=== PATIENT | male | born 1950 | race Caucasian/White ===

== ENCOUNTER 2017-02-28 15:57 | Inpatient (IN) ==
[2017-02-28 17:04] LABS: Hemoglobin 18.2 g/dL (12.9-16.9)
[2017-02-28 17:06] LABS: Basophils # 0.1 K/mcL (0.0-0.2); Basophils % 0.3 %; Hematocrit 50.5 % (37.5-50.1); Immature Granulocytes % 0.7 % (0-4); Lymphocytes # 1.3 K/mcL (0.6-4.6); Lymphocytes % 4.3 %; Mean Corpuscular Hemoglobin 30.5 pg (28.0-33.3); Mean Corpuscular Volume 84.7 fL (83.0-100.0); Mean Platelet Volume 10.7 fL (9.4-12.4); Neutrophils # 28.1 K/mcL (1.6-8.9); Platelet Count 271 K/mcL (140-400); Red Blood Count 5.96 M/mcL (4.19-5.50); Red Cell Distribution Width 13.1 % (11.5-14.5); Segmented Neutrophils % 90.7 %
[2017-02-28] MEDS ORDERED: 0.9 % Sodium Chloride 2,000 ML ONE (17:08)
[2017-02-28 17:17] LABS: BUN/Creatinine Ratio 20 (6-26); Blood Urea Nitrogen 20 mg/dL (8-26); Calcium 9.8 mg/dL (8.6-10.8); Carbon Dioxide 25 mEq/L (19-29); Chloride 103 mEq/L (98-109); Glucose 128 mg/dL (70-99); Osmolality,Calculated 286 (280-300); Potassium 3.6 mEq/L (3.5-4.5); Sodium 136 mEq/L (136-145); eGFR For African Americans > 60 (> 60); eGFR For Non-African Americans > 60 (> 60)
[2017-02-28] MEDS ORDERED: Aspirin 81 MG TAB.CHEW PO STA (17:17)
[2017-02-28 17:27] LABS: Monocytes # 1.2 K/mcL (0.0-1.3)
[2017-02-28 17:35] LABS: INR 1.2; Prothrombin Time 12.9 Seconds (9.4-12.1)
--- NOTE | 2017-02-28 17:36 | Emergency Department Note ---
Disposition Clinical Impression: Community acquired pneumonia STEMI (ST elevation myocardial infarction) Qualifiers: Involved coronary artery: LAD coronary artery Qualified Code(s): I21.02 - ST elevation (STEMI) myocardial infarction involving left anterior descending coronary artery Respiratory failure Qualifiers: Chronicity: acute Respiratory failure complication: hypoxia Qualified Code(s): J96.01 - Acute respiratory failure with hypoxia Disposition: Admitted As Inpatient Condition: Good Time of Disposition: 18:34 Chest Pain HPI - General Chief Complaint: ED Shortness of Breath/Dyspnea Stated Complaint: RED Time Seen by Provider: 02/28/17 16:48 Source: patient, family Limitations: no limitations Vital Signs Reviewed: Yes Nursing Notes Reviewed: Yes - History of Present Illness HPI Narrative: 66-year-old male pack per day smoker, hypertension presents with difficulty breathing. He has been having a cough for past 4 days and believed those his pneumonia. Feels like he has fluid on his lungs. He had pneumonia in the past and this is what felt like. EKG was performed in showed ST elevations in the septal leads greater than 2 mm. Patient denied any chest pain and a STEMI alert was not called. On my initial evaluation patient denies any chest pain. EKG was texted to the emergency nurse and agrees to not call. Recommends to call any new changes or positive troponin. After further interviewing he states some chest discomfort he noticed a day ago. While at rest when he got up to go watch TV he felt short of breath and described a sharp, shooting, aching chest pain in the left chest wall. He got diaphoretic denies any nausea or vomiting. Pain lasted for roughly 2 to 3 hours. He does not take any aspirin. Currently not having any pain right now. Family history of cardiac ischemic disease, brother age 47, father 54. Severity scale (1-10): 2 - Related Data Allergies Allergy/AdvReac Type Severity Reaction Status Date / Time No Known Allergies Allergy Verified 02/28/17 16:24 All systems ED: reviewed and negative except as stated. Constitutional: Denies: fever, chills Cardiovascular: Reports: chest pain Respiratory: Reports: cough, dyspnea Gastrointestinal: Denies: abdominal pain, nausea, vomiting Genitourinary: Denies: urgency, dysuria Musculoskeletal: Denies: back pain, neck pain Integumentary: Denies: rash, abrasion Neurological: Denies: headache Endocrine: Denies: fatigue Chest Pain PMH - Past Medical History Medical history: Reports: hypertension, seizures - Social History Smoking Status: Former smoker Alcohol use: Reports: none Drug use: Reports: none Physical Exam - General Limitations: no limitations General appearance: alert, in no apparent distress - Head Head exam: atraumatic, normocephalic, normal inspection - Eye Eye exam: Present: normal appearance, PERRL, EOMI - ENT ENT exam: normal exam, normal oropharynx, mucous membranes moist - Neck Neck exam: Present: normal inspection, full ROM, trachea midline - Chest Chest inspection: Present: normal inspection, symmetric chest wall rise - Respiratory Respiratory exam: Absent: respiratory distress, wheezes - Expanded Respiratory Exam Location: rhonchi: Left, Right - Cardiovascular Cardiovascular exam: Present: regular rate, normal rhythm, other (Distant heart sounds obscured by coarse rhonchi in bilateral lung knox) - Expanded Cardiovascular Exam Peripheral pulses: 2+: radial (R), radial (L) - Abdominal Exam Abdominal exam: Present: soft, Non-Tender, normal bowel sounds. Absent: tenderness, distention, guarding, rebound, rigidity - Extremities Exam Extremities exam: Present: normal inspection, full ROM, normal capillary refill. Absent: tenderness, pedal edema, calf tenderness - Neurological Exam Neurological exam: Present: alert, oriented X3, normal gait - Psychiatric Psychiatric exam: Present: normal affect, normal mood - Skin Skin exam: Present: warm, dry, intact, normal color Course - Reevaluation(s) Reevaluation #1: Unable to contact abstract maker. STEMI alert was initiated. Critical lab troponin greater than 50. Aspirin has been given here. ED STEMI order set initiated, placed on 180 mg Brillinta and Heparin. Patient denies any active bleeding, bloody stool, black tarry stool. He is in agreement with going to liaison inspection laboratory assistant. Concerned that he may be having some heart strain from his bilateral pneumonia. He has been started. Legs for community acquired pneumonia, azithromycin and ceftriaxone. Spoke to family including brother. They are glad that they were able to bring him in today as he has been feeling weak and complaining of difficulty breathing. They were unaware that he was complaining of any chest pain. Reevaluation #2: Patient became hypoxic 85%. He was placed on the non-rebreather 15 L. Team is at the bedside for evaluation and transfer. He became more hypoxic tachycardic 144. Elected to intubate. Patient was incubated under rapid sequence intubation 20 mg etomidate and 120 mg succinylcholine. He had vomitus in the airway but was successfully intubated under directly endoscopy 7.5 endotracheal tube. There is good color and good visualization of vocal cords. Time: 18:33 - Consultations Consultation #1: Unable to contact abstract maker Dr. Smith. Dr. Dejesus was able to contact Dr. Herrera, concerned for STEMI but due to no active chest pain, no STEMI alert initiated. Time: 17:45 Vital Signs Temperature 98.2 F 02/28/17 16:20 Pulse Rate 107 02/28/17 16:20 Respiratory Rate 18 02/28/17 16:20 Blood Pressure 190/131 02/28/17 16:20 O2 Sat by Pulse Oximetry 93 02/28/17 16:20 Temperature 98.2 F 02/28/17 18:09 Pulse Rate 132 02/28/17 18:09 Respiratory Rate 26 02/28/17 18:35 Blood Pressure 185/161 02/28/17 18:35 O2 Sat by Pulse Oximetry 92 02/28/17 18:10 Oxygen Delivery Oxygen Delivery Ambu Bag Procedures - Intubation Time out performed: No sedative: Etomidate Mg Given: 20 paralytic: Succinylcholine Mg Given: 120 Laryngoscope: Alberto ET Tube Size: 7.5 ET Tube Uncuffed: No Tube Secured Depth (cm): 23 Tube Secured Location: lips Tube Placement Confirmation: visualized tube passing through cords, equal breath sounds bilaterally, no breath sounds over epigastrium, confirmation by capnometry Patient Tolerated Procedure: well Intubation Complications: none Chest Pain - Medical Records Medical records reviewed: Yes I reviewed the patient's medical records. - Lab Data Lab results reviewed: Yes I reviewed the patient's lab results. Result diagrams: 02/28/17 16:55 02/28/17 16:55 Lab Results 02/28/17 02/28/17 02/28/17 Range/Units 16:55 16:55 16:55 WBC 31.0 H* (4.3-11.1) K/mcL RBC 5.96 H (4.19-5.50) M/mcL Hgb 18.2 H (12.9-16.9) g/dL Hct 50.5 H (37.5-50.1) % MCV 84.7 (83.0-100.0) fL MCH 30.5 (28.0-33.3) pg MCHC 36.0 H (31.6-35.5) g/dL RDW 13.1 (11.5-14.5) % Plt Count 271 (140-400) K/mcL MPV 10.7 (9.4-12.4) fL Immature Gran % 0.7 (0-4) % Seg Neutrophils % 90.7 % Lymphocytes % 4.3 % Monocytes % 4.0 % Eosinophils % 0.0 % Basophils % 0.3 % Neutrophils # 28.1 H (1.6-8.9) K/mcL Lymphocytes # 1.3 (0.6-4.6) K/mcL Monocytes # 1.2 (0.0-1.3) K/mcL Eosinophils # 0.0 (0.0-0.6) K/mcL Basophils # 0.1 (0.0-0.2) K/mcL PT (9.4-12.1) Seconds INR APTT (26.0-36.0) Seconds Sodium 136 (136-145) mEq/L Potassium 3.6 (3.5-4.5) mEq/L Chloride 103 (98-109) mEq/L Carbon Dioxide 25 (19-29) mEq/L BUN 20 (8-26) mg/dL Creatinine 1.02 (0.72-1.25) mg/dL Est GFR ( Amer) > 60 (> 60) Est GFR (Non-Af Amer) > 60 (> 60) BUN/Creatinine Ratio 20 (6-26) Glucose 128 H (70-99) mg/dL Calculated Osmolality 286 (280-300) Calcium 9.8 (8.6-10.8) mg/dL Troponin I > 50.00 H* (0-0.03) ng/mL B-Natriuretic Peptide (0-100) pg/mL 02/28/17 02/28/17 Range/Units 16:55 16:58 WBC (4.3-11.1) K/mcL RBC (4.19-5.50) M/mcL Hgb (12.9-16.9) g/dL Hct (37.5-50.1) % MCV (83.0-100.0) fL MCH (28.0-33.3) pg MCHC (31.6-35.5) g/dL RDW (11.5-14.5) % Plt Count (140-400) K/mcL MPV (9.4-12.4) fL Immature Gran % (0-4) % Seg Neutrophils % % Lymphocytes % % Monocytes % % Eosinophils % % Basophils % % Neutrophils # (1.6-8.9) K/mcL Lymphocytes # (0.6-4.6) K/mcL Monocytes # (0.0-1.3) K/mcL Eosinophils # (0.0-0.6) K/mcL Basophils # (0.0-0.2) K/mcL PT 12.9 H (9.4-12.1) Seconds INR 1.2 APTT 27.7 (26.0-36.0) Seconds Sodium (136-145) mEq/L Potassium (3.5-4.5) mEq/L Chloride (98-109) mEq/L Carbon Dioxide (19-29) mEq/L BUN (8-26) mg/dL Creatinine (0.72-1.25) mg/dL Est GFR ( Amer) (> 60) Est GFR (Non-Af Amer) (> 60) BUN/Creatinine Ratio (6-26) Glucose (70-99) mg/dL Calculated Osmolality (280-300) Calcium (8.6-10.8) mg/dL Troponin I (0-0.03) ng/mL B-Natriuretic Peptide 857 H (0-100) pg/mL - Radiology Data Radiology results reviewed: Yes I reviewed the patient's radiology results. Chest X-Ray 02/28/17 17:16 IMPRESSION: Bilateral airspace opacities are not significantly changed, concerning for multifocal pneumonia. D/ / Yazan Vaca MD / Yazan Vaca MD Interpreting Provider: Yazan Vaca MD - EKG Data EKG attestation: Yes I reviewed and interpreted this EKG. EKG results narrative: EKG performed 1629 sinus tachycardia 109 beats per minute, there is ST elevation greater than 2 mm. Patient is denying any active chest pain at this time. Initially concerned but without active symptoms STEMI alert not called. STEMI alert called at 1740 Heart Score - Score History: Moderately Suspicious EKG: Significant ST-Depression Age: Greater than 65 Risk Factors: Equal/Greater than 3 risk factor or history of atherosclerotic disease Troponin: Greater than 3x normal limit HEART Score Total: 9 Critical Care Time Critical Care Time: Yes Total Critical Care Time: 30 Attestation: Critical care time spent included medical management as well as consultation with cardiology and management of his [place].
[2017-02-28 17:38] LABS: Activated Partial Thrombo Time 27.7 Seconds (26.0-36.0)
[2017-02-28] MEDS ORDERED: *HR* Heparin 5,000 UNIT/ML VIAL ONE (17:41)
--- NOTE | 2017-02-28 17:43 | Emergency Department Note ---
START Narrative - START START: I examined this patient and my medical decision-making was reviewed with the CENSUS TAKER/PA/Advanced Practice Nurse/Resident Physician. I agree with the documented findings, disposition and treatment plan as described except to the extent set forth below. Patient had presented with strictly shortness of breath and just not feeling well. His initial EKG was worrisome for me however we were unable to get the patient back into a room as the ER was full. He had stated that he was not having any active chest pain but his EKG was concerning for possible septal GA. We attempted to reach Dr. Smith with cardiology but he never returned our pages. We then were able to get a hold of Dr. Herrera who I was able to send the EKG over to him. He Odyssey was concerned as well but thought this could be related to some ventricular hypertrophy. Patient was not having any chest pain at this time. His troponin came back elevated greater than 50 which obviously is concerning for an GA. We attempted to re-page Dr. Smith but he did not call us back. We then spoke with again who said that we should activate the STEMI team at this time. Patient has bilateral significant infiltrates consistent with likely pneumonia as he does have an elevated white count however one could not completely rule out acute CHF. At this point, the patient will be sent to the Geophysical [facility]. We will start him on IV antibiotics with Zithromax and Rocephin. He is currently chest pain-free but approximately 10 minutes ago told the nurse that he was having chest pressure. We will make sure the patient gets his aspirin and Plavix, heparin. his VSS at this time.
[2017-02-28] MEDS ORDERED: *HR* Heparin 5,000 UNIT/ML VIAL IVP ONE ×2 (17:44→21:12)
[2017-02-28] MEDS ORDERED: *HR* Heparin 5,000 UNIT/ML VIAL IVP PRN ×4 (17:44→21:12)
[2017-02-28] MEDS ORDERED: *HR* Ticagrelor 90 MG TABLET PO ONE (17:44)
[2017-02-28] MEDS ORDERED: Heparin 25,000 UNIT/500 ML D5W 25,000 UNIT/500 ML MLS IVC SCH ×2 (17:45→21:15)
[2017-02-28] MEDS: *HR* Ticagrelor 90 MG TABLET ONE (17:46)
[2017-02-28] MEDS: Azithromycin 500 MG in D5% in Water 250 ML IVPB ONE ×2 (17:47→20:16)
[2017-02-28] MEDS ORDERED: 0.9 % Sodium Chloride 1,000 ML ONE (17:55)
[2017-02-28] MEDS ORDERED: Verapamil 5 MG/2 ML VIAL ONE (17:55)
[2017-02-28] MEDS ORDERED: *HR* Heparin 10,000 UNIT/10 ML VIAL ONE (17:56)
[2017-02-28] MEDS ORDERED: Heparin 1,000 UNITS/500 mL NS 500 ML ONE ×2 (17:56→20:18)
[2017-02-28] MEDS ORDERED: Nitroglycerin 1,000 MCG/10 ML VIAL IV ONE (17:56)
[2017-02-28] MEDS ORDERED: *HR* Midazolam HCl 5 MG/5 ML VIAL IVP ONE (18:11)
[2017-02-28] MEDS ORDERED: *HR* FentaNYL (PF) 250 MCG/5 ML VIAL ONE (18:12)
[2017-02-28] MEDS ORDERED: Furosemide 40 MG/4 ML VIAL ONE ×2 (18:28→20:24)
[2017-02-28] MEDS ORDERED: Ondansetron 4 MG/2 ML VIAL IVP PRN (18:30)
[2017-02-28] MEDS ORDERED: Nitroglycerin 0.4 MG TAB.SUBL SL PRN (18:30)
[2017-02-28] MEDS ORDERED: *HR* Morphine 2 MG/ML SYRINGE IVP PRN (18:30)
--- NOTE | 2017-02-28 18:30 | Pre-Sedation Evaluation ---
Pre-sedation evaluation - Pre-sedation checklist Date of procedure: 02/28/17 Procedure: [facility] Recent Vitals: Last Vital Signs Temp 98.2 F 02/28/17 18:09 Pulse 132 02/28/17 18:09 Resp 32 02/28/17 18:09 BP 201/157 02/28/17 18:09 Pulse Ox 92 02/28/17 18:10 H&P (including ROS) documented in medical record: Yes Previous reaction to sedatives/anesthetics: No Dietary Status: unknown Airway Assessment: Patient can open mouth completely, TMJ function normal ASA Classification *see protocol: CLASS II-Mild systemic disease, E-EMERGENCY- Add to any of the above to indicate emergent Plan of Care: Pt appropriate candidate for procedure/moderate/conscious sedation , Risks/benefits of procedure/sedation discussed w/ patient/family, If not NPO; Risk of intake outweiged by necessity to perform procedure
[2017-02-28] MEDS ORDERED: *HR* Rocuronium Bromide 50 MG/5 ML VIAL IVP ONE (18:33)
[2017-02-28] MEDS ORDERED: 0.9 % Sodium Chloride 500 ML IV.SOLN IVC ONE (18:33)
[2017-02-28] MEDS ORDERED: *HR* Vecuronium 10 MG VIAL IVP ONE (18:33)
[2017-02-28] MEDS ORDERED: *HR* Propofol 200 MG/20 ML VIAL IVP ONE (18:33)
[2017-02-28] MEDS ORDERED: *HR* HYDROcodone/Acet 5/325 mg TABLET PO PRN (18:36)
[2017-02-28] MEDS ORDERED: *HR* OxyCODONE/APAP 5/325 TABLET PO PRN (18:36)
--- NOTE | 2017-02-28 18:40 | Cardiology History & Physical ---
Date of Encounter: 02/28/17 Time of Encounter: 18:30 Assessment and Plan (1) STEMI (ST elevation myocardial infarction) Current Visit: Yes Status: Acute Grim prognosis. Patient in cardiogenic shock with marked leukocytosis and troponin >50. Attempt to salvage myocardium and his life will be made. Emergent IABP and LHC to delineate any coronary disease amenable to revascularization. Aspirin, brilinta and heparin given in ED. Patient intubated. Acute kidney injury is to be expected with his clinical status. The assessment and plan as outlined above was discussed with the patient and/or family members who expressed understanding and agreement. All questions were answered. Qualifiers: Involved coronary artery: LAD coronary artery Qualified Code(s): I21.02 - ST elevation (STEMI) myocardial infarction involving left anterior descending coronary artery (2) Cardiogenic shock Current Visit: Yes Status: Acute Grim prognosis. Attempt will be made to salvage myocardium and his life. IABP prior to revascularization. Acute kidney injury is to be expected with this presentation. The assessment and plan as outlined above was discussed with the patient and/or family members who expressed understanding and agreement. All questions were answered. (3) Multifocal pneumonia Current Visit: No Status: Acute ? versus cardiogenic shock. continue abx coverage. The assessment and plan as outlined above was discussed with the patient and/or family members who expressed understanding and agreement. All questions were answered. (4) Respiratory failure Current Visit: Yes Status: Acute poor prognosis. continue supportive care. The assessment and plan as outlined above was discussed with the patient and/or family members who expressed understanding and agreement. All questions were answered. Qualifiers: Chronicity: acute Respiratory failure complication: hypoxia Qualified Code(s): J96.01 - Acute respiratory failure with hypoxia History of Present Illness Chief complaint: dyspnea HPI: Mr. Patel is a 66 year old male with no previous cardiac history presenting with dyspnea. Patient noted chest discomfort occurred last night, was severe and eventually self subsided. Patient arrived to ED, EKG concerning for acute PR anteroseptal and STEMI page activated. Patient was in respiratory distress and hypoxic when cath team arrived, patient was intubated and brought to [facility] for attempt to revascularlize and resuscitate him. Past Med Surg Social Fam HX - Past Medical History Medical history: hypertension, seizures - Social History Smoking Status: Former smoker Smokeless Tobacco Status: No Alcohol use: none Drug use: none Medications and Allergies Allergies No Known Allergies Allergy (Verified 02/28/17 16:24) ROS unobtainable: due to endotracheal tube, due to mental status All Systems Review: A 10-system review of systems was performed and is negative for pertinent findings except as documented above in the HPI. Physical Examination Vital Signs, Last 4 Hours Resp BP 02/28/17 18:35 26 185/161 General: Other (distressed then intubated) HEENT: Atraumatic, Normocephaly Neck: Normal carotid pulses Cardiac: Reg Rate and Rhythm Lungs: Other (bl crackles) Neuro: No focal deficits noted Abdomen: Soft Skin: No rashes noted on visualized skin Musculoskeletal: No Chest Wall Tenderness Extremities: No Cyanosis Results 02/28/17 16:55 02/28/17 16:55 - EKG Interpretation EKG results cardiology: personally reviewed, sinus rhythm (pvc and anteroseptal current of injury)
[2017-02-28] MEDS ORDERED: Tirofiban 12.5 MG/250ML 12.5 MG/250 ML BAG ONE (18:57)
[2017-02-28] MEDS ORDERED: *HR* Propofol 500 MG/50 ML BOTTLE IVP ONE (19:00)
[2017-02-28] MEDS: FentaNYL (PF) 1,000 MCG in 0.9 % Sodium Chloride 80 ML IVC SCH ×2 (19:00→20:19)
[2017-02-28] MEDS ORDERED: Nitroglycerin 25 MG/250 ML INFUS..BTL IVC ONE (19:05)
[2017-02-28 19:12] LABS: ABG Base Excess -13.2 mEq/L (-2.0 to 3.0); ABG HCO3 19.9 mEQ/L (21-27); ABG Oxygen Saturation 82 % (95-98); ABG PO2 69 mmHg (85-104); ABG TCO2 22.3 mEq/L (20-26)
[2017-02-28 19:15] LABS: ABG PH 7.01 pH Units (7.32-7.45)
[2017-02-28 19:16] LABS: ABG PCO2 79 mmHg (35-45); Blood Gas Modality ASSIST CONTROL
[2017-02-28 19:17] LABS: Blood Gas FiO2 100 %
[2017-02-28] MEDS ORDERED: Tirofiban 12.5 MG/250ML 12.5 MG/250 ML BAG IVC SCH (19:30)
[2017-02-28] MEDS ORDERED: Furosemide 80 MG in 0.9 % Sodium Chloride 50 ML IVPB ONE (20:04)
--- NOTE | 2017-02-28 20:11 | Invasive Diagnostic Lab Proc ---
Name: Kobe Patel Date of Study: 02/28/2017 Date: 1950 Ht: 70.1in Medical Record#: [id number] Age: 66 Wt: 220.46lb Gender: Male BSA: 2.18 Order #: [id number] BMI: 31.56 Physicians Procedure Physician: Sherman Smith MD, [facility] Referring MD: Referring MD: Staff Name Position Time In Sites, Meeta RT (R) Monitor 06:52 PM Sue Burr RT Scrub 06:52 PM Chris Dejesus RN Counter Former 06:52 PM Indications Indication STEMI Procedures Performed Procedure L HRT ARTERY/VENTRICLE ANGIO PRQ CARD REVASC NE 1 VSL Pre-Procedure Checklist Informed consent is complete signed and on chart. H&P is on chart. ID band is on and ID verified with patient. Patient NPO for procedure The procedure was described for the patient and questions were answered. Blood Pressure: 231/150 ECG is on chart. Rhythm: Sinus Tachycardia Plan of Care Patient will tolerate the procedure without complications. Adequate level of comfort will be maintained. Hemodynamics will remain stable Patient will recover from procedure without complications. Respiratory function will be maintained. Cardiac rhythm will remain stable. Patient temperature will be maintained. Patient and/or family have verbalized understanding of the procedure. Patient Education Chief Complaint/Reason for Test: Cardiac Cath Developmental Category: Geriatric (65+ years) Developmentally Appropriate for Age: Yes Learning Barriers: None Education Needs: Procedure Education Method: Verbal Information Taught: Cardiac Cath Educational Evaluation: Able to repeat information Intravenous Access Time IV Size Location DC'd Fluid/Drip Rate Units RN 20g 1 1/4" Patent On Arrival Rt Arm 18g 1 1/4" Patent On Arrival Lt Arm 25 ml/hr Chris Dejesus RN Allergies No Known Allergies Vital Signs Time BP (mmHg) HR (bpm) O2 Sat. RR (bpm) LOC 06:40 PM 231 / 150 % 06:42 PM 231 / 138 137 84 % 06:46 PM 199 / 127 131 82 % 16 06:48 PM 196 / 127 134 96 % 7 06:51 PM 182 / 118 129 92 % 22 06:54 PM 179 / 113 128 87 % 20 06:57 PM 179 / 106 125 86 % 21 07:00 PM 178 / 108 126 86 % 18 07:03 PM 187 / 111 123 86 % 25 07:06 PM 178 / 109 120 83 % 12 07:09 PM 192 / 114 116 84 % 12 07:12 PM 191 / 115 115 85 % 26 07:15 PM 180 / 105 114 87 % 12 07:18 PM 171 / 105 116 87 % 29 07:21 PM 177 / 103 114 87 % 17 07:24 PM 175 / 104 115 85 % 19 07:27 PM 162 / 92 111 86 % 26 07:30 PM 166 / 98 109 86 % 26 07:33 PM 150 / 88 108 85 % 21 07:36 PM 141 / 87 107 84 % 26 07:39 PM 132 / 80 106 84 % 19 Procedural Medications Time Medication Dose Units Method Given By 06:44 PM Oxygen L/min mechanical ventilator Chris Dejesus RN 06:44 PM Versed 2 mg Intravenous Chris Dejesus RN 06:44 PM Fentanyl 50 mcg Intravenous Chris Dejesus RN 06:50 PM Versed 2 mg Intravenous Chris Dejesus RN 06:50 PM Fentanyl 50 mcg Intravenous Chris Dejesus RN 06:53 PM Lidocaine 2% 15 ml Subcutaneous Sherman Smith MD, [facility] 07:01 PM Aggrastat Bolus: 50 ml Intravenous Chris Dejesus RN 07:01 PM Aggrastat 12.5mg/250ml 18 ml Intravenous Chris Dejesus RN 07:03 PM Nitroglycerin 200 mcg Intracoronary Sherman Smith MD 07:07 PM Versed 4 mg/hr Intravenous Chris Dejesus RN 07:07 PM Versed 2 mg Intravenous Chris Dejesus RN 07:09 PM Nitroglycerin 15 mcg/hr Intracoronary Chris Dejesus RN 07:16 PM Nitroglycerin 30 mcg/hr Intraccyndyary Chris Dejesus RN 07:16 PM Fentanyl 100 mcg/hr Intravenous Chris Dejesus RN 07:21 PM Nitroglycerin 200 mcg Intracoronary Sherman Smith MD 07:24 PM Nitroglycerin 45 mcg/hr Intracoronary Chris Dejesus RN 07:27 PM Sodium Bicarbonate 1 amp Intravenous Chris Dejesus RN ASA Classification: Emergent Procedure: ASA score is assumed Manolo Score Preprocedure Postprocedure Activity 0- Unable to move extremities or lift head Activity 0- Unable to move extremities or lift head Circulation 2- SBP +/= 20 points of pre-anesthetic level Circulation 2- SBP +/= 20 points of pre-anesthetic level Consciousness 0- Non-responsive Consciousness 0- Non-responsive O2 Saturation 0- O2 saturation 90% even with O2 supplement O2 Saturation 0- O2 saturation 90% even with O2 supplement Respiratory 0- Apneic requires ventilator or assisted respiration Respiratory 0- Apneic requires ventilator or assisted respiration Total Score 2 Total Score 2 Contrast Agent: Isovue Diagnostic Contrast: 162 ml Total Contrast: 162 ml Fluoro Dose: 803 mGy Activated Clotting Time Time Seconds to Clot 07:09 PM 324 Procedure Log Time Note Enter By 06:06 PM CathStat 06:38 PM Vitals capture started with the following parameters, Patient=Adult, Interval=3 min, Initial Ejketquf=350 mmHg, Deflation Rate=5 mmHg, Cuff placed on Right Arm 06:38 PM Patient charges- Angio tray pack, Navilyst 3mm J, Pulse Oximetry and ACIST tubing and transducer tsites 06:38 PM Pt arrived to [facility] 2 at 18:38 [email or web address] 06:38 PM Meeta Marie (R) Position: Monitor Time in: 18:38 [email or web address] 06:38 PM Sue Burr Position: Scrub Time in: 18:38 csmith 06:38 PM Chris Dejesus RN Position: Counter Former Time in: 18:38 csmith 06:39 PM Clinical Presentation: STEMI or equivalent tsites 06:39 PM Case Delayed No tsites 06:40 PM Physician arrived 18:40 tsites 06:40 PM DGCS=243/150 mmhg 06:42 PM IV=479 bpm, BNDE=295/138 mmhg, SpO2=84 % 06:44 PM Hair removed from procedure site in emergency department using clippers. Bilateral groin prepped with Chloraprep by Meeta Marie (R), safety strap applied then patient was draped. Skin intact. tsites 06:44 PM Time: 18:44 Oxygen on at L/min per mechanical ventilator by Chris Dejesus RN tsites 06:44 PM Time: 18:44 Versed 2 mg Intravenous Given by Chris Dejesus RN tsites 06:44 PM Time: 18:55 Fentanyl 50 mcg Intravenous Given by Chris Dejesus RN tsites 06:46 PM IE=508 bpm, RJMS=750/127 mmhg, SpO2=82 %, Resp=16 B/min 06:48 PM Recorded ECG: VY=347 Condition=Condition 1 06:48 PM VC=387 bpm, QCAR=264/127 mmhg, SpO2=96.0 %, Resp=7 B/min 06:50 PM Time: 18:50 Versed 2 mg Intravenous Given by Chris Dejesus RN tsites 06:50 PM Time: 18:50 Fentanyl 50 mcg Intravenous Given by Chris Dejesus RN tsites 06:51 PM WY=041 bpm, JVYR=838/118 mmhg, SpO2=92 %, Resp=22 B/min 06:52 PM Time out performed according to hospital policy tsites 06:52 PM Procedure start 18:52 tsites 06:52 PM Pressure channel 1 zeroed. 06:53 PM Time: 18:53 15 ml Lidocaine 2% to right groin Subcutaneous Given by Sherman Smith MD, [facility] tsites 06:54 PM RG=549 bpm, HZXR=887/113 mmhg, SpO2=87.0 %, Resp=20 B/min 06:54 PM Access obtained by percutaneous puncture. 4Fr 10cm Terumo [place] sheath placed in right Femoral vein. [id number] tsites 06:55 PM Access obtained by percutaneous puncture. 6Fr 10cm Terumo [place] sheath placed in right Femoral artery. [id number] tsites 06:56 PM 0.035 145cm Navilyst 3mmJ wire [id number] tsites 06:56 PM 5Fr FR 4 catheter inserted over the wire [facility] tsites 06:56 PM RCA angiography performed in multiple views. tsites 06:56 PM Recorded Pressure: Ao, JH=089, Condition=Condition 1 (Aorta) Ao 106/4/63 06:57 PM OO=447 bpm, YJRR=767/106 mmhg, SpO2=86 %, Resp=21 B/min 06:57 PM Catheter removed tsites 06:57 PM PCI Status Emergency tsites 06:57 PM PCI Indication: Immediate PCI for STEMI tsites 06:57 PM 6Fr EBU 3.5 Medtronic guide catheter was used to cannulate the PCI vessel successfully. reused? No tsites 06:58 PM LCA angiography performed in multiple views. tsites 06:58 PM Recorded Pressure: Ao, DA=525, Condition=Condition 1 (Aorta) Ao 21/-35/-18 07:00 PM JP=157 bpm, YMIO=597/108 mmhg, SpO2=86.0 %, Resp=18 B/min 07:01 PM Time: 19:01 Aggrastat Bolus: 50 ml Intravenous Given by Chris Dejesus RN Newman pump tsites 07:01 PM Time: 19:01 Aggrastat 12.5mg/250ml 18 ml Intravenous Given by Chris Dejesus RN Newman pump tsites 07:02 PM Inflation device was opened. tsites 07:02 PM .014 [place] 182cm guide wire across target lesion- successful. reused? No tsites 07:03 PM LO=826 bpm, NOBG=714/111 mmhg, SpO2=86 %, Resp=25 B/min 07:03 PM Time: 19:03 Nitroglycerin 200 mcg Intracoronary Given by Sherman Smith MD tsites 07:04 PM 2.25 mm x 12 mm Emerge Monorail balloon across target lesion- successful. reused? No tsites 07:05 PM Balloon inflated @ 10 favian for 10 seconds tsites 07:06 PM YC=401 bpm, WTOS=823/109 mmhg, SpO2=83 %, Resp=12 B/min 07:06 PM Balloon inflated @ 12 favian for 15 seconds tsites 07:07 PM Time: 19:07 Versed 4 mg/hr Intravenous Given by Chris Dejesus RN tsites 07:07 PM Time: 19:07 Versed 2 mg Intravenous Given by Chris Dejesus RN tsites 07:08 PM Balloon catheter removed intact. tsites 07:09 PM 2.5mm x 20mm Synergy drug-eluting stent across target lesion- successful Lot #[id number] tsites 07:09 PM SS=789 bpm, TIGR=600/114 mmhg, SpO2=84 %, Resp=12 B/min 07:09 PM Stent deployed @ 18 favian for 18 seconds tsites 07:09 PM Time: 19:09 Nitroglycerin 15 mcg/hr Intracoronary Given by Chris Dejesus RN tsites 07:09 PM At 19:09 the ACT was 324 seconds. tsites 07:12 PM EV=590 bpm, RQPL=557/115 mmhg, SpO2=85 %, Resp=26 B/min 07:12 PM Stent delivery system removed intact. tsites 07:12 PM 3.0mm x 16mm Synergy drug-eluting stent across target lesion- successful Lot #[id number] tsites 07:14 PM Stent deployed @ 16 favian for 14 seconds tsites 07:15 PM QD=731 bpm, CJRO=974/105 mmhg, SpO2=87 %, Resp=12 B/min 07:16 PM Stent delivery system removed intact. tsites 07:16 PM 4.0 mm x 8mm NC Trek Rx balloon across target lesion- successful. reused? No tsites 07:16 PM Time: 19:16 Nitroglycerin 30 mcg/hr Intracoronary Given by Chris Dejesus RN tsites 07:16 PM Time: 19:16 Fentanyl 100 mcg/hr Intravenous Given by Chris Dejesus RN tsites 07:18 PM Balloon inflated @ 12 favian for 6 seconds tsites 07:18 PM UI=794 bpm, HPEC=558/105 mmhg, SpO2=87.0 %, Resp=29 B/min 07:19 PM Guide wire removed intact. tsites 07:19 PM Balloon catheter removed intact. tsites 07:19 PM Guide catheter removed intact. tsites 07:20 PM 5Fr Pigtail catheter inserted over the wire [facility] tsites 07:21 PM ZS=892 bpm, BFBS=281/103 mmhg, SpO2=87.0 %, Resp=17 B/min 07:21 PM Recorded Pressure: LV, BQ=847, Condition=Condition 1 (Left Ventricle) LV 177/3/29 07:21 PM Catheter selectively placed in left ventricle tsites 07:21 PM Bolus angiogram of left Ventricle complete: 12 ml/sec for a total of 30 mls tsites 07:22 PM Time: 19:21 Nitroglycerin 200 mcg Intracoronary Given by Sherman Smith MD tsites 07:23 PM Recorded Pressure: LV, Ao, NH=246, Condition=Condition 1 (Left Ventricle) LV 160/17/20, (Aorta) Ao 159/99/122 07:23 PM Catheter removed tsites 07:23 PM Coronary Dominance: right tsites 07:24 PM Lesion found in Proximal LAD. Pre Stenosis: 99 Pre ELISE Flow: 2: Partial Flow/Perfusion (> 1 but < 3) tsites 07:24 PM RU=114 bpm, ZIXN=465/104 mmhg, SpO2=85.0 %, Resp=19 B/min 07:24 PM Lesion found in Mid LAD. Pre Stenosis: 95 Pre ELISE Flow: 2: Partial Flow/Perfusion (> 1 but < 3) tsites 07:24 PM Time: 19:24 Nitroglycerin 45 mcg/hr Intracoronary Given by Chris Dejesus RN tsites 07:25 PM Bolus angiogram of right Femoral complete: 2 ml/sec for a total of 4 mls tsites 07:25 PM Lesion found in Mid Circumflex. Pre Stenosis: 20 Pre ELISE Flow: tsites 07:26 PM Lesion found in Mid RCA. Pre Stenosis: 20 Pre ELISE Flow: tsites 07:26 PM Proximal Left Anterior Descending Coronary Artery with 99% stenosis. If graft is supplying this territory, 0 % stenosis. tsites 07:26 PM Mid/Distal Left Anterior Descending Coronary Artery and diagonal branches with 95% stenosis. If graft is supplying this area, 0 % stenosis tsites 07:26 PM Circumflex, Obtuse Marginal, Left Posterior Descending, and Left Posterolateral Coronary Arteries with 20 % stenosis. If graft is supplying this area, 0 % stenosis tsites 07:26 PM Right Coronary, Right Posterior Descending Arteries with Right Posterolateral and Acute Marginal branches with 20 % stenosis. If graft is supplying this area, 0 % stenosis tsites 07:26 PM Procedure completed at 19:26 tsites 07:27 PM RH=447 bpm, NJNP=002/92 mmhg, SpO2=86.0 %, Resp=26 B/min 07:27 PM Sign out completed: Radiation Dose 803 mGy Fluoro Time: 6.8 Isovue 370 - 500ml contrast 162 ml given by Sherman Smith MD, [facility]. Complications: NoneCardiac Rehab Consult needed: YesConfirmed administered medications: Yes tsites 07:27 PM Isovue 370 - 500ml,1 Bottle(s) used. tsites 07:27 PM Sheath left in place to be pulled on floor/holding areaV+Pad tsites 07:27 PM Time: 19:27 Sodium Bicarbonate 1 amp Intravenous Given by Chris Dejesus RN tsites 07:29 PM Time: 19:29 Brilinta 180 mg OG Given by Chris Dejesus RN tsites 07:30 PM CR=614 bpm, PFFW=904/98 mmhg, SpO2=86.0 %, Resp=26 B/min 07:32 PM Post ECG Sinus Tachycardia tsites 07:32 PM Post Blood Pressure 166/98 tsites 07:33 PM 19:32 Post Pulses Bilateral DP & PT 1+ tsites 07:33 PM HT=516 bpm, IECN=839/88 mmhg, SpO2=85.0 %, Resp=21 B/min 07:34 PM Information taught Cardiac Cath and PCI tsites 07:34 PM Education needs Procedure, Plan of Care, and Responsibilities of Patient in Care tsites 07:34 PM Learning barriers :None tsites 07:34 PM Education Methods Verbal tsites 07:34 PM Education evaluation Able to repeat information tsites 07:34 PM Site status No bleeding/hematoma - Rt Groin as reported by Sue Burr RT at 19:34 tsites 07:34 PM Opsite applied tsites 07:34 PM Plavix, Effient or Brilinta given Yes tsites 07:34 PM Delay to floor No tsites 07:34 PM Patient out of room: 19:34 tsites 07:34 PM Family placed in consult room. tsites 07:36 PM GI=170 bpm, YZGP=414/87 mmhg, SpO2=84 %, Resp=26 B/min 07:39 PM GS=980 bpm, SGJT=423/80 mmhg, SpO2=84 %, Resp=19 B/min 07:42 PM Vitals capture stopped. 07:59 PM Report given to veronica WILKINSON Pt taken to ICU Room #7. 19:59 tsites Complications Complication None Hemodynamics Pressures Site Systolic/A Wave Diastolic/V Wave Mean AO 106 4 63 AO 21 -35 -18 LV 177 3 29 LV 160 17 20 AO 159 99 122 Post Procedure Information Blood Pressure: 166/98 mmHg Rhythm: Sinus Tachycardia Post procedural instructions were given Closure Device Time Device Success/Fail 02/28/2017 7:59:00 PM Manual Compression Site Checks Time Location Status Staff Sheath In? Note 07:34 PM Rt Groin No bleeding/hematoma Sue Burr RT Yes Pulses Time Site Pre-Procedure Post-Procedure Note Bilateral DP & PT 1+ 7:32:00 PM Bilateral DP & PT 1+ Updated by Meeta Marie RT (R) on 02/28/2017 8:04:57 PM Meeta Marie RT electronically signed on 02/28/2017 8:05:34 PM with status of Final
[2017-02-28 20:14] LABS: ABG Base Excess -7.6 mEq/L (-2.0 to 3.0); ABG HCO3 21.1 mEQ/L (21-27); ABG Oxygen Saturation 85 % (95-98); ABG PCO2 54 mmHg (35-45); ABG PO2 62 mmHg (85-104); ABG TCO2 22.8 mEq/L (20-26)
[2017-02-28 20:17] LABS: Blood Gas FiO2 100 %; Blood Gas Modality BAGGING
[2017-02-28] MEDS: Nitroglycerin 25 MG/250 ML INFUS..BTL IVC SCH ×2 (20:21→23:12)
[2017-02-28] MEDS ORDERED: Furosemide 240 MG in D5% in Water 96 ML IVC SCH (20:30)
--- NOTE | 2017-02-28 20:37 | Event Note ---
Date of Encounter: 02/28/17 Time of Encounter: 20:30 - Cardiology Event Note Late presenting anteroseptal AK with Q waves complicated by pneumonia and pulmonary edema. Patient received 2 EVER to the LAD to restore ELISE 3 flow with good results. EF 35%. LVEDP moderately elevated at 22-24. 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 Ceftriaxone/azithromycin given in ED. WBC>30 seems to be in excess of stress reaction to AK. ABG shows acidosis, mixed respiratory/metabolic with acidosis. Aspirin, brilinta, heparin given in ED. IV aggrastat (G2b3a antiplatelet) given during intervention and to run for several hours after, brilinta reloaded as patient had gastric contents removed. Poor prognosis, continue supportive management overnight.
[2017-02-28] MEDS ORDERED: Vancomycin 1,500 MG in D5% in Water 250 ML IVPB SCH (21:00)
[2017-02-28] MEDS: *HR* Ticagrelor 90 MG TABLET PO SCH (21:01)
[2017-02-28] MEDS ORDERED: Ipratropium/Albuterol Neb 3 ML IH PRN (21:13)
[2017-02-28] MEDS: Vancomycin 1,500 MG in D5% in Water 250 ML IVPB SCH (21:16)
[2017-02-28 21:18] LABS: Basophils % 0.1 %; Hematocrit 48.1 % (37.5-50.1); Hemoglobin 16.7 g/dL (12.9-16.9); Immature Granulocytes % 1.7 % (0-4); Lymphocytes # 0.8 K/mcL (0.6-4.6); Lymphocytes % 2.6 %; Mean Corpuscular HGB Conc 34.7 g/dL (31.6-35.5); Mean Corpuscular Hemoglobin 30.3 pg (28.0-33.3); Mean Corpuscular Volume 87.3 fL (83.0-100.0); Mean Platelet Volume 10.8 fL (9.4-12.4); Monocytes % 2.8 %; Neutrophils # 28.3 K/mcL (1.6-8.9); Platelet Count 309 K/mcL (140-400); Red Blood Count 5.51 M/mcL (4.19-5.50); Red Cell Distribution Width 13.2 % (11.5-14.5); Segmented Neutrophils % 92.8 %
[2017-02-28 21:20] LABS: Monocytes # 0.9 K/mcL (0.0-1.3)
[2017-02-28 21:23] LABS: INR 1.2; Ionized Calcium 1.02 mmol/L (1.15-1.35); Prothrombin Time 13.2 Seconds (9.4-12.1)
[2017-02-28 21:25] LABS: Activated Partial Thrombo Time 33.6 Seconds (26.0-36.0)
[2017-02-28 21:33] LABS: Alanine Aminotransferase 63 Units/L (0-55); Albumin 2.8 g/dL (3.5-5.0); Albumin/Globulin Ratio 0.8 (1.1-2.2); Alkaline Phosphatase 89 Units/L (38-126); Aspartate Amino Transferase 335 Units/L (5-34); BUN/Creatinine Ratio 16 (6-26); Bilirubin,Direct 0.2 mg/dL (0.0-0.5); Bilirubin,Indirect 0.6 mg/dL (0.0-1.2); Bilirubin,Total 0.8 mg/dL (0.2-1.2); Blood Urea Nitrogen 20 mg/dL (8-26); Carbon Dioxide 26 mEq/L (19-29); Chloride 102 mEq/L (98-109); Globulin 3.3 g/dL (2.4-3.5); Glucose 182 mg/dL (70-99); Magnesium 1.7 mg/dL (1.6-2.6); Osmolality,Calculated 287 (280-300); Phosphorous 6.1 mg/dL (2.3-4.7); Sodium 135 mEq/L (136-145); Total Protein 6.1 g/dL (6.0-8.3); eGFR For African Americans > 60 (> 60); eGFR For Non-African Americans 57 (> 60)
[2017-02-28 21:34] LABS: ABG Base Excess -7.3 mEq/L (-2.0 to 3.0); ABG HCO3 20.9 mEQ/L (21-27); ABG Oxygen Saturation 98 % (95-98); ABG PCO2 51 mmHg (35-45); ABG PH 7.22 pH Units (7.32-7.45); ABG PO2 127 mmHg (85-104); ABG TCO2 22.5 mEq/L (20-26)
[2017-02-28 21:35] LABS: Calcium 8.1 mg/dL (8.6-10.8)
[2017-02-28 21:36] LABS: Potassium 5.4 mEq/L (3.5-4.5)
[2017-02-28 21:36] LABS: Blood Gas FiO2 100 %; Blood Gas Modality ASSIST CONTROL
--- NOTE | 2017-02-28 22:19 | Internal Medicine Consult Note ---
Date of Encounter: 02/28/17 Time of Encounter: 22:12 - Assessment and Plan (1) Acute respiratory failure Current Visit: Yes Status: Acute Assessment and plan: Likely multifactorial with pneumonia and pulmonary edema in the setting of ST elevation myocardial infarction. Patient is intubated on mechanical ventilation. Upon arrival to the intensive care unit from patient was hypoxic despite our percent FiO2 and PEEP of 15. Concern was for pulmonary edema so the patient was placed on a Lasix drip and oxygenation has improved. ABG shows mixed metabolic and respiratory acidosis which has been improving. We will wean FiO2 and PEEP as tolerated and continue to monitor ABGs. Qualifiers: Respiratory failure complication: hypoxia and hypercapnia Qualified Code(s) : J96.01 - Acute respiratory failure with hypoxia; J96.02 - Acute respiratory failure with hypercapnia (2) STEMI (ST elevation myocardial infarction) Current Visit: Yes Status: Acute Assessment and plan: Status post PCI with 2 drug-eluting stents to the LAD. Continue to rule antiplatelet therapy and heparin per cardiology recommendations. Further management per primary cardiology service. Qualifiers: Involved coronary artery: LAD coronary artery Qualified Code(s): I21.02 - ST elevation (STEMI) myocardial infarction involving left anterior descending coronary artery (3) Severe sepsis Current Visit: Yes Status: Acute Assessment and plan: Patient has leukocytosis, presented with tachycardia with presumed source to be pneumonia. Initial lactate was elevated at 2.8. Initial fluid resuscitation was not undertaken given the concern for pulmonary edema in the setting of myocardial infarction as discussed above. Antibiotics have been initiated, blood, urine, and sputum cultures have been sent. Repeat lactate remains elevated but this is likely related to underlying myocardial infarction. (4) Community acquired pneumonia Current Visit: Yes Status: Acute Assessment and plan: Chest x-ray is concerning for multifocal pneumonia. Given the patient's critical illness on the ventilator and in the intensive care unit we will broaden antibiotic coverage with vancomycin, Zosyn, Levaquin. Internal Medicine - CN: HPI - Data of Consult Patient: new to practice Consult date: 02/28/17 Requesting Physician: Sherman Smith MD - Consult Narrative Reason for consult: Resp Failure/PNA History of present illness: Mr. Patel is a 66 year old male with unknown medical history who presented with shortness of breath and chest pain. Patient is intubated and sedated so history is extremely limited as obtained from the medical record. Patient apparently presented with difficulty breathing and a cough for 4 days. Initial EKG showed ST elevation however the patient was not having any chest pain. Further questioning by the emergency department physician revealed that the patient had chest discomfort yesterday that resolved on its own. STEMI alert was called and the patient was taken to the [facility]. The patient received intervention on the LAD. Past Med Surg Social Fam HX - Past Medical History Medical history: hypertension, seizures - Social History Smoking Status: Former smoker Smokeless Tobacco Status: No Alcohol use: none Drug use: none ROS unobtainable: due to endotracheal tube Internal Medicine - CN: Meds Allergies No Known Allergies Allergy (Verified 02/28/17 16:24) Internal Medicine - CN: Exam - Constitutional Vitals: Temp Pulse Resp BP Pulse Ox 97.5 F L 96 24 118/74 99 02/28/17 20:00 02/28/17 21:59 02/28/17 21:59 02/28/17 21:59 02/28/17 21:59 Exam: Intubated and sedated. - Head Head exam: Present: atraumatic, normal inspection, normocephalic - Eye Eye exam: Present: PERRL - ENT ENT exam: Present: mucous membranes moist - Respiratory Respiratory exam: Present: rales (Bibasilar). Absent: rhonchi, wheezes - Cardiovascular Cardiovascular exam IM: Present: RRR. Absent: gallop, rubs, systolic murmur - GI/Abdominal GI/Abdominal exam IM: Present: normal bowel sounds, soft. Absent: distended, tenderness - Extremities Exam Extremities exam IM: Present: pedal edema (trace), warm. Absent: tenderness - Neurological Exam Additional comments: Patient is intubated and sedated. Internal Medicine - CN: Reslt - Labs CBC & Chem 7: 02/28/17 20:45 02/28/17 22:40 Labs: Short CBC 02/28/17 Range/Units 20:45 WBC 30.5 H* (4.3-11.1) K/mcL Hgb 16.7 D (12.9-16.9) g/dL Hct 48.1 (37.5-50.1) % Plt Count 309 (140-400) K/mcL Neutrophils # 28.3 H (1.6-8.9) K/mcL BMP 02/28/17 20:45 Sodium 135 L Potassium 5.4 H D Chloride 102 Carbon Dioxide 26 BUN 20 Creatinine 1.27 H Glucose 182 H Calcium 8.1 L D Liver Function 02/28/17 Range/Units 20:45 Total Bilirubin 0.8 (0.2-1.2) mg/dL Direct Bilirubin 0.2 (0.0-0.5) mg/dL AST 335 H (5-34) Units/L ALT 63 H (0-55) Units/L Alkaline Phosphatase 89 (38-126) Units/L Albumin 2.8 L (3.5-5.0) g/dL - ABG Interpretation ABG results: ABG ABG pH 7.22 pH Units (7.32-7.45) L 02/28/17 21:30 ABG pCO2 51 mmHg (35-45) H 02/28/17 21:30 ABG pO2 127 mmHg (85-104) H 02/28/17 21:30 ABG O2 Saturation 98 % (95-98) 02/28/17 21:30 PT/INR, D-dimer PT 13.2 Seconds (9.4-12.1) H 02/28/17 20:45 - Impressions Impressions Chest X-Ray 02/28/17 20:04 IMPRESSION: 1. Interval placement endotracheal tube with tip projecting 5 cm from the shani. 2. Enteric tube also identified which extends beyond the [id number] into the upper abdomen. 3. Multifocal airspace disease which is slightly progressed compared with prior exam. D/ / Himanshu Evans MD / Himanshu Evans MD Interpreting Provider: Himanshu Evans MD X-Ray 02/28/17 20:04 IMPRESSION: Enteric tube in the stomach as above. Diffuse bilateral airspace disease in the lung bases suggesting multifocal pneumonia or pulmonary edema. D/ / Valdemar Stanford MD / Valdemar Stanford MD Interpreting Provider: Valdemar Stanford MD Consult Discharge Plan - Plan Referrals: NO,PCP [Primary Care Provider] -
[2017-02-28] MEDS: Piperacillin/Tazobactam 3.375 GM in D5% in Water (Mini-Bag+) 100 ML IVPB SCH (23:02)
[2017-02-28 23:04] LABS: BUN/Creatinine Ratio 18 (6-26); Blood Urea Nitrogen 22 mg/dL (8-26); Carbon Dioxide 22 mEq/L (19-29); Chloride 105 mEq/L (98-109); Glucose 176 mg/dL (70-99); Osmolality,Calculated 288 (280-300); Potassium 4.5 mEq/L (3.5-4.5); Sodium 135 mEq/L (136-145); eGFR For African Americans > 60 (> 60); eGFR For Non-African Americans 60 (> 60)
[2017-02-28] MEDS: Furosemide 240 MG in D5% in Water 96 ML IVC SCH ×2 (23:53→23:55)
[2017-03-01] MEDS: FentaNYL (PF) 1,000 MCG in 0.9 % Sodium Chloride 80 ML IVC SCH ×4 (01:54→21:12)
[2017-03-01 04:03] LABS: ABG Base Excess -0.6 mEq/L (-2.0 to 3.0); ABG HCO3 24.9 mEQ/L (21-27); ABG Oxygen Saturation 91 % (95-98); ABG PCO2 43 mmHg (35-45); ABG PH 7.37 pH Units (7.32-7.45); ABG PO2 63 mmHg (85-104); ABG TCO2 26.2 mEq/L (20-26)
[2017-03-01 04:04] LABS: Blood Gas FiO2 60 %; Blood Gas Modality ASSIST CONTROL
[2017-03-01 04:07] LABS: Basophils % 0.2 %; Immature Granulocytes % 0.5 % (0-4); Lymphocytes % 4.7 %; Mean Corpuscular HGB Conc 35.1 g/dL (31.6-35.5); Mean Corpuscular Hemoglobin 30.1 pg (28.0-33.3); Mean Corpuscular Volume 85.8 fL (83.0-100.0); Mean Platelet Volume 10.6 fL (9.4-12.4); Monocytes # 0.9 K/mcL (0.0-1.3); Monocytes % 4.3 %; Neutrophils # 19.1 K/mcL (1.6-8.9); Platelet Count 247 K/mcL (140-400); Red Blood Count 5.01 M/mcL (4.19-5.50); Red Cell Distribution Width 13.2 % (11.5-14.5); Segmented Neutrophils % 90.3 %
[2017-03-01 04:08] LABS: Hemoglobin 15.1 g/dL (12.9-16.9)
[2017-03-01 04:18] LABS: Hemoglobin A1C 4.9 %
[2017-03-01 04:20] LABS: Alanine Aminotransferase 63 Units/L (0-55); Albumin 2.7 g/dL (3.5-5.0); Albumin/Globulin Ratio 0.9 (1.1-2.2); Alkaline Phosphatase 68 Units/L (38-126); Aspartate Amino Transferase 286 Units/L (5-34); BUN/Creatinine Ratio 18 (6-26); Bilirubin,Direct 0.3 mg/dL (0.0-0.5); Bilirubin,Indirect 0.3 mg/dL (0.0-1.2); Bilirubin,Total 0.6 mg/dL (0.2-1.2); Blood Urea Nitrogen 25 mg/dL (8-26); Calcium 8.3 mg/dL (8.6-10.8); Carbon Dioxide 22 mEq/L (19-29); Chloride 107 mEq/L (98-109); Globulin 2.9 g/dL (2.4-3.5); Glucose 141 mg/dL (70-99); Magnesium 1.8 mg/dL (1.6-2.6); Osmolality,Calculated 293 (280-300); Sodium 138 mEq/L (136-145); Total Protein 5.6 g/dL (6.0-8.3); eGFR For African Americans > 60 (> 60); eGFR For Non-African Americans 52 (> 60)
[2017-03-01] MEDS ORDERED: *HR* Etomidate 20 MG/10 ML AMPUL IVP ONE (07:32)
[2017-03-01] MEDS ORDERED: *HR* Succinylcholine 200 MG/10 ML VIAL IVP ONE (07:32)
[2017-03-01] MEDS: Piperacillin/Tazobactam 3.375 GM in D5% in Water (Mini-Bag+) 100 ML IVPB SCH (08:25)
[2017-03-01] MEDS: Levofloxacin 750 MG/150 ML 750 MG/150 ML BAG IVPB SCH (08:25)
[2017-03-01] MEDS: *HR* Ticagrelor 90 MG TABLET PO SCH ×2 (08:26→20:43)
[2017-03-01] MEDS: Aspirin 81 MG TAB.CHEW PO SCH (08:26)
[2017-03-01] MEDS: Nitroglycerin 25 MG/250 ML INFUS..BTL IVC SCH ×3 (08:27→23:41)
[2017-03-01] MEDS: Vancomycin 1,500 MG in D5% in Water 250 ML IVPB SCH (08:28)
--- NOTE | 2017-03-01 09:05 | Invasive Diagnostic Lab ---
Name: Kobe Patel Date of Study: 02/28/2017 Date: 1950 Ht: 178.0 cm /70.1 in Medical Record#: [id number] Age: 66 Wt: 100. kg / 220.46 lb Account/Order#: [id number] Gender: Male BSA: 2.18 Order #: [id number] Fluoro Dose: 803 mGy BMI: 31.56 Procedure Physician: Sherman Smith MD, [facility] Referring MD: Referring MD: Procedures Performed: LEFT HEART CATH PCI of Acute UT Central Line placement Indications: STEMI Impressions: There is severe one vessel coronary artery disease. LVEF moderately abnormal EF 35% with moderately elevated LVEDP 20-24 Patient had successful PTCA/Drug-Eluting Stent placement in the proximal and mid LAD. Recommendations: Optimal medical therapy of patient's disease. Aggressive risk factor modification. Patient being referred for cardiac rehab. History/Risk Factors: seizures Hypertension Current/Recent Smoker Procedure Access obtained in the right Femoral artery by percutaneous puncture Patient had successful PTCA/Drug-Eluting Stent placement in the proximal and mid LAD. Central line placed in the right femoral vein via seldinger technique. Complications: None Contrast: Isovue 162ml Closure Device: Manual Compression Hemodynamics: Pressures Site Systolic/ A Wave Diastolic/ V Wave End Diastolic/ Mean HR AO 106 4 63 124 AO 21 -35 -18 127 LV 160 17 20 129 AO 159 99 122 117 LV Ventriculography Ejection Method: LV Gram Ejection Fraction: 35% - tachycardic Wall Motion: VEGA Anterobasal Severe Hypokinesis Anterolateral Severe Hypokinesis Apical: Severe Hypokinesis Inferoapical Normal Inferobasal Normal Coronary Dominance: right Lesion Findings/Interventions * Left Main Coronary Artery The LMCA is angiographically free of disease. * Left Anterior Descending There is a 16 mm long, 99% stenosis in the Proximal LAD. The lesion has a ELISE flow of 2 and has thrombus present. An intervention was performed on the Proximal LAD with a final stenosis of 0%. There were no lesion complications. The final ELISE flow was 3. Proximal portion of stent PD with 4.0 NC. There is a 20 mm long, 95% stenosis in the Mid LAD. The lesion has a ELISE flow of 2 and has thrombus present. An intervention was performed on the Mid LAD with a final stenosis of 0%. There were no lesion complications. The final ELISE flow was 3. Diagonal 1 has proximal 70% stenosis. * Circumflex There is a 20% stenosis in the Mid Circumflex. * Right Coronary Artery There is a 15% stenosis in the Proximal RCA. Iliofemoral angiography shows no significant disease in the distal external iliac/BOTTLE PACKER/proximal profunda and SFA. Appropriate sheath placement in the BOTTLE PACKER. Interventional Device(s) Vessel Segment Type Name Diameter (mm) Length (mm) Proximal LAD Balloon NC Trek Rx 4 8 Proximal LAD Drug Eluting Stent Synergy 3 16 Mid LAD Drug Eluting Stent Synergy 2.5 20 Mid LAD Balloon Emerge Monorail 2.25 12 Updated by Meeta Marie, RT (R) on 02/28/2017 8:05:39 PM Sherman Smith MD, FACC electronically signed on 03/01/2017 8:59:02 AM with status of Final
[2017-03-01] MEDS ORDERED: Furosemide 80 MG in 0.9 % Sodium Chloride 50 ML IVPB ONE (09:10)
--- NOTE | 2017-03-01 09:44 | Cardiology Progress Note ---
Date of Encounter: 03/01/17 Time of Encounter: 08:00 Assessment and Plan (1) STEMI (ST elevation myocardial infarction) Current Visit: Yes Status: Acute Late presentation anteroseptal DE complicated by pnuemonia and pulmonary edema. S/p PCI to the proximal and mid LAD. EF 35%, LVEDP 22-24. Initially on NTG gtt and IV lasix for pulmonary edema and hypertension/ reduce pre-load. Wean off NTG and lasix discontinued this morning. B/p improved. Will restart lasix as needed. Monitor BMP. Mild elevation in SCr noted. TTE pending. Serial EKG. Continue DAPT uninterrupted for minimum of one year with asa and brilinta. Statin and bb. On heparin gtt until this afternoon. Aggrastat completed. Cardiac rehab consult placed. Qualifiers: Involved coronary artery: LAD coronary artery Qualified Code(s): I21.02 - ST elevation (STEMI) myocardial infarction involving left anterior descending coronary artery (2) Acute systolic CHF (congestive heart failure) Current Visit: Yes Status: Acute Acute systolic CHF. EF 35%. TTE pending. On lasix gtt overnight. Good urine output per nursing staff although not documented. Mild JVD noted. No peripheral edema. Mild increase in SCr likely secondary to DE. Will add back lasix as needed. Currently on ventilator support. Strict I&O and daily weights. (3) Community acquired pneumonia Current Visit: Yes Status: Acute Community acquired pneumonia suspected. CXR showed diffuse bilateral airspace disease in the lung bases suggesting multifocal pneumonia or pulmonary edema. On IV vancomycin and zosyn. Appreciate IM recommendations. (4) Respiratory failure Current Visit: Yes Status: Acute Remains on ventilator support. Likely secondary to PNA and pulmonary edema/ CHF. Qualifiers: Chronicity: acute Respiratory failure complication: hypoxia Qualified Code(s): J96.01 - Acute respiratory failure with hypoxia (5) Acute kidney injury Current Visit: Yes Status: Acute Mild ROYER noted, likely secondary to DE. Timing early for RAFAEL from LHC which usually occurs 3-4 days post LHC. Continue to monitor. Avoid nephrotoxins. Lasix gtt stopped. Discussion w patient/family: The assessment and plan as outlined above was discussed with the patient and/or family members who expressed understanding and agreement. All questions were answered. Thank you for involving us in the care of your patient. Please call with any questions. Subjective Principal diagnosis: STEMI, PNA Interval history: Pt remains intubated and sedated on ventilator. Objective Vital Signs, Last 4 Hours Temp Pulse Resp BP Pulse Ox 03/01/17 09:00 84 18 114/61 92 03/01/17 08:44 18 96/55 90 03/01/17 07:58 99.0 F 03/01/17 06:00 85 18 96/55 90 General: Other (sedated and intubated) HEENT: Atraumatic, Normocephaly, Mucus Membranes Moist Neck: Other (Mild JVD noted) Cardiac: Reg Rate and Rhythm, Normal S1 and S2, No Murmur Lungs: Normal Breath Sounds, No Wheeze, Rales, Rhonchi, Other (AC on ventilator) Neuro: Other (Sedated, does not wake with stimuli) Abdomen: Soft, Other (BS x4 +) Skin: No rashes noted on visualized skin Musculoskeletal: No Chest Wall Tenderness Extremities: No Clubbing, No Cyanosis, No Edema, Normal Pulses Results 03/01/17 04:00 03/01/17 04:00 Lab Results 02/28/17 02/28/17 02/28/17 20:45 20:45 20:45 WBC 30.5 H* Hgb 16.7 D Hct 48.1 Plt Count 309 INR 1.2 APTT 33.6 Sodium 135 L Potassium 5.4 H D Chloride 102 Carbon Dioxide 26 BUN 20 Creatinine 1.27 H Glucose 182 H Calcium 8.1 L D Magnesium 1.7 Total Bilirubin 0.8 AST 335 H ALT 63 H Alkaline Phosphatase 89 02/28/17 03/01/17 03/01/17 22:40 04:00 04:00 WBC 21.1 H Hgb 15.1 D Hct 43.0 Plt Count 247 INR APTT Sodium 135 L 138 Potassium 4.5 4.0 Chloride 105 107 Carbon Dioxide 22 22 BUN 22 25 Creatinine 1.21 1.37 H Glucose 176 H 141 H Calcium 8.0 L 8.3 L Magnesium 1.8 Total Bilirubin 0.6 AST 286 H ALT 63 H Alkaline Phosphatase 68 03/01/17 04:00 WBC Hgb Hct Plt Count INR APTT 88.9 H D Sodium Potassium Chloride Carbon Dioxide BUN Creatinine Glucose Calcium Magnesium Total Bilirubin AST ALT Alkaline Phosphatase KUB X-Ray 02/28/17 20:04 IMPRESSION: Enteric tube in the stomach as above. Diffuse bilateral airspace disease in the lung bases suggesting multifocal pneumonia or pulmonary edema. D/ / Valdemar Stanford MD / Valdemar Stanford MD Interpreting Provider: Valdemar Stanford MD Chest X-Ray 03/01/17 06:00 IMPRESSION: Stable chest. Diffuse bilateral pulmonary infiltrates with small left effusion. D/ / 03/01/2017 08:24:28 Mary Perez MD / joel Interpreting Provider: Mary Perez MD - Imaging and Cardiology Echo: pending Cardiac cath: report reviewed - EKG Interpretation EKG results cardiology: personally reviewed (Anteroseptal DE, ST elevation, ST depression in the inferior/ lateral lead) Consult Discharge Plan - Plan Referrals: NO,PCP [Primary Care Provider] -
[2017-03-01] MEDS ORDERED: Lacri-Lube 3.5 GM TUBE BOTH EYES PRN (11:45)
[2017-03-01] MEDS: Pantoprazole 40 MG VIAL IVP SCH (12:32)
[2017-03-01] MEDS: Lacri-Lube 3.5 GM TUBE BOTH EYES SCH ×4 (12:32→23:49)
--- NOTE | 2017-03-01 13:39 | Pulmonology Consult Note ---
Date of Encounter: 03/01/17 Time of Encounter: 13:39 Assessment and Plan (1) Acute respiratory failure with hypoxia and hypercarbia Current Visit: Yes Status: Acute Patient was short of breath in the emergency department and intubated due to hypoxic hypercarbic respiratory failure. He remains intubated at this time. There have been several ventilator changes which have helped to resolve his hypercarbia. Patient is day 1 status post 2 stents to his LAD. We will continue to keep the patient on the ventilator today. He does appear to have some significant pulmonary edema secondary to cardiogenic shock on his chest x- ray. We will continue to diurese the patient. His creatinine has increased however feel the benefits of diuresis will help the patient's respiratory status. This does not appear to be a infectious process we will de-escalate the antibiotics to Levaquin only pending cultures. We will continue to monitor for a leukocytosis. Patient has been off vasopressors overnight. Patient's BMP is elevated. There does appear to be significant pulmonary edema on his chest x-ray. LVEF: 25% Plan: Patient intubated and sedated. Beta david PPI for GI prophylaxis Heparin for DVT prophylaxis Continue diuresis Levaquin, cultures pending. Cardiology on board Aspirin, Brilinta, statin per cardiology. (2) Cardiogenic shock Current Visit: Yes Status: Acute (3) Pulmonary edema Current Visit: Yes Status: Acute Plan as above (4) STEMI (ST elevation myocardial infarction) Current Visit: Yes Status: Acute Cardiology on board. Patient status post 2 stents to LAD. Plan as above (5) Community acquired pneumonia Current Visit: Yes Status: Acute Patient in the setting of cardiogenic shock. Most likely the infiltrates are noted to be pulmonary edema. However we are covering the patient with Levaquin at this time with cultures pending. 8 leukocytosis that is resolving quickly. This could possibly be from his recent CO. History of Present Illness Consult date: 03/01/17 Requesting physician: Sherman Smith Chief complaint: STEMI History of present illness: Patient was admitted to the hospital for a STEMI. He was intubated in the emergency department secondary to shortness of breath. He had 2 stents placed in his LAD. His ejection fraction was found to be 35%. He did appear to be fluid overloaded. IV Lasix was began last night. He had some urine output however we will continue to diurese him today. Patient does not appear stable enough to wean from the ventilator at this time. Past Med Surg Social Fam HX - Past Medical History Medical history: hypertension, seizures - Social History Smoking Status: Former smoker Smokeless Tobacco Status: No Alcohol use: none Drug use: none Medications and Allergies Allergies No Known Allergies Allergy (Verified 02/28/17 16:24) ROS unobtainable: due to endotracheal tube, other (Patient intubated and sedated ) All Systems: A 10-system review of systems was performed and is negative for pertinent findings except as documented above in the HPI. Physical Examination Vital Signs: Vital Signs, Last 4 Hours Temp Pulse Resp BP Pulse Ox 03/01/17 13:15 74 18 90/53 94 03/01/17 12:28 98.9 F 03/01/17 12:23 73 18 87/51 92 03/01/17 11:54 18 89/52 91 03/01/17 11:15 78 18 93/53 92 03/01/17 10:34 83 22 96/53 93 General appearance: other (Patient intubated and sedated) Eyes: nonicteric ENT: oropharynx moist Neck: supple Effort: other (Anesthetic Assistant on the ventilator) Auscultation: bilateral: rales Cardiovascular: regular rate and rhythm Gastrointestinal: normoactive bowel sounds, soft, non-tender, non-distended Integumentary: normal Extremities: no cyanosis, no edema, no clubbing, pink and warm, pulses normal Musculoskeletal: no deformities other (Patient intubated and sedated) Ventilator Settings Ventilator Settings: Ventilator Settings, Last 8 Hours Ventilator Mode VC+ Ventilator Mode VC+ Ventilator Mode VC+ Ventilator Mode VC+ Ventilator Mode VC+ Ventilator Mode A/C Ventilator Mode A/C Ventilator Mode A/C Ventilator Tidal Volume 550 Setting Ventilator Tidal Volume 550 Setting Ventilator Tidal Volume 550 Setting Ventilator Tidal Volume 550 Setting Ventilator Tidal Volume 550 Setting Ventilator Tidal Volume 550 Setting Ventilator Tidal Volume 550 Setting Ventilator Tidal Volume 550 Setting Ventilator Respiratory Rate 18 Setting Ventilator Respiratory Rate 18 Setting Ventilator Respiratory Rate 18 Setting Ventilator Respiratory Rate 18 Setting Ventilator Respiratory Rate 18 Setting Ventilator Respiratory Rate 18 Setting Ventilator Respiratory Rate 18 Setting Ventilator Respiratory Rate 18 Setting Actual Respiratory Rate 18 Actual Respiratory Rate 18 Actual Respiratory Rate 23 Actual Respiratory Rate 23 Actual Respiratory Rate 18 Actual Respiratory Rate 18 Actual Respiratory Rate 19 Actual Respiratory Rate 19 Positive End Expiratory 5 Pressure Positive End Expiratory 5 Pressure Positive End Expiratory 5 Pressure Positive End Expiratory 5 Pressure Positive End Expiratory 5 Pressure Positive End Expiratory 5 Pressure Positive End Expiratory 5 Pressure Positive End Expiratory 5 Pressure Peak Inspiratory Airway 25 Pressure Peak Inspiratory Airway 26 Pressure Peak Inspiratory Airway 26 Pressure Peak Inspiratory Airway 18 Pressure Peak Inspiratory Airway 23 Pressure Peak Inspiratory Airway 26 Pressure Peak Inspiratory Airway 28 Pressure Peak Inspiratory Airway 24 Pressure Results - Laboratory Findings CBC and BMP: 03/01/17 04:00 03/01/17 04:00 ABG ABG pH 7.37 pH Units (7.32-7.45) 03/01/17 03:55 ABG pCO2 43 mmHg (35-45) 03/01/17 03:55 ABG pO2 63 mmHg (85-104) L 03/01/17 03:55 ABG O2 Saturation 91 % (95-98) L 03/01/17 03:55 PT/INR, D-dimer PT 13.2 Seconds (9.4-12.1) H 02/28/17 20:45 Abnormal lab findings: Abnormal lab results WBC 21.1 K/mcL (4.3-11.1) H 03/01/17 04:00 Neutrophils # 19.1 K/mcL (1.6-8.9) H 03/01/17 04:00 PT 13.2 Seconds (9.4-12.1) H 02/28/17 20:45 APTT 82.8 Seconds (26.0-36.0) H 03/01/17 11:05 ABG pO2 63 mmHg (85-104) L 03/01/17 03:55 ABG Total CO2 26.2 mEq/L (20-26) H 03/01/17 03:55 ABG O2 Saturation 91 % (95-98) L 03/01/17 03:55 Creatinine 1.37 mg/dL (0.72-1.25) H 03/01/17 04:00 Est GFR (Non-Af Amer) 52 (> 60) L 03/01/17 04:00 Glucose 141 mg/dL (70-99) H 03/01/17 04:00 POC Glucose 169 (58-89) H 02/28/17 19:58 Calcium 8.3 mg/dL (8.6-10.8) L 03/01/17 04:00 Ionized Calcium 1.02 mmol/L (1.15-1.35) L 02/28/17 20:45 Phosphorus 6.1 mg/dL (2.3-4.7) H 02/28/17 20:45 AST 286 Units/L (5-34) H 03/01/17 04:00 ALT 63 Units/L (0-55) H 03/01/17 04:00 Troponin I > 50.00 ng/mL (0-0.03) H* 02/28/17 16:55 B-Natriuretic Peptide 857 pg/mL (0-100) H 02/28/17 16:55 Serum Total Protein 5.6 g/dL (6.0-8.3) L 03/01/17 04:00 Albumin 2.7 g/dL (3.5-5.0) L 03/01/17 04:00 Albumin/Globulin Ratio 0.9 (1.1-2.2) L 03/01/17 04:00 - Microbiology Findings Microbiology Findings: Microbiology, Last 48 Hours 02/28/17 22:30 Sputum Culture - Preliminary Sputum 02/28/17 22:30 Legionella Antigen - Final Urine,[place] Streptococcus pneumoniae Antigen (M - Final - Diagnostic Findings Additional studies: KUB X-Ray 02/28/17 20:04 IMPRESSION: Enteric tube in the stomach as above. Diffuse bilateral airspace disease in the lung bases suggesting multifocal pneumonia or pulmonary edema. D/ / Valdemar Stanford MD / Valdemar Stanford MD Interpreting Provider: Valdemar Stanford MD Chest X-Ray 03/01/17 06:00 IMPRESSION: Stable chest. Diffuse bilateral pulmonary infiltrates with small left effusion. D/ / 03/01/2017 08:24:28 Mary Perez MD / joel Interpreting Provider: Mary Perez MD - Clinical Findings Intake & Output: Intake & Output 02/28/17 03/01/17 03/01/17 23:59 07:59 15:59 Intake Total 300 / 400 180 / 180 635 / 635 Output Total 1200 / 1200 600 / 600 250 / 250 Balance -900 / -800 -420 / -420 385 / 385 Consult Discharge Plan - Plan Referrals: NO,PCP [Primary Care Provider] -
--- NOTE | 2017-03-01 17:13 | Event Note ---
Date of Encounter: 03/01/17 Time of Encounter: 07:15 Please refer to pulmonary consult which was done by resident Dr. Hong. I examined this patient and my medical decision-making was reviewed with the FEATURES EDITOR/PA/Advanced Practice Nurse/Resident Physician. I agree with the documented findings, disposition and treatment plan as described except to the extent set forth below. Patient seen and examined. Labs, radiology, chart personally reviewed. 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 Continue aggressive diuresis and also increased PEEP on the ventilator hoping it will help pulmonary edema as well as lowering FiO2. Cardiovascular: Patient had intervention and he is on anticoagulant swell as beta david and antiplatelets. LAURA inhibitor when cardiology feel it appropriate. Continue diuresis. GI: Nutrition per dietary and GI prophylaxis per routine Heme: DVT prophylaxis per routine ID: Continue antibiotics and plan to de-escalation. I suspect this is not infectious etiology, will follow-up on cultures and if it is negative then can stop all the antibiotics. Renal; urine out put and renal funtion reviewed Endorcine: blood glucose is monitored Lines: all lines checked and no evidence of infections Skin: skin care to prevent pressure ulcers per nursing routine care I spent 35 min of Critical Care time with this patient. It involved decision making of high complexity to assess, manipulate, and support vital organ system failure and/or to prevent further life threatening deterioration of the patient' s condition. The time involved in the performance of separately reportable procedures was not counted toward critical care time.
[2017-03-01] MEDS ORDERED: Furosemide 40 MG/4 ML VIAL IVP ONE (17:16)
--- NOTE | 2017-03-01 17:19 | Electrocardiograph Report ---
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
--- NOTE | 2017-03-01 17:22 | Electrocardiograph Report ---
[address] [place] [address] Test Date: 2017-02-28 Pat Name: Kobe Patel Department: 102 Room: 07 Gender: M Nursing Coordinator: Act : 1950 Requested By: Sherman Smith Order Number: [id number] Reading MD: Howard Hinson DO Measurements Intervals [place] Rate: 117 P: 43 MS: 162 QRS: -11 QRSD: 87 T: 118 QT: 289 QTc: 359 Interpretive Statements SINUS TACHYCARDIA WITH OCCASIONAL SUPRAVENTRICULAR PREMATURE COMPLEXES ANTEROSEPTAL INFARCTION, POSSIBLE ACUTE ACUTE [place] Electronically Signed On 03-01-2017 17:20:51 EDT by Howard Hinson DO
--- NOTE | 2017-03-01 17:25 | Electrocardiograph Report ---
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
[2017-03-01] MEDS ORDERED: Magnesium Sulfate 2 GM in D5% in Water 100 ML IVPB PRN (17:28)
[2017-03-01] MEDS ORDERED: Calcium Gluconate 1,000 MG in D5% in Water 100 ML IVPB PRN (17:28)
[2017-03-01] MEDS ORDERED: Sodium Phosphate 30 MMOL in D5% in Water 100 ML IVPB PRN (17:28)
--- NOTE | 2017-03-01 17:33 | Electrocardiograph Report ---
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
--- NOTE | 2017-03-01 18:41 | Event Note ---
<HayStephanie Madison - Last Filed: 03/01/17 18:34> Date of Encounter: 03/01/17 Time of Encounter: 17:50 Notified by the patient's nurse that the patient is not moving his left lower extremity. She states that earlier today she could get him to move his left upper extremity and right lower extremity. She may Dr. Smith aware of this. She states she could not get up and out of his right upper or left lower. She states however she has decrease his sedation and now he is moving both upper extremities and only right lower extremity. When I pinch his left lower leg he does grimace. So I do believe that he has sensation in this. Head CT was performed. No signs of acute bleeding. We are unaware of the timeframe that this symptom is started or if this is possibly due to sedation. She will continue to monitor the patient. May need further imaging after the patient does fully wake up. Patient is signed out to Dr. Montoya. He is aware of the CT and the patient's physical findings. <Kate Kothari - Last Filed: 03/02/17 09:14> Date of Encounter: 03/02/17 This was discussed with the resident and agree with the note.
[2017-03-01] MEDS: Chlorhexidine Rinse 15 ML MOUTHWASH MM SCH (20:43)
[2017-03-01] MEDS: *HR* Heparin 5,000 UNIT/ML VIAL SQ SCH (21:02)
[2017-03-02 04:22] LABS: ABG Base Excess 2.5 mEq/L (-2.0 to 3.0); ABG HCO3 26.3 mEQ/L (21-27); ABG Oxygen Saturation 96 % (95-98); ABG PCO2 37 mmHg (35-45); ABG PH 7.46 pH Units (7.32-7.45); ABG PO2 78 mmHg (85-104); ABG TCO2 27.4 mEq/L (20-26)
[2017-03-02 04:23] LABS: Blood Gas FiO2 60 %; Blood Gas Modality VENT
[2017-03-02 04:23] LABS: Basophils % 0.3 %; Eosinophils % 0.3 %; Hematocrit 41.1 % (37.5-50.1); Hemoglobin 13.9 g/dL (12.9-16.9); Immature Granulocytes % 0.4 % (0-4); Lymphocytes # 1.3 K/mcL (0.6-4.6); Lymphocytes % 11.3 %; Mean Corpuscular HGB Conc 33.8 g/dL (31.6-35.5); Mean Corpuscular Hemoglobin 29.8 pg (28.0-33.3); Mean Platelet Volume 10.7 fL (9.4-12.4); Monocytes # 0.7 K/mcL (0.0-1.3); Monocytes % 5.6 %; Neutrophils # 9.7 K/mcL (1.6-8.9); Platelet Count 180 K/mcL (140-400); Red Blood Count 4.67 M/mcL (4.19-5.50); Red Cell Distribution Width 13.6 % (11.5-14.5); Segmented Neutrophils % 82.1 %
[2017-03-02 04:30] LABS: Ionized Calcium 1.05 mmol/L (1.15-1.35)
[2017-03-02 04:37] LABS: Calcium 8.8 mg/dL (8.6-10.8); Magnesium 1.7 mg/dL (1.6-2.6); Phosphorous 3.7 mg/dL (2.3-4.7); Potassium 3.5 mEq/L (3.5-4.5)
[2017-03-02] MEDS: Lacri-Lube 3.5 GM TUBE BOTH EYES SCH ×5 (04:45→20:12)
[2017-03-02] MEDS: *HR* Heparin 5,000 UNIT/ML VIAL SQ SCH ×3 (05:36→21:06)
[2017-03-02] MEDS: Nitroglycerin 25 MG/250 ML INFUS..BTL IVC SCH (05:55)
[2017-03-02] MEDS: FentaNYL (PF) 1,000 MCG in 0.9 % Sodium Chloride 80 ML IVC SCH ×3 (07:59→21:07)
[2017-03-02] MEDS: Pantoprazole 40 MG VIAL IVP SCH (08:29)
[2017-03-02] MEDS: Aspirin 81 MG TAB.CHEW PO SCH (08:29)
[2017-03-02] MEDS: *HR* Ticagrelor 90 MG TABLET PO SCH ×2 (08:29→20:11)
[2017-03-02] MEDS: Chlorhexidine Rinse 15 ML MOUTHWASH MM SCH ×2 (08:29→20:11)
[2017-03-02] MEDS: Levofloxacin 750 MG/150 ML 750 MG/150 ML BAG IVPB SCH (08:57)
--- NOTE | 2017-03-02 10:22 | Pulmonology Progress Note ---
Date of Encounter: 03/02/17 Time of Encounter: 10:20 Assessment and Plan (1) Acute respiratory failure Current Visit: Yes Status: Acute Acute respiratory failure with hypoxia in this individual is secondary to acute pulmonary edema from STEMI. Currently, all microbiological specimens reveal absence of organisms. With medical therapy including intervention for STEMI, the patient's FiO2 requirements have improved as has his follow-up chest radiographs (bilateral air space of the edema with bilateral effusions) hence antibiotics will be discontinued. Patient to continue to receive management for STEMI. Based upon the evaluation to date as well as finding of left lower extremity paresis, I suspect the patient may have had a stroke. He will eventually undergo additional imaging to include MR and perhaps vascular studies of the carotid distribution. Patient is to continue full ventilatory support and all other medical measures directed towards treatment of heart failure following STEMI. The patient is critically ill, requires ventilatory support for treatment of acute respiratory failure recently suffered from a STEMI. In total, 33 minutes of critical care time was provided for this patient's management in light of his life threatening medical problems. [facility] [phone] Qualifiers: Respiratory failure complication: hypoxia Qualified Code(s): J96.01 - Acute respiratory failure with hypoxia Code(s): J96.00 - Acute respiratory failure, unspecified whether with hypoxia or hypercapnia SNOMED Code(s): 55564084 Subjective Principal diagnosis: Acute respiratory failure with hypoxia, STEMI Interval history: The patient remains on full ventilatory support. A breathing trial was attempted however, the patient was poorly tolerant of the same due to high work of breathing. Patient remains on an FiO2 of approximately 60% and 8 of PEEP however saturations are 98% and hence FiO2 will be titrated downward. No acute overnight events were reported. The patient's hemodynamics blood pressure and the urine output are all acceptable. Of note, the patient continues to have absence of spontaneous movement of the left lower extremity which was noted yesterday as well. I am unable to obtain a review of systems from the patient in light of his clinical status. Objective PUL Vital signs: Last Vital Signs Temp 98.2 F 03/02/17 07:35 Pulse 85 03/02/17 06:00 Resp 18 03/02/17 09:07 BP 164/88 03/02/17 06:00 Pulse Ox 99 03/02/17 09:07 General appearance: no acute distress Eyes: nonicteric ENT: other (Orally intubated) Neck: supple Auscultation: bilateral: diminished breath sounds, rales Cardiovascular: regular rate and rhythm, other Gastrointestinal: normoactive bowel sounds, non-distended Extremities: no cyanosis, other (Minimal lower extremity edema (pulses intact.) Musculoskeletal: no deformities other (Patient does open eyes to name follows and tracks, only deficit seemingly is that of left lower extremity paresis) Ventilator Settings Ventilator Settings: Ventilator Settings, Last 8 Hours Ventilator Mode VC+ Ventilator Mode VC+ Ventilator Mode VC+ Ventilator Mode VC+ Ventilator Mode VC+ Ventilator Mode VC+ Ventilator Mode VC+ Ventilator Mode VC+ Ventilator Mode VC+ Ventilator Tidal Volume 550 Setting Ventilator Tidal Volume 550 Setting Ventilator Tidal Volume 550 Setting Ventilator Tidal Volume 550 Setting Ventilator Tidal Volume 550 Setting Ventilator Tidal Volume 550 Setting Ventilator Tidal Volume 550 Setting Ventilator Tidal Volume 550 Setting Ventilator Tidal Volume 550 Setting Ventilator Respiratory Rate 18 Setting Ventilator Respiratory Rate 18 Setting Ventilator Respiratory Rate 18 Setting Ventilator Respiratory Rate 18 Setting Ventilator Respiratory Rate 18 Setting Ventilator Respiratory Rate 18 Setting Ventilator Respiratory Rate 18 Setting Ventilator Respiratory Rate 18 Setting Ventilator Respiratory Rate 18 Setting Actual Respiratory Rate 18 Actual Respiratory Rate 18 Actual Respiratory Rate 18 Actual Respiratory Rate 18 Actual Respiratory Rate 18 Actual Respiratory Rate 18 Actual Respiratory Rate 18 Actual Respiratory Rate 18 Positive End Expiratory 8 Pressure Positive End Expiratory 8 Pressure Positive End Expiratory 8 Pressure Positive End Expiratory 8 Pressure Positive End Expiratory 8 Pressure Positive End Expiratory 8 Pressure Positive End Expiratory 8 Pressure Positive End Expiratory 8 Pressure Peak Inspiratory Airway 32 Pressure Peak Inspiratory Airway 34 Pressure Peak Inspiratory Airway 34 Pressure Peak Inspiratory Airway 33 Pressure Peak Inspiratory Airway 34 Pressure Peak Inspiratory Airway 34 Pressure Peak Inspiratory Airway 35 Pressure Peak Inspiratory Airway 35 Pressure Results - Laboratory Findings CBC and BMP: 03/02/17 04:00 03/02/17 04:00 ABG ABG pH 7.46 pH Units (7.32-7.45) H 03/02/17 04:15 ABG pCO2 37 mmHg (35-45) 03/02/17 04:15 ABG pO2 78 mmHg (85-104) L 03/02/17 04:15 ABG O2 Saturation 96 % (95-98) 03/02/17 04:15 PT/INR, D-dimer PT 13.2 Seconds (9.4-12.1) H 02/28/17 20:45 Abnormal lab findings: Abnormal lab results WBC 11.8 K/mcL (4.3-11.1) H 03/02/17 04:00 Neutrophils # 9.7 K/mcL (1.6-8.9) H 03/02/17 04:00 PT 13.2 Seconds (9.4-12.1) H 02/28/17 20:45 APTT 21.4 Seconds (26.0-36.0) L D 03/02/17 04:35 ABG pH 7.46 pH Units (7.32-7.45) H 03/02/17 04:15 ABG pO2 78 mmHg (85-104) L 03/02/17 04:15 ABG Total CO2 27.4 mEq/L (20-26) H 03/02/17 04:15 BUN 36 mg/dL (8-26) H D 03/02/17 04:00 Creatinine 1.88 mg/dL (0.72-1.25) H 03/02/17 04:00 Est GFR ( Amer) 44 (> 60) L 03/02/17 04:00 Est GFR (Non-Af Amer) 36 (> 60) L 03/02/17 04:00 Glucose 111 mg/dL (70-99) H 03/02/17 04:00 POC Glucose 114 (58-89) H 03/02/17 00:05 Ionized Calcium 1.05 mmol/L (1.15-1.35) L 03/02/17 04:00 AST 286 Units/L (5-34) H 03/01/17 04:00 ALT 63 Units/L (0-55) H 03/01/17 04:00 Troponin I > 50.00 ng/mL (0-0.03) H* 02/28/17 16:55 B-Natriuretic Peptide 857 pg/mL (0-100) H 02/28/17 16:55 Serum Total Protein 5.6 g/dL (6.0-8.3) L 03/01/17 04:00 Albumin 2.7 g/dL (3.5-5.0) L 03/01/17 04:00 Albumin/Globulin Ratio 0.9 (1.1-2.2) L 03/01/17 04:00 - Microbiology Findings Microbiology Findings: Microbiology, Last 48 Hours 02/28/17 18:27 Blood Culture - Preliminary Peripheral Venipuncture No growth. 02/28/17 22:30 Sputum Culture - Preliminary Sputum 02/28/17 22:30 Legionella Antigen - Final Urine,[place] Streptococcus pneumoniae Antigen (M - Final - Clinical Findings Intake & Output: Intake & Output 03/01/17 03/02/17 03/02/17 23:59 07:59 15:59 Intake Total 127 / 127 374 / 374 100 / 100 Output Total 400 / 400 525 / 525 Balance -273 / -273 -151 / -151 100 / 100 Weight 102.6 kg Consult Discharge Plan - Plan Referrals: NO,PCP [Primary Care Provider] -
--- NOTE | 2017-03-02 12:01 | Cardiology Progress Note ---
Date of Encounter: 03/02/17 Time of Encounter: 10:00 Assessment and Plan (1) STEMI (ST elevation myocardial infarction) Current Visit: Yes Status: Acute Late presentation anteroseptal PR complicated by pulmonary edema. S/p PCI to the proximal and mid LAD. EF 35%, LVEDP 22-24. TTE EF 25% with wall motion abnormalities in LAD distribution. Continues to require ventilator support. Appreciate pulmonlogy recommendations. Less likely PNA. IV lasix repeated yesterday. Unfortunately SCr continues to increase. Will consider nephrology consult if no improvement. Likely secondary to PR. Will avoid nephrotoxins. CXR showed improved pulmonary edema. BNP elevated at 856 on admission. Will continue to monitor. CVA suspected. Pt unable to move left leg. Noted to have fluctuation in b/p with PR. B/p up to 250/[address] head negative for acute events. SHows old infarcts. Further imaging once able. Continue DAPT uninterrupted for minimum of one year with asa and brilinta. Statin and bb. Cardiac rehab consult placed. Qualifiers: Involved coronary artery: LAD coronary artery Qualified Code(s): I21.02 - ST elevation (STEMI) myocardial infarction involving left anterior descending coronary artery (2) Acute systolic CHF (congestive heart failure) Current Visit: Yes Status: Acute Acute systolic CHF. EF 35%. TTE- EF 25%. Recieved repeat lasix yesterday evening. Mild JVD noted. No peripheral edema. Mild increase in SCr likely secondary to PR. Will add back lasix as needed. Continue to monitor. Currently on ventilator support. Strict I&O and daily weights. Cumulative I&O shows negative 936 ml. Continue carvedilol (3) Community acquired pneumonia Current Visit: Yes Status: Acute Possible pneumonia on CXR with WBC up to 30. On antibiotics. Preliminary sputum culture negative. Pulmonology following. (4) Respiratory failure Current Visit: Yes Status: Ruled-out Remains on ventilator support. Qualifiers: Chronicity: acute Respiratory failure complication: hypoxia Qualified Code(s): J96.01 - Acute respiratory failure with hypoxia (5) Acute kidney injury Current Visit: Yes Status: Acute Mild ROYER noted, likely secondary to PR. Timing early for RAFAEL from LHC which usually occurs 3-4 days post LHC. Continue to monitor. Avoid nephrotoxins. Discussion w patient/family: The assessment and plan as outlined above was discussed with the patient and/or family members who expressed understanding and agreement. All questions were answered. Thank you for involving us in the care of your patient. Please call with any questions. Subjective Principal diagnosis: Acute respiratory failure with hypoxia, STEMI Interval history: Pt remains intubated and sedated on ventilator. Arousable and following commands. No family at bedside. Objective Vital Signs, Last 4 Hours Pulse Resp BP Pulse Ox 03/02/17 11:10 18 97 03/02/17 11:00 76 18 116/77 99 03/02/17 10:00 86 18 146/92 97 03/02/17 09:07 18 99 03/02/17 09:00 75 18 121/75 97 03/02/17 08:00 75 18 139/82 95 General: No Apparent Distress, Other (Follows commands, remains intubated.) HEENT: Atraumatic Neck: Other (Mild JVD seen) Cardiac: Reg Rate and Rhythm, Normal S1 and S2, No Murmur Lungs: Other (Rhonci scattered through out) Neuro: Alert and responsive, Other (Left hand grasp less than right. Unable to move left leg.) Skin: No rashes noted on visualized skin Musculoskeletal: No Chest Wall Tenderness Extremities: No Clubbing, No Cyanosis, No Edema, Normal Pulses Results 03/02/17 04:00 03/02/17 04:00 Lab Results 03/02/17 03/02/17 03/02/17 04:00 04:00 04:35 WBC 11.8 H Hgb 13.9 Hct 41.1 Plt Count 180 APTT 21.4 L D Sodium 138 Potassium 3.5 Chloride 105 Carbon Dioxide 27 BUN 36 H D Creatinine 1.88 H Glucose 111 H Calcium 8.8 Magnesium 1.7 - Imaging and Cardiology Echo: report reviewed Consult Discharge Plan - Plan Referrals: NO,PCP [Primary Care Provider] -
[2017-03-02 14:15] LABS: Ionized Calcium 1.14 mmol/L (1.15-1.35)
[2017-03-02 14:16] LABS: Calcium 8.8 mg/dL (8.6-10.8); Magnesium 2.4 mg/dL (1.6-2.6); Potassium 3.9 mEq/L (3.5-4.5)
[2017-03-03] MEDS: Lacri-Lube 3.5 GM TUBE BOTH EYES SCH ×6 (00:04→20:43)
[2017-03-03 04:23] LABS: Ionized Calcium 1.16 mmol/L (1.15-1.35)
[2017-03-03 04:24] LABS: Basophils % 0.3 %; Eosinophils # 0.1 K/mcL (0.0-0.6); Eosinophils % 0.8 %; Hematocrit 37.3 % (37.5-50.1); Hemoglobin 12.4 g/dL (12.9-16.9); Immature Granulocytes % 0.5 % (0-4); Lymphocytes # 1.3 K/mcL (0.6-4.6); Lymphocytes % 12.6 %; Mean Corpuscular HGB Conc 33.2 g/dL (31.6-35.5); Mean Corpuscular Volume 90.1 fL (83.0-100.0); Mean Platelet Volume 10.7 fL (9.4-12.4); Monocytes # 0.6 K/mcL (0.0-1.3); Monocytes % 6.4 %; Neutrophils # 7.9 K/mcL (1.6-8.9); Platelet Count 164 K/mcL (140-400); Red Blood Count 4.14 M/mcL (4.19-5.50); Red Cell Distribution Width 13.6 % (11.5-14.5); Segmented Neutrophils % 79.4 %
[2017-03-03 04:30] LABS: BUN/Creatinine Ratio 28 (6-26); Blood Urea Nitrogen 37 mg/dL (8-26); Calcium 8.8 mg/dL (8.6-10.8); Carbon Dioxide 28 mEq/L (19-29); Chloride 107 mEq/L (98-109); Glucose 108 mg/dL (70-99); Magnesium 2.3 mg/dL (1.6-2.6); Osmolality,Calculated 299 (280-300); Phosphorous 2.8 mg/dL (2.3-4.7); Potassium 3.3 mEq/L (3.5-4.5); Sodium 140 mEq/L (136-145); eGFR For African Americans > 60 (> 60); eGFR For Non-African Americans 54 (> 60)
[2017-03-03 05:01] LABS: ABG Base Excess 2.8 mEq/L (-2.0 to 3.0); ABG HCO3 27.2 mEQ/L (21-27); ABG Oxygen Saturation 98 % (95-98); ABG PCO2 40 mmHg (35-45); ABG PH 7.44 pH Units (7.32-7.45); ABG PO2 100 mmHg (85-104); ABG TCO2 28.4 mEq/L (20-26)
[2017-03-03] MEDS: *HR* Heparin 5,000 UNIT/ML VIAL SQ SCH ×3 (05:17→20:43)
[2017-03-03] MEDS: FentaNYL (PF) 1,000 MCG in 0.9 % Sodium Chloride 80 ML IVC SCH ×2 (09:05→17:59)
[2017-03-03] MEDS: Chlorhexidine Rinse 15 ML MOUTHWASH MM SCH ×2 (09:10→20:42)
[2017-03-03] MEDS: Pantoprazole 40 MG VIAL IVP SCH (09:11)
[2017-03-03] MEDS: Furosemide 40 MG/4 ML VIAL IVP SCH (09:11)
[2017-03-03] MEDS: *HR* Ticagrelor 90 MG TABLET PO SCH ×2 (09:11→20:43)
[2017-03-03] MEDS: Aspirin 81 MG TAB.CHEW PO SCH (09:11)
--- NOTE | 2017-03-03 09:52 | Pulmonology Progress Note ---
Date of Encounter: 03/03/17 Time of Encounter: 09:50 Assessment and Plan (1) Acute respiratory failure Current Visit: Yes Status: Acute Acute respiratory failure with hypoxia in this individual is secondary to acute pulmonary edema from STEMI. Currently, all microbiological specimens reveal absence of organisms. With medical therapy including intervention for STEMI, the patient's FiO2 requirements have improved as has his follow-up chest radiographs (bilateral air space of the edema with bilateral effusions) hence antibiotics were discontinued. Patient to continue to receive management for STEMI. Lasix has been added in order to assist with resolution of pulmonary edema. Based upon the evaluation to date as well as finding of left lower extremity paresis, I suspect the patient may have had a stroke. He will eventually undergo additional imaging to include MR and perhaps vascular studies of the carotid distribution. Patient is to continue full ventilatory support and all other medical measures directed towards treatment of heart failure following STEMI. The patient is critically ill, requires ventilatory support for treatment of acute respiratory failure recently suffered from a STEMI. In total, 32 minutes of critical care time was provided for this patient's management in light of his life threatening medical problems. [facility] [phone] Qualifiers: Respiratory failure complication: hypoxia Qualified Code(s): J96.01 - Acute respiratory failure with hypoxia Code(s): J96.00 - Acute respiratory failure, unspecified whether with hypoxia or hypercapnia SNOMED Code(s): 28789607 Subjective Principal diagnosis: Acute respiratory failure with hypoxia, STEMI Interval history: The patient remains on full ventilatory support. A breathing trial was attempted however, the patient was poorly tolerant of the same due to high work of breathing. Patient remains on an FiO2 of approximately 60% and 8 of PEEP with acceptable saturation values via pulse oximetry. No acute overnight events were reported. The patient's hemodynamics blood pressure and the urine output are all acceptable. Of note, the patient continues to have absence of spontaneous movement of the left lower extremity which has been noted since the end of last week. I am unable to obtain a review of systems from the patient in light of his clinical status. Objective PUL Vital signs: Last Vital Signs Temp 99.6 F 03/03/17 07:28 Pulse 84 03/03/17 08:00 Resp 18 03/03/17 09:10 BP 137/80 03/03/17 08:00 Pulse Ox 98 03/03/17 09:10 General appearance: no acute distress, other (Orally intubated) Eyes: nonicteric Neck: supple, JVD Auscultation: bilateral: diminished breath sounds, rales Cardiovascular: regular rate and rhythm, other (Gallop) Gastrointestinal: normoactive bowel sounds, non-distended Extremities: no cyanosis, pink and warm unable to assess due to mental status (The patient is interactive and follows commands moves eyes moves all extremities except left lower.) Ventilator Settings Ventilator Settings: Ventilator Settings, Last 8 Hours Ventilator Mode VC+ Ventilator Mode VC+ Ventilator Mode VC+ Ventilator Mode VC+ Ventilator Mode VC+ Ventilator Mode VC+ Ventilator Mode VC+ Ventilator Mode VC+ Ventilator Mode VC+ Ventilator Mode VC+ Ventilator Mode VC+ Ventilator Tidal Volume 550 Setting Ventilator Tidal Volume 550 Setting Ventilator Tidal Volume 550 Setting Ventilator Tidal Volume 550 Setting Ventilator Tidal Volume 550 Setting Ventilator Tidal Volume 550 Setting Ventilator Tidal Volume 550 Setting Ventilator Tidal Volume 550 Setting Ventilator Tidal Volume 550 Setting Ventilator Tidal Volume 550 Setting Ventilator Tidal Volume 550 Setting Ventilator Respiratory Rate 18 Setting Ventilator Respiratory Rate 18 Setting Ventilator Respiratory Rate 18 Setting Ventilator Respiratory Rate 18 Setting Ventilator Respiratory Rate 18 Setting Ventilator Respiratory Rate 18 Setting Ventilator Respiratory Rate 18 Setting Ventilator Respiratory Rate 18 Setting Ventilator Respiratory Rate 18 Setting Ventilator Respiratory Rate 18 Setting Ventilator Respiratory Rate 18 Setting Actual Respiratory Rate 18 Actual Respiratory Rate 18 Actual Respiratory Rate 18 Actual Respiratory Rate 18 Actual Respiratory Rate 18 Actual Respiratory Rate 18 Actual Respiratory Rate 18 Actual Respiratory Rate 18 Actual Respiratory Rate 18 Actual Respiratory Rate 18 Positive End Expiratory 8 Pressure Positive End Expiratory 8 Pressure Positive End Expiratory 8 Pressure Positive End Expiratory 8 Pressure Positive End Expiratory 8 Pressure Positive End Expiratory 8 Pressure Positive End Expiratory 8 Pressure Positive End Expiratory 8 Pressure Positive End Expiratory 8 Pressure Positive End Expiratory 8 Pressure Positive End Expiratory 8 Pressure Peak Inspiratory Airway 32 Pressure Peak Inspiratory Airway 30 Pressure Peak Inspiratory Airway 30 Pressure Peak Inspiratory Airway 27 Pressure Peak Inspiratory Airway 27 Pressure Peak Inspiratory Airway 26 Pressure Peak Inspiratory Airway 27 Pressure Peak Inspiratory Airway 27 Pressure Peak Inspiratory Airway 29 Pressure Peak Inspiratory Airway 29 Pressure Results - Laboratory Findings CBC and BMP: 03/03/17 04:00 03/03/17 04:00 ABG ABG pH 7.44 pH Units (7.32-7.45) 03/03/17 04:53 ABG pCO2 40 mmHg (35-45) 03/03/17 04:53 ABG pO2 100 mmHg (85-104) 03/03/17 04:53 ABG O2 Saturation 98 % (95-98) 03/03/17 04:53 PT/INR, D-dimer PT 13.2 Seconds (9.4-12.1) H 02/28/17 20:45 Abnormal lab findings: Abnormal lab results RBC 4.14 M/mcL (4.19-5.50) L 03/03/17 04:00 Hgb 12.4 g/dL (12.9-16.9) L D 03/03/17 04:00 Hct 37.3 % (37.5-50.1) L 03/03/17 04:00 PT 13.2 Seconds (9.4-12.1) H 02/28/17 20:45 APTT 21.4 Seconds (26.0-36.0) L D 03/02/17 04:35 ABG HCO3 27.2 mEQ/L (21-27) H 03/03/17 04:53 ABG Total CO2 28.4 mEq/L (20-26) H 03/03/17 04:53 Potassium 3.3 mEq/L (3.5-4.5) L 03/03/17 04:00 BUN 37 mg/dL (8-26) H 03/03/17 04:00 Creatinine 1.33 mg/dL (0.72-1.25) H 03/03/17 04:00 Est GFR (Non-Af Amer) 54 (> 60) L 03/03/17 04:00 BUN/Creatinine Ratio 28 (6-26) H 03/03/17 04:00 Glucose 108 mg/dL (70-99) H 03/03/17 04:00 POC Glucose 114 (58-89) H 03/02/17 00:05 AST 286 Units/L (5-34) H 03/01/17 04:00 ALT 63 Units/L (0-55) H 03/01/17 04:00 Troponin I > 50.00 ng/mL (0-0.03) H* 02/28/17 16:55 B-Natriuretic Peptide 857 pg/mL (0-100) H 02/28/17 16:55 Serum Total Protein 5.6 g/dL (6.0-8.3) L 03/01/17 04:00 Albumin 2.7 g/dL (3.5-5.0) L 03/01/17 04:00 Albumin/Globulin Ratio 0.9 (1.1-2.2) L 03/01/17 04:00 - Microbiology Findings Microbiology Findings: Microbiology, Last 48 Hours 02/28/17 22:30 Sputum Culture - Final Sputum 02/28/17 18:27 Blood Culture - Preliminary Peripheral Venipuncture No growth. - Clinical Findings Intake & Output: Intake & Output 03/02/17 03/03/17 03/03/17 23:59 07:59 15:59 Intake Total 370 / 370 595 / 595 114 / 114 Output Total 475 / 475 325 / 325 Balance -105 / -105 270 / 270 114 / 114 Weight 102 kg Consult Discharge Plan - Plan Referrals: NO,PCP [Primary Care Provider] -
--- NOTE | 2017-03-03 10:23 | Cardiology Progress Note ---
Date of Encounter: 03/03/17 Time of Encounter: 10:20 Assessment and Plan (1) STEMI (ST elevation myocardial infarction) Current Visit: Yes Status: Acute Late presentation anteroseptal HI with troponin >50 on presentation complicated by pulmonary edema resulting in respiratory failure requiring intubation. S/p PCI to the proximal and mid LAD. EF 35%, LVEDP 22-24 during C. TTE EF 25% with wall motion abnormalities in LAD distribution. Continues to require ventilator support. Appreciate pulmonlogy recommendations. Less likely PNA, finishing course of antibiotics. IV lasix repeated yesterday. Unfortunately SCr continues to increase in setting of HI / CHF requiring diuresis. Likely secondary to HI. Will avoid nephrotoxins. CVA suspected. Noted to have fluctuation in b/p with HI. B/p up to 250/[address] head negative for acute events. Shows old infarcts. Further neuroimaging once able. Carotid duplex ordered. Continue DAPT uninterrupted for minimum of one year with asa and brilinta. Statin and bb. Cardiac rehab consult placed. Qualifiers: Involved coronary artery: LAD coronary artery Qualified Code(s): I21.02 - ST elevation (STEMI) myocardial infarction involving left anterior descending coronary artery (2) Multifocal pneumonia Current Visit: No Status: Acute ? versus cardiogenic shock. continue abx coverage. Cultures negative. The assessment and plan as outlined above was discussed with the patient and/or family members who expressed understanding and agreement. All questions were answered. (3) Respiratory failure Current Visit: Yes Status: Ruled-out Remains on ventilator support. IV lasix started today. Continue to monitor urine output. Qualifiers: Chronicity: acute Respiratory failure complication: hypoxia Qualified Code(s): J96.01 - Acute respiratory failure with hypoxia Discussion w patient/family: The assessment and plan as outlined above was discussed with the patient and/or family members who expressed understanding and agreement. All questions were answered. Thank you for involving us in the care of your patient. Please call with any questions. Subjective Principal diagnosis: Acute respiratory failure with hypoxia, STEMI Interval history: Intubated/sedated. No acute issues overnight Objective Vital Signs, Last 4 Hours Temp Pulse Resp BP Pulse Ox 03/03/17 09:10 18 98 03/03/17 09:00 76 18 122/71 03/03/17 08:06 18 97 03/03/17 08:00 84 18 137/80 03/03/17 07:28 99.6 F General: Other (intubated/sedated) HEENT: Atraumatic Neck: No JVD Cardiac: Reg Rate and Rhythm Lungs: Other (bl rales) Neuro: Other (sedated/intubated. lle weakness) Abdomen: Soft Skin: No rashes noted on visualized skin Musculoskeletal: No Chest Wall Tenderness Extremities: No Edema Results 03/03/17 04:00 03/03/17 04:00 Lab Results 03/02/17 03/03/17 03/03/17 13:54 04:00 04:00 WBC 9.9 Hgb 12.4 L D Hct 37.3 L Plt Count 164 Sodium 138 140 Potassium 3.9 3.3 L Chloride 106 107 Carbon Dioxide 25 28 BUN 36 H 37 H Creatinine 1.60 H 1.33 H Glucose 117 H 108 H Calcium 8.8 8.8 Magnesium 2.4 2.3 - EKG Interpretation EKG results cardiology: personally reviewed Consult Discharge Plan - Plan Referrals: NO,PCP [Primary Care Provider] -
[2017-03-03 14:09] LABS: BUN/Creatinine Ratio 26 (6-26); Blood Urea Nitrogen 33 mg/dL (8-26); Calcium 8.5 mg/dL (8.6-10.8); Carbon Dioxide 27 mEq/L (19-29); Chloride 109 mEq/L (98-109); Glucose 119 mg/dL (70-99); Osmolality,Calculated 302 (280-300); Potassium 3.6 mEq/L (3.5-4.5); Sodium 142 mEq/L (136-145); eGFR For African Americans > 60 (> 60); eGFR For Non-African Americans 56 (> 60)
[2017-03-04] MEDS: FentaNYL (PF) 1,000 MCG in 0.9 % Sodium Chloride 80 ML IVC SCH ×2 (03:26→15:31)
[2017-03-04 04:05] LABS: Basophils % 0.3 %; Eosinophils # 0.1 K/mcL (0.0-0.6); Eosinophils % 1.1 %; Hematocrit 34.7 % (37.5-50.1); Hemoglobin 11.6 g/dL (12.9-16.9); Immature Granulocytes % 0.7 % (0-4); Lymphocytes # 1.8 K/mcL (0.6-4.6); Lymphocytes % 17.8 %; Mean Corpuscular HGB Conc 33.4 g/dL (31.6-35.5); Mean Corpuscular Hemoglobin 30.7 pg (28.0-33.3); Mean Corpuscular Volume 91.8 fL (83.0-100.0); Mean Platelet Volume 10.9 fL (9.4-12.4); Monocytes # 0.9 K/mcL (0.0-1.3); Monocytes % 9.2 %; Platelet Count 162 K/mcL (140-400); Red Blood Count 3.78 M/mcL (4.19-5.50); Red Cell Distribution Width 13.3 % (11.5-14.5); Segmented Neutrophils % 70.9 %
[2017-03-04 04:10] LABS: Ionized Calcium 1.14 mmol/L (1.15-1.35)
[2017-03-04 04:18] LABS: BUN/Creatinine Ratio 30 (6-26); Blood Urea Nitrogen 34 mg/dL (8-26); Calcium 8.8 mg/dL (8.6-10.8); Carbon Dioxide 27 mEq/L (19-29); Chloride 111 mEq/L (98-109); Glucose 107 mg/dL (70-99); Magnesium 2.3 mg/dL (1.6-2.6); Osmolality,Calculated 304 (280-300); Phosphorous 4.1 mg/dL (2.3-4.7); Potassium 3.9 mEq/L (3.5-4.5); Sodium 143 mEq/L (136-145); eGFR For African Americans > 60 (> 60); eGFR For Non-African Americans > 60 (> 60)
[2017-03-04 04:37] LABS: ABG Base Excess 1.6 mEq/L (-2.0 to 3.0); ABG HCO3 25.8 mEQ/L (21-27); ABG Oxygen Saturation 94 % (95-98); ABG PCO2 38 mmHg (35-45); ABG PH 7.44 pH Units (7.32-7.45); ABG PO2 68 mmHg (85-104); Blood Gas FiO2 50 %; Blood Gas Modality ASSIST CONTROL
[2017-03-04] MEDS: Lacri-Lube 3.5 GM TUBE BOTH EYES SCH ×6 (05:33→20:10)
[2017-03-04] MEDS: *HR* Heparin 5,000 UNIT/ML VIAL SQ SCH ×2 (05:36→15:29)
--- NOTE | 2017-03-04 06:21 | Carotid Imaging Report ---
Carotid Duplex Patient Name:oKbe Patel Order Number:[id number] Procedure Date:03/03/2017 Date:1950Age:66 yrs Gender:Male Location:[facility] Room #: IC07 Well Blower:Zenon Ruiz, [facility] Referring MD:Sherman Smith MD, [facility] fiscal services director:None Reading MD:Haile Ha MD Study Quality:Technically Difficult Primary Indications:History of CVA Risk Factors Yes/No Hypertension Yes Hx of CVA Yes Impressions: The bilateral carotid arteries have minimal plaque throughout. Recommendations: After imaging the patient returned to their room. Findings Carotid Duplex: Right: The right proximal common carotid artery has a PSV of 94 cm/s and a EDV of 14 cm/s. There is nonstenotic plaque in the right mid common carotid artery with a PSV of 79 cm/s and a EDV of 17 cm/s. There is smooth heterogeneous plaque. There is nonstenotic plaque in the right distal common carotid artery with a PSV of 76 cm/s and a EDV of 19 cm/s. There is smooth heterogeneous plaque. There is nonstenotic plaque in the right bifurcation with a PSV of 70 cm/s and a EDV of 15 cm/s. There is calcified plaque. The right proximal internal carotid artery has a PSV of 60 cm/s and a EDV of 19 cm/s. The right mid internal carotid artery has a PSV of 60 cm/s and a EDV of 19 cm/s. The right distal internal carotid artery has a PSV of 106 cm/s and a EDV of 34 cm/s. The right eca has a PSV of 85 cm/s and a EDV of 14 cm/s. The right vertebral artery has a PSV of 57 cm/s and a EDV of 17 cm/s. Left: The left proximal common carotid artery has a PSV of 96 cm/s and a EDV of 17 cm/s. The left mid common carotid artery has a PSV of 86 cm/s and a EDV of 19 cm/s. The left distal common carotid artery has a PSV of 76 cm/s and a EDV of 16 cm/s. There is nonstenotic plaque in the left bifurcation with a PSV of 42 cm/s and a EDV of 11 cm/s. There is smooth calcified plaque. There is nonstenotic plaque in the left proximal internal carotid artery with a PSV of 62 cm/s and a EDV of 16 cm/s. There is smooth calcified plaque. The left mid internal carotid artery has a PSV of 52 cm/s and a EDV of 17 cm/s. The left distal internal carotid artery has a PSV of 58 cm/s and a EDV of 22 cm/s. The left eca has a PSV of 92 cm/s and a EDV of 12 cm/s. The left vertebral artery has a PSV of 39 cm/s and a EDV of 11 cm/s. Prior Study: No prior study available for comparison. Carotid Results Right PSV EDV Assessment Proximal CCA 94 14 Normal Mid CCA 79 17 Non Stenotic Plaque Distal CCA 76 19 Non Stenotic Plaque Bifurcation 70 15 Non Stenotic Plaque Proximal ICA 60 19 Normal Mid ICA 60 19 Normal Distal ICA 106 34 Normal ECA 85 14 Normal Vertebral Artery 57 17 Normal Left PSV EDV Assessment Proximal CCA 96 17 Normal Mid CCA 86 19 Normal Distal CCA 76 16 Normal Bifurcation 42 11 Non Stenotic Plaque Proximal ICA 62 16 Non Stenotic Plaque Mid ICA 52 17 Normal Distal ICA 58 22 Normal ECA 92 12 Normal Vertebral Artery 39 11 Normal Ratio's Right ICA/CCA Ratio: 1.34 ICA/CCA Values: 106/79 Left ICA/CCA Ratio: 0.72 ICA/CCA Values: 62/86 Updated by Haile Ha MD on 03/04/2017 6:13:20 AM electronically signed on 03/04/2017 6:13:43 AM with status of Final
--- NOTE | 2017-03-04 07:54 | Pulmonology Progress Note ---
<RajeevOskar neff Luis - Last Filed: 03/04/17 09:18> Date of Encounter: 03/04/17 Time of Encounter: 08:55 Assessment and Plan (1) Acute respiratory failure Current Visit: Yes Status: Acute Likely related to acute pulmonary edema in the setting of ST elevation NH. At this point infection appears much less likely so antibiotics and been discontinued. Continue diuresis to improve respiratory status. Patient continues to have paralysis of the left lower extremity. He moves other extremities spontaneously. Concern for CVA giving culturing blood pressures and critical illness. Will obtain MRI of the the brain and MR angiogram of the head. Qualifiers: Respiratory failure complication: hypoxia Qualified Code(s): J96.01 - Acute respiratory failure with hypoxia (2) STEMI (ST elevation myocardial infarction) Current Visit: Yes Status: Acute Qualifiers: Involved coronary artery: LAD coronary artery Qualified Code(s): I21.02 - ST elevation (STEMI) myocardial infarction involving left anterior descending coronary artery (3) Paralysis of left lower extremity Current Visit: Yes Status: Acute Subjective Principal diagnosis: Acute respiratory failure with hypoxia, STEMI Interval history: Patient seen and examined at bedside. Patient remains intubated and sedated. No acute events overnight. Objective PUL Vital signs: Last Vital Signs Temp 98.8 F 03/04/17 07:15 Pulse 68 03/04/17 06:00 Resp 18 03/04/17 06:00 BP 159/93 03/04/17 06:00 Pulse Ox 98 03/04/17 06:00 General appearance: comatose ENT: oropharynx moist Effort: normal Auscultation: bilateral: rales (Faint in the bases bilaterally) Cardiovascular: regular rate and rhythm Gastrointestinal: hypoactive bowel sounds, soft, non-tender Extremities: edema (Trace bilaterally), other (There is no spontaneous movement of the left lower extremity.) unable to assess due to mental status Ventilator Settings Ventilator Settings: Ventilator Settings, Last 8 Hours Ventilator Mode VC+ Ventilator Mode VC+ Ventilator Mode A/C Ventilator Mode VC+ Ventilator Mode VC+ Ventilator Mode VC+ Ventilator Mode VC+ Ventilator Mode VC+ Ventilator Mode VC+ Ventilator Tidal Volume 550 Setting Ventilator Tidal Volume 550 Setting Ventilator Tidal Volume 550 Setting Ventilator Tidal Volume 550 Setting Ventilator Tidal Volume 550 Setting Ventilator Tidal Volume 550 Setting Ventilator Tidal Volume 550 Setting Ventilator Tidal Volume 550 Setting Ventilator Tidal Volume 550 Setting Ventilator Respiratory Rate 18 Setting Ventilator Respiratory Rate 18 Setting Ventilator Respiratory Rate 18 Setting Ventilator Respiratory Rate 18 Setting Ventilator Respiratory Rate 18 Setting Ventilator Respiratory Rate 18 Setting Ventilator Respiratory Rate 18 Setting Ventilator Respiratory Rate 18 Setting Ventilator Respiratory Rate 18 Setting Actual Respiratory Rate 18 Actual Respiratory Rate 18 Actual Respiratory Rate 18 Actual Respiratory Rate 18 Actual Respiratory Rate 18 Actual Respiratory Rate 18 Actual Respiratory Rate 18 Actual Respiratory Rate 18 Positive End Expiratory 8 Pressure Positive End Expiratory 8 Pressure Positive End Expiratory 8 Pressure Positive End Expiratory 8 Pressure Positive End Expiratory 8 Pressure Positive End Expiratory 8 Pressure Positive End Expiratory 8 Pressure Positive End Expiratory 8 Pressure Positive End Expiratory 8 Pressure Peak Inspiratory Airway 35 Pressure Peak Inspiratory Airway 35 Pressure Peak Inspiratory Airway 35 Pressure Peak Inspiratory Airway 40 Pressure Peak Inspiratory Airway 40 Pressure Peak Inspiratory Airway 38 Pressure Peak Inspiratory Airway 38 Pressure Peak Inspiratory Airway 35 Pressure Results - Laboratory Findings CBC and BMP: 03/04/17 03:40 03/04/17 03:40 ABG ABG pH 7.44 pH Units (7.32-7.45) 03/04/17 04:25 ABG pCO2 38 mmHg (35-45) 03/04/17 04:25 ABG pO2 68 mmHg (85-104) L 03/04/17 04:25 ABG O2 Saturation 94 % (95-98) L 03/04/17 04:25 PT/INR, D-dimer PT 13.2 Seconds (9.4-12.1) H 02/28/17 20:45 Abnormal lab findings: Abnormal lab results RBC 3.78 M/mcL (4.19-5.50) L 03/04/17 03:40 Hgb 11.6 g/dL (12.9-16.9) L 03/04/17 03:40 Hct 34.7 % (37.5-50.1) L 03/04/17 03:40 PT 13.2 Seconds (9.4-12.1) H 02/28/17 20:45 APTT 21.4 Seconds (26.0-36.0) L D 03/02/17 04:35 ABG pO2 68 mmHg (85-104) L 03/04/17 04:25 ABG Total CO2 27.0 mEq/L (20-26) H 03/04/17 04:25 ABG O2 Saturation 94 % (95-98) L 03/04/17 04:25 Chloride 111 mEq/L (98-109) H 03/04/17 03:40 BUN 34 mg/dL (8-26) H 03/04/17 03:40 BUN/Creatinine Ratio 30 (6-26) H 03/04/17 03:40 Glucose 107 mg/dL (70-99) H 03/04/17 03:40 POC Glucose 165 (58-89) H 03/04/17 05:20 Calculated Osmolality 304 (280-300) H 03/04/17 03:40 Ionized Calcium 1.14 mmol/L (1.15-1.35) L 03/04/17 03:40 AST 286 Units/L (5-34) H 03/01/17 04:00 ALT 63 Units/L (0-55) H 03/01/17 04:00 Troponin I > 50.00 ng/mL (0-0.03) H* 02/28/17 16:55 B-Natriuretic Peptide 857 pg/mL (0-100) H 02/28/17 16:55 Serum Total Protein 5.6 g/dL (6.0-8.3) L 03/01/17 04:00 Albumin 2.7 g/dL (3.5-5.0) L 03/01/17 04:00 Albumin/Globulin Ratio 0.9 (1.1-2.2) L 03/01/17 04:00 - Microbiology Findings Microbiology Findings: Microbiology, Last 48 Hours 02/28/17 22:30 Sputum Culture - Final Sputum 02/28/17 18:27 Blood Culture - Preliminary Peripheral Venipuncture No growth. - Clinical Findings Intake & Output: Intake & Output 03/03/17 03/03/17 03/04/17 15:59 23:59 07:59 Intake Total 1022 / 1022 604 / 604 883 / 883 Output Total 1000 / 1000 200 / 200 500 / 500 Balance 404 / 404 383 / 383 Weight 84.912 kg Consult Discharge Plan - Plan Referrals: NO,PCP [Primary Care Provider] - <Ramos Muhammad - Last Filed: 03/04/17 11:51> Date of Encounter: 03/04/17 Assessment and Plan (1) Acute respiratory failure Current Visit: Yes Status: Acute Qualifiers: Respiratory failure complication: hypoxia Qualified Code(s): J96.01 - Acute respiratory failure with hypoxia Code(s): J96.00 - Acute respiratory failure, unspecified whether with hypoxia or hypercapnia SNOMED Code(s): 31195547 Objective PUL Vital signs: Last Vital Signs Temp 98.7 F 03/04/17 11:12 Pulse 61 03/04/17 10:00 Resp 18 03/04/17 11:18 BP 113/69 03/04/17 10:00 Pulse Ox 97 03/04/17 11:18 ENT: other (Orally intubated) Auscultation: bilateral: rales Cardiovascular: other (Gallop) other (Focal LLE weakness, paresis) Ventilator Settings Ventilator Settings: Ventilator Settings, Last 8 Hours Ventilator Mode VC+ Ventilator Mode VC+ Ventilator Mode VC+ Ventilator Mode VC+ Ventilator Mode VC+ Ventilator Mode VC+ Ventilator Mode VC+ Ventilator Mode A/C Ventilator Mode VC+ Ventilator Tidal Volume 550 Setting Ventilator Tidal Volume 550 Setting Ventilator Tidal Volume 550 Setting Ventilator Tidal Volume 550 Setting Ventilator Tidal Volume 550 Setting Ventilator Tidal Volume 550 Setting Ventilator Tidal Volume 550 Setting Ventilator Tidal Volume 550 Setting Ventilator Tidal Volume 550 Setting Ventilator Respiratory Rate 18 Setting Ventilator Respiratory Rate 18 Setting Ventilator Respiratory Rate 18 Setting Ventilator Respiratory Rate 18 Setting Ventilator Respiratory Rate 18 Setting Ventilator Respiratory Rate 18 Setting Ventilator Respiratory Rate 18 Setting Ventilator Respiratory Rate 18 Setting Ventilator Respiratory Rate 18 Setting Actual Respiratory Rate 18 Actual Respiratory Rate 18 Actual Respiratory Rate 18 Actual Respiratory Rate 18 Actual Respiratory Rate 18 Actual Respiratory Rate 18 Actual Respiratory Rate 18 Actual Respiratory Rate 18 Positive End Expiratory 8 Pressure Positive End Expiratory 8 Pressure Positive End Expiratory 8 Pressure Positive End Expiratory 8 Pressure Positive End Expiratory 8 Pressure Positive End Expiratory 8 Pressure Positive End Expiratory 8 Pressure Positive End Expiratory 8 Pressure Positive End Expiratory 8 Pressure Peak Inspiratory Airway 31 Pressure Peak Inspiratory Airway 30 Pressure Peak Inspiratory Airway 29 Pressure Peak Inspiratory Airway 29 Pressure Peak Inspiratory Airway 30 Pressure Peak Inspiratory Airway 35 Pressure Peak Inspiratory Airway 35 Pressure Peak Inspiratory Airway 35 Pressure Results - Laboratory Findings CBC and BMP: 03/04/17 03:40 03/04/17 03:40 ABG ABG pH 7.44 pH Units (7.32-7.45) 03/04/17 04:25 ABG pCO2 38 mmHg (35-45) 03/04/17 04:25 ABG pO2 68 mmHg (85-104) L 03/04/17 04:25 ABG O2 Saturation 94 % (95-98) L 03/04/17 04:25 PT/INR, D-dimer PT 13.2 Seconds (9.4-12.1) H 02/28/17 20:45 Abnormal lab findings: Abnormal lab results RBC 3.78 M/mcL (4.19-5.50) L 03/04/17 03:40 Hgb 11.6 g/dL (12.9-16.9) L 03/04/17 03:40 Hct 34.7 % (37.5-50.1) L 03/04/17 03:40 PT 13.2 Seconds (9.4-12.1) H 02/28/17 20:45 APTT 21.4 Seconds (26.0-36.0) L D 03/02/17 04:35 ABG pO2 68 mmHg (85-104) L 03/04/17 04:25 ABG Total CO2 27.0 mEq/L (20-26) H 03/04/17 04:25 ABG O2 Saturation 94 % (95-98) L 03/04/17 04:25 Chloride 111 mEq/L (98-109) H 03/04/17 03:40 BUN 34 mg/dL (8-26) H 03/04/17 03:40 BUN/Creatinine Ratio 30 (6-26) H 03/04/17 03:40 Glucose 107 mg/dL (70-99) H 03/04/17 03:40 POC Glucose 95 (58-89) H 03/04/17 11:01 Calculated Osmolality 304 (280-300) H 03/04/17 03:40 Ionized Calcium 1.14 mmol/L (1.15-1.35) L 03/04/17 03:40 AST 286 Units/L (5-34) H 03/01/17 04:00 ALT 63 Units/L (0-55) H 03/01/17 04:00 Troponin I > 50.00 ng/mL (0-0.03) H* 02/28/17 16:55 B-Natriuretic Peptide 857 pg/mL (0-100) H 02/28/17 16:55 Serum Total Protein 5.6 g/dL (6.0-8.3) L 03/01/17 04:00 Albumin 2.7 g/dL (3.5-5.0) L 03/01/17 04:00 Albumin/Globulin Ratio 0.9 (1.1-2.2) L 03/01/17 04:00 - Microbiology Findings Microbiology Findings: Microbiology, Last 48 Hours 02/28/17 22:30 Sputum Culture - Final Sputum 02/28/17 18:27 Blood Culture - Preliminary Peripheral Venipuncture No growth. - Clinical Findings Intake & Output: Intake & Output 03/03/17 03/04/17 03/04/17 23:59 07:59 15:59 Intake Total 604 / 604 983 / 983 200 / 200 Output Total 200 / 200 500 / 500 1000 / 1000 Balance 404 / 404 483 / 483 -800 / -800 Weight 84.912 kg
[2017-03-04] MEDS ORDERED: Aminoglycoside Consult 1 EACH MC ONE (08:17)
[2017-03-04] MEDS: Chlorhexidine Rinse 15 ML MOUTHWASH MM SCH ×2 (08:33→20:11)
[2017-03-04] MEDS: Aspirin 81 MG TAB.CHEW PO SCH (08:33)
[2017-03-04] MEDS: Furosemide 40 MG/4 ML VIAL IVP SCH (08:33)
[2017-03-04] MEDS: *HR* Ticagrelor 90 MG TABLET PO SCH ×2 (08:33→20:11)
[2017-03-04] MEDS: Pantoprazole 40 MG VIAL IVP SCH (08:33)
[2017-03-04] MEDS ORDERED: Levofloxacin 750 MG/150 ML 750 MG/150 ML BAG IVPB SCH (09:00)
--- NOTE | 2017-03-04 09:47 | Cardiology Progress Note ---
Date of Encounter: 03/05/17 Time of Encounter: 09:45 Assessment and Plan (1) STEMI (ST elevation myocardial infarction) Current Visit: Yes Status: Acute Late presentation anteroseptal MN with troponin >50 on presentation complicated by pulmonary edema resulting in respiratory failure requiring intubation. S/p PCI to the proximal and mid LAD. EF 35%, LVEDP 22-24 during C. TTE EF 25% with wall motion abnormalities in LAD distribution. Continues to require ventilator support. Appreciate pulmonlogy recommendations. Less likely PNA, finishing course of antibiotics. IV lasix repeated yesterday. Unfortunately SCr continues to increase in setting of MN / CHF requiring diuresis. Likely secondary to MN. Will avoid nephrotoxins. CVA suspected. Noted to have fluctuation in b/p with MN. B/p up to 250/[address] head negative for acute events. Shows old infarcts. MRI today. Carotid duplex ordered. Continue DAPT uninterrupted for minimum of one year with asa and brilinta. Statin and bb. Cardiac rehab consult placed. Qualifiers: Involved coronary artery: LAD coronary artery Qualified Code(s): I21.02 - ST elevation (STEMI) myocardial infarction involving left anterior descending coronary artery (2) Multifocal pneumonia Current Visit: No Status: Acute ? versus cardiogenic shock. continue abx coverage. Cultures negative. The assessment and plan as outlined above was discussed with the patient and/or family members who expressed understanding and agreement. All questions were answered. (3) Respiratory failure Current Visit: Yes Status: Ruled-out Remains on ventilator support. IV lasix. Continue to monitor urine output. Qualifiers: Chronicity: acute Respiratory failure complication: hypoxia Qualified Code(s): J96.01 - Acute respiratory failure with hypoxia Discussion w patient/family: The assessment and plan as outlined above was discussed with the patient and/or family members who expressed understanding and agreement. All questions were answered. Thank you for involving us in the care of your patient. Please call with any questions. Subjective Principal diagnosis: Acute respiratory failure with hypoxia, STEMI Interval history: Intubated/sedated. No acute issues overnight Objective Vital Signs, Last 4 Hours Temp Pulse Resp BP Pulse Ox 03/04/17 09:15 18 131/80 97 03/04/17 09:00 64 18 124/76 97 03/04/17 08:15 67 18 145/83 98 03/04/17 07:54 18 145/83 98 03/04/17 07:15 98.8 F 03/04/17 06:00 68 18 159/93 98 General: Other (intubated/sedated) HEENT: Atraumatic Neck: No JVD Cardiac: Reg Rate and Rhythm Lungs: Other (bl rhonchi, improved from yesterday) Neuro: Other (intubated/sedated) Abdomen: Soft Skin: No rashes noted on visualized skin Musculoskeletal: No Chest Wall Tenderness Extremities: No Edema Results 03/05/17 04:54 03/05/17 04:54 Lab Results 03/03/17 03/04/17 03/04/17 13:51 03:40 03:40 WBC 9.8 Hgb 11.6 L Hct 34.7 L Plt Count 162 Sodium 142 143 Potassium 3.6 3.9 Chloride 109 111 H Carbon Dioxide 27 27 BUN 33 H 34 H Creatinine 1.28 H 1.14 Glucose 119 H 107 H Calcium 8.5 L 8.8 Magnesium 2.3 Consult Discharge Plan - Plan Referrals: NO,PCP [Primary Care Provider] -
[2017-03-04] MEDS ORDERED: Furosemide 40 MG/4 ML VIAL IVP ONE (17:31)
[2017-03-05] MEDS: Lacri-Lube 3.5 GM TUBE BOTH EYES SCH ×6 (01:17→20:47)
[2017-03-05] MEDS: FentaNYL (PF) 1,000 MCG in 0.9 % Sodium Chloride 80 ML IVC SCH ×2 (04:18→19:55)
[2017-03-05 05:05] LABS: ABG Base Excess 4.6 mEq/L (-2.0 to 3.0); ABG HCO3 28.3 mEQ/L (21-27); ABG Oxygen Saturation 97 % (95-98); ABG PCO2 38 mmHg (35-45); ABG PH 7.48 pH Units (7.32-7.45); ABG PO2 89 mmHg (85-104); ABG TCO2 29.5 mEq/L (20-26)
[2017-03-05 06:14] LABS: Basophils % 0.4 %; Eosinophils # 0.2 K/mcL (0.0-0.6); Eosinophils % 1.6 %; Hematocrit 36.8 % (37.5-50.1); Hemoglobin 11.7 g/dL (12.9-16.9); Immature Granulocytes % 0.7 % (0-4); Lymphocytes # 1.1 K/mcL (0.6-4.6); Lymphocytes % 11.7 %; Mean Corpuscular HGB Conc 31.8 g/dL (31.6-35.5); Mean Corpuscular Hemoglobin 29.3 pg (28.0-33.3); Mean Corpuscular Volume 92.2 fL (83.0-100.0); Mean Platelet Volume 11.1 fL (9.4-12.4); Neutrophils # 7.2 K/mcL (1.6-8.9); Platelet Count 189 K/mcL (140-400); Red Blood Count 3.99 M/mcL (4.19-5.50); Red Cell Distribution Width 13.4 % (11.5-14.5); Segmented Neutrophils % 75.6 %
[2017-03-05 06:20] LABS: Ionized Calcium 1.16 mmol/L (1.15-1.35)
[2017-03-05] MEDS: *HR* Heparin 5,000 UNIT/ML VIAL SQ SCH ×2 (06:32)
[2017-03-05 06:34] LABS: BUN/Creatinine Ratio 32 (6-26); Blood Urea Nitrogen 37 mg/dL (8-26); Calcium 9.4 mg/dL (8.6-10.8); Carbon Dioxide 29 mEq/L (19-29); Chloride 110 mEq/L (98-109); Glucose 108 mg/dL (70-99); Magnesium 2.2 mg/dL (1.6-2.6); Osmolality,Calculated 307 (280-300); Phosphorous 4.6 mg/dL (2.3-4.7); Sodium 144 mEq/L (136-145); eGFR For African Americans > 60 (> 60); eGFR For Non-African Americans > 60 (> 60)
--- NOTE | 2017-03-05 07:26 | Pulmonology Progress Note ---
<RajeevOskar neff - Last Filed: 03/05/17 11:47> Date of Encounter: 03/05/17 Time of Encounter: 07:24 Assessment and Plan (1) Acute respiratory failure Current Visit: Yes Status: Acute Likely related to acute pulmonary edema in the setting of ST elevation [place]. At this point infection appears much less likely so antibiotics and been discontinued. Continue diuresis to improve respiratory status. Chest x-ray appears mildly improved. Patient continues to have paralysis of the left lower extremity. He moves other extremities spontaneously. Patient had MRI completed that shows multiple acute infarcts bilaterally suggestive of embolic phenomena. Source of these embolisms unclear at this time as the patient had minimal plaque on carotid Dopplers and has no history of atrial fibrillation. Discussed with cardiology and after review of telemetry appears the patient did have a short run of atrial fibrillation yesterday the patient may have undiagnosed paroxysmal atrial fibrillation. Differential diagnosis for the patient's embolic CVA includes intracardiac thrombus in the setting of A. fib or possibly related to left heart catheterization. We will heparinize the patient in the setting of possible A. fib with embolic CVA. Qualifiers: Respiratory failure complication: hypoxia Qualified Code(s): J96.01 - Acute respiratory failure with hypoxia (2) STEMI (ST elevation myocardial infarction) Current Visit: Yes Status: Acute Qualifiers: Involved coronary artery: LAD coronary artery Qualified Code(s): I21.02 - ST elevation (STEMI) myocardial infarction involving left anterior descending coronary artery (3) CVA (cerebral vascular accident) Current Visit: Yes Status: Acute Qualifiers: CVA mechanism: embolism Precerebral and cerebral artery: unspecified cerebral artery Qualified Code(s): I63.40 - Cerebral infarction due to embolism of unspecified cerebral artery Subjective Principal diagnosis: Acute respiratory failure with hypoxia, STEMI Interval history: Patient seen and examined at bedside. Patient remains intubated and sedated. No acute events overnight. Objective PUL Vital signs: Last Vital Signs Temp 98.4 F 03/05/17 05:02 Pulse 69 03/05/17 06:00 Resp 18 03/05/17 06:00 BP 126/71 03/05/17 06:00 Pulse Ox 96 03/05/17 06:00 General appearance: no acute distress, comatose ENT: oropharynx moist Effort: normal Auscultation: bilateral: clear Cardiovascular: regular rate and rhythm Gastrointestinal: normoactive bowel sounds, soft, non-tender, non-distended Extremities: no cyanosis, no edema, no clubbing other (Patient is intubated and sedated. Patient does move bilateral upper extremities and right lower extremity spontaneously. He does not move his left lower extremity and there is no withdrawal to pain) Ventilator Settings Ventilator Settings: Ventilator Settings, Last 8 Hours Ventilator Mode VC+ Ventilator Mode VC+ Ventilator Mode VC+ Ventilator Mode VC+ Ventilator Mode VC+ Ventilator Mode VC+ Ventilator Mode VC+ Ventilator Mode VC+ Ventilator Mode VC+ Ventilator Mode VC+ Ventilator Mode VC+ Ventilator Tidal Volume 550 Setting Ventilator Tidal Volume 550 Setting Ventilator Tidal Volume 550 Setting Ventilator Tidal Volume 550 Setting Ventilator Tidal Volume 550 Setting Ventilator Tidal Volume 550 Setting Ventilator Tidal Volume 550 Setting Ventilator Tidal Volume 550 Setting Ventilator Tidal Volume 550 Setting Ventilator Tidal Volume 550 Setting Ventilator Tidal Volume 550 Setting Ventilator Respiratory Rate 18 Setting Ventilator Respiratory Rate 18 Setting Ventilator Respiratory Rate 18 Setting Ventilator Respiratory Rate 18 Setting Ventilator Respiratory Rate 18 Setting Ventilator Respiratory Rate 18 Setting Ventilator Respiratory Rate 18 Setting Ventilator Respiratory Rate 18 Setting Ventilator Respiratory Rate 18 Setting Ventilator Respiratory Rate 18 Setting Ventilator Respiratory Rate 18 Setting Actual Respiratory Rate 18 Actual Respiratory Rate 18 Actual Respiratory Rate 18 Actual Respiratory Rate 18 Actual Respiratory Rate 18 Actual Respiratory Rate 18 Actual Respiratory Rate 18 Actual Respiratory Rate 18 Actual Respiratory Rate 18 Actual Respiratory Rate 18 Positive End Expiratory 8 Pressure Positive End Expiratory 8 Pressure Positive End Expiratory 8 Pressure Positive End Expiratory 8 Pressure Positive End Expiratory 8 Pressure Positive End Expiratory 8 Pressure Positive End Expiratory 8 Pressure Positive End Expiratory 8 Pressure Positive End Expiratory 8 Pressure Positive End Expiratory 8 Pressure Positive End Expiratory 8 Pressure Peak Inspiratory Airway 32 Pressure Peak Inspiratory Airway 32 Pressure Peak Inspiratory Airway 32 Pressure Peak Inspiratory Airway 28 Pressure Peak Inspiratory Airway 28 Pressure Peak Inspiratory Airway 28 Pressure Peak Inspiratory Airway 28 Pressure Peak Inspiratory Airway 28 Pressure Peak Inspiratory Airway 32 Pressure Peak Inspiratory Airway 28 Pressure Results - Laboratory Findings CBC and BMP: 03/05/17 04:54 03/05/17 04:54 ABG ABG pH 7.48 pH Units (7.32-7.45) H 03/05/17 04:50 ABG pCO2 38 mmHg (35-45) 03/05/17 04:50 ABG pO2 89 mmHg (85-104) 03/05/17 04:50 ABG O2 Saturation 97 % (95-98) 03/05/17 04:50 PT/INR, D-dimer PT 13.2 Seconds (9.4-12.1) H 02/28/17 20:45 Abnormal lab findings: Abnormal lab results RBC 3.99 M/mcL (4.19-5.50) L 03/05/17 04:54 Hgb 11.7 g/dL (12.9-16.9) L 03/05/17 04:54 Hct 36.8 % (37.5-50.1) L 03/05/17 04:54 PT 13.2 Seconds (9.4-12.1) H 02/28/17 20:45 APTT 21.4 Seconds (26.0-36.0) L D 03/02/17 04:35 ABG pH 7.48 pH Units (7.32-7.45) H 03/05/17 04:50 ABG HCO3 28.3 mEQ/L (21-27) H 03/05/17 04:50 ABG Total CO2 29.5 mEq/L (20-26) H 03/05/17 04:50 ABG Base Excess 4.6 mEq/L (-2.0 to 3.0) H 03/05/17 04:50 Chloride 110 mEq/L (98-109) H 03/05/17 04:54 BUN 37 mg/dL (8-26) H 03/05/17 04:54 BUN/Creatinine Ratio 32 (6-26) H 03/05/17 04:54 Glucose 108 mg/dL (70-99) H 03/05/17 04:54 POC Glucose 102 (58-89) H 03/04/17 23:44 Calculated Osmolality 307 (280-300) H 03/05/17 04:54 AST 286 Units/L (5-34) H 03/01/17 04:00 ALT 63 Units/L (0-55) H 03/01/17 04:00 Troponin I > 50.00 ng/mL (0-0.03) H* 02/28/17 16:55 B-Natriuretic Peptide 857 pg/mL (0-100) H 02/28/17 16:55 Serum Total Protein 5.6 g/dL (6.0-8.3) L 03/01/17 04:00 Albumin 2.7 g/dL (3.5-5.0) L 03/01/17 04:00 Albumin/Globulin Ratio 0.9 (1.1-2.2) L 03/01/17 04:00 - Microbiology Findings Microbiology Findings: Microbiology, Last 48 Hours 02/28/17 22:30 Sputum Culture - Final Sputum - Clinical Findings Intake & Output: Intake & Output 03/04/17 03/04/17 03/05/17 15:59 23:59 07:59 Intake Total 300 / 300 425 / 425 735 / 735 Output Total 1225 / 1225 200 / 200 1150 / 1150 Balance -925 / -925 225 / 225 -415 / -415 Weight 67.812 kg Consult Discharge Plan - Plan Referrals: NO,PCP [Primary Care Provider] - <Ramos Muhammad - Last Filed: 03/05/17 12:55> Date of Encounter: 03/05/17 Assessment and Plan (1) Acute respiratory failure Current Visit: Yes Status: Acute Qualifiers: Respiratory failure complication: hypoxia Qualified Code(s): J96.01 - Acute respiratory failure with hypoxia Code(s): J96.00 - Acute respiratory failure, unspecified whether with hypoxia or hypercapnia SNOMED Code(s): 00237494 Objective PUL Vital signs: Last Vital Signs Temp 99.1 F 03/05/17 12:01 Pulse 73 03/05/17 12:00 Resp 32 03/05/17 12:00 BP 174/100 03/05/17 12:00 Pulse Ox 96 03/05/17 12:00 Ventilator Settings Ventilator Settings: Ventilator Settings, Last 8 Hours Ventilator Mode VC+ Ventilator Mode VC+ Ventilator Mode VC+ Ventilator Mode VC+ Ventilator Mode VC+ Ventilator Mode VC+ Ventilator Mode VC+ Ventilator Mode VC+ Ventilator Mode VC+ Ventilator Mode VC+ Ventilator Mode VC+ Ventilator Mode VC+ Ventilator Tidal Volume 550 Setting Ventilator Tidal Volume 550 Setting Ventilator Tidal Volume 550 Setting Ventilator Tidal Volume 550 Setting Ventilator Tidal Volume 550 Setting Ventilator Tidal Volume 550 Setting Ventilator Tidal Volume 550 Setting Ventilator Tidal Volume 550 Setting Ventilator Tidal Volume 550 Setting Ventilator Tidal Volume 550 Setting Ventilator Tidal Volume 550 Setting Ventilator Tidal Volume 550 Setting Ventilator Respiratory Rate 18 Setting Ventilator Respiratory Rate 18 Setting Ventilator Respiratory Rate 18 Setting Ventilator Respiratory Rate 18 Setting Ventilator Respiratory Rate 18 Setting Ventilator Respiratory Rate 18 Setting Ventilator Respiratory Rate 18 Setting Ventilator Respiratory Rate 18 Setting Ventilator Respiratory Rate 18 Setting Ventilator Respiratory Rate 18 Setting Ventilator Respiratory Rate 18 Setting Ventilator Respiratory Rate 18 Setting Actual Respiratory Rate 32 Actual Respiratory Rate 23 Actual Respiratory Rate 20 Actual Respiratory Rate 20 Actual Respiratory Rate 20 Actual Respiratory Rate 22 Actual Respiratory Rate 22 Actual Respiratory Rate 18 Actual Respiratory Rate 18 Actual Respiratory Rate 18 Actual Respiratory Rate 18 Actual Respiratory Rate 18 Positive End Expiratory 8 Pressure Positive End Expiratory 8 Pressure Positive End Expiratory 8 Pressure Positive End Expiratory 8 Pressure Positive End Expiratory 8 Pressure Positive End Expiratory 8 Pressure Positive End Expiratory 8 Pressure Positive End Expiratory 8 Pressure Positive End Expiratory 8 Pressure Positive End Expiratory 8 Pressure Positive End Expiratory 8 Pressure Positive End Expiratory 8 Pressure Peak Inspiratory Airway 30 Pressure Peak Inspiratory Airway 32 Pressure Peak Inspiratory Airway 30 Pressure Peak Inspiratory Airway 30 Pressure Peak Inspiratory Airway 28 Pressure Peak Inspiratory Airway 30 Pressure Peak Inspiratory Airway 30 Pressure Peak Inspiratory Airway 32 Pressure Peak Inspiratory Airway 32 Pressure Peak Inspiratory Airway 32 Pressure Peak Inspiratory Airway 32 Pressure Peak Inspiratory Airway 32 Pressure Results - Laboratory Findings CBC and BMP: 03/05/17 04:54 03/05/17 04:54 ABG ABG pH 7.48 pH Units (7.32-7.45) H 03/05/17 04:50 ABG pCO2 38 mmHg (35-45) 03/05/17 04:50 ABG pO2 89 mmHg (85-104) 03/05/17 04:50 ABG O2 Saturation 97 % (95-98) 03/05/17 04:50 PT/INR, D-dimer PT 13.2 Seconds (9.4-12.1) H 02/28/17 20:45 Abnormal lab findings: Abnormal lab results RBC 3.99 M/mcL (4.19-5.50) L 03/05/17 04:54 Hgb 11.7 g/dL (12.9-16.9) L 03/05/17 04:54 Hct 36.8 % (37.5-50.1) L 03/05/17 04:54 PT 13.2 Seconds (9.4-12.1) H 02/28/17 20:45 APTT 21.4 Seconds (26.0-36.0) L D 03/02/17 04:35 ABG pH 7.48 pH Units (7.32-7.45) H 03/05/17 04:50 ABG HCO3 28.3 mEQ/L (21-27) H 03/05/17 04:50 ABG Total CO2 29.5 mEq/L (20-26) H 03/05/17 04:50 ABG Base Excess 4.6 mEq/L (-2.0 to 3.0) H 03/05/17 04:50 Chloride 110 mEq/L (98-109) H 03/05/17 04:54 BUN 37 mg/dL (8-26) H 03/05/17 04:54 BUN/Creatinine Ratio 32 (6-26) H 03/05/17 04:54 Glucose 108 mg/dL (70-99) H 03/05/17 04:54 POC Glucose 131 (58-89) H 03/05/17 11:33 Calculated Osmolality 307 (280-300) H 03/05/17 04:54 AST 286 Units/L (5-34) H 03/01/17 04:00 ALT 63 Units/L (0-55) H 03/01/17 04:00 Troponin I > 50.00 ng/mL (0-0.03) H* 02/28/17 16:55 B-Natriuretic Peptide 857 pg/mL (0-100) H 02/28/17 16:55 Serum Total Protein 5.6 g/dL (6.0-8.3) L 03/01/17 04:00 Albumin 2.7 g/dL (3.5-5.0) L 03/01/17 04:00 Albumin/Globulin Ratio 0.9 (1.1-2.2) L 03/01/17 04:00 - Clinical Findings Intake & Output: Intake & Output 03/04/17 03/05/17 03/05/17 23:59 07:59 15:59 Intake Total 425 / 425 735 / 735 260 / 260 Output Total 200 / 200 1150 / 1150 1700 / 1700 Balance 225 / 225 -415 / -415 -1440 / -1440 Weight 67.812 kg
[2017-03-05] MEDS: Pantoprazole 40 MG VIAL IVP SCH (08:25)
[2017-03-05] MEDS: Aspirin 81 MG TAB.CHEW PO SCH (08:25)
[2017-03-05] MEDS: Furosemide 40 MG/4 ML VIAL IVP SCH (08:25)
[2017-03-05] MEDS: *HR* Ticagrelor 90 MG TABLET PO SCH ×2 (08:25→20:46)
[2017-03-05] MEDS: Chlorhexidine Rinse 15 ML MOUTHWASH MM SCH ×2 (08:25→20:46)
[2017-03-05] MEDS ORDERED: *HR* Heparin 5,000 UNIT/ML VIAL IVP ONE (11:21)
[2017-03-05] MEDS ORDERED: *HR* Heparin 5,000 UNIT/ML VIAL IVP PRN (11:21)
[2017-03-05] MEDS: Heparin 25,000 UNIT/500 ML D5W 25,000 UNIT/500 ML MLS IVC SCH (13:26)
[2017-03-05 13:45] LABS: INR 1.2; Prothrombin Time 12.8 Seconds (9.4-12.1)
[2017-03-05 13:48] LABS: Activated Partial Thrombo Time 27.3 Seconds (26.0-36.0)
--- NOTE | 2017-03-05 15:12 | Cardiology Progress Note ---
Date of Encounter: 03/05/17 Time of Encounter: 15:10 Assessment and Plan (1) STEMI (ST elevation myocardial infarction) Current Visit: Yes Status: Acute Late presentation anteroseptal RI with troponin >50 on presentation complicated by pulmonary edema resulting in respiratory failure requiring intubation. S/p PCI to the proximal and mid LAD. EF 35%, LVEDP 22-24 during LHC. TTE EF 25% with wall motion abnormalities in LAD distribution. Continues to require ventilator support. Appreciate pulmonlogy recommendations. Less likely PNA, finishing course of antibiotics. Continue IV lasix for pulmonary edema. Continue DAPT uninterrupted for minimum of one year with asa and brilinta. Statin and bb. Cardiac rehab consult placed. Qualifiers: Involved coronary artery: LAD coronary artery Qualified Code(s): I21.02 - ST elevation (STEMI) myocardial infarction involving left anterior descending coronary artery (2) Acute systolic CHF (congestive heart failure) Current Visit: Yes Status: Acute Acute systolic CHF. EF 35%. TTE- EF 25%. Mild JVD noted. No peripheral edema. Continue IV lasix. Kidney function is normal. Negative 1354ml for 24 hours. Currently on ventilator support. Strict I&O and daily weights. Will increase carvedilol as tolerated. (3) Respiratory failure Current Visit: Yes Status: Ruled-out Remains on ventilator support. IV lasix. Continue to monitor urine output. Qualifiers: Chronicity: acute Respiratory failure complication: hypoxia Qualified Code(s): J96.01 - Acute respiratory failure with hypoxia (4) Acute kidney injury Current Visit: Yes Status: Acute Mild ROYER noted after LHC, likely secondary to RI. Timing early for RAFAEL from LHC which usually occurs 3-4 days post LHC. Kidney function returned to normal. (5) Atrial fibrillation Current Visit: Yes Status: Acute Noted to have PAF on overnight telemetry. Currently NSR. Increase carvedilol. Re-start heparin gtt. He will require anticoagulation once he is able to take oral medications. CHADS VASC=5 (HTN, AGE, CVA2, CAD) Qualifiers: Atrial fibrillation type: paroxysmal Qualified Code(s): I48.0 - Paroxysmal atrial fibrillation (6) CVA (cerebral vascular accident) Current Visit: Yes Status: Acute MRI/MRA showed small scattered acute infarcts throughout the cerebral and cerebellar hemispheres bilaterally. Distribution suggests an embolic phenomenon. Patient is noted to have paroxysmal atrial fibrillation on overnight telemetry. Differential diagnosis is athersclerotic plaque rupture from LHC/RI. PT/OT will be consulted once patient optimized. Appreciate brick handler support. Qualifiers: CVA mechanism: embolism Precerebral and cerebral artery: unspecified cerebral artery Qualified Code(s): I63.40 - Cerebral infarction due to embolism of unspecified cerebral artery Discussion w patient/family: The assessment and plan as outlined above was discussed with the patient and/or family members who expressed understanding and agreement. All questions were answered. Thank you for involving us in the care of your patient. Please call with any questions. Subjective Principal diagnosis: Acute respiratory failure with hypoxia, STEMI Interval history: Pt remains intubated and sedated on ventilator. No arousable today. Moving upper extremities and right leg. Aunt at bedside. She states she was waiting for his brothers and sisters to meet to discuss code status. Objective Vital Signs, Last 4 Hours Temp Pulse Resp BP Pulse Ox 03/05/17 14:00 74 18 136/71 96 03/05/17 13:56 18 138/77 95 03/05/17 13:00 66 18 138/77 95 03/05/17 12:01 99.1 F 03/05/17 12:00 99.1 F 66 32 174/100 96 General: Other (sedated on ventilator) HEENT: Atraumatic, Normocephaly, Mucus Membranes Moist Neck: Other (mild JVD) Cardiac: Other (afib) Lungs: Normal Breath Sounds, No Wheeze, Rales, Rhonchi, Other (Diminshed breath sounds.) Neuro: Other (Lt leg with no movement or response to stimuli. Sedated. ) Abdomen: Soft, Non-Tender Skin: No rashes noted on visualized skin Musculoskeletal: No Chest Wall Tenderness Extremities: No Clubbing, No Cyanosis, No Edema, Normal Pulses Results 03/05/17 04:54 03/05/17 04:54 Lab Results 03/05/17 03/05/17 03/05/17 04:54 04:54 13:20 WBC 9.5 Hgb 11.7 L Hct 36.8 L Plt Count 189 INR 1.2 APTT 27.3 Sodium 144 Potassium 4.0 Chloride 110 H Carbon Dioxide 29 BUN 37 H Creatinine 1.16 Glucose 108 H Calcium 9.4 Magnesium 2.2 KUB X-Ray 02/28/17 20:04 IMPRESSION: Enteric tube in the stomach as above. Diffuse bilateral airspace disease in the lung bases suggesting multifocal pneumonia or pulmonary edema. D/ / Valdemar Stanford MD / Valdemar Stanford MD Interpreting Provider: Valdemar Stanford MD Head CT 03/01/17 17:48 IMPRESSION: No acute intracranial abnormality. Diffuse atrophic changes with findings suggesting chronic microvascular ischemia and evidence for old small infarcts in the packer radiata bilaterally and in the left basal ganglia region D/ / Oskar Rand MD / Oskar Rand MD Interpreting Provider: Oskar Rand MD Brain MRI 03/04/17 00:00 IMPRESSION: 1. Small scattered acute infarcts throughout the cerebral and cerebellar hemispheres bilaterally. Distribution suggests an embolic phenomenon. 2. No significant mass effect or midline shift. 3. Mild global parenchymal volume loss with chronic microvascular ischemic change. 4. Scattered sinusitis, left greater than right. 5. Bilateral mastoid effusions. These results were sent to the [facility] on 03/04/2017 at 2:30 pm to be communicated to the referring/covering health care provider/office. D/ / Rasta Avitia MD / Rasta Avitia MD Interpreting Provider: Rasta Avitia MD Head MRA 03/04/17 08:25 IMPRESSION: No intracranial flow-limiting stenosis or aneurysm. D/ / 03/04/2017 15:30:54 Blue Antoine MD / [email or web address] Interpreting Provider: Blue Antoine MD Chest X-Ray 03/05/17 06:00 IMPRESSION: 1. Stable pulmonary edema with slightly smaller pleural effusions and decreased bibasilar atelectasis. D/ / Ky Hernadez MD / Ky Hernadez MD Interpreting Provider: Ky Hernadez MD Consult Discharge Plan - Plan Referrals: NO,PCP [Primary Care Provider] -
[2017-03-05] MEDS ORDERED: Furosemide 40 MG/4 ML VIAL IVP ONE (18:04)
[2017-03-05] MEDS: Docusate Oral Soln 100 MG/10 ML UDC GTUBE SCH (20:46)
[2017-03-06] MEDS: Lacri-Lube 3.5 GM TUBE BOTH EYES SCH ×3 (04:51→07:47)
[2017-03-06 05:45] LABS: Basophils # 0.1 K/mcL (0.0-0.2); Basophils % 0.4 %; Eosinophils # 0.3 K/mcL (0.0-0.6); Eosinophils % 2.2 %; Hemoglobin 11.6 g/dL (12.9-16.9); Immature Granulocytes % 0.7 % (0-4); Lymphocytes # 1.3 K/mcL (0.6-4.6); Lymphocytes % 11.3 %; Mean Corpuscular HGB Conc 33.1 g/dL (31.6-35.5); Mean Corpuscular Hemoglobin 30.3 pg (28.0-33.3); Mean Corpuscular Volume 91.4 fL (83.0-100.0); Mean Platelet Volume 11.4 fL (9.4-12.4); Monocytes # 1.1 K/mcL (0.0-1.3); Monocytes % 9.5 %; Neutrophils # 8.7 K/mcL (1.6-8.9); Platelet Count 202 K/mcL (140-400); Red Blood Count 3.83 M/mcL (4.19-5.50); Red Cell Distribution Width 13.3 % (11.5-14.5); Segmented Neutrophils % 75.9 %
[2017-03-06 06:06] LABS: BUN/Creatinine Ratio 30 (6-26); Blood Urea Nitrogen 36 mg/dL (8-26); Calcium 9.3 mg/dL (8.6-10.8); Carbon Dioxide 31 mEq/L (19-29); Chloride 108 mEq/L (98-109); Glucose 118 mg/dL (70-99); Magnesium 2.5 mg/dL (1.6-2.6); Osmolality,Calculated 309 (280-300); Potassium 3.8 mEq/L (3.5-4.5); Sodium 145 mEq/L (136-145); eGFR For African Americans > 60 (> 60); eGFR For Non-African Americans > 60 (> 60)
[2017-03-06] MEDS: *HR* Heparin 5,000 UNIT/ML VIAL IVP PRN ×2 (06:08→20:16)
[2017-03-06] MEDS: Pantoprazole 40 MG VIAL IVP SCH (07:45)
[2017-03-06] MEDS: *HR* Ticagrelor 90 MG TABLET PO SCH ×2 (07:46→20:23)
[2017-03-06] MEDS: Furosemide 40 MG/4 ML VIAL IVP SCH (07:46)
[2017-03-06] MEDS: Docusate Oral Soln 100 MG/10 ML UDC GTUBE SCH ×2 (07:46→20:23)
[2017-03-06] MEDS: Chlorhexidine Rinse 15 ML MOUTHWASH MM SCH (07:46)
[2017-03-06] MEDS: Aspirin 81 MG TAB.CHEW PO SCH (07:46)
--- NOTE | 2017-03-06 09:44 | Pulmonology Progress Note ---
<RajeevOskar neff - Last Filed: 03/06/17 09:41> Date of Encounter: 03/06/17 Time of Encounter: 07:00 Assessment and Plan (1) Acute respiratory failure Current Visit: Yes Status: Acute Likely related to acute pulmonary edema in the setting of ST elevation [place]. At this point infection appears much less likely so antibiotics and been discontinued. Continue diuresis to improve respiratory status. Chest x-ray appears mildly improved. Patient is tolerating CPAP trial well, plan for extubation today Patient continues to have paralysis of the left lower extremity. He moves other extremities spontaneously. Patient had MRI completed that shows multiple acute infarcts bilaterally suggestive of embolic phenomena. Source of these embolisms unclear at this time as the patient had minimal plaque on carotid Dopplers and has no history of atrial fibrillation. Discussed with cardiology and after review of telemetry appears the patient did have a short run of atrial fibrillation yesterday the patient may have undiagnosed paroxysmal atrial fibrillation. Differential diagnosis for the patient's embolic CVA includes intracardiac thrombus in the setting of A. fib or possibly related to left heart catheterization. Continue heparin. We will evaluate for other neurologic defects once the patient is extubated and off sedation. Patient will need physical therapy and occupational therapy evaluation once more medically stable. Qualifiers: Respiratory failure complication: hypoxia Qualified Code(s): J96.01 - Acute respiratory failure with hypoxia (2) STEMI (ST elevation myocardial infarction) Current Visit: Yes Status: Acute Qualifiers: Involved coronary artery: LAD coronary artery Qualified Code(s): I21.02 - ST elevation (STEMI) myocardial infarction involving left anterior descending coronary artery (3) CVA (cerebral vascular accident) Current Visit: Yes Status: Acute Qualifiers: CVA mechanism: embolism Precerebral and cerebral artery: unspecified cerebral artery Qualified Code(s): I63.40 - Cerebral infarction due to embolism of unspecified cerebral artery Subjective Principal diagnosis: Acute respiratory failure with hypoxia, STEMI Interval history: Patient seen and examined at bedside. Patient remains intubated and sedated. No acute events overnight. Patient is CPAP during this morning and plan for extubation today Objective PUL Vital signs: Last Vital Signs Temp 98.8 F 03/06/17 07:25 Pulse 107 03/06/17 08:00 Resp 24 03/06/17 08:00 BP 196/98 03/06/17 08:00 Pulse Ox 94 03/06/17 08:00 General appearance: no acute distress ENT: oropharynx moist Effort: normal Auscultation: bilateral: rales (mild) Cardiovascular: regular rate and rhythm Gastrointestinal: normoactive bowel sounds, soft, non-tender, non-distended Extremities: no cyanosis, no edema, no clubbing other (Patient has paralysis of the left lower extremity in weakness of the left upper extremity. Areflexia of the left lower extremity. Further neurologic exam is limited due to the patient's intubation and mild sedation.) Ventilator Settings Ventilator Settings: Ventilator Settings, Last 8 Hours Ventilator Mode VC+ Ventilator Mode VC+ Ventilator Mode VC+ Ventilator Mode VC+ Ventilator Mode VC+ Ventilator Mode VC+ Ventilator Mode VC+ Ventilator Tidal Volume 550 Setting Ventilator Tidal Volume 550 Setting Ventilator Tidal Volume 550 Setting Ventilator Tidal Volume 550 Setting Ventilator Tidal Volume 550 Setting Ventilator Tidal Volume 550 Setting Ventilator Tidal Volume 550 Setting Ventilator Respiratory Rate 18 Setting Ventilator Respiratory Rate 18 Setting Ventilator Respiratory Rate 18 Setting Ventilator Respiratory Rate 18 Setting Ventilator Respiratory Rate 18 Setting Ventilator Respiratory Rate 18 Setting Actual Respiratory Rate 28 Actual Respiratory Rate 18 Actual Respiratory Rate 18 Actual Respiratory Rate 18 Actual Respiratory Rate 18 Actual Respiratory Rate 18 Actual Respiratory Rate 18 Positive End Expiratory 8 Pressure Positive End Expiratory 8 Pressure Positive End Expiratory 8 Pressure Positive End Expiratory 8 Pressure Positive End Expiratory 8 Pressure Positive End Expiratory 8 Pressure Positive End Expiratory 8 Pressure Peak Inspiratory Airway 19 Pressure Peak Inspiratory Airway 31 Pressure Peak Inspiratory Airway 31 Pressure Peak Inspiratory Airway 36 Pressure Peak Inspiratory Airway 36 Pressure Peak Inspiratory Airway 36 Pressure Peak Inspiratory Airway 41 Pressure Results - Laboratory Findings CBC and BMP: 03/06/17 04:52 03/06/17 04:52 ABG ABG pH 7.48 pH Units (7.32-7.45) H 03/05/17 04:50 ABG pCO2 38 mmHg (35-45) 03/05/17 04:50 ABG pO2 89 mmHg (85-104) 03/05/17 04:50 ABG O2 Saturation 97 % (95-98) 03/05/17 04:50 PT/INR, D-dimer PT 12.8 Seconds (9.4-12.1) H 03/05/17 13:20 Abnormal lab findings: Abnormal lab results WBC 11.5 K/mcL (4.3-11.1) H 03/06/17 04:52 RBC 3.83 M/mcL (4.19-5.50) L 03/06/17 04:52 Hgb 11.6 g/dL (12.9-16.9) L 03/06/17 04:52 Hct 35.0 % (37.5-50.1) L 03/06/17 04:52 PT 12.8 Seconds (9.4-12.1) H 03/05/17 13:20 APTT 43.7 Seconds (26.0-36.0) H 03/06/17 04:52 ABG pH 7.48 pH Units (7.32-7.45) H 03/05/17 04:50 ABG HCO3 28.3 mEQ/L (21-27) H 03/05/17 04:50 ABG Total CO2 29.5 mEq/L (20-26) H 03/05/17 04:50 ABG Base Excess 4.6 mEq/L (-2.0 to 3.0) H 03/05/17 04:50 Carbon Dioxide 31 mEq/L (19-29) H 03/06/17 04:52 BUN 36 mg/dL (8-26) H 03/06/17 04:52 BUN/Creatinine Ratio 30 (6-26) H 03/06/17 04:52 Glucose 118 mg/dL (70-99) H 03/06/17 04:52 POC Glucose 171 (58-89) H 03/05/17 23:31 Calculated Osmolality 309 (280-300) H 03/06/17 04:52 AST 286 Units/L (5-34) H 03/01/17 04:00 ALT 63 Units/L (0-55) H 03/01/17 04:00 Troponin I > 50.00 ng/mL (0-0.03) H* 02/28/17 16:55 B-Natriuretic Peptide 857 pg/mL (0-100) H 02/28/17 16:55 Serum Total Protein 5.6 g/dL (6.0-8.3) L 03/01/17 04:00 Albumin 2.7 g/dL (3.5-5.0) L 03/01/17 04:00 Albumin/Globulin Ratio 0.9 (1.1-2.2) L 03/01/17 04:00 - Microbiology Findings Microbiology Findings: Microbiology, Last 48 Hours 02/28/17 18:27 Blood Culture - Final Peripheral Venipuncture No growth. - Clinical Findings Intake & Output: Intake & Output 03/05/17 03/06/17 03/06/17 23:59 07:59 15:59 Intake Total 836 / 836 862 / 862 Output Total 400 / 400 750 / 750 Balance 436 / 436 112 / 112 Weight 86.001 kg Consult Discharge Plan - Plan Referrals: NO,PCP [Primary Care Provider] - <Ramos Muhammad - Last Filed: 03/06/17 09:47> Date of Encounter: 03/06/17 Assessment and Plan (1) Acute respiratory failure Current Visit: Yes Status: Acute Qualifiers: Respiratory failure complication: hypoxia Qualified Code(s): J96.01 - Acute respiratory failure with hypoxia Code(s): J96.00 - Acute respiratory failure, unspecified whether with hypoxia or hypercapnia SNOMED Code(s): 63615725 Objective PUL Vital signs: Last Vital Signs Temp 98.8 F 03/06/17 07:25 Pulse 107 03/06/17 08:00 Resp 24 03/06/17 08:00 BP 196/98 03/06/17 08:00 Pulse Ox 94 03/06/17 08:00 Ventilator Settings Ventilator Settings: Ventilator Settings, Last 8 Hours Ventilator Mode VC+ Ventilator Mode VC+ Ventilator Mode VC+ Ventilator Mode VC+ Ventilator Mode VC+ Ventilator Mode VC+ Ventilator Mode VC+ Ventilator Tidal Volume 550 Setting Ventilator Tidal Volume 550 Setting Ventilator Tidal Volume 550 Setting Ventilator Tidal Volume 550 Setting Ventilator Tidal Volume 550 Setting Ventilator Tidal Volume 550 Setting Ventilator Tidal Volume 550 Setting Ventilator Respiratory Rate 18 Setting Ventilator Respiratory Rate 18 Setting Ventilator Respiratory Rate 18 Setting Ventilator Respiratory Rate 18 Setting Ventilator Respiratory Rate 18 Setting Ventilator Respiratory Rate 18 Setting Actual Respiratory Rate 28 Actual Respiratory Rate 18 Actual Respiratory Rate 18 Actual Respiratory Rate 18 Actual Respiratory Rate 18 Actual Respiratory Rate 18 Actual Respiratory Rate 18 Positive End Expiratory 8 Pressure Positive End Expiratory 8 Pressure Positive End Expiratory 8 Pressure Positive End Expiratory 8 Pressure Positive End Expiratory 8 Pressure Positive End Expiratory 8 Pressure Positive End Expiratory 8 Pressure Peak Inspiratory Airway 19 Pressure Peak Inspiratory Airway 31 Pressure Peak Inspiratory Airway 31 Pressure Peak Inspiratory Airway 36 Pressure Peak Inspiratory Airway 36 Pressure Peak Inspiratory Airway 36 Pressure Peak Inspiratory Airway 41 Pressure Results - Laboratory Findings CBC and BMP: 03/06/17 04:52 03/06/17 04:52 ABG ABG pH 7.48 pH Units (7.32-7.45) H 07/18/17 04:50 ABG pCO2 38 mmHg (35-45) 03/05/17 04:50 ABG pO2 89 mmHg (85-104) 03/05/17 04:50 ABG O2 Saturation 97 % (95-98) 03/05/17 04:50 PT/INR, D-dimer PT 12.8 Seconds (9.4-12.1) H 03/05/17 13:20 Abnormal lab findings: Abnormal lab results WBC 11.5 K/mcL (4.3-11.1) H 03/06/17 04:52 RBC 3.83 M/mcL (4.19-5.50) L 03/06/17 04:52 Hgb 11.6 g/dL (12.9-16.9) L 03/06/17 04:52 Hct 35.0 % (37.5-50.1) L 03/06/17 04:52 PT 12.8 Seconds (9.4-12.1) H 03/05/17 13:20 APTT 43.7 Seconds (26.0-36.0) H 03/06/17 04:52 ABG pH 7.48 pH Units (7.32-7.45) H 03/05/17 04:50 ABG HCO3 28.3 mEQ/L (21-27) H 03/05/17 04:50 ABG Total CO2 29.5 mEq/L (20-26) H 03/05/17 04:50 ABG Base Excess 4.6 mEq/L (-2.0 to 3.0) H 03/05/17 04:50 Carbon Dioxide 31 mEq/L (19-29) H 03/06/17 04:52 BUN 36 mg/dL (8-26) H 03/06/17 04:52 BUN/Creatinine Ratio 30 (6-26) H 03/06/17 04:52 Glucose 118 mg/dL (70-99) H 03/06/17 04:52 POC Glucose 171 (58-89) H 03/05/17 23:31 Calculated Osmolality 309 (280-300) H 03/06/17 04:52 AST 286 Units/L (5-34) H 03/01/17 04:00 ALT 63 Units/L (0-55) H 03/01/17 04:00 Troponin I > 50.00 ng/mL (0-0.03) H* 02/28/17 16:55 B-Natriuretic Peptide 857 pg/mL (0-100) H 02/28/17 16:55 Serum Total Protein 5.6 g/dL (6.0-8.3) L 03/01/17 04:00 Albumin 2.7 g/dL (3.5-5.0) L 03/01/17 04:00 Albumin/Globulin Ratio 0.9 (1.1-2.2) L 03/01/17 04:00 - Microbiology Findings Microbiology Findings: Microbiology, Last 48 Hours 02/28/17 18:27 Blood Culture - Final Peripheral Venipuncture No growth. - Clinical Findings Intake & Output: Intake & Output 03/05/17 03/06/17 03/06/17 23:59 07:59 15:59 Intake Total 836 / 836 862 / 862 Output Total 400 / 400 750 / 750 Balance 436 / 436 112 / 112 Weight 86.001 kg
--- NOTE | 2017-03-06 10:44 | Cardiology Progress Note ---
Date of Encounter: 03/06/17 Time of Encounter: 10:42 Assessment and Plan (1) STEMI (ST elevation myocardial infarction) Current Visit: Yes Status: Acute Late presentation anteroseptal HI with troponin >50 on presentation complicated by pulmonary edema resulting in respiratory failure requiring intubation. S/p PCI to the proximal and mid LAD. EF 35%, LVEDP 22-24 during LH. TTE EF 25% with wall motion abnormalities in LAD distribution. Now extubated. Appears to be doing well this morning. Still drowsy from sedation. Continue DAPT uninterrupted for minimum of one year with asa and brilinta. Statin and bb. Cardiac rehab consult placed but patient will need regular PT for CVA prior to cardiac rehab. He denies chest pain. Qualifiers: Involved coronary artery: LAD coronary artery Qualified Code(s): I21.02 - ST elevation (STEMI) myocardial infarction involving left anterior descending coronary artery (2) Acute systolic CHF (congestive heart failure) Current Visit: Yes Status: Acute Acute systolic CHF. EF 35%. TTE- EF 25%. Now extubated. -1900 ml (1000ml currently in may.) No JVD noted today. Continue IV lasix 40 mg daily. Kidney function is normal. Strict I&O and daily weights. Will increase carvedilol as tolerated. Add ACEi. (3) Respiratory failure Current Visit: Yes Status: Ruled-out Secondary to pulmonary edema from HI and acute systolic CHF. Now extubated. Appreciate deputy clerk of superior court recommendation. Qualifiers: Chronicity: acute Respiratory failure complication: hypoxia Qualified Code(s): J96.01 - Acute respiratory failure with hypoxia (4) Acute kidney injury Current Visit: Yes Status: Acute Mild ROYER noted after LHC, likely secondary to HI. Timing early for RAFAEL from LHC which usually occurs 3-4 days post LHC. Kidney function returned to normal. (5) Atrial fibrillation Current Visit: Yes Status: Acute Noted to have PAF on overnight telemetry. Currently NSR. Increase carvedilol. Re-start heparin gtt. He will require anticoagulation once he is able to take oral medications. CHADS VASC=5 (HTN, AGE, CVA2, CAD) Qualifiers: Atrial fibrillation type: paroxysmal Qualified Code(s): I48.0 - Paroxysmal atrial fibrillation (6) CVA (cerebral vascular accident) Current Visit: Yes Status: Acute MRI/MRA showed small scattered acute infarcts throughout the cerebral and cerebellar hemispheres bilaterally. Distribution suggests an embolic phenomenon. Patient is noted to have paroxysmal atrial fibrillation on telemetry 03/04/17. Currently ST. Differential diagnosis is athersclerotic plaque rupture from C/HI. PT/OT consulted. Appreciate deputy clerk of superior court support. Qualifiers: CVA mechanism: embolism Precerebral and cerebral artery: unspecified cerebral artery Qualified Code(s): I63.40 - Cerebral infarction due to embolism of unspecified cerebral artery Discussion w patient/family: The assessment and plan as outlined above was discussed with the patient and/or family members who expressed understanding and agreement. All questions were answered. Thank you for involving us in the care of your patient. Please call with any questions. Subjective Principal diagnosis: Acute respiratory failure with hypoxia, STEMI Interval history: Patient extubated this morning. He is confused. He is able to whisper. He is following commands. Objective Vital Signs, Last 4 Hours Temp Pulse Resp BP Pulse Ox 03/06/17 09:00 102 24 172/94 94 03/06/17 08:00 107 24 196/98 94 03/06/17 07:57 107 24 196/98 94 03/06/17 07:32 98 03/06/17 07:25 98.8 F 03/06/17 07:00 98.8 F 98 28 172/89 99 General: Conversant, No Apparent Distress HEENT: Atraumatic, Normocephaly, Other (Mucous membranes dry) Neck: No JVD, Normal carotid pulses Cardiac: Reg Rate and Rhythm, Normal S1 and S2, No Murmur Lungs: Other (Pt extubated,faint scattered rhonci throughout. No cough noted. Respirations easy. ) Neuro: Alert and responsive, Other (Confused and drowsy. Left leg is flaccid, left arm weakness, slight left facial droop) Abdomen: Soft, Non-Tender Skin: No rashes noted on visualized skin Musculoskeletal: No Chest Wall Tenderness Extremities: No Edema, Normal Pulses Results 03/06/17 04:52 03/06/17 04:52 Lab Results 03/05/17 03/05/17 03/06/17 13:20 19:30 04:52 WBC 11.5 H Hgb 11.6 L Hct 35.0 L Plt Count 202 INR 1.2 APTT 27.3 47.4 H D Sodium Potassium Chloride Carbon Dioxide BUN Creatinine Glucose Calcium Magnesium 03/06/17 03/06/17 04:52 04:52 WBC Hgb Hct Plt Count INR APTT 43.7 H Sodium 145 Potassium 3.8 Chloride 108 Carbon Dioxide 31 H BUN 36 H Creatinine 1.19 Glucose 118 H Calcium 9.3 Magnesium 2.5 Consult Discharge Plan - Plan Referrals: NO,PCP [Primary Care Provider] -
[2017-03-06] MEDS: Heparin 25,000 UNIT/500 ML D5W 25,000 UNIT/500 ML MLS IVC SCH (12:25)
[2017-03-06] MEDS ORDERED: *HR* Metoprolol 5 MG/5 ML VIAL IVP ONE (14:27)
[2017-03-06] MEDS ORDERED: Furosemide 40 MG/4 ML VIAL IVP SCH (17:00)
[2017-03-06] MEDS: Nitroglycerin 25 MG/250 ML INFUS..BTL IVC SCH (17:36)
[2017-03-06] MEDS: niCARdipine 40 MG/200 ML MLS IVC SCH (17:36)
[2017-03-06] MEDS: *HR* Warfarin 5 MG TABLET PO SCH (17:37)
[2017-03-06] MEDS ORDERED: Warfarin perPT PO PRN (18:00)
[2017-03-06] MEDS: Dexmedetomidine HCl 400 MCG/100 ML MLS IVC SCH (20:23)
[2017-03-07] MEDS: niCARdipine 40 MG/200 ML MLS IVC SCH ×3 (01:36→20:04)
[2017-03-07 03:50] LABS: Basophils # 0.1 K/mcL (0.0-0.2); Basophils % 0.4 %; Eosinophils # 0.1 K/mcL (0.0-0.6); Eosinophils % 0.9 %; Hematocrit 41.8 % (37.5-50.1); Immature Granulocytes % 0.7 % (0-4); Lymphocytes # 1.1 K/mcL (0.6-4.6); Lymphocytes % 7.8 %; Mean Corpuscular HGB Conc 33.3 g/dL (31.6-35.5); Mean Corpuscular Hemoglobin 30.5 pg (28.0-33.3); Mean Corpuscular Volume 91.7 fL (83.0-100.0); Mean Platelet Volume 11.1 fL (9.4-12.4); Monocytes % 7.2 %; Neutrophils # 11.3 K/mcL (1.6-8.9); Nucleated Red Blood Cells 0.1 /100 WBC (0); Platelet Count 233 K/mcL (140-400); Red Blood Count 4.56 M/mcL (4.19-5.50); Red Cell Distribution Width 12.9 % (11.5-14.5)
[2017-03-07 03:54] LABS: Hemoglobin 13.9 g/dL (12.9-16.9)
[2017-03-07 03:56] LABS: INR 1.4; Prothrombin Time 14.8 Seconds (9.4-12.1)
[2017-03-07 03:59] LABS: Activated Partial Thrombo Time 67.3 Seconds (26.0-36.0)
[2017-03-07 04:03] LABS: BUN/Creatinine Ratio 33 (6-26); Blood Urea Nitrogen 31 mg/dL (8-26); Calcium 9.6 mg/dL (8.6-10.8); Carbon Dioxide 30 mEq/L (19-29); Chloride 107 mEq/L (98-109); Glucose 131 mg/dL (70-99); Magnesium 2.2 mg/dL (1.6-2.6); Osmolality,Calculated 306 (280-300); Potassium 3.5 mEq/L (3.5-4.5); Sodium 144 mEq/L (136-145); eGFR For African Americans > 60 (> 60); eGFR For Non-African Americans > 60 (> 60)
[2017-03-07] MEDS: Heparin 25,000 UNIT/500 ML D5W 25,000 UNIT/500 ML MLS IVC SCH ×3 (04:52→21:32)
[2017-03-07] MEDS: Docusate Oral Soln 100 MG/10 ML UDC GTUBE SCH ×2 (09:01→20:06)
[2017-03-07] MEDS: *HR* Ticagrelor 90 MG TABLET PO SCH ×2 (09:01→20:05)
[2017-03-07] MEDS: Aspirin 81 MG TAB.CHEW PO SCH (09:02)
--- NOTE | 2017-03-07 09:02 | Pulmonology Progress Note ---
<Oskar Montoya - Last Filed: 03/07/17 09:00> Date of Encounter: 03/07/17 Time of Encounter: 09:00 Assessment and Plan (1) Acute respiratory failure Current Visit: Yes Status: Acute Likely related to acute pulmonary edema in the setting of ST elevation [place]. At this point infection appears much less likely so antibiotics and been discontinued. Continue diuresis to improve respiratory status. Extubated yesterday and doing well from a respiratory standpoint. Continue supplemental oxygen as needed. Patient continues to have paralysis of the left lower extremity. He moves other extremities spontaneously. Patient had MRI completed that shows multiple acute infarcts bilaterally suggestive of embolic phenomena. Source of these embolisms unclear at this time as the patient had minimal plaque on carotid Dopplers and has no history of atrial fibrillation. Discussed with cardiology and after review of telemetry appears the patient did have a short run of atrial fibrillation yesterday the patient may have undiagnosed paroxysmal atrial fibrillation. Differential diagnosis for the patient's embolic CVA includes intracardiac thrombus in the setting of A. fib or possibly related to left heart catheterization. Continue heparin. Now the patient is no longer on the ventilator we are able to further assess his mental status and neurologic status. He does appear slightly confused however this is improving from yesterday. It is unknown at this time if this is related to his neurologic event or some mild encephalopathy related to his critical illness and extended sedation. We will continue to monitor mental status. Yesterday, postextubation the patient developed significant hypertension that was unresponsive to when necessary medications including hydralazine and IV Lopressor. Patient was then started on IV nicardipine as well as IV nitroglycerin which has controlled the patient's blood pressure. Will continue to uptitrate oral medications with cardiology's assistance in the attempt for better blood pressure control. Physical therapy and occupational therapy saw and evaluated the patient and will continue to work with him throughout his hospital stay. He has been recommended for assisted facility at discharge. Qualifiers: Respiratory failure complication: hypoxia Qualified Code(s): J96.01 - Acute respiratory failure with hypoxia (2) STEMI (ST elevation myocardial infarction) Current Visit: Yes Status: Acute Qualifiers: Involved coronary artery: LAD coronary artery Qualified Code(s): I21.02 - ST elevation (STEMI) myocardial infarction involving left anterior descending coronary artery (3) CVA (cerebral vascular accident) Current Visit: Yes Status: Acute Qualifiers: CVA mechanism: embolism Precerebral and cerebral artery: unspecified cerebral artery Qualified Code(s): I63.40 - Cerebral infarction due to embolism of unspecified cerebral artery Subjective Principal diagnosis: Acute respiratory failure with hypoxia, STEMI Interval history: Patient seen and examined at bedside. Patient was extubated yesterday. At this time the patient is slightly confused but will answer some questions appropriately. He has no complaints at this time. Denies chest pain, shortness of breath, fever, chills. Objective PUL Vital signs: Last Vital Signs Temp 98.2 F 03/07/17 07:28 Pulse 82 03/07/17 08:00 Resp 19 03/07/17 08:00 BP 158/78 03/07/17 08:00 Pulse Ox 99 03/07/17 08:00 General appearance: no acute distress ENT: oropharynx moist Effort: normal Auscultation: bilateral: rales (mild, improving) Cardiovascular: regular rate and rhythm Gastrointestinal: normoactive bowel sounds, soft, non-tender Extremities: no cyanosis, no clubbing, edema (trace) other (Patient has 1/5 muscle strength in the left lower extremity which is improved from yesterday. 3/5 muscle strength in left upper extremity. He is alert and oriented to person only at this time. He is still slightly confused but does answer questions appropriately and this is improved from yesterday.) Results - Laboratory Findings CBC and BMP: 03/07/17 03:43 03/07/17 03:43 ABG ABG pH 7.48 pH Units (7.32-7.45) H 03/05/17 04:50 ABG pCO2 38 mmHg (35-45) 03/05/17 04:50 ABG pO2 89 mmHg (85-104) 03/05/17 04:50 ABG O2 Saturation 97 % (95-98) 03/05/17 04:50 PT/INR, D-dimer PT 14.8 Seconds (9.4-12.1) H 03/07/17 03:43 Abnormal lab findings: Abnormal lab results WBC 13.7 K/mcL (4.3-11.1) H 03/07/17 03:43 Neutrophils # 11.3 K/mcL (1.6-8.9) H 03/07/17 03:43 Nucleated RBCs/100 WBC 0.1 /100 WBC (0) H 03/07/17 03:43 PT 14.8 Seconds (9.4-12.1) H 03/07/17 03:43 APTT 67.3 Seconds (26.0-36.0) H D 03/07/17 03:43 ABG pH 7.48 pH Units (7.32-7.45) H 03/05/17 04:50 ABG HCO3 28.3 mEQ/L (21-27) H 03/05/17 04:50 ABG Total CO2 29.5 mEq/L (20-26) H 03/05/17 04:50 ABG Base Excess 4.6 mEq/L (-2.0 to 3.0) H 03/05/17 04:50 Carbon Dioxide 30 mEq/L (19-29) H 03/07/17 03:43 BUN 31 mg/dL (8-26) H 03/07/17 03:43 BUN/Creatinine Ratio 33 (6-26) H 03/07/17 03:43 Glucose 131 mg/dL (70-99) H 03/07/17 03:43 POC Glucose 118 (58-89) H 03/06/17 23:44 Calculated Osmolality 306 (280-300) H 03/07/17 03:43 AST 286 Units/L (5-34) H 03/01/17 04:00 ALT 63 Units/L (0-55) H 03/01/17 04:00 Troponin I > 50.00 ng/mL (0-0.03) H* 02/28/17 16:55 B-Natriuretic Peptide 857 pg/mL (0-100) H 02/28/17 16:55 Serum Total Protein 5.6 g/dL (6.0-8.3) L 03/01/17 04:00 Albumin 2.7 g/dL (3.5-5.0) L 03/01/17 04:00 Albumin/Globulin Ratio 0.9 (1.1-2.2) L 03/01/17 04:00 - Microbiology Findings Microbiology Findings: Microbiology, Last 48 Hours 02/28/17 18:27 Blood Culture - Final Peripheral Venipuncture No growth. - Clinical Findings Intake & Output: Intake & Output 03/06/17 03/07/17 03/07/17 23:59 07:59 15:59 Intake Total 200 / 200 500 / 500 Output Total 925 / 925 850 / 850 Balance -725 / -725 -350 / -350 Weight 99.5 kg Consult Discharge Plan - Plan Referrals: NO,PCP [Primary Care Provider] - <Ramos Muhammad - Last Filed: 03/07/17 10:49> Date of Encounter: 03/07/17 Assessment and Plan (1) Acute respiratory failure Current Visit: Yes Status: Acute Qualifiers: Respiratory failure complication: hypoxia Qualified Code(s): J96.01 - Acute respiratory failure with hypoxia Code(s): J96.00 - Acute respiratory failure, unspecified whether with hypoxia or hypercapnia SNOMED Code(s): 10541594 Objective PUL Vital signs: Last Vital Signs Temp 98.2 F 03/07/17 07:28 Pulse 85 03/07/17 09:00 Resp 20 03/07/17 09:00 BP 167/81 03/07/17 09:00 Pulse Ox 98 03/07/17 09:00 Results - Laboratory Findings CBC and BMP: 03/07/17 03:43 03/07/17 03:43 ABG ABG pH 7.48 pH Units (7.32-7.45) H 03/05/17 04:50 ABG pCO2 38 mmHg (35-45) 03/05/17 04:50 ABG pO2 89 mmHg (85-104) 03/05/17 04:50 ABG O2 Saturation 97 % (95-98) 03/05/17 04:50 PT/INR, D-dimer PT 14.8 Seconds (9.4-12.1) H 03/07/17 03:43 Abnormal lab findings: Abnormal lab results WBC 13.7 K/mcL (4.3-11.1) H 03/07/17 03:43 Neutrophils # 11.3 K/mcL (1.6-8.9) H 03/07/17 03:43 Nucleated RBCs/100 WBC 0.1 /100 WBC (0) H 03/07/17 03:43 PT 14.8 Seconds (9.4-12.1) H 03/07/17 03:43 APTT 67.3 Seconds (26.0-36.0) H D 03/07/17 03:43 ABG pH 7.48 pH Units (7.32-7.45) H 03/05/17 04:50 ABG HCO3 28.3 mEQ/L (21-27) H 03/05/17 04:50 ABG Total CO2 29.5 mEq/L (20-26) H 03/05/17 04:50 ABG Base Excess 4.6 mEq/L (-2.0 to 3.0) H 03/05/17 04:50 Carbon Dioxide 30 mEq/L (19-29) H 03/07/17 03:43 BUN 31 mg/dL (8-26) H 03/07/17 03:43 BUN/Creatinine Ratio 33 (6-26) H 03/07/17 03:43 Glucose 131 mg/dL (70-99) H 03/07/17 03:43 POC Glucose 118 (58-89) H 03/06/17 23:44 Calculated Osmolality 306 (280-300) H 03/07/17 03:43 AST 286 Units/L (5-34) H 03/01/17 04:00 ALT 63 Units/L (0-55) H 03/01/17 04:00 Troponin I > 50.00 ng/mL (0-0.03) H* 02/28/17 16:55 B-Natriuretic Peptide 857 pg/mL (0-100) H 02/28/17 16:55 Serum Total Protein 5.6 g/dL (6.0-8.3) L 03/01/17 04:00 Albumin 2.7 g/dL (3.5-5.0) L 03/01/17 04:00 Albumin/Globulin Ratio 0.9 (1.1-2.2) L 03/01/17 04:00 - Microbiology Findings Microbiology Findings: Microbiology, Last 48 Hours 02/28/17 18:27 Blood Culture - Final Peripheral Venipuncture No growth. - Clinical Findings Intake & Output: Intake & Output 03/06/17 03/07/17 03/07/17 23:59 07:59 15:59 Intake Total 200 / 200 500 / 500 Output Total 925 / 925 850 / 850 Balance -725 / -725 -350 / -350 Weight 99.5 kg
[2017-03-07] MEDS: Furosemide 40 MG/4 ML VIAL IVP SCH (09:03)
[2017-03-07] MEDS: Pantoprazole 40 MG VIAL IVP SCH (09:03)
--- NOTE | 2017-03-07 11:13 | Cardiology Progress Note ---
Date of Encounter: 03/07/17 Time of Encounter: 09:30 Assessment and Plan (1) STEMI (ST elevation myocardial infarction) Current Visit: Yes Status: Acute Per cardiology: -Late presentation anteroseptal NC with troponin >50 on presentation complicated by pulmonary edema resulting in respiratory failure requiring intubation. S/p PCI to the proximal and mid LAD. EF 35%, LVEDP 22-24 during [facility]. -TTE EF 25% with wall motion abnormalities in LAD distribution. -Now extubated. No respiratory distress noted. Resting comfortably in bed. -Continue DAPT uninterrupted for minimum of one year with asa and brilinta. Statin and bb. -Cardiac rehab consult placed but patient will need regular PT for CVA prior to cardiac rehab. -Denies chest pain overnight. -Was started on nitro drip and cardene drip for hypertension overnight. -Will increase lisinopril and start amlodipine. Will continue to monitor BP and HR. -Attempt to wean off cardene and nitro drips. Qualifiers: Involved coronary artery: LAD coronary artery Qualified Code(s): I21.02 - ST elevation (STEMI) myocardial infarction involving left anterior descending coronary artery (2) Acute systolic CHF (congestive heart failure) Current Visit: Yes Status: Acute Per cardiology: -Acute systolic CHF. EF 35%. TTE- EF 25%. -Now extubated. -On lasix IV daily. -Net negative 3674ml. -Continue IV lasix 40 mg daily. Kidney function is normal. -Strict I&O and daily weights. -Hay inhibitor increased today. (3) CVA (cerebral vascular accident) Current Visit: Yes Status: Acute Per cardiology: -Left sided weakness noted. -MRI/MRA showed small scattered acute infarcts throughout the cerebral and cerebellar hemispheres bilaterally. Distribution suggests an embolic phenomenon. -Patient is noted to have paroxysmal atrial fibrillation on telemetry 03/04/17. Currently SR. -Differential diagnosis is athersclerotic plaque rupture from LHC/NC. -PT/OT consulted. -Will consult neurology. Qualifiers: CVA mechanism: embolism Precerebral and cerebral artery: unspecified cerebral artery Qualified Code(s): I63.40 - Cerebral infarction due to embolism of unspecified cerebral artery (4) Atrial fibrillation Current Visit: Yes Status: Acute Per cardiology: -Noted to have PAF on telemetry 03/04/17. Currently NSR. -On beta david. -On heparin drip. COumadin has been started. -CHADS VASC=5 (HTN, AGE, CVA2, CAD). On heparin drip and coumadin. -Will continue to monitor. Qualifiers: Atrial fibrillation type: paroxysmal Qualified Code(s): I48.0 - Paroxysmal atrial fibrillation Discussion w patient/family: The assessment and plan as outlined above was discussed with the patient and/or family members who expressed understanding and agreement. All questions were answered. Thank you for involving us in the care of your patient. Please call with any questions. Subjective Principal diagnosis: Acute respiratory failure with hypoxia, STEMI Interval history: Patient extubated. Patient resting comfortably in bed. Patient oriented to person and place. However, patient states it was February 1917 when asked regarding time. Patient hypertensive. Patient denies chest pain. Objective Vital Signs, Last 4 Hours Temp Pulse Resp BP Pulse Ox 03/07/17 11:00 71 20 128/63 94 03/07/17 10:00 84 19 137/73 95 03/07/17 09:00 85 20 167/81 98 03/07/17 08:00 82 19 158/78 99 03/07/17 07:28 98.2 F General: Conversant, No Apparent Distress HEENT: Atraumatic, Normocephaly, Mucus Membranes Moist Neck: No JVD, Normal carotid pulses Cardiac: Reg Rate and Rhythm, Normal S1 and S2, No Murmur Lungs: Normal Breath Sounds, No Wheeze, Rales, Rhonchi Neuro: Alert and responsive, Other (Oriented to person and place.) Abdomen: Soft, Non-Tender Skin: No rashes noted on visualized skin Musculoskeletal: No Chest Wall Tenderness, Other (Left upper extremity with 3/5 strength and left lower extremity 1/5 strength. ) Extremities: No Clubbing, No Cyanosis, No Edema, Normal Pulses Results 03/07/17 03:43 03/07/17 03:43 Lab Results Impressions Head MRA 03/04/17 08:25 IMPRESSION: No intracranial flow-limiting stenosis or aneurysm. D/ / 03/04/2017 15:30:54 Blue Antoine MD / [email or web address] Interpreting Provider: Blue Antoine MD Active Medications Acetaminophen (Tylenol) 500 mg PO Q6HR PRN PRN Reason: Mild Pain Stop: 08/30/17 18:31 Last Admin: 03/06/17 15:27 Dose: 500 mg Albuterol/Ipratropium (Duoneb) 3 ml IH [id number] PRN; Protocol PRN Reason: Shortness Of Breath/Wheezing Stop: 08/30/17 21:14 Amlodipine Besylate (Norvasc) 5 mg PO DAILY [facility] PRN Reason: Protocol Stop: 09/06/17 10:31 Artificial Tears (Lacri-Lube) 1 appl BOTH EYES Q2HR PRN; Protocol PRN Reason: Dry Eyes Stop: 08/31/17 11:46 Aspirin (Aspirin) 81 mg PO DAILY E[facility]ENCE Stop: 08/31/17 09:01 Last Admin: 03/07/17 09:02 Dose: 81 mg Carvedilol (Coreg) 12.5 mg PO BIDWM ESSENCE PRN Reason: Protocol Stop: 09/04/17 17:01 Last Admin: 03/07/17 09:02 Dose: 12.5 mg Docusate Sodium (Colace) 100 mg GTUBE BID E[facility]ENCE PRN Reason: Protocol Stop: 09/04/17 21:01 Last Admin: 03/07/17 09:01 Dose: 100 mg Furosemide (Lasix) 40 mg IVP DAILY [facility] Stop: 09/06/17 09:01 Last Admin: 03/07/17 09:03 Dose: 40 mg Heparin Sodium (Porcine) (Heparin) 4,700 unit 70 unit/kg (4700 unit) IVP Q6HR PRN PRN Reason: SEE COMMENTS Stop: 09/04/17 11:22 Heparin Sodium (Porcine) (Heparin) 2,400 unit 35 unit/kg (2400 unit) IVP Q6H PRN PRN Reason: SEE COMMENTS Stop: 09/04/17 11:22 Last Admin: 03/06/17 20:16 Dose: 2,400 unit Hydralazine HCl (Hydralazine) 10 mg IVP Q6HR PRN PRN Reason: Hypertension Stop: 08/30/17 19:32 Last Admin: 03/06/17 10:56 Dose: 10 mg Magnesium Sulfate 2 gm/ (Dextrose) 104 mls @ 50 mls/hr IVPB Q6H PRN PRN Reason: Hypomagnesemia Stop: 08/31/17 17:29 Last Infusion: 03/02/17 12:38 Dose: Infused Calcium Gluconate 1,000 mg/ (Dextrose) 110 mls @ 50 mls/hr IVPB Q6HR PRN PRN Reason: Hypocalcemia Stop: 08/31/17 17:29 Last Infusion: 03/02/17 08:15 Dose: 0 mls/hr Sodium Phosphate 30 mmol/ (Dextrose) 110 mls @ 16 mls/hr IVPB Q12H PRN PRN Reason: Hypophosphatemia Stop: 08/31/17 17:29 Potassium Chloride (Potassium Chloride 10 Meq/100ml) 10 meq in 100 mls @ 100 mls/hr IVPB Q1H PRN PRN Reason: Potassium less than 4 Stop: 08/31/17 17:29 Last Infusion: 03/04/17 10:00 Dose: Infused Heparin Sodium/Dextrose (Heparin 25,000 Unit/500 Ml D5w) 25,000 unit in 500 mls @ 18.987 mls/hr IVC .Q24H ESSENCE; 14 UNIT/KG/HR PRN Reason: Protocol Stop: 09/04/17 11:31 Last Admin: 03/07/17 04:52 Dose: 22 unit/kg/hr, 29.837 mls/hr Nicardipine HCl (Cardene Premix 40mg/200ml) 40 mg in 200 mls @ 25 mls/hr IVC .Q8H ESSENCE; 5 MG/HR PRN Reason: Protocol Stop: 09/05/17 16:46 Last Admin: 03/07/17 01:36 Dose: 5 mg/hr, 25 mls/hr Nitroglycerin (Nitroglycerin) 25 mg in 250 mls @ 3 mls/hr IVC .Q24H ESSENCE; 5 MCG/ MIN PRN Reason: Protocol Stop: 09/05/17 17:31 Last Admin: 03/06/17 17:36 Dose: 5 mcg/min, 3 mls/hr Dexmedetomidine HCl (Precedex) 400 mcg in 100 mls @ 6.45 mls/hr IVC .[id number] ESSENCE; 0.3 MCG/KG/HR PRN Reason: Protocol Stop: 09/05/17 18:31 Last Admin: 03/06/17 20:23 Dose: Not Given Lisinopril (Zestril) 5 mg PO DAILY ESSENCE PRN Reason: Protocol Stop: 09/07/17 09:01 Morphine Sulfate (Morphine Sulfate) 4 mg IVP Q3H PRN PRN Reason: Severe Pain (7-10) Stop: 08/30/17 18:31 Nitroglycerin (Nitroglycerin) 0.4 mg SL Q5MIN PRN PRN Reason: Chest Pain Stop: 08/30/17 18:31 Omeprazole (Prilosec) 20 mg PO DAILY@0730 [facility] Stop: 09/07/17 07:31 Ondansetron HCl (Zofran) 4 mg IVP Q8HR PRN PRN Reason: Nausea And Vomiting Stop: 08/30/17 18:31 Rosuvastatin Calcium (Crestor) 40 mg PO HS [facility] Stop: 08/30/17 21:01 Last Admin: 03/06/17 20:23 Dose: 40 mg Senna (Senna) 17.6 mg GTUBE BID [facility] Stop: 09/04/17 21:01 Last Admin: 03/07/17 09:08 Dose: 17.6 mg Ticagrelor (Brilinta) 90 mg PO BID [facility] Stop: 08/30/17 21:01 Last Admin: 03/07/17 09:01 Dose: 90 mg Warfarin Sodium (Coumadin Perpt) 1 each PO DAILY@1800 PRN PRN Reason: SEE COMMENTS Stop: 09/05/17 18:01 Warfarin Sodium (Coumadin) 5 mg PO DAILY@1800 [facility] Stop: 09/05/17 18:01 Last Admin: 03/06/17 17:37 Dose: 5 mg Laboratory Tests 03/07/17 03/07/17 03:43 03:43 WBC 13.7 H Hgb 13.9 D Potassium 3.5 Creatinine 0.94 - Imaging and Cardiology Chest Xray: report reviewed Echo: report reviewed Cardiac cath: report reviewed - EKG Interpretation EKG results cardiology: other (Telemetry reviewed with average HR previous 12 hours noted to be 78, sinus rhythm. PVCs and PACs noted.) Consult Discharge Plan - Plan Referrals: NO,PCP [Primary Care Provider] -
[2017-03-07] MEDS: *HR* Heparin 5,000 UNIT/ML VIAL IVP PRN (11:29)
[2017-03-07] MEDS: amLODIPine 5 MG TABLET PO SCH (11:35)
--- NOTE | 2017-03-07 15:10 | Electrocardiograph Report ---
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
[2017-03-07] MEDS: *HR* Warfarin 5 MG TABLET PO SCH (17:16)
--- NOTE | 2017-03-07 18:04 | Neurology - Consult Note ---
Date of Encounter: 03/07/17 Time of Encounter: 17:58 Assessment and Plan (1) CVA (cerebral vascular accident) Current Visit: Yes Status: Acute This gentleman has unfortunately experienced multiple bihemispheric small cerebral infarcts as result of a cardioembolic phenomenon. The infarcts to his favor however are small and I am doubtful that any significant cerebral edema will evolve from them. I agree with anticoagulation. He does have some left hemiparesis he does have at least antigravity strength of the left arm and leg. I am therefore hopeful that he can regain functional strength in the left arm and leg over time. Of course the biggest question is whether his heart can recover from this. After he is out of the intensive care unit then he will require aggressive PT and OT if he can tolerate it. Critical care time spent with this patient evaluating the chart and discussing the case with staff and decision-making was 50 minutes. Qualifiers: CVA mechanism: embolism Precerebral and cerebral artery: unspecified cerebral artery Qualified Code(s): I63.40 - Cerebral infarction due to embolism of unspecified cerebral artery History of Present Illness HPI: Mr. Patel is a 66 year old male who is being seen for neurologic consultation secondary to embolic strokes. This gentleman presented to [facility] on 02/28/2017 chief complaint of chest pain. This gentleman has a history of hypertension and is a lifetime smoker. He presented about a day or 2 after symptoms of chest pain and shortness of breath started. Ultimately he was determined to have troponins greater than 15 was diagnosed with STEMI. He also has atrial fibrillation. On March 03 and was noticed that he had paucity of movement of the left upper and left lower extremities. MRI scan of the brain reveals a small scattered acute infarcts in both cerebellar hemispheres as well as the cerebral hemispheres. There is no evidence of hemorrhage or mass effect. MRA scan of the brain did not reveal any evidence of occlusion or aneurysm. Carotid Doppler revealed minimal plaquing bilaterally The MRI scan however does reveal chronic white matter ischemic changes in the fairly large deep white matter lacunar infarct on the left. Echocardiogram completed on the day of admission revealed LVEF of 25% with severe segmental left ventricular systolic dysfunction Patient is awake and coherent but somnolent. He denies headache, denies visual changes. He is currently on heparin and warfarin. He appears very weak. Past Med Surg Social Fam HX - Past Medical History Medical history: hypertension, seizures - Social History Smoking Status: Former smoker Smokeless Tobacco Status: No Alcohol use: none Drug use: none Medications and Allergies Unable To Obtain [Unable to Obtain] 03/02/17 [History] Allergies No Known Allergies Allergy (Verified 02/28/17 16:24) ROS unobtainable: other (Was obtained from chart review. Patient is very weak and hypophonic.) All Systems: A 10-system review of systems was performed and is negative for pertinent findings except as documented above in the HPI. Physical Examination - Vital Signs Vital Signs: Initial Vital Signs Temp Pulse Resp BP Pulse Ox 98.2 F 107 18 190/131 93 02/28/17 16:20 02/28/17 16:20 02/28/17 16:20 02/28/17 16:20 02/28/17 16:20 - Neurologic Sensorimotor examination: hemiparesis (Patient has 3/5 strength of the left upper extremity, and -3/5 strength of the left lower extremity. He has full strength of the right upper and right lower extremities. The left leg is externally rotated.) Detailed sensory examination: other (Patient denies any hemihypesthesia, however he may not be completely reliable.) Reflexes: Biceps: 2+ (Symmetrical), Triceps: 2+ (Symmetrically), Brachioradialis : 2+ (Symmetrically), Patella: 2+ (Symmetrically), Achilles: 2+ (Symmetrically) Mental Status Examination: awake, drowsy, makes eye contact, follows simple commands Cranial nerve examination: PERRL, EOMI, visual knox intact, corneal reflexes brisk symmetrically, sensory to face intact, mastication intact, hearing is intact symmetrically, soft palate elevates bilaterally upon phonation, gag reflex intact, flexes SCM and trapezius muscles symmetrically with full power, tongue protrudes midline, no atrophy or facial fasiculations present Cranial Nerve Exam: facial droop: Left Results - Laboratory Findings CBC and BMP: 03/07/17 03:43 03/07/17 03:43 Abnormal lab findings: Abnormal lab results WBC 13.7 K/mcL (4.3-11.1) H 03/07/17 03:43 Neutrophils # 11.3 K/mcL (1.6-8.9) H 03/07/17 03:43 Nucleated RBCs/100 WBC 0.1 /100 WBC (0) H 03/07/17 03:43 PT 14.8 Seconds (9.4-12.1) H 03/07/17 03:43 APTT 48.8 Seconds (26.0-36.0) H 03/07/17 10:35 ABG pH 7.48 pH Units (7.32-7.45) H 03/05/17 04:50 ABG HCO3 28.3 mEQ/L (21-27) H 03/05/17 04:50 ABG Total CO2 29.5 mEq/L (20-26) H 03/05/17 04:50 ABG Base Excess 4.6 mEq/L (-2.0 to 3.0) H 03/05/17 04:50 Carbon Dioxide 30 mEq/L (19-29) H 03/07/17 03:43 BUN 31 mg/dL (8-26) H 03/07/17 03:43 BUN/Creatinine Ratio 33 (6-26) H 03/07/17 03:43 Glucose 131 mg/dL (70-99) H 03/07/17 03:43 POC Glucose 156 (58-89) H 03/07/17 11:18 Calculated Osmolality 306 (280-300) H 03/07/17 03:43 AST 286 Units/L (5-34) H 03/01/17 04:00 ALT 63 Units/L (0-55) H 03/01/17 04:00 Troponin I > 50.00 ng/mL (0-0.03) H* 02/28/17 16:55 B-Natriuretic Peptide 857 pg/mL (0-100) H 02/28/17 16:55 Serum Total Protein 5.6 g/dL (6.0-8.3) L 03/01/17 04:00 Albumin 2.7 g/dL (3.5-5.0) L 03/01/17 04:00 Albumin/Globulin Ratio 0.9 (1.1-2.2) L 03/01/17 04:00 Consult Discharge Plan - Plan Referrals: NO,PCP [Primary Care Provider] -
[2017-03-07] MEDS: Dexmedetomidine HCl 400 MCG/100 ML MLS IVC SCH ×2 (20:04→20:14)
[2017-03-07] MEDS: Nitroglycerin 25 MG/250 ML INFUS..BTL IVC SCH (20:05)
[2017-03-08 00:45] LABS: Basophils % 0.3 %; Eosinophils # 0.2 K/mcL (0.0-0.6); Eosinophils % 1.2 %; Hematocrit 35.8 % (37.5-50.1); Immature Granulocytes % 1.3 % (0-4); Lymphocytes # 1.4 K/mcL (0.6-4.6); Lymphocytes % 11.2 %; Mean Corpuscular HGB Conc 33.8 g/dL (31.6-35.5); Mean Corpuscular Hemoglobin 29.4 pg (28.0-33.3); Mean Corpuscular Volume 86.9 fL (83.0-100.0); Mean Platelet Volume 10.7 fL (9.4-12.4); Monocytes # 0.9 K/mcL (0.0-1.3); Monocytes % 6.8 %; Neutrophils # 9.9 K/mcL (1.6-8.9); Platelet Count 251 K/mcL (140-400); Red Blood Count 4.12 M/mcL (4.19-5.50); Red Cell Distribution Width 12.5 % (11.5-14.5); Segmented Neutrophils % 79.2 %
[2017-03-08 00:46] LABS: Hemoglobin 12.1 g/dL (12.9-16.9)
[2017-03-08 00:51] LABS: INR 1.6; Prothrombin Time 17.4 Seconds (9.4-12.1)
[2017-03-08] MEDS: niCARdipine 40 MG/200 ML MLS IVC SCH (00:56)
[2017-03-08 01:02] LABS: BUN/Creatinine Ratio 33 (6-26); Blood Urea Nitrogen 36 mg/dL (8-26); Calcium 9.4 mg/dL (8.6-10.8); Carbon Dioxide 27 mEq/L (19-29); Chloride 107 mEq/L (98-109); Glucose 124 mg/dL (70-99); Magnesium 2.2 mg/dL (1.6-2.6); Osmolality,Calculated 308 (280-300); Sodium 144 mEq/L (136-145); eGFR For African Americans > 60 (> 60); eGFR For Non-African Americans > 60 (> 60)
[2017-03-08] MEDS: Dexmedetomidine HCl 400 MCG/100 ML MLS IVC SCH (03:39)
[2017-03-08] MEDS: Docusate Oral Soln 100 MG/10 ML UDC GTUBE SCH (08:01)
[2017-03-08] MEDS: *HR* Ticagrelor 90 MG TABLET PO SCH ×2 (08:03→20:02)
[2017-03-08] MEDS: Furosemide 40 MG/4 ML VIAL IVP SCH (08:03)
[2017-03-08] MEDS: Aspirin 81 MG TAB.CHEW PO SCH (08:03)
[2017-03-08] MEDS: amLODIPine 5 MG TABLET PO SCH (08:03)
--- NOTE | 2017-03-08 08:56 | Event Note ---
<Oskar Montoya - Last Filed: 03/08/17 08:54> Date of Encounter: 03/08/17 Time of Encounter: 08:54 Patient continues to improve and is stable from a respiratory standpoint. Patient remains hypertensive which is being managed by the primary cardiology service. I discussed with the primary cardiology service and the pulmonology/ critical care service will sign off at this time. Please do not hesitate to reconsult if needed. <Ramos Muhammad - Last Filed: 03/08/17 09:41> Date of Encounter: 03/08/17
--- NOTE | 2017-03-08 10:27 | Cardiology Progress Note ---
Date of Encounter: 03/08/17 Time of Encounter: 08:30 Assessment and Plan (1) STEMI (ST elevation myocardial infarction) Current Visit: Yes Status: Acute Per cardiology: -Late presentation anteroseptal NH with troponin >50 on presentation complicated by pulmonary edema resulting in respiratory failure requiring intubation. S/p PCI to the proximal and mid LAD. EF 35%, LVEDP 22-24 during [facility]. -TTE EF 25% with wall motion abnormalities in LAD distribution. -Now extubated. No respiratory distress noted. Resting comfortably in bed. -Continue DAPT uninterrupted for minimum of one year with asa and brilinta. Statin and bb. -Cardiac rehab consult placed but patient will need regular PT for CVA prior to cardiac rehab. -Denies chest pain overnight. -On nitro drip at 5mcg/min and cardene drip at 2.5mg/hour. -Will increase lisinopril and coreg. Will continue to monitor BP and HR. -Attempt to wean off cardene and nitro drips. Qualifiers: Involved coronary artery: LAD coronary artery Qualified Code(s): I21.02 - ST elevation (STEMI) myocardial infarction involving left anterior descending coronary artery (2) Acute systolic CHF (congestive heart failure) Current Visit: Yes Status: Acute Per cardiology: -Acute systolic CHF. EF 35%. TTE- EF 25%. -Now extubated. -On lasix IV daily. -Net negative 4395ml -Continue IV lasix 40 mg daily. Kidney function is normal. -Strict I&O and daily weights. -K today 3, replaced with rider. -Hay inhibitor increased today. (3) CVA (cerebral vascular accident) Current Visit: Yes Status: Acute Per cardiology: -Left sided weakness noted. -MRI/MRA showed small scattered acute infarcts throughout the cerebral and cerebellar hemispheres bilaterally. Distribution suggests an embolic phenomenon. -Patient is noted to have paroxysmal atrial fibrillation on telemetry 03/04/17. Currently SR. -PT/OT consulted. -Neurology following. -social sciences professor following. Will need social sciences professor assistance for discharge planning. Qualifiers: CVA mechanism: embolism Precerebral and cerebral artery: unspecified cerebral artery Qualified Code(s): I63.40 - Cerebral infarction due to embolism of unspecified cerebral artery (4) Atrial fibrillation Current Visit: Yes Status: Acute Per cardiology: -Noted to have PAF on telemetry 03/04/17. Currently NSR. -On beta david. -On heparin drip. COumadin has been started. -CHADS VASC=5 (HTN, AGE, CVA2, CAD). On heparin drip and coumadin. -Will continue to monitor. Qualifiers: Atrial fibrillation type: paroxysmal Qualified Code(s): I48.0 - Paroxysmal atrial fibrillation Discussion w patient/family: The assessment and plan as outlined above was discussed with the patient who expressed understanding and agreement. All questions were answered. Thank you for involving us in the care of your patient. Please call with any questions. Discussed and reviewed with . Subjective Principal diagnosis: Acute respiratory failure with hypoxia, STEMI Interval history: Patient extubated. Patient resting comfortably in bed. Patient oriented to person and place. Patient was able to recall the year, however did not know the month or day. Patient was able to recall the president. Patient denies chest pain. Patient states he feels well this morning. Objective Vital Signs, Last 4 Hours Temp Pulse Resp BP Pulse Ox 03/08/17 10:00 78 16 145/78 97 03/08/17 09:00 83 16 138/75 94 03/08/17 08:00 75 16 161/90 95 03/08/17 07:50 98.2 F 03/08/17 06:44 77 16 125/80 97 General: Conversant, No Apparent Distress HEENT: Atraumatic, Normocephaly, Mucus Membranes Moist Neck: No JVD, Normal carotid pulses Cardiac: Reg Rate and Rhythm, Normal S1 and S2, No Murmur Lungs: Normal Breath Sounds, No Wheeze, Rales, Rhonchi Neuro: Alert and responsive (Oriented to person and place. ) Abdomen: Soft, Non-Tender Skin: No rashes noted on visualized skin Musculoskeletal: No Chest Wall Tenderness, Other (Left sided weakness noted. ) Extremities: No Clubbing, No Cyanosis, No Edema, Normal Pulses Results 03/08/17 00:24 03/08/17 00:24 Lab Results Active Medications Acetaminophen (Tylenol) 500 mg PO Q6HR PRN PRN Reason: Mild Pain Stop: 08/30/17 18:31 Last Admin: 03/06/17 15:27 Dose: 500 mg Albuterol/Ipratropium (Duoneb) 3 ml IH [id number] PRN; Protocol PRN Reason: Shortness Of Breath/Wheezing Stop: 08/30/17 21:14 Amlodipine Besylate (Norvasc) 5 mg PO DAILY ESSENCE PRN Reason: Protocol Stop: 09/06/17 10:31 Last Admin: 03/08/17 08:03 Dose: 5 mg Artificial Tears (Lacri-Lube) 1 appl BOTH EYES Q2HR PRN; Protocol PRN Reason: Dry Eyes Stop: 08/31/17 11:46 Aspirin (Aspirin) 81 mg PO DAILY [facility] Stop: 08/31/17 09:01 Last Admin: 03/08/17 08:03 Dose: 81 mg Carvedilol (Coreg) 25 mg PO BIDWM ESSENCE PRN Reason: Protocol Stop: 09/07/17 17:01 Docusate Sodium (Colace) 100 mg GTUBE BID [facility] PRN Reason: Protocol Stop: 09/04/17 21:01 Last Admin: 03/08/17 08:01 Dose: 100 mg Furosemide (Lasix) 40 mg IVP DAILY [facility] Stop: 09/06/17 09:01 Last Admin: 03/08/17 08:03 Dose: 40 mg Heparin Sodium (Porcine) (Heparin) 4,700 unit 70 unit/kg (4700 unit) IVP Q6HR PRN PRN Reason: SEE COMMENTS Stop: 09/04/17 11:22 Heparin Sodium (Porcine) (Heparin) 2,400 unit 35 unit/kg (2400 unit) IVP Q6H PRN PRN Reason: SEE COMMENTS Stop: 09/04/17 11:22 Last Admin: 03/07/17 11:29 Dose: 2,400 unit Hydralazine HCl (Hydralazine) 10 mg IVP Q6HR PRN PRN Reason: Hypertension Stop: 08/30/17 19:32 Last Admin: 03/06/17 10:56 Dose: 10 mg Magnesium Sulfate 2 gm/ (Dextrose) 104 mls @ 50 mls/hr IVPB Q6H PRN PRN Reason: Hypomagnesemia Stop: 08/31/17 17:29 Last Infusion: 03/02/17 12:38 Dose: Infused Calcium Gluconate 1,000 mg/ (Dextrose) 110 mls @ 50 mls/hr IVPB Q6HR PRN PRN Reason: Hypocalcemia Stop: 08/31/17 17:29 Last Infusion: 03/02/17 08:15 Dose: 0 mls/hr Sodium Phosphate 30 mmol/ (Dextrose) 110 mls @ 16 mls/hr IVPB Q12H PRN PRN Reason: Hypophosphatemia Stop: 08/31/17 17:29 Potassium Chloride (Potassium Chloride 10 Meq/100ml) 10 meq in 100 mls @ 100 mls/hr IVPB Q1H PRN PRN Reason: Potassium less than 4 Stop: 08/31/17 17:29 Last Admin: 03/08/17 07:40 Dose: 100 mls/hr Heparin Sodium/Dextrose (Heparin 25,000 Unit/500 Ml D5w) 25,000 unit in 500 mls @ 18.987 mls/hr IVC .Q24H ESSENCE; 14 UNIT/KG/HR PRN Reason: Protocol Stop: 09/04/17 11:31 Last Titration: 03/08/17 00:57 Dose: 24 unit/kg/hr, 32.55 mls/hr Nicardipine HCl (Cardene Premix 40mg/200ml) 40 mg in 200 mls @ 25 mls/hr IVC .Q8H ESSENCE; 5 MG/HR PRN Reason: Protocol Stop: 09/05/17 16:46 Last Titration: 03/08/17 08:18 Dose: 2.5 mg/hr, 12.5 mls/hr Nitroglycerin (Nitroglycerin) 25 mg in 250 mls @ 3 mls/hr IVC .Q24H ESSENCE; 5 MCG/ MIN PRN Reason: Protocol Stop: 09/05/17 17:31 Last Admin: 03/07/17 20:05 Dose: Not Given Lisinopril (Zestril) 10 mg PO DAILY [facility] PRN Reason: Protocol Stop: 09/08/17 09:01 Morphine Sulfate (Morphine Sulfate) 4 mg IVP Q3H PRN PRN Reason: Severe Pain (7-10) Stop: 08/30/17 18:31 Nitroglycerin (Nitroglycerin) 0.4 mg SL Q5MIN PRN PRN Reason: Chest Pain Stop: 08/30/17 18:31 Omeprazole (Prilosec) 20 mg PO DAILY@0730 [facility] Stop: 09/07/17 07:31 Last Admin: 03/08/17 08:02 Dose: 20 mg Ondansetron HCl (Zofran) 4 mg IVP Q8HR PRN PRN Reason: Nausea And Vomiting Stop: 08/30/17 18:31 Rosuvastatin Calcium (Crestor) 40 mg PO HS [facility] Stop: 08/30/17 21:01 Last Admin: 03/07/17 20:05 Dose: 40 mg Senna (Senna) 17.6 mg GTUBE BID [facility] Stop: 09/04/17 21:01 Last Admin: 03/08/17 08:02 Dose: 17.6 mg Ticagrelor (Brilinta) 90 mg PO BID [facility] Stop: 08/30/17 21:01 Last Admin: 03/08/17 08:03 Dose: 90 mg Warfarin Sodium (Coumadin Perpt) 1 each PO DAILY@1800 PRN PRN Reason: SEE COMMENTS Stop: 09/05/17 18:01 Warfarin Sodium (Coumadin) 5 mg PO DAILY@1800 [facility] Stop: 09/05/17 18:01 Last Admin: 03/07/17 17:16 Dose: 5 mg Laboratory Tests 03/08/17 03/08/17 03/08/17 00:24 00:24 00:24 WBC 12.4 H Hgb 12.1 L D INR 1.6 Potassium 3.0 L Creatinine 1.10 Magnesium 2.2 - Imaging and Cardiology Chest Xray: report reviewed Echo: report reviewed Cardiac cath: report reviewed - EKG Interpretation EKG results cardiology: other (Telemetry reviewed with average HR previous 12 hours noted to be 67, sinus rhythm. PVCS, couplets, and 1 6 beat run of non- sustianed ventricular tachycardia noted. 1 6 beat run of atrial tachycardia noted.) Consult Discharge Plan - Plan Referrals: NO,PCP [Primary Care Provider] -
[2017-03-08] MEDS: Heparin 25,000 UNIT/500 ML D5W 25,000 UNIT/500 ML MLS IVC SCH ×2 (12:28→17:45)
[2017-03-08 13:26] LABS: BUN/Creatinine Ratio 31 (6-26); Blood Urea Nitrogen 34 mg/dL (8-26); Calcium 9.4 mg/dL (8.6-10.8); Carbon Dioxide 30 mEq/L (19-29); Chloride 104 mEq/L (98-109); Glucose 178 mg/dL (70-99); Osmolality,Calculated 304 (280-300); Sodium 141 mEq/L (136-145); eGFR For African Americans > 60 (> 60); eGFR For Non-African Americans > 60 (> 60)
[2017-03-08] MEDS: *HR* Warfarin 5 MG TABLET PO SCH (17:11)
[2017-03-08] MEDS ORDERED: *HR* Morphine 2 MG/ML SYRINGE IVP PRN (17:44)
[2017-03-08] MEDS ORDERED: Nitroglycerin 0.4 MG TAB.SUBL SL PRN (17:44)
[2017-03-08] MEDS ORDERED: *HR* Heparin 5,000 UNIT/ML VIAL IVP PRN ×2 (17:44)
[2017-03-08] MEDS ORDERED: Ondansetron 4 MG/2 ML VIAL IVP PRN (17:44)
[2017-03-08] MEDS ORDERED: Warfarin perPT PO PRN (17:44)
[2017-03-08] MEDS ORDERED: Ipratropium/Albuterol Neb 3 ML IH PRN (17:44)
[2017-03-08] MEDS ORDERED: Nitroglycerin 25 MG/250 ML INFUS..BTL IVC SCH (17:44)
[2017-03-08] MEDS ORDERED: *HR* Warfarin 5 MG TABLET PO SCH (18:00)
[2017-03-09 01:38] LABS: Basophils # 0.1 K/mcL (0.0-0.2); Basophils % 0.5 %; Eosinophils # 0.3 K/mcL (0.0-0.6); Eosinophils % 2.1 %; Hematocrit 37.4 % (37.5-50.1); Hemoglobin 12.8 g/dL (12.9-16.9); Immature Granulocytes % 0.8 % (0-4); Lymphocytes # 1.6 K/mcL (0.6-4.6); Lymphocytes % 12.8 %; Mean Corpuscular HGB Conc 34.2 g/dL (31.6-35.5); Mean Corpuscular Hemoglobin 29.8 pg (28.0-33.3); Mean Platelet Volume 10.7 fL (9.4-12.4); Monocytes % 7.6 %; Neutrophils # 9.8 K/mcL (1.6-8.9); Platelet Count 255 K/mcL (140-400); Red Cell Distribution Width 12.6 % (11.5-14.5); Segmented Neutrophils % 76.2 %
[2017-03-09 01:48] LABS: INR 2.9; Prothrombin Time 32.7 Seconds (9.4-12.1)
[2017-03-09 01:54] LABS: BUN/Creatinine Ratio 31 (6-26); Blood Urea Nitrogen 31 mg/dL (8-26); Calcium 9.4 mg/dL (8.6-10.8); Carbon Dioxide 30 mEq/L (19-29); Chloride 107 mEq/L (98-109); Glucose 121 mg/dL (70-99); Osmolality,Calculated 306 (280-300); Potassium 3.2 mEq/L (3.5-4.5); Sodium 144 mEq/L (136-145); eGFR For African Americans > 60 (> 60); eGFR For Non-African Americans > 60 (> 60)
[2017-03-09] MEDS: Heparin 25,000 UNIT/500 ML D5W 25,000 UNIT/500 ML MLS IVC SCH (04:28)
[2017-03-09] MEDS: Furosemide 40 MG/4 ML VIAL IVP SCH (08:02)
[2017-03-09] MEDS: *HR* Ticagrelor 90 MG TABLET PO SCH ×2 (08:02→20:09)
[2017-03-09] MEDS: Aspirin 81 MG TAB.CHEW PO SCH (08:03)
[2017-03-09] MEDS ORDERED: amLODIPine 5 MG TABLET PO SCH (09:00)
--- NOTE | 2017-03-09 09:31 | Cardiology Progress Note ---
Date of Encounter: 03/09/17 Time of Encounter: 08:45 Assessment and Plan (1) STEMI (ST elevation myocardial infarction) Current Visit: Yes Status: Acute Per cardiology: -Late presentation anteroseptal MO with troponin >50 on presentation complicated by pulmonary edema resulting in respiratory failure requiring intubation. S/p PCI to the proximal and mid LAD. EF 35%, LVEDP 22-24 during [facility]. -TTE EF 25% with wall motion abnormalities in LAD distribution. -Now extubated. No respiratory distress noted. Resting comfortably in bed. -Continue DAPT uninterrupted for minimum of one year with asa and brilinta. Statin and bb. -Cardiac rehab consult placed but patient will need regular PT for CVA prior to cardiac rehab. -Denies chest pain overnight. -Will increase lisinopril. Will continue to monitor BP and HR. Qualifiers: Involved coronary artery: LAD coronary artery Qualified Code(s): I21.02 - ST elevation (STEMI) myocardial infarction involving left anterior descending coronary artery (2) Acute systolic CHF (congestive heart failure) Current Visit: Yes Status: Acute Per cardiology: -Acute systolic CHF. EF 35%. TTE- EF 25%. -Now extubated. -On lasix IV daily. -Net negative 4197ml -Continue IV lasix 40 mg daily. Kidney function is normal. -Strict I&O and daily weights. -K today 3.2, replaced with rider. -Hay inhibitor increased today. (3) CVA (cerebral vascular accident) Current Visit: Yes Status: Acute Per cardiology: -Left sided weakness noted. -MRI/MRA showed small scattered acute infarcts throughout the cerebral and cerebellar hemispheres bilaterally. Distribution suggests an embolic phenomenon. -Patient is noted to have paroxysmal atrial fibrillation on telemetry 03/04/17. Currently SR. -PT/OT consulted. -Neurology following. -social media developer following. Will need social media developer assistance for discharge planning. -ON heparin drip and coumadin -INR therpeutic today at 2.9. -Will discontinue heparin drip. Qualifiers: CVA mechanism: embolism Precerebral and cerebral artery: unspecified cerebral artery Qualified Code(s): I63.40 - Cerebral infarction due to embolism of unspecified cerebral artery (4) Atrial fibrillation Current Visit: Yes Status: Acute Per cardiology: -Noted to have PAF on telemetry 03/04/17. Currently NSR. -On beta david. -On heparin drip. COumadin has been started. -CHADS VASC=5 (HTN, AGE, CVA2, CAD). On heparin drip and coumadin. -Will continue to monitor. -Will discontinue heparin drip. INR therapuetic, Qualifiers: Atrial fibrillation type: paroxysmal Qualified Code(s): I48.0 - Paroxysmal atrial fibrillation Discussion w patient/family: The assessment and plan as outlined above was discussed with the patient who expressed understanding and agreement. All questions were answered. Thank you for involving us in the care of your patient. Please call with any questions. Discussed and reviewed with . Subjective Principal diagnosis: Acute respiratory failure with hypoxia, STEMI Interval history: Patient extubated. Patient resting comfortably in bed. Patient oriented to person and place. Patient was able to recall the year, however did not know the month or day. Patient was able to recall the president. Patient denies chest pain. Patient states he feels well this morning. Patient only complained of needing to use restroom. Patient was able to move left side more today. Objective Vital Signs, Last 4 Hours Temp Pulse Resp BP Pulse Ox 03/09/17 08:15 73 03/09/17 07:52 97.5 F L 73 18 158/75 98 General: Conversant, No Apparent Distress HEENT: Atraumatic, Normocephaly, Mucus Membranes Moist Neck: No JVD, Normal carotid pulses Cardiac: Reg Rate and Rhythm, Normal S1 and S2, No Murmur Lungs: Normal Breath Sounds, No Wheeze, Rales, Rhonchi Neuro: Alert and responsive, Other (Oriented to person and place. ) Abdomen: Soft, Non-Tender Skin: No rashes noted on visualized skin Musculoskeletal: No Chest Wall Tenderness, Other (Left sided weakness noted, ) Extremities: No Clubbing, No Cyanosis, No Edema, Normal Pulses Results 03/09/17 01:24 03/09/17 01:24 Lab Results Active Medications Acetaminophen (Tylenol) 500 mg PO Q6HR PRN PRN Reason: Mild Pain Stop: 08/30/17 18:31 Albuterol/Ipratropium (Duoneb) 3 ml IH [id number] PRN; Protocol PRN Reason: Shortness Of Breath/Wheezing Stop: 08/30/17 21:14 Amlodipine Besylate (Norvasc) 5 mg PO DAILY [facility] PRN Reason: Protocol Stop: 09/06/17 10:31 Last Admin: 03/09/17 08:02 Dose: 5 mg Aspirin (Aspirin) 81 mg PO DAILY [facility] Stop: 08/31/17 09:01 Last Admin: 03/09/17 08:03 Dose: 81 mg Carvedilol (Coreg) 25 mg PO BIDWM [facility] PRN Reason: Protocol Stop: 09/07/17 17:01 Last Admin: 03/09/17 08:02 Dose: 25 mg Furosemide (Lasix) 40 mg IVP DAILY [facility] Stop: 09/06/17 09:01 Last Admin: 03/09/17 08:02 Dose: 40 mg Heparin Sodium (Porcine) (Heparin) 4,700 unit 70 unit/kg (4700 unit) IVP Q6HR PRN PRN Reason: SEE COMMENTS Stop: 09/04/17 11:22 Heparin Sodium (Porcine) (Heparin) 2,400 unit 35 unit/kg (2400 unit) IVP Q6H PRN PRN Reason: SEE COMMENTS Stop: 09/04/17 11:22 Hydralazine HCl (Hydralazine) 10 mg IVP Q6HR PRN PRN Reason: Hypertension Stop: 08/30/17 19:32 Heparin Sodium/Dextrose (Heparin 25,000 Unit/500 Ml D5w) 25,000 unit in 500 mls @ 18.987 mls/hr IVC .Q24H [facility]; 14 UNIT/KG/HR PRN Reason: Protocol Stop: 09/04/17 11:31 Last Admin: 03/09/17 04:28 Dose: 23.96 unit/kg/hr, 32.496 mls/hr Lisinopril (Zestril) 10 mg PO ONCE ONE PRN Reason: Protocol Stop: 03/10/17 09:28 Lisinopril (Zestril) 20 mg PO DAILY [facility] PRN Reason: Protocol Stop: 09/09/17 09:01 Morphine Sulfate (Morphine Sulfate) 4 mg IVP Q3H PRN PRN Reason: Severe Pain (7-10) Stop: 08/30/17 18:31 Nitroglycerin (Nitroglycerin) 0.4 mg SL Q5MIN PRN PRN Reason: Chest Pain Stop: 08/30/17 18:31 Omeprazole (Prilosec) 20 mg PO DAILY@0730 [facility] Stop: 09/07/17 07:31 Last Admin: 03/09/17 08:02 Dose: 20 mg Ondansetron HCl (Zofran) 4 mg IVP Q8HR PRN PRN Reason: Nausea And Vomiting Stop: 08/30/17 18:31 Rosuvastatin Calcium (Crestor) 40 mg PO HS [facility] Stop: 08/30/17 21:01 Last Admin: 03/08/17 20:02 Dose: 40 mg Ticagrelor (Brilinta) 90 mg PO BID [facility] Stop: 08/30/17 21:01 Last Admin: 03/09/17 08:02 Dose: 90 mg Warfarin Sodium (Coumadin) 5 mg PO DAILY@1800 [facility] Stop: 09/05/17 18:01 Last Admin: 03/08/17 19:14 Dose: Not Given Warfarin Sodium (Coumadin Perpt) 1 each PO DAILY@1800 PRN PRN Reason: SEE COMMENTS Stop: 09/05/17 18:01 Laboratory Tests 03/09/17 03/09/17 03/09/17 01:24 01:24 01:24 WBC 12.8 H Hgb 12.8 L INR 2.9 D Potassium 3.2 L Creatinine 1.00 - Imaging and Cardiology Chest Xray: report reviewed Echo: report reviewed Cardiac cath: report reviewed - EKG Interpretation EKG results cardiology: other (Telemetry reviewed with average HR 69, sinus rhythm. PVCs and PACs noted.) Consult Discharge Plan - Plan Referrals: NO,PCP [Primary Care Provider] -
[2017-03-09] MEDS ORDERED: 0.9 % Sodium Chloride 250 ML ONE (10:21)
--- NOTE | 2017-03-09 14:27 | Internal Med Progress Note ---
Date of Encounter: 03/09/17 Time of Encounter: 14:27 - Assessment and plan (1) STEMI (ST elevation myocardial infarction) Current Visit: Yes Status: Acute Assessment and plan: Admitted with ST elevation myocardial infarction. Upon admission noted that troponin was more than 50. Underwent cardiac catheterization. Cardiology on the board. Plan: Will follow cardiology recommendations. Qualifiers: Involved coronary artery: LAD coronary artery Qualified Code(s): I21.02 - ST elevation (STEMI) myocardial infarction involving left anterior descending coronary artery (2) Acute systolic CHF (congestive heart failure) Current Visit: Yes Status: Acute Assessment and plan: Noted that patient's ejection fraction is 25% by transthoracic echocardiogram. Patient was intubated/extubated. On intravenous Lasix. Need to balance more than 400. Holding potassium 3.2. He plays potassium Plan: Will recheck labs tomorrow. (3) CVA (cerebral vascular accident) Current Visit: Yes Status: Acute Assessment and plan: The etiology of infarct is likely embolic. Neurologic the board. We will follow recommendations from neurology. Qualifiers: CVA mechanism: embolism Precerebral and cerebral artery: unspecified cerebral artery Qualified Code(s): I63.40 - Cerebral infarction due to embolism of unspecified cerebral artery (4) Atrial fibrillation Current Visit: Yes Status: Acute Assessment and plan: CHADS VASC=5 (HTN, AGE, CVA2, CAD). On Coumadin and INR is therapeutic. Medical decision making this patient has a moderate to severe risk of worsening in spite of being on appropriate therapy Qualifiers: Atrial fibrillation type: paroxysmal Qualified Code(s): I48.0 - Paroxysmal atrial fibrillation - Subjective Interval history: Patient seen and examined. Chart reviewed. Patient is comfortably lying down in the bed. Patient denies chest pain, shortness of breath, dizziness, diarrhea or abdominal pain. - Constitutional Vitals: Temp Pulse Resp BP Pulse Ox 98.1 F 65 18 154/96 91 03/09/17 12:05 03/09/17 12:05 03/09/17 12:05 03/09/17 12:05 03/09/17 12:05 General appearance: Present: A&O X 3, pleasant, no acute distress, answers questions appropriately - Head Head exam: Present: atraumatic, normocephalic - Eye Eye exam: Present: PERRL, conjuntiva pink, sclera anicteric Pupils: Present: PERRL - Neck Neck exam general surgery: Present: supple, trachea midline. Absent: lymphadenopathy - Respiratory Respiratory exam: Present: CTAB. Absent: accessory muscle use, rales, rhonchi, wheezes - Cardiovascular Cardiovascular exam: Present: RRR, +S1, +S2. Absent: diastolic murmur, gallop, rubs, systolic murmur - GI/Abdominal GI/Abdominal exam: Present: normal bowel sounds, soft, no peritoneal signs. Absent: distended, tenderness - Extremities Exam Extremities exam: Present: warm, radial pulses palpable and symetrical. Absent : calf tenderness, cyanotic, pedal edema - Neurological Exam Neurological exam: Present: CN II-XII intact, oriented X3, no focal deficits. Absent: pronater drift, facial droop, speech deficit - Skin Skin exam: Present: dry, intact Internal Medicine: Result - Labs CBC & Chem 7: 03/09/17 01:24 03/09/17 01:24 Labs: Short CBC 03/09/17 Range/Units 01:24 WBC 12.8 H (4.3-11.1) K/mcL Hgb 12.8 L (12.9-16.9) g/dL Hct 37.4 L (37.5-50.1) % Plt Count 255 (140-400) K/mcL Neutrophils # 9.8 H (1.6-8.9) K/mcL BMP 03/09/17 01:24 Sodium 144 Potassium 3.2 L Chloride 107 Carbon Dioxide 30 H BUN 31 H Creatinine 1.00 Glucose 121 H Calcium 9.4 - ABG Interpretation ABG results: ABG ABG pH 7.48 pH Units (7.32-7.45) H 03/05/17 04:50 ABG pCO2 38 mmHg (35-45) 03/05/17 04:50 ABG pO2 89 mmHg (85-104) 03/05/17 04:50 ABG O2 Saturation 97 % (95-98) 03/05/17 04:50 PT/INR, D-dimer PT 32.7 Seconds (9.4-12.1) H D 03/09/17 01:24 Consult Discharge Plan - Plan Referrals: NO,PCP [Primary Care Provider] -
[2017-03-09 15:15] LABS: Basophils # 0.1 K/mcL (0.0-0.2); Basophils % 0.4 %; Eosinophils # 0.2 K/mcL (0.0-0.6); Eosinophils % 1.3 %; Immature Granulocytes % 0.7 % (0-4); Lymphocytes # 1.4 K/mcL (0.6-4.6); Lymphocytes % 11.3 %; Mean Corpuscular HGB Conc 34.2 g/dL (31.6-35.5); Mean Corpuscular Hemoglobin 29.7 pg (28.0-33.3); Mean Corpuscular Volume 86.8 fL (83.0-100.0); Mean Platelet Volume 10.8 fL (9.4-12.4); Monocytes # 0.9 K/mcL (0.0-1.3); Monocytes % 7.6 %; Neutrophils # 9.8 K/mcL (1.6-8.9); Platelet Count 310 K/mcL (140-400); Red Blood Count 4.38 M/mcL (4.19-5.50); Red Cell Distribution Width 12.6 % (11.5-14.5); Segmented Neutrophils % 78.7 %
[2017-03-09] MEDS ORDERED: amLODIPine 5 MG TABLET PO ONE (18:43)
[2017-03-10 01:11] LABS: Basophils # 0.1 K/mcL (0.0-0.2); Basophils % 0.5 %; Eosinophils # 0.3 K/mcL (0.0-0.6); Hematocrit 36.5 % (37.5-50.1); Hemoglobin 12.6 g/dL (12.9-16.9); Immature Granulocytes % 0.6 % (0-4); Lymphocytes # 1.7 K/mcL (0.6-4.6); Lymphocytes % 12.8 %; Mean Corpuscular HGB Conc 34.5 g/dL (31.6-35.5); Mean Corpuscular Hemoglobin 30.1 pg (28.0-33.3); Mean Corpuscular Volume 87.3 fL (83.0-100.0); Mean Platelet Volume 10.6 fL (9.4-12.4); Monocytes # 0.9 K/mcL (0.0-1.3); Monocytes % 7.2 %; Neutrophils # 10.1 K/mcL (1.6-8.9); Platelet Count 284 K/mcL (140-400); Red Blood Count 4.18 M/mcL (4.19-5.50); Red Cell Distribution Width 12.5 % (11.5-14.5); Segmented Neutrophils % 76.9 %
[2017-03-10 01:15] LABS: INR 4.1
[2017-03-10 01:17] LABS: Prothrombin Time 46.3 Seconds (9.4-12.1)
[2017-03-10 01:28] LABS: Alanine Aminotransferase 83 Units/L (0-55); Albumin 2.8 g/dL (3.5-5.0); Albumin/Globulin Ratio 0.7 (1.1-2.2); Alkaline Phosphatase 85 Units/L (38-126); Aspartate Amino Transferase 59 Units/L (5-34); BUN/Creatinine Ratio 27 (6-26); Bilirubin,Total 0.7 mg/dL (0.2-1.2); Blood Urea Nitrogen 30 mg/dL (8-26); Calcium 9.4 mg/dL (8.6-10.8); Carbon Dioxide 32 mEq/L (19-29); Chloride 105 mEq/L (98-109); Globulin 3.8 g/dL (2.4-3.5); Glucose 106 mg/dL (70-99); Magnesium 2.2 mg/dL (1.6-2.6); Osmolality,Calculated 303 (280-300); Potassium 3.2 mEq/L (3.5-4.5); Sodium 143 mEq/L (136-145); Total Protein 6.6 g/dL (6.0-8.3); eGFR For African Americans > 60 (> 60); eGFR For Non-African Americans > 60 (> 60)
[2017-03-10] MEDS: *HR* Ticagrelor 90 MG TABLET PO SCH ×2 (08:41→21:42)
[2017-03-10] MEDS: Lisinopril 20 MG TABLET PO SCH (08:41)
[2017-03-10] MEDS: amLODIPine 5 MG TABLET PO SCH (08:41)
[2017-03-10] MEDS: Aspirin 81 MG TAB.CHEW PO SCH (08:41)
[2017-03-10] MEDS: Furosemide 40 MG/4 ML VIAL IVP SCH (08:41)
[2017-03-10] MEDS ORDERED: Lisinopril 20 MG TABLET PO SCH (09:00)
--- NOTE | 2017-03-10 10:31 | Cardiology Progress Note ---
Date of Encounter: 03/10/17 Time of Encounter: 09:45 Assessment and Plan (1) STEMI (ST elevation myocardial infarction) Current Visit: Yes Status: Acute Per cardiology: -Late presentation anteroseptal [place] with troponin >50 on presentation complicated by pulmonary edema resulting in respiratory failure requiring intubation. S/p PCI to the proximal and mid LAD. EF 35%, LVEDP 22-24 during [facility]. -TTE EF 25% with wall motion abnormalities in LAD distribution. -Now extubated. No respiratory distress noted. Resting comfortably in bed. -Continue DAPT uninterrupted for minimum of one year with asa and brilinta. Statin and bb. -Cardiac rehab consult placed but patient will need regular PT for CVA prior to cardiac rehab. -Denies chest pain overnight. -Recommend dual anti-platelet therapy uninterrupted for at least one year. -Recommend titrating anti-hypertensives for better BP control. -Will repeat echo in outpatient setting. -Cardiology will sign off, discussed with . Cardiology will follow in outpatient setting. Follow up set. Qualifiers: Involved coronary artery: LAD coronary artery Qualified Code(s): I21.02 - ST elevation (STEMI) myocardial infarction involving left anterior descending coronary artery (2) Acute systolic CHF (congestive heart failure) Current Visit: Yes Status: Acute Per cardiology: -Acute systolic CHF. EF 35%. TTE- EF 25%. -Now extubated. -On lasix IV daily. -Net negative 4751 -Continue IV lasix 40 mg daily. Kidney function is normal. -Strict I&O and daily weights. -K today 3.2, replaced with rider. (3) CVA (cerebral vascular accident) Current Visit: Yes Status: Acute Per cardiology: -Left sided weakness noted. -MRI/MRA showed small scattered acute infarcts throughout the cerebral and cerebellar hemispheres bilaterally. Distribution suggests an embolic phenomenon. -Patient is noted to have paroxysmal atrial fibrillation on telemetry 03/04/17. Currently SR. -PT/OT consulted. -Neurology following. -social services manager following. Will need social services manager assistance for discharge planning. -ON heparin drip and coumadin -INR 4.1. -Management per primary and neurology services. Qualifiers: CVA mechanism: embolism Precerebral and cerebral artery: unspecified cerebral artery Qualified Code(s): I63.40 - Cerebral infarction due to embolism of unspecified cerebral artery (4) Atrial fibrillation Current Visit: Yes Status: Acute Per cardiology: -Noted to have PAF on telemetry 03/04/17. Currently NSR. -On beta david. -COumadin has been started. -CHADS VASC=5 (HTN, AGE, CVA2, CAD). On coumadin. Qualifiers: Atrial fibrillation type: paroxysmal Qualified Code(s): I48.0 - Paroxysmal atrial fibrillation Discussion w patient/family: The assessment and plan as outlined above was discussed with the patient who expressed understanding and agreement. All questions were answered. Thank you for involving us in the care of your patient. Please call with any questions. Discussed and reviewed with . Subjective Principal diagnosis: Acute respiratory failure with hypoxia, STEMI Interval history: Patient extubated. Patient resting comfortably in bed. Patient oriented to person and place. However, patient's conversations are inappropriate and are garbled. Patient denies chest pain. Patient states he feels well this morning. Patient was able to move left side more today. Objective Vital Signs, Last 4 Hours Temp Pulse Resp BP Pulse Ox 03/10/17 09:24 70 03/10/17 08:37 97.6 F 78 20 175/90 94 General: Conversant, No Apparent Distress HEENT: Atraumatic, Normocephaly, Mucus Membranes Moist Neck: No JVD, Normal carotid pulses Cardiac: Reg Rate and Rhythm, Normal S1 and S2, No Murmur Lungs: Normal Breath Sounds, No Wheeze, Rales, Rhonchi Neuro: Alert and responsive, No focal deficits noted Abdomen: Soft, Non-Tender Skin: No rashes noted on visualized skin Musculoskeletal: No Chest Wall Tenderness Extremities: No Clubbing, No Cyanosis, No Edema, Normal Pulses Results 03/10/17 00:52 03/10/17 00:52 Lab Results Active Medications Acetaminophen (Tylenol) 500 mg PO Q6HR PRN PRN Reason: Mild Pain Stop: 08/30/17 18:31 Albuterol/Ipratropium (Duoneb) 3 ml IH [id number] PRN; Protocol PRN Reason: Shortness Of Breath/Wheezing Stop: 08/30/17 21:14 Amlodipine Besylate (Norvasc) 10 mg PO DAILY [facility] PRN Reason: Protocol Stop: 09/09/17 09:01 Last Admin: 03/10/17 08:41 Dose: 10 mg Aspirin (Aspirin) 81 mg PO DAILY [facility] Stop: 08/31/17 09:01 Last Admin: 03/10/17 08:41 Dose: 81 mg Carvedilol (Coreg) 25 mg PO BIDWM [facility] PRN Reason: Protocol Stop: 09/07/17 17:01 Last Admin: 03/10/17 08:41 Dose: 25 mg Furosemide (Lasix) 40 mg IVP DAILY [facility] Stop: 09/06/17 09:01 Last Admin: 03/10/17 08:41 Dose: 40 mg Heparin Sodium (Porcine) (Heparin) 4,700 unit 70 unit/kg (4700 unit) IVP Q6HR PRN PRN Reason: SEE COMMENTS Stop: 09/04/17 11:22 Heparin Sodium (Porcine) (Heparin) 2,400 unit 35 unit/kg (2400 unit) IVP Q6H PRN PRN Reason: SEE COMMENTS Stop: 09/04/17 11:22 Hydralazine HCl (Hydralazine) 10 mg IVP Q6HR PRN PRN Reason: Hypertension Stop: 08/30/17 19:32 Lisinopril (Zestril) 20 mg PO DAILY [facility] PRN Reason: Protocol Stop: 09/09/17 09:01 Last Admin: 03/10/17 08:41 Dose: 20 mg Morphine Sulfate (Morphine Sulfate) 4 mg IVP Q3H PRN PRN Reason: Severe Pain (7-10) Stop: 08/30/17 18:31 Nitroglycerin (Nitroglycerin) 0.4 mg SL Q5MIN PRN PRN Reason: Chest Pain Stop: 08/30/17 18:31 Omeprazole (Prilosec) 20 mg PO DAILY@0730 [facility] Stop: 09/07/17 07:31 Last Admin: 03/10/17 08:41 Dose: 20 mg Ondansetron HCl (Zofran) 4 mg IVP Q8HR PRN PRN Reason: Nausea And Vomiting Stop: 08/30/17 18:31 Rosuvastatin Calcium (Crestor) 40 mg PO HS [facility] Stop: 08/30/17 21:01 Last Admin: 03/09/17 20:10 Dose: 40 mg Ticagrelor (Brilinta) 90 mg PO BID [facility] Stop: 08/30/17 21:01 Last Admin: 03/10/17 08:41 Dose: 90 mg Warfarin Sodium (Coumadin Perpt) 1 each PO DAILY@1800 PRN PRN Reason: SEE COMMENTS Stop: 09/05/17 18:01 Warfarin Sodium (Coumadin) 2.5 mg PO 1800 [facility] Stop: 09/09/17 18:01 Laboratory Tests 03/10/17 03/10/17 03/10/17 00:52 00:52 00:52 WBC 13.1 H Hgb 12.6 L INR 4.1 Potassium 3.2 L Creatinine 1.12 - Imaging and Cardiology Chest Xray: report reviewed Echo: report reviewed Cardiac cath: report reviewed - EKG Interpretation EKG results cardiology: other (Telemetry reviewed with average HR 69, sinus rhythm. PVCs and PACs noted.) Consult Discharge Plan - Plan Referrals: NO,PCP [Primary Care Provider] -
--- NOTE | 2017-03-10 15:17 | Internal Med Progress Note ---
Date of Encounter: 03/10/17 Time of Encounter: 15:16 - Assessment and plan (1) STEMI (ST elevation myocardial infarction) Current Visit: Yes Status: Acute Assessment and plan: Admitted with ST elevation myocardial infarction. Upon admission noted that troponin was more than 50. Underwent cardiac catheterization. Cardiology on the board. Plan: Will follow cardiology recommendations. 03/10/2017 Noted that cardiology has signed off. We will follow the recommendation. Patient denies any chest pain. We will follow him very closely. Qualifiers: Involved coronary artery: LAD coronary artery Qualified Code(s): I21.02 - ST elevation (STEMI) myocardial infarction involving left anterior descending coronary artery (2) Acute systolic CHF (congestive heart failure) Current Visit: Yes Status: Acute Assessment and plan: Noted that patient's ejection fraction is 25% by transthoracic echocardiogram. Patient was intubated/extubated. On intravenous Lasix. Need to balance more than 400. Holding potassium 3.2. He plays potassium Plan: Will recheck labs tomorrow. 03/10/2017 Stable labs as compared to yesterday. We will continue to monitor his intake and output. Close observation. Placement soon (3) CVA (cerebral vascular accident) Current Visit: Yes Status: Acute Assessment and plan: The etiology of infarct is likely embolic. Neurologic the board. We will follow recommendations from neurology. 03/10/2017 Patient opinion from neurology tomorrow. This patient needs in the placement in a [facility] for rehabilitation. We will get PT/OT evaluation. Qualifiers: CVA mechanism: embolism Precerebral and cerebral artery: unspecified cerebral artery Qualified Code(s): I63.40 - Cerebral infarction due to embolism of unspecified cerebral artery (4) Atrial fibrillation Current Visit: Yes Status: Acute Assessment and plan: CHADS VASC=5 (HTN, AGE, CVA2, CAD). On Coumadin and INR is therapeutic. Medical decision making this patient has a moderate to severe risk of worsening in spite of being on appropriate therapy Qualifiers: Atrial fibrillation type: paroxysmal Qualified Code(s): I48.0 - Paroxysmal atrial fibrillation - Subjective Interval history: Patient seen and examined. Chart reviewed. Patient is comfortably lying down in the bed. Patient denies chest pain, shortness of breath, dizziness, diarrhea or abdominal pain. 03/10/2017 Seen and examined. Chart review. Patient is sitting up in a chair. Denies any chest pain, shortness of breath, dizziness, diarrhea or abdominal pain. - Constitutional Vitals: Temp Pulse Resp BP Pulse Ox 98.6 F 68 18 150/86 97 03/10/17 15:02 03/10/17 15:02 03/10/17 15:02 03/10/17 15:02 03/10/17 15:02 General appearance: Present: A&O X 3, pleasant, no acute distress, answers questions appropriately - Head Head exam: Present: atraumatic, normocephalic - Eye Eye exam: Present: PERRL, conjuntiva pink, sclera anicteric Pupils: Present: PERRL - Neck Neck exam general surgery: Present: supple, trachea midline. Absent: lymphadenopathy - Respiratory Respiratory exam: Present: CTAB. Absent: accessory muscle use, rales, rhonchi, wheezes - Cardiovascular Cardiovascular exam: Present: RRR, +S1, +S2. Absent: diastolic murmur, gallop, rubs, systolic murmur - GI/Abdominal GI/Abdominal exam: Present: normal bowel sounds, soft, no peritoneal signs. Absent: distended, tenderness - Extremities Exam Extremities exam: Present: warm, radial pulses palpable and symetrical. Absent : calf tenderness, cyanotic, pedal edema - Neurological Exam Neurological exam: Present: CN II-XII intact, oriented X3, no focal deficits. Absent: pronater drift, facial droop, speech deficit - Skin Skin exam: Present: dry, intact Internal Medicine: Result - Labs CBC & Chem 7: 03/10/17 00:52 03/10/17 00:52 Labs: Short CBC 03/09/17 03/10/17 Range/Units 15:04 00:52 WBC 12.4 H 13.1 H (4.3-11.1) K/mcL Hgb 13.0 12.6 L (12.9-16.9) g/dL Hct 38.0 36.5 L (37.5-50.1) % Plt Count 310 284 (140-400) K/mcL Neutrophils # 9.8 H 10.1 H (1.6-8.9) K/mcL BMP 03/10/17 00:52 Sodium 143 Potassium 3.2 L Chloride 105 Carbon Dioxide 32 H BUN 30 H Creatinine 1.12 Glucose 106 H Calcium 9.4 Liver Function 03/10/17 Range/Units 00:52 Total Bilirubin 0.7 (0.2-1.2) mg/dL AST 59 H (5-34) Units/L ALT 83 H (0-55) Units/L Alkaline Phosphatase 85 (38-126) Units/L Albumin 2.8 L (3.5-5.0) g/dL - ABG Interpretation ABG results: ABG ABG pH 7.48 pH Units (7.32-7.45) H 03/05/17 04:50 ABG pCO2 38 mmHg (35-45) 03/05/17 04:50 ABG pO2 89 mmHg (85-104) 03/05/17 04:50 ABG O2 Saturation 97 % (95-98) 03/05/17 04:50 PT/INR, D-dimer PT 46.3 Seconds (9.4-12.1) H* 03/10/17 00:52 Consult Discharge Plan - Plan Referrals: NO,PCP [Primary Care Provider] -
[2017-03-10] MEDS ORDERED: *HR* Warfarin 2.5 MG TABLET PO SCH (18:00)
[2017-03-11 04:39] LABS: Basophils # 0.1 K/mcL (0.0-0.2); Basophils % 0.4 %; Eosinophils # 0.2 K/mcL (0.0-0.6); Eosinophils % 1.4 %; Hematocrit 36.8 % (37.5-50.1); Hemoglobin 12.6 g/dL (12.9-16.9); Immature Granulocytes % 0.6 % (0-4); Lymphocytes # 1.4 K/mcL (0.6-4.6); Lymphocytes % 10.1 %; Mean Corpuscular HGB Conc 34.2 g/dL (31.6-35.5); Mean Corpuscular Hemoglobin 29.9 pg (28.0-33.3); Mean Corpuscular Volume 87.2 fL (83.0-100.0); Mean Platelet Volume 10.3 fL (9.4-12.4); Monocytes # 0.8 K/mcL (0.0-1.3); Monocytes % 5.5 %; Neutrophils # 11.6 K/mcL (1.6-8.9); Platelet Count 292 K/mcL (140-400); Red Blood Count 4.22 M/mcL (4.19-5.50); Red Cell Distribution Width 12.4 % (11.5-14.5)
[2017-03-11 04:41] LABS: INR 3.3
[2017-03-11 04:55] LABS: Alanine Aminotransferase 73 Units/L (0-55); Albumin 2.9 g/dL (3.5-5.0); Albumin/Globulin Ratio 0.8 (1.1-2.2); Alkaline Phosphatase 83 Units/L (38-126); Aspartate Amino Transferase 41 Units/L (5-34); BUN/Creatinine Ratio 30 (6-26); Bilirubin,Total 0.7 mg/dL (0.2-1.2); Blood Urea Nitrogen 34 mg/dL (8-26); Calcium 9.6 mg/dL (8.6-10.8); Carbon Dioxide 28 mEq/L (19-29); Chloride 106 mEq/L (98-109); Globulin 3.8 g/dL (2.4-3.5); Glucose 107 mg/dL (70-99); Osmolality,Calculated 302 (280-300); Potassium 3.3 mEq/L (3.5-4.5); Sodium 142 mEq/L (136-145); Total Protein 6.7 g/dL (6.0-8.3); eGFR For African Americans > 60 (> 60); eGFR For Non-African Americans > 60 (> 60)
[2017-03-11] MEDS: Aspirin 81 MG TAB.CHEW PO SCH (08:18)
[2017-03-11] MEDS: amLODIPine 5 MG TABLET PO SCH (08:18)
[2017-03-11] MEDS: *HR* Ticagrelor 90 MG TABLET PO SCH ×2 (08:19→21:41)
[2017-03-11] MEDS: Lisinopril 20 MG TABLET PO SCH (08:19)
[2017-03-11] MEDS: Furosemide 40 MG/4 ML VIAL IVP SCH (08:19)
--- NOTE | 2017-03-11 16:25 | Internal Med Progress Note ---
<Laurie Crook - Last Filed: 03/11/17 16:21> Date of Encounter: 03/11/17 Time of Encounter: 10:25 - Assessment and plan (1) STEMI (ST elevation myocardial infarction) Current Visit: Yes Status: Acute Assessment and plan: Admitted with ST elevation myocardial infarction. Upon admission noted that troponin was more than 50. Underwent cardiac catheterization. Cardiology following- appreciated Patient denies any chest pain, dyspnea, headache palpitation Plan: Cardiology recommendations -dual antiplatelet therapy uninterpreted for at least one year -repeat echo an outpatient setting -better control of BP with titrating antihypertensives -Noted that cardiology has signed off We will monitor the patient closely Qualifiers: Involved coronary artery: LAD coronary artery Qualified Code(s): I21.02 - ST elevation (STEMI) myocardial infarction involving left anterior descending coronary artery (2) Acute systolic CHF (congestive heart failure) Current Visit: Yes Status: Acute Assessment and plan: Patient's ejection fraction is 25% by transthoracic echocardiogram. Patient was intubated/extubated. Continue intravenous Lasix. potassium 3.3 Patient and labs are stable patient denies dyspnea Plan: monitor labs monitor and take an outtake placement soon social work is getting in touch with family so that we may discuss within the patient's treatment plan for outpatient (3) CVA (cerebral vascular accident) Current Visit: Yes Status: Acute Assessment and plan: The infarct is likely from embolus Neurology is following- appreciated We will follow recommendations from neurology. Plan: This patient needs in the placement in a skilled nursing for rehabilitation. Social workers trying to get in touch with family. PT/OT recommend rehabilitation in a skilled nursing we are waiting on placement and discussion with family Qualifiers: CVA mechanism: embolism Precerebral and cerebral artery: unspecified cerebral artery Qualified Code(s): I63.40 - Cerebral infarction due to embolism of unspecified cerebral artery (4) Atrial fibrillation Current Visit: Yes Status: Acute Assessment and plan: CHADS VASC=5 (HTN, AGE, CVA2, CAD). HR 67 stable On Coumadin INR is therapeutic 3.3 Qualifiers: Atrial fibrillation type: paroxysmal Qualified Code(s): I48.0 - Paroxysmal atrial fibrillation - Subjective Interval history: Patient is laying in bed comfortable. Patient is alert and oriented to person only. Patient is about random very confusing topics that do not make sense. He denies any chest pain, dyspnea, headache, nausea, abdominal pain, hematuria, dysuria. Social work is trying to find a short-term nursing facility and she is trying to contact family. - Constitutional Vitals: Temp Pulse Resp BP Pulse Ox 99.1 F 67 18 156/84 92 03/11/17 15:40 03/11/17 15:40 03/11/17 15:40 03/11/17 15:40 03/11/17 15:40 General appearance: Present: A&O X 3, pleasant, no acute distress, answers questions appropriately Exam: Gen.: Vitals noted. No acute distress. AAOx1 person only. Flight of thought. HEENT: PERRL, oropharynx clear, Normocephalic, atraumatic Neck: Supple. No adenopathy. Cardiac: RRR, no murmur, +S1/S2 Pulmonary: CTA bilaterally, no wheezes, rales or rhonchi, equal chest expansion Abdomen: soft, nontender, Bowel sounds noted, no guarding Extremities: no BLE edema, nontender calf, no cyanosis or clubbing Neuro: A&Ox1, moves all extremities Internal Medicine: Result - Labs CBC & Chem 7: 03/11/17 04:22 03/11/17 04:22 Labs: Short CBC 03/11/17 Range/Units 04:22 WBC 14.1 H (4.3-11.1) K/mcL Hgb 12.6 L (12.9-16.9) g/dL Hct 36.8 L (37.5-50.1) % Plt Count 292 (140-400) K/mcL Neutrophils # 11.6 H (1.6-8.9) K/mcL BMP 03/11/17 04:22 Sodium 142 Potassium 3.3 L Chloride 106 Carbon Dioxide 28 BUN 34 H Creatinine 1.15 Glucose 107 H Calcium 9.6 Liver Function 03/11/17 Range/Units 04:22 Total Bilirubin 0.7 (0.2-1.2) mg/dL AST 41 H (5-34) Units/L ALT 73 H (0-55) Units/L Alkaline Phosphatase 83 (38-126) Units/L Albumin 2.9 L (3.5-5.0) g/dL - ABG Interpretation ABG results: ABG ABG pH 7.48 pH Units (7.32-7.45) H 03/05/17 04:50 ABG pCO2 38 mmHg (35-45) 03/05/17 04:50 ABG pO2 89 mmHg (85-104) 03/05/17 04:50 ABG O2 Saturation 97 % (95-98) 03/05/17 04:50 PT/INR, D-dimer PT 37.0 Seconds (9.4-12.1) H 03/11/17 04:22 Consult Discharge Plan - Plan Referrals: NO,PCP [Primary Care Provider] - <Fidel Hayden P - Last Filed: 03/11/17 17:44> Date of Encounter: 03/11/17 - Assessment and plan (1) STEMI (ST elevation myocardial infarction) Current Visit: Yes Status: Acute Qualifiers: Involved coronary artery: LAD coronary artery Qualified Code(s): I21.02 - ST elevation (STEMI) myocardial infarction involving left anterior descending coronary artery (2) Acute systolic CHF (congestive heart failure) Current Visit: Yes Status: Acute (3) CVA (cerebral vascular accident) Current Visit: Yes Status: Acute Qualifiers: CVA mechanism: embolism Precerebral and cerebral artery: unspecified cerebral artery Qualified Code(s): I63.40 - Cerebral infarction due to embolism of unspecified cerebral artery (4) Atrial fibrillation Current Visit: Yes Status: Acute Qualifiers: Atrial fibrillation type: paroxysmal Qualified Code(s): I48.0 - Paroxysmal atrial fibrillation - Constitutional Vitals: Temp Pulse Resp BP Pulse Ox 99.1 F 67 18 156/84 92 03/11/17 15:40 03/11/17 15:40 03/11/17 15:40 03/11/17 15:40 03/11/17 15:40 Internal Medicine: Result - Labs CBC & Chem 7: 03/11/17 04:22 03/11/17 04:22 Labs: Short CBC 03/11/17 Range/Units 04:22 WBC 14.1 H (4.3-11.1) K/mcL Hgb 12.6 L (12.9-16.9) g/dL Hct 36.8 L (37.5-50.1) % Plt Count 292 (140-400) K/mcL Neutrophils # 11.6 H (1.6-8.9) K/mcL BMP 03/11/17 04:22 Sodium 142 Potassium 3.3 L Chloride 106 Carbon Dioxide 28 BUN 34 H Creatinine 1.15 Glucose 107 H Calcium 9.6 Liver Function 03/11/17 Range/Units 04:22 Total Bilirubin 0.7 (0.2-1.2) mg/dL AST 41 H (5-34) Units/L ALT 73 H (0-55) Units/L Alkaline Phosphatase 83 (38-126) Units/L Albumin 2.9 L (3.5-5.0) g/dL - ABG Interpretation ABG results: ABG ABG pH 7.48 pH Units (7.32-7.45) H 03/05/17 04:50 ABG pCO2 38 mmHg (35-45) 03/05/17 04:50 ABG pO2 89 mmHg (85-104) 03/05/17 04:50 ABG O2 Saturation 97 % (95-98) 03/05/17 04:50 PT/INR, D-dimer PT 37.0 Seconds (9.4-12.1) H 03/11/17 04:22 - Attending Attestation I examined this patient and my medical decision-making was reviewed with the Resident Physician. I agree with the documented findings, disposition and treatment plan as described except to the extent set forth below. Patient will be discharged only after family meeting in the presence of POA
[2017-03-11] MEDS ORDERED: *HR* Warfarin 2.5 MG TABLET PO ONE (18:00)
[2017-03-12 07:59] LABS: Basophils # 0.1 K/mcL (0.0-0.2); Basophils % 0.5 %; Eosinophils # 0.3 K/mcL (0.0-0.6); Eosinophils % 1.8 %; Hematocrit 37.7 % (37.5-50.1); Hemoglobin 13.3 g/dL (12.9-16.9); INR 3.4; Immature Granulocytes % 0.6 % (0-4); Lymphocytes # 1.4 K/mcL (0.6-4.6); Lymphocytes % 9.4 %; Mean Corpuscular HGB Conc 35.3 g/dL (31.6-35.5); Mean Corpuscular Hemoglobin 30.5 pg (28.0-33.3); Mean Corpuscular Volume 86.5 fL (83.0-100.0); Mean Platelet Volume 10.9 fL (9.4-12.4); Monocytes # 0.7 K/mcL (0.0-1.3); Monocytes % 5.1 %; Neutrophils # 11.9 K/mcL (1.6-8.9); Platelet Count 354 K/mcL (140-400); Prothrombin Time 38.6 Seconds (9.4-12.1); Red Blood Count 4.36 M/mcL (4.19-5.50); Red Cell Distribution Width 12.6 % (11.5-14.5); Segmented Neutrophils % 82.6 %
[2017-03-12] MEDS: Aspirin 81 MG TAB.CHEW PO SCH (08:14)
[2017-03-12] MEDS: Furosemide 40 MG/4 ML VIAL IVP SCH (08:15)
[2017-03-12] MEDS: amLODIPine 5 MG TABLET PO SCH (08:15)
[2017-03-12] MEDS: Lisinopril 20 MG TABLET PO SCH (08:15)
[2017-03-12] MEDS: *HR* Ticagrelor 90 MG TABLET PO SCH ×2 (08:15→22:01)
[2017-03-12 08:39] LABS: Alanine Aminotransferase 68 Units/L (0-55); Albumin 3.1 g/dL (3.5-5.0); Albumin/Globulin Ratio 0.8 (1.1-2.2); Alkaline Phosphatase 87 Units/L (38-126); Aspartate Amino Transferase 43 Units/L (5-34); BUN/Creatinine Ratio 32 (6-26); Blood Urea Nitrogen 35 mg/dL (8-26); Calcium 9.4 mg/dL (8.6-10.8); Carbon Dioxide 28 mEq/L (19-29); Chloride 105 mEq/L (98-109); Glucose 108 mg/dL (70-99); Osmolality,Calculated 301 (280-300); Sodium 141 mEq/L (136-145); Total Protein 7.1 g/dL (6.0-8.3); eGFR For African Americans > 60 (> 60); eGFR For Non-African Americans > 60 (> 60)
[2017-03-12 09:29] LABS: Bilirubin,Total 0.6 mg/dL (0.2-1.2)
--- NOTE | 2017-03-12 14:50 | Internal Med Progress Note ---
<Laurie Crook - Last Filed: 03/12/17 14:48> Date of Encounter: 03/12/17 Time of Encounter: 09:15 - Assessment and plan (1) STEMI (ST elevation myocardial infarction) Current Visit: Yes Status: Acute Assessment and plan: Admitted with ST elevation myocardial infarction. Upon admission noted that troponin was more than 50. Underwent cardiac catheterization. Cardiology following- appreciated Patient denies any chest pain, dyspnea, headache palpitation Plan: Cardiology recommendations -dual antiplatelet therapy uninterpreted for at least one year -repeat echo an outpatient setting -better control of BP with titrating antihypertensives -Noted that cardiology has signed off We will monitor the patient closely Qualifiers: Involved coronary artery: LAD coronary artery Qualified Code(s): I21.02 - ST elevation (STEMI) myocardial infarction involving left anterior descending coronary artery (2) Acute systolic CHF (congestive heart failure) Current Visit: Yes Status: Acute Assessment and plan: Patient's ejection fraction is 25% by transthoracic echocardiogram. Patient was intubated/extubated. Continue intravenous Lasix. potassium 3.0 Patient and labs are stable patient denies dyspnea Plan: monitor labs including potassium monitor and intake and outtake (3) CVA (cerebral vascular accident) Current Visit: Yes Status: Acute Assessment and plan: The infarct is likely from embolus Neurology is following- appreciated We will follow recommendations from neurology. Plan: -Awaiting placement and discussion with family This patient needs in the placement in a care home for rehabilitation. Social work talked with family and they will come on @10:30 to discuss treatment plan for patient PT/OT recommend rehabilitation in a clinical nursing professor is going to attempt to have the patient fill out Medicaid papers since he is alert and oriented Qualifiers: CVA mechanism: embolism Precerebral and cerebral artery: unspecified cerebral artery Qualified Code(s): I63.40 - Cerebral infarction due to embolism of unspecified cerebral artery (4) Atrial fibrillation Current Visit: Yes Status: Acute Assessment and plan: CHADS VASC=5 (HTN, AGE, CVA2, CAD). HR 60 stable On Coumadin INR is therapeutic 3.4 Qualifiers: Atrial fibrillation type: paroxysmal Qualified Code(s): I48.0 - Paroxysmal atrial fibrillation - Subjective Interval history: Patient is laying in bed comfortable watching television Patient is alert and oriented to person, place, reason being here patient speaking coherently and without flight thoughts patient has no complaints. He denies any chest pain, dyspnea, headache, nausea, abdominal pain, hematuria, dysuria. - Constitutional Vitals: Temp Pulse Resp BP Pulse Ox 97.8 F 60 18 118/73 95 03/12/17 10:19 03/12/17 10:19 03/12/17 10:19 03/12/17 10:19 03/12/17 10:19 General appearance: Present: A&O X 3, pleasant, no acute distress, answers questions appropriately Exam: Gen.: Vitals noted. No acute distress. Alert and oriented to person, place, reason for admission HEENT: PERRLoropharynx clear, Normocephalic, atraumatic Neck: Supple. No adenopathy. Cardiac: RRR, no murmur, +S1/S2 Pulmonary: CTA bilaterally, no wheezes, rales or rhonchi, equal chest expansion Abdomen: soft, nontender, Bowel sounds noted, no guarding MSK: ROM intact, no joint swelling noted Extremities: no BLE edema, nontender calf, no cyanosis or clubbing Neuro: moves all extremities Psych: Appropriate mood and behavior Internal Medicine: Result - Labs CBC & Chem 7: 03/12/17 07:34 03/12/17 07:34 Labs: Short CBC 03/12/17 Range/Units 07:34 WBC 14.4 H (4.3-11.1) K/mcL Hgb 13.3 (12.9-16.9) g/dL Hct 37.7 (37.5-50.1) % Plt Count 354 (140-400) K/mcL Neutrophils # 11.9 H (1.6-8.9) K/mcL BMP 03/12/17 07:34 Sodium 141 Potassium 3.0 L Chloride 105 Carbon Dioxide 28 BUN 35 H Creatinine 1.08 Glucose 108 H Calcium 9.4 Liver Function 03/12/17 Range/Units 07:34 Total Bilirubin 0.6 (0.2-1.2) mg/dL AST 43 H (5-34) Units/L ALT 68 H (0-55) Units/L Alkaline Phosphatase 87 (38-126) Units/L Albumin 3.1 L (3.5-5.0) g/dL - ABG Interpretation ABG results: ABG ABG pH 7.48 pH Units (7.32-7.45) H 03/05/17 04:50 ABG pCO2 38 mmHg (35-45) 03/05/17 04:50 ABG pO2 89 mmHg (85-104) 03/05/17 04:50 ABG O2 Saturation 97 % (95-98) 03/05/17 04:50 PT/INR, D-dimer PT 38.6 Seconds (9.4-12.1) H 03/12/17 07:34 Consult Discharge Plan - Plan Referrals: NO,PCP [Primary Care Provider] - <Fidel Hayden P - Last Filed: 03/12/17 15:07> Date of Encounter: 03/12/17 - Assessment and plan (1) STEMI (ST elevation myocardial infarction) Current Visit: Yes Status: Acute Qualifiers: Involved coronary artery: LAD coronary artery Qualified Code(s): I21.02 - ST elevation (STEMI) myocardial infarction involving left anterior descending coronary artery (2) Acute systolic CHF (congestive heart failure) Current Visit: Yes Status: Acute (3) CVA (cerebral vascular accident) Current Visit: Yes Status: Acute Qualifiers: CVA mechanism: embolism Precerebral and cerebral artery: unspecified cerebral artery Qualified Code(s): I63.40 - Cerebral infarction due to embolism of unspecified cerebral artery (4) Atrial fibrillation Current Visit: Yes Status: Acute Qualifiers: Atrial fibrillation type: paroxysmal Qualified Code(s): I48.0 - Paroxysmal atrial fibrillation - Constitutional Vitals: Temp Pulse Resp BP Pulse Ox 97.8 F 60 18 118/73 95 03/12/17 10:19 03/12/17 10:19 03/12/17 10:19 03/12/17 10:19 03/12/17 10:19 Internal Medicine: Result - Labs CBC & Chem 7: 03/12/17 07:34 03/12/17 07:34 Labs: Short CBC 03/12/17 Range/Units 07:34 WBC 14.4 H (4.3-11.1) K/mcL Hgb 13.3 (12.9-16.9) g/dL Hct 37.7 (37.5-50.1) % Plt Count 354 (140-400) K/mcL Neutrophils # 11.9 H (1.6-8.9) K/mcL BMP 03/12/17 07:34 Sodium 141 Potassium 3.0 L Chloride 105 Carbon Dioxide 28 BUN 35 H Creatinine 1.08 Glucose 108 H Calcium 9.4 Liver Function 03/12/17 Range/Units 07:34 Total Bilirubin 0.6 (0.2-1.2) mg/dL AST 43 H (5-34) Units/L ALT 68 H (0-55) Units/L Alkaline Phosphatase 87 (38-126) Units/L Albumin 3.1 L (3.5-5.0) g/dL - ABG Interpretation ABG results: ABG ABG pH 7.48 pH Units (7.32-7.45) H 03/05/17 04:50 ABG pCO2 38 mmHg (35-45) 03/05/17 04:50 ABG pO2 89 mmHg (85-104) 03/05/17 04:50 ABG O2 Saturation 97 % (95-98) 03/05/17 04:50 PT/INR, D-dimer PT 38.6 Seconds (9.4-12.1) H 03/12/17 07:34 - Attending Attestation I examined this patient and my medical decision-making was reviewed with the Resident Physician. I agree with the documented findings, disposition and treatment plan as described except to the extent set forth below. placement only after family conference.
[2017-03-13 05:33] LABS: Basophils # 0.1 K/mcL (0.0-0.2); Basophils % 0.5 %; Eosinophils # 0.3 K/mcL (0.0-0.6); Eosinophils % 2.2 %; Hematocrit 40.1 % (37.5-50.1); Hemoglobin 13.7 g/dL (12.9-16.9); Immature Granulocytes % 0.8 % (0-4); Lymphocytes # 1.9 K/mcL (0.6-4.6); Lymphocytes % 12.6 %; Mean Corpuscular HGB Conc 34.2 g/dL (31.6-35.5); Mean Corpuscular Hemoglobin 29.3 pg (28.0-33.3); Mean Corpuscular Volume 85.9 fL (83.0-100.0); Mean Platelet Volume 10.8 fL (9.4-12.4); Monocytes # 0.8 K/mcL (0.0-1.3); Monocytes % 5.2 %; Neutrophils # 12.1 K/mcL (1.6-8.9); Platelet Count 452 K/mcL (140-400); Red Blood Count 4.67 M/mcL (4.19-5.50); Red Cell Distribution Width 12.6 % (11.5-14.5); Segmented Neutrophils % 78.7 %
[2017-03-13 05:39] LABS: INR 2.8; Prothrombin Time 31.3 Seconds (9.4-12.1)
[2017-03-13 05:53] LABS: Alanine Aminotransferase 72 Units/L (0-55); Albumin 3.2 g/dL (3.5-5.0); Albumin/Globulin Ratio 0.7 (1.1-2.2); Alkaline Phosphatase 96 Units/L (38-126); Aspartate Amino Transferase 50 Units/L (5-34); BUN/Creatinine Ratio 30 (6-26); Bilirubin,Total 0.6 mg/dL (0.2-1.2); Blood Urea Nitrogen 33 mg/dL (8-26); Calcium 9.7 mg/dL (8.6-10.8); Carbon Dioxide 27 mEq/L (19-29); Chloride 107 mEq/L (98-109); Globulin 4.5 g/dL (2.4-3.5); Glucose 111 mg/dL (70-99); Osmolality,Calculated 304 (280-300); Potassium 3.2 mEq/L (3.5-4.5); Sodium 143 mEq/L (136-145); Total Protein 7.7 g/dL (6.0-8.3); eGFR For African Americans > 60 (> 60); eGFR For Non-African Americans > 60 (> 60)
[2017-03-13] MEDS: Lisinopril 20 MG TABLET PO SCH (09:22)
[2017-03-13] MEDS: amLODIPine 5 MG TABLET PO SCH (09:23)
[2017-03-13] MEDS: Aspirin 81 MG TAB.CHEW PO SCH (09:24)
[2017-03-13] MEDS: *HR* Ticagrelor 90 MG TABLET PO SCH ×2 (09:24→20:26)
[2017-03-13] MEDS: Furosemide 40 MG/4 ML VIAL IVP SCH (09:25)
--- NOTE | 2017-03-13 11:49 | Internal Med Progress Note ---
<Laurie Crook - Last Filed: 03/13/17 12:03> Date of Encounter: 03/13/17 Time of Encounter: 10:30 - Assessment and plan (1) Elevated WBC count Current Visit: Yes Status: Acute Assessment and plan: Unknown reason for elevated white blood cell count of 15.3 concerned for sepsis. Concerned with his recent cardiac intervention and CVA vitals are stable, patient is stable and asymptomatic plan septic workup: abdominal CT ordered UA and culture ordered blood cultures ordered Qualifiers: Leukocytosis type: unspecified Qualified Code(s): D72.829 - Elevated white blood cell count, unspecified (2) STEMI (ST elevation myocardial infarction) Current Visit: Yes Status: Acute Assessment and plan: 03/13/2017 patient denies chest pain, dyspnea. Vitals are stable we will continue to monitor the patient closely 03/12/[address] elevation myocardial infarction. Upon admission noted that troponin was more than 50. Underwent cardiac catheterization. Cardiology following- appreciated Patient denies any chest pain, dyspnea, headache palpitation Plan: Cardiology recommendations -dual antiplatelet therapy uninterpreted for at least one year -repeat echo an outpatient setting -better control of BP with titrating antihypertensives -Noted that cardiology has signed off Qualifiers: Involved coronary artery: LAD coronary artery Qualified Code(s): I21.02 - ST elevation (STEMI) myocardial infarction involving left anterior descending coronary artery (3) Acute systolic CHF (congestive heart failure) Current Visit: Yes Status: Acute Assessment and plan: 03/13/2017 patient's potassium is 3.2 we will continue to monitor and taken outtake we will continue to monitor the vitals and labs closely patient denies dyspnea continue IV Lasix 03/12/2017 Patient's ejection fraction is 25% by transthoracic echocardiogram. Patient was intubated/extubated. Continue intravenous Lasix. potassium 3.0 Patient and labs are stable patient denies dyspnea Plan: monitor labs including potassium monitor and intake and outtake (4) CVA (cerebral vascular accident) Current Visit: Yes Status: Acute Assessment and plan: 03/13/2017 Social work talked with family and they will come on @10:30 to discuss treatment plan for patient patient is stable and oriented to person to the hospital into recent being here. However he thinks it is 1978 and he is in [place]. 03/12/2017 The infarct is likely from embolus Neurology is following- appreciated We will follow recommendations from neurology. Plan: -Awaiting placement and discussion with family This patient needs in the placement in a senior living for rehabilitation. Social work talked with family and they will come on @10:30 to discuss treatment plan for patient PT/OT recommend rehabilitation in a registered nursing professor is going to attempt to have the patient fill out Medicaid papers since he is alert and oriented Qualifiers: CVA mechanism: embolism Precerebral and cerebral artery: unspecified cerebral artery Qualified Code(s): I63.40 - Cerebral infarction due to embolism of unspecified cerebral artery (5) Atrial fibrillation Current Visit: Yes Status: Acute Assessment and plan: CHADS VASC=5 (HTN, AGE, CVA2, CAD). HR 65stable On Coumadin INR is therapeutic 2.8 Qualifiers: Atrial fibrillation type: paroxysmal Qualified Code(s): I48.0 - Paroxysmal atrial fibrillation - Subjective Interval history: Patient is sitting in his chair comfortable watching television Patient is alert and oriented to person, place, reason being here patient speaking coherently and without flight thoughts patient has no complaints. He denies any chest pain, dyspnea, headache, nausea, abdominal pain, hematuria, dysuria. - Constitutional Vitals: Temp Pulse Resp BP Pulse Ox 98.5 F 68 16 132/81 96 03/13/17 07:34 03/13/17 07:34 03/13/17 07:34 03/13/17 07:34 03/13/17 07:34 General appearance: Present: A&O X 3, pleasant, no acute distress, answers questions appropriately Exam: Gen.: Vitals noted. No acute distress. to person, to hospital, to reason being here. Patient believes that it is 1978 and he has in [place] HEENT: PERRL/EOMI, oropharynx clear, Normocephalic, atraumatic Neck: Supple. No adenopathy. Cardiac: RRR, no murmur, +S1/S2 Pulmonary: CTA bilaterally, no wheezes, rales or rhonchi, equal chest expansion Abdomen: soft, nontender, Bowel sounds noted, no guarding MSK: no joint swelling noted Extremities: no BLE edema, nontender calf, no cyanosis or clubbing Neuro: moves all extremities, no focal deficits Psych: Appropriate mood and behavior Internal Medicine: Result - Labs CBC & Chem 7: 03/13/17 04:33 03/13/17 04:33 Labs: Short CBC 03/13/17 Range/Units 04:33 WBC 15.3 H (4.3-11.1) K/mcL Hgb 13.7 (12.9-16.9) g/dL Hct 40.1 (37.5-50.1) % Plt Count 452 H (140-400) K/mcL Neutrophils # 12.1 H (1.6-8.9) K/mcL BMP 03/13/17 04:33 Sodium 143 Potassium 3.2 L Chloride 107 Carbon Dioxide 27 BUN 33 H Creatinine 1.10 Glucose 111 H Calcium 9.7 Liver Function 03/13/17 Range/Units 04:33 Total Bilirubin 0.6 (0.2-1.2) mg/dL AST 50 H (5-34) Units/L ALT 72 H (0-55) Units/L Alkaline Phosphatase 96 (38-126) Units/L Albumin 3.2 L (3.5-5.0) g/dL - ABG Interpretation ABG results: ABG ABG pH 7.48 pH Units (7.32-7.45) H 03/05/17 04:50 ABG pCO2 38 mmHg (35-45) 03/05/17 04:50 ABG pO2 89 mmHg (85-104) 03/05/17 04:50 ABG O2 Saturation 97 % (95-98) 03/05/17 04:50 PT/INR, D-dimer PT 31.3 Seconds (9.4-12.1) H 03/13/17 04:33 Consult Discharge Plan - Plan Referrals: NO,PCP [Primary Care Provider] - (working on placement to [facility]) <Fidel Hayden - Last Filed: 03/13/17 18:39> Date of Encounter: 03/13/17 - Assessment and plan (1) STEMI (ST elevation myocardial infarction) Current Visit: Yes Status: Acute Qualifiers: Involved coronary artery: LAD coronary artery Qualified Code(s): I21.02 - ST elevation (STEMI) myocardial infarction involving left anterior descending coronary artery (2) Acute systolic CHF (congestive heart failure) Current Visit: Yes Status: Acute (3) CVA (cerebral vascular accident) Current Visit: Yes Status: Acute Qualifiers: CVA mechanism: embolism Precerebral and cerebral artery: unspecified cerebral artery Qualified Code(s): I63.40 - Cerebral infarction due to embolism of unspecified cerebral artery (4) Atrial fibrillation Current Visit: Yes Status: Acute Qualifiers: Atrial fibrillation type: paroxysmal Qualified Code(s): I48.0 - Paroxysmal atrial fibrillation - Constitutional Vitals: Temp Pulse Resp BP Pulse Ox 98.1 F 59 16 99/65 94 03/13/17 11:47 03/13/17 11:47 03/13/17 11:47 03/13/17 11:47 03/13/17 11:47 Internal Medicine: Result - Labs CBC & Chem 7: 03/13/17 04:33 03/13/17 04:33 Labs: Short CBC 03/13/17 Range/Units 04:33 WBC 15.3 H (4.3-11.1) K/mcL Hgb 13.7 (12.9-16.9) g/dL Hct 40.1 (37.5-50.1) % Plt Count 452 H (140-400) K/mcL Neutrophils # 12.1 H (1.6-8.9) K/mcL BMP 03/13/17 04:33 Sodium 143 Potassium 3.2 L Chloride 107 Carbon Dioxide 27 BUN 33 H Creatinine 1.10 Glucose 111 H Calcium 9.7 Liver Function 03/13/17 Range/Units 04:33 Total Bilirubin 0.6 (0.2-1.2) mg/dL AST 50 H (5-34) Units/L ALT 72 H (0-55) Units/L Alkaline Phosphatase 96 (38-126) Units/L Albumin 3.2 L (3.5-5.0) g/dL - ABG Interpretation ABG results: ABG ABG pH 7.48 pH Units (7.32-7.45) H 03/05/17 04:50 ABG pCO2 38 mmHg (35-45) 03/05/17 04:50 ABG pO2 89 mmHg (85-104) 03/05/17 04:50 ABG O2 Saturation 97 % (95-98) 03/05/17 04:50 PT/INR, D-dimer PT 31.3 Seconds (9.4-12.1) H 03/13/17 04:33 - Impressions Impressions Abdomen CT 03/13/17 13:15 IMPRESSION: 1. No finding to account for leukocytosis 2. Distended urinary bladder. Recommend correlation with any history of voiding difficulty 3. 3.1 cm abdominal aortic aneurysm. RECOMMENDATIONS: Managing Abdominal Aortic Aneurysms 2.6-2.9 cm: 5 year follow up. 3.0-3.4 cm: 3 year follow up 3.5-3.9 cm: 1 year follow up. 4.0-4.4 cm: 1 year follow up. Recommend vascular consultation. 4.5-5.4 cm: 6 month follow up. Recommend vascular consultation. Greater than or equal to 5.5 cm: Referral to vascular surgeon. Reference: Julianne et al. The care of patients with an abdominal aortic aneurysm: The Society of Vascular Surgery practice guidelines. Journal of Vascular Surgery. Vol 50, Number 85. Galen et al. Managing Incidental Findings on Abdominal and Pelvic CT and MRI, Part 2: White Paper of the ACR Incidental Findings Committee II on Vascular Findings. J Am Jack Radiol 2013;10:789-794 D/ / Kobe Carrington MD / Kobe Carrington MD Interpreting Provider: Kobe Carrington MD Chest CT 03/13/17 13:15 IMPRESSION: Hazy ground-glass opacities throughout the lungs, either atelectasis or early pneumonia. . No pleural effusions D/ / Himanshu Barksdale MD / Himanshu Barksdale MD Interpreting Provider: Himanshu Barksdale MD - Attending Attestation I examined this patient and my medical decision-making was reviewed with the Resident Physician. I agree with the documented findings, disposition and treatment plan as described except to the extent set forth below. Likely HAP Broad spectrum Abx started. family meeting tomorrow
[2017-03-13] MEDS ORDERED: Vancomycin 1,500 MG in D5% in Water 250 ML IVPB SCH (17:00)
[2017-03-13] MEDS ORDERED: *HR* Warfarin 2.5 MG TABLET PO ONE (18:00)
[2017-03-13] MEDS: Cefepime HCl 2,000 MG in D5% in Water (Mini-Bag+) 100 ML IVPB SCH (20:25)
[2017-03-13] MEDS: Levofloxacin 500 MG/100 ML 500 MG/100 ML BAG IVPB SCH (20:25)
[2017-03-14 04:54] LABS: Basophils # 0.1 K/mcL (0.0-0.2); Basophils % 0.6 %; Eosinophils # 0.4 K/mcL (0.0-0.6); Hematocrit 35.8 % (37.5-50.1); Hemoglobin 12.5 g/dL (12.9-16.9); Immature Granulocytes % 0.5 % (0-4); Lymphocytes # 0.8 K/mcL (0.6-4.6); Mean Corpuscular HGB Conc 34.9 g/dL (31.6-35.5); Mean Corpuscular Hemoglobin 30.1 pg (28.0-33.3); Mean Corpuscular Volume 86.3 fL (83.0-100.0); Monocytes # 0.8 K/mcL (0.0-1.3); Monocytes % 6.2 %; Platelet Count 377 K/mcL (140-400); Red Blood Count 4.15 M/mcL (4.19-5.50); Red Cell Distribution Width 12.7 % (11.5-14.5); Segmented Neutrophils % 83.7 %
[2017-03-14 05:01] LABS: Prothrombin Time 33.2 Seconds (9.4-12.1)
[2017-03-14 05:12] LABS: Alanine Aminotransferase 54 Units/L (0-55); Albumin/Globulin Ratio 0.8 (1.1-2.2); Alkaline Phosphatase 86 Units/L (38-126); Aspartate Amino Transferase 35 Units/L (5-34); BUN/Creatinine Ratio 29 (6-26); Bilirubin,Total 0.5 mg/dL (0.2-1.2); Blood Urea Nitrogen 39 mg/dL (8-26); Calcium 9.5 mg/dL (8.6-10.8); Carbon Dioxide 27 mEq/L (19-29); Chloride 107 mEq/L (98-109); Glucose 106 mg/dL (70-99); Osmolality,Calculated 306 (280-300); Sodium 143 mEq/L (136-145); eGFR For African Americans > 60 (> 60); eGFR For Non-African Americans 53 (> 60)
[2017-03-14] MEDS: Vancomycin 1,500 MG in D5% in Water 250 ML IVPB SCH ×2 (09:00)
[2017-03-14] MEDS: amLODIPine 5 MG TABLET PO SCH (09:02)
[2017-03-14] MEDS: Furosemide 40 MG/4 ML VIAL IVP SCH (09:02)
[2017-03-14] MEDS: Lisinopril 20 MG TABLET PO SCH (09:02)
[2017-03-14] MEDS: Aspirin 81 MG TAB.CHEW PO SCH (09:03)
[2017-03-14] MEDS: *HR* Ticagrelor 90 MG TABLET PO SCH ×2 (09:03→20:00)
[2017-03-14] MEDS: Cefepime HCl 2,000 MG in D5% in Water (Mini-Bag+) 100 ML IVPB SCH ×2 (09:03→17:58)
--- NOTE | 2017-03-14 10:57 | Internal Med Progress Note ---
<Laurie Crook - Last Filed: 03/14/17 16:23> Date of Encounter: 03/14/17 Time of Encounter: 10:56 - Assessment and plan (1) Elevated WBC count Current Visit: Yes Status: Acute Assessment and plan: Pneumonia throughout lungs bilaterally patient denies dyspnea and wheezing. chest CT-ground glass opacities throughout lungs, either atelectasis or early pneumonia CT abdomen- distended bladder, AAA 3.1cm (recheck and 3 years) septic workup. Concerned with his recent cardiac intervention and CVA vitals are stable, patient is stable and asymptomatic plan Cefepime Day 3 Levaquin (one dose yesterday) vancomycin (one dose) UA and culture ordered blood cultures pending Qualifiers: Leukocytosis type: unspecified Qualified Code(s): D72.829 - Elevated white blood cell count, unspecified (2) STEMI (ST elevation myocardial infarction) Current Visit: Yes Status: Acute Assessment and plan: -patient denies chest pain, dyspnea. Vitals are stable -Admitted with ST elevation myocardial infarction. -Upon admission noted that troponin was more than 50. -Underwent cardiac catheterization. -Cardiology recommendations- initiated -dual antiplatelet therapy uninterpreted for at least one year -repeat echo an outpatient setting -better control of BP with titrating antihypertensives -Noted that cardiology has signed off Plan close cardiac monitoring continue aspirin continue Coumadin continue lisinopril continue Prilinta Qualifiers: Involved coronary artery: LAD coronary artery Qualified Code(s): I21.02 - ST elevation (STEMI) myocardial infarction involving left anterior descending coronary artery (3) Acute systolic CHF (congestive heart failure) Current Visit: Yes Status: Acute Assessment and plan: Congestive heart failure with reduced ejection fraction Patient's ejection fraction is 25% by transthoracic echocardiogram. Patient was intubated/extubated. Continue intravenous Lasix. potassium 3.0 Patient and labs are stable patient denies dyspnea Plan: monitor labs including potassium monitor and intake and outtake continue IV Lasix (4) CVA (cerebral vascular accident) Current Visit: Yes Status: Acute Assessment and plan: The infarct is likely from embolus Patient does not have full capacity. He is alert and oriented to person, hospital, and reason being here. However he thinks it is 1978 and he is in [place]. -Had a meeting today with his family and social work. The family was informed of the patient's very severe VT and the events that developed afterwards. Family stated that none of them wanted to be his legal guardian or power of coroner forensic technician. Instead they wanted the legal Guardianship to be from an coroner forensic technician in [facility]. Social work is going to set up the legal guardianship. The family was informed of the patients self pay status, he has no insurance. When the legal guardian is in place they will set up his insurance so that he will be able to go to a SNF for rehabilitation. The family was informed that his cognitive ability may or may not improve back to baseline. All questions from the family were answered. Social work than worked with the family to record all the families names and phone numbers for contact. The family stated a clear understanding of the treatments and plan for the patient and they are all agreeable. -Neurology is following- appreciated -We will follow recommendations from neurology. -PT/OT recommend rehabilitation in a senior care Plan: -Awaiting placement to SNF -social studies teacher is going to set up legal guardianship and papers for Medicaid -we will continue to closely monitor the patient for acute neurological changes Qualifiers: CVA mechanism: embolism Precerebral and cerebral artery: unspecified cerebral artery Qualified Code(s): I63.40 - Cerebral infarction due to embolism of unspecified cerebral artery (5) Atrial fibrillation Current Visit: Yes Status: Acute Assessment and plan: CHADS VASC=5 (HTN, AGE, CVA2, CAD). HR 61 stable On Coumadin INR is therapeutic 3 Qualifiers: Atrial fibrillation type: paroxysmal Qualified Code(s): I48.0 - Paroxysmal atrial fibrillation - Subjective Interval history: Patient and that comfortably with family alongside him. Patient is alert and oriented to person, place, reason being here patient speaking coherently and without flight thoughts patient has no complaints. He denies any chest pain, dyspnea, headache, nausea, abdominal pain, hematuria, dysuria. - Constitutional Vitals: Temp Pulse Resp BP Pulse Ox 98.7 F 66 16 139/76 96 03/14/17 07:51 03/14/17 07:51 03/14/17 07:51 03/14/17 07:51 03/14/17 07:51 General appearance: Present: A&O X 3, pleasant, no acute distress, answers questions appropriately Exam: Gen.: Vitals noted. No acute distress. Alert and oriented to person to hospital and reason being here. Patient believes that it is 1978 and he has in [place] HEENT: PERRL/EOMI, oropharynx clear, Normocephalic, atraumatic Neck: Supple. Trachea midline Cardiac: RRR, no murmur, +S1/S2 Pulmonary: CTA bilaterally, no wheezes, rales or rhonchi, equal chest expansion Abdomen: soft, nontender, Bowel sounds noted, no guarding Back: Nontender throughout. MSK: ROM intact, no joint swelling noted Extremities: no BLE edema, nontender calf, no cyanosis or clubbing Neuro: moves all extremities, no focal deficits Psych: Appropriate mood and behavior Internal Medicine: Result - Labs CBC & Chem 7: 03/14/17 04:07 03/14/17 04:07 Labs: Short CBC 03/14/17 Range/Units 04:07 WBC 13.2 H (4.3-11.1) K/mcL Hgb 12.5 L (12.9-16.9) g/dL Hct 35.8 L (37.5-50.1) % Plt Count 377 (140-400) K/mcL Neutrophils # 11.0 H (1.6-8.9) K/mcL BMP 03/14/17 04:07 Sodium 143 Potassium 3.0 L Chloride 107 Carbon Dioxide 27 BUN 39 H Creatinine 1.35 H Glucose 106 H Calcium 9.5 Liver Function 03/14/17 Range/Units 04:07 Total Bilirubin 0.5 (0.2-1.2) mg/dL AST 35 H (5-34) Units/L ALT 54 (0-55) Units/L Alkaline Phosphatase 86 (38-126) Units/L Albumin 3.0 L (3.5-5.0) g/dL - ABG Interpretation ABG results: ABG ABG pH 7.48 pH Units (7.32-7.45) H 03/05/17 04:50 ABG pCO2 38 mmHg (35-45) 03/05/17 04:50 ABG pO2 89 mmHg (85-104) 03/05/17 04:50 ABG O2 Saturation 97 % (95-98) 03/05/17 04:50 PT/INR, D-dimer PT 33.2 Seconds (9.4-12.1) H 03/14/17 04:07 - Impressions Impressions Abdomen CT 03/13/17 13:15 IMPRESSION: 1. No finding to account for leukocytosis 2. Distended urinary bladder. Recommend correlation with any history of voiding difficulty 3. 3.1 cm abdominal aortic aneurysm. RECOMMENDATIONS: Managing Abdominal Aortic Aneurysms 2.6-2.9 cm: 5 year follow up. 3.0-3.4 cm: 3 year follow up 3.5-3.9 cm: 1 year follow up. 4.0-4.4 cm: 1 year follow up. Recommend vascular consultation. 4.5-5.4 cm: 6 month follow up. Recommend vascular consultation. Greater than or equal to 5.5 cm: Referral to vascular surgeon. Reference: Julianne et al. The care of patients with an abdominal aortic aneurysm: The Society of Vascular Surgery practice guidelines. Journal of Vascular Surgery. Vol 50, Number 85. Galen et al. Managing Incidental Findings on Abdominal and Pelvic CT and MRI, Part 2: White Paper of the ACR Incidental Findings Committee II on Vascular Findings. J Am Jack Radiol 2013;10:789-794 D/ / Kobe Carrington MD / Kobe Carrington MD Interpreting Provider: Kobe Carrington MD Chest CT 03/13/17 13:15 IMPRESSION: Hazy ground-glass opacities throughout the lungs, either atelectasis or early pneumonia. . No pleural effusions D/ / Himanshu Barksdale MD / Himanshu Barksdale MD Interpreting Provider: Himanshu Barksdale MD Consult Discharge Plan - Plan Referrals: NO,PCP [Primary Care Provider] - (working on placement to ecf) <Fidel Hayden P - Last Filed: 03/14/17 18:27> Date of Encounter: 03/14/17 - Assessment and plan (1) STEMI (ST elevation myocardial infarction) Current Visit: Yes Status: Acute Qualifiers: Involved coronary artery: LAD coronary artery Qualified Code(s): I21.02 - ST elevation (STEMI) myocardial infarction involving left anterior descending coronary artery (2) Acute systolic CHF (congestive heart failure) Current Visit: Yes Status: Acute (3) CVA (cerebral vascular accident) Current Visit: Yes Status: Acute Qualifiers: CVA mechanism: embolism Precerebral and cerebral artery: unspecified cerebral artery Qualified Code(s): I63.40 - Cerebral infarction due to embolism of unspecified cerebral artery (4) Atrial fibrillation Current Visit: Yes Status: Acute Qualifiers: Atrial fibrillation type: paroxysmal Qualified Code(s): I48.0 - Paroxysmal atrial fibrillation - Constitutional Vitals: Temp Pulse Resp BP Pulse Ox 97.9 F 61 16 129/78 95 03/14/17 16:30 03/14/17 16:30 03/14/17 16:30 03/14/17 16:30 03/14/17 16:30 Internal Medicine: Result - Labs CBC & Chem 7: 03/14/17 04:07 03/14/17 04:07 Labs: Short CBC 03/14/17 Range/Units 04:07 WBC 13.2 H (4.3-11.1) K/mcL Hgb 12.5 L (12.9-16.9) g/dL Hct 35.8 L (37.5-50.1) % Plt Count 377 (140-400) K/mcL Neutrophils # 11.0 H (1.6-8.9) K/mcL BMP 03/14/17 04:07 Sodium 143 Potassium 3.0 L Chloride 107 Carbon Dioxide 27 BUN 39 H Creatinine 1.35 H Glucose 106 H Calcium 9.5 Liver Function 03/14/17 Range/Units 04:07 Total Bilirubin 0.5 (0.2-1.2) mg/dL AST 35 H (5-34) Units/L ALT 54 (0-55) Units/L Alkaline Phosphatase 86 (38-126) Units/L Albumin 3.0 L (3.5-5.0) g/dL - ABG Interpretation ABG results: ABG ABG pH 7.48 pH Units (7.32-7.45) H 03/05/17 04:50 ABG pCO2 38 mmHg (35-45) 03/05/17 04:50 ABG pO2 89 mmHg (85-104) 03/05/17 04:50 ABG O2 Saturation 97 % (95-98) 07/18/17 04:50 PT/INR, D-dimer PT 33.2 Seconds (9.4-12.1) H 03/14/17 04:07 - Attending Attestation I examined this patient and my medical decision-making was reviewed with the Resident Physician. I agree with the documented findings, disposition and treatment plan as described except to the extent set forth below. family at bedside. please see details from SKIP TENDER note. will follow recommendations from SKIP TENDER.
[2017-03-14] MEDS: Vancomycin 1,000 MG in D5% in Water 250 ML IVPB SCH (19:59)
[2017-03-14] MEDS: Levofloxacin 500 MG/100 ML 500 MG/100 ML BAG IVPB SCH (20:00)
[2017-03-15 04:40] LABS: Basophils # 0.1 K/mcL (0.0-0.2); Basophils % 0.5 %; Eosinophils # 0.5 K/mcL (0.0-0.6); Eosinophils % 4.4 %; Hematocrit 34.7 % (37.5-50.1); Hemoglobin 12.1 g/dL (12.9-16.9); Immature Granulocytes % 0.5 % (0-4); Lymphocytes % 9.1 %; Mean Corpuscular HGB Conc 34.9 g/dL (31.6-35.5); Mean Corpuscular Volume 86.1 fL (83.0-100.0); Mean Platelet Volume 11.2 fL (9.4-12.4); Monocytes # 0.8 K/mcL (0.0-1.3); Monocytes % 7.2 %; Platelet Count 376 K/mcL (140-400); Red Blood Count 4.03 M/mcL (4.19-5.50); Red Cell Distribution Width 12.6 % (11.5-14.5); Segmented Neutrophils % 78.3 %
[2017-03-15 04:52] LABS: INR 3.7; Prothrombin Time 41.4 Seconds (9.4-12.1)
[2017-03-15 04:57] LABS: Calcium 9.2 mg/dL (8.6-10.8)
[2017-03-15] MEDS: Cefepime HCl 2,000 MG in D5% in Water (Mini-Bag+) 100 ML IVPB SCH ×2 (06:40→17:58)
[2017-03-15] MEDS: *HR* Ticagrelor 90 MG TABLET PO SCH ×2 (09:12→22:05)
[2017-03-15] MEDS: Aspirin 81 MG TAB.CHEW PO SCH (09:12)
[2017-03-15] MEDS: amLODIPine 5 MG TABLET PO SCH (09:12)
[2017-03-15] MEDS: Vancomycin 1,000 MG in D5% in Water 250 ML IVPB SCH (09:12)
[2017-03-15] MEDS: Lisinopril 20 MG TABLET PO SCH (09:13)
--- NOTE | 2017-03-15 10:06 | Internal Med Progress Note ---
<Laurie Crook - Last Filed: 03/15/17 16:23> Date of Encounter: 03/15/17 Time of Encounter: 10:05 - Assessment and plan (1) CVA (cerebral vascular accident) Current Visit: Yes Status: Acute Assessment and plan: 03/15/2107 The infarct is likely from embolus alert and oriented to person, place, and time. More oriented today than yesterday. Left side still more weak than right. Mr. Patel is a 66 year old male with no previous cardiac history who presented to the ED with dyspnea and stated that he had chest discomfort that occurred last night, became more severe and eventually subsided. EKG concerning for acute SD anteroseptal and STEMI. Troponin >50. Aspirin, brilinta and heparin given in ED. Patient was in respiratory distress and hypoxic when cath team arrived, patient was intubated and brought to tin can laborer for attempt to revascularlize and resuscitate him. TTE EF 25% with wall motion abnormalities in LAD distribution. Patient was noted to have paroxysmal atrial fibrillation. After extubation it was found that the patient had left upper and lower extremity paresis. It is believed that he had a CVA. Head CT- No signs of acute bleeding. Patient had MRI completed that showed multiple acute infarcts bilaterally suggestive of embolic phenomena. The patient has been oriented to person and reason being here. However he believes that it is 1978 and he is in [place] or [place]. He is not been alert and orientedx3, without full capacity. We had a family meeting yesterday with 6 of his family members including him, Dr. Hayden, Dr. Johnston, Dr. Crook, and social work- Екатерина. Below is the discussion in the family meeting. We are awaiting legal guardianship of the patient and for Medicaid papers to be filled out by the legal guardian. Then placement will be established and a SNF. Plan: -Awaiting placement to SNF -addiction social worker is going to set up legal guardianship and papers for Medicaid -we will continue to closely monitor the patient for acute neurological changes 03/14/2017 -FAMILY MEETING: Had a meeting today with his family and social work. The family was informed of the patient's very severe SD and the events that developed afterwards. Family stated that none of them wanted to be his legal guardian or power of corporate attorney. Instead they wanted the legal Guardianship to be from an corporate attorney in [facility]. Social work is going to set up the legal guardianship. The family was informed of the patients self pay status, he has no insurance. When the legal guardian is in place they will set up his insurance so that he will be able to go to a SNF for rehabilitation. The family was informed that his cognitive ability may or may not improve back to baseline. All questions from the family were answered. Social work than worked with the family to record all the families names and phone numbers for contact. The family stated a clear understanding of the treatments and plan for the patient and they are all agreeable. -Patient does not have full capacity. He is alert and oriented to person, hospital, and reason being here. However he thinks it is 1978 and he is in [place]. -Neurology is following- appreciated -We will follow recommendations from neurology. -PT/OT recommend rehabilitation in a penitentiary Qualifiers: CVA mechanism: embolism Precerebral and cerebral artery: unspecified cerebral artery Qualified Code(s): I63.40 - Cerebral infarction due to embolism of unspecified cerebral artery (2) STEMI (ST elevation myocardial infarction) Current Visit: Yes Status: Acute Assessment and plan: -patient denies chest pain, dyspnea. Vitals are stable -Admitted with ST elevation myocardial infarction. -Upon admission noted that troponin was more than 50. -Underwent cardiac catheterization. -Cardiology recommendations- initiated -dual antiplatelet therapy uninterpreted for at least one year -repeat echo an outpatient setting -Noted that cardiology has signed off Plan close cardiac monitoring continue aspirin continue Coumadin continue lisinopril continue Prilinta Qualifiers: Involved coronary artery: LAD coronary artery Qualified Code(s): I21.02 - ST elevation (STEMI) myocardial infarction involving left anterior descending coronary artery (3) Elevated WBC count Current Visit: Yes Status: Acute Assessment and plan: Pneumonia throughout lungs bilaterally chest CT-ground glass opacities throughout lungs, either atelectasis or early pneumonia patient denies dyspnea and wheezing. CT abdomen- distended bladder, AAA 3.1cm (recheck and 3 years) vitals are stable, patient is stable and asymptomatic blood cultures preliminary- no growth U/A- 30 H protein, Spec. gr.- 1.024, -Leuk est., -Nitrite, few hyaline casts, few granular casts plan Cefepime Day 4 Levaquin vancomycin Urine culture ordered Qualifiers: Leukocytosis type: unspecified Qualified Code(s): D72.829 - Elevated white blood cell count, unspecified (4) Acute systolic CHF (congestive heart failure) Current Visit: Yes Status: Acute Assessment and plan: Congestive heart failure with reduced ejection fraction Patient's ejection fraction is 25% by transthoracic echocardiogram. Patient was intubated/extubated. Continue intravenous Lasix. potassium 3.0 Patient and labs are stable patient denies dyspnea Plan: monitor labs including potassium monitor and intake and outtake IV Lasix D/C - increase in creatinine (5) Atrial fibrillation Current Visit: Yes Status: Acute Assessment and plan: CHADS VASC=5 (HTN, AGE, CVA2, CAD). HR 70 stable On Coumadin INR is therapeutic 3.7 Qualifiers: Atrial fibrillation type: paroxysmal Qualified Code(s): I48.0 - Paroxysmal atrial fibrillation - Subjective Interval history: Patient is laying comfortably in bed watching television patient has no complaints. He denies any chest pain, dyspnea, headache, nausea, abdominal pain, hematuria, dysuria. - Constitutional Vitals: Temp Pulse Resp BP Pulse Ox 98.4 F 63 18 117/72 96 03/15/17 07:19 03/15/17 07:19 03/15/17 07:19 03/15/17 07:19 03/15/17 07:19 General appearance: Present: A&O X 3, pleasant, no acute distress, answers questions appropriately Exam: Gen.: Vitals noted. No acute distress. alert and oriented to person, place, and time. HEENT: PERRL, oropharynx clear, Normocephalic, atraumatic Neck: Supple. No adenopathy. Cardiac: RRR, no murmur, +S1/S2 Pulmonary: CTA bilaterally, no wheezes, rales or rhonchi, equal chest expansion Abdomen: soft, nontender, Bowel sounds noted, no guarding MSK: no joint swelling noted Extremities: no BLE edema, nontender calf, no cyanosis or clubbing Neuro: moves all extremities, no focal deficits, left side still weak skin: no rash or lesions Internal Medicine: Result - Labs CBC & Chem 7: 03/15/17 02:57 03/15/17 02:57 Labs: Short CBC 03/15/17 Range/Units 02:57 WBC 11.5 H (4.3-11.1) K/mcL Hgb 12.1 L (12.9-16.9) g/dL Hct 34.7 L (37.5-50.1) % Plt Count 376 (140-400) K/mcL Neutrophils # 9.0 H (1.6-8.9) K/mcL BMP 03/15/17 02:57 Sodium 142 Potassium 3.0 L Chloride 107 Carbon Dioxide 24 BUN 35 H Creatinine 1.49 H Glucose 108 H Calcium 9.2 - ABG Interpretation ABG results: ABG ABG pH 7.48 pH Units (7.32-7.45) H 03/05/17 04:50 ABG pCO2 38 mmHg (35-45) 03/05/17 04:50 ABG pO2 89 mmHg (85-104) 03/05/17 04:50 ABG O2 Saturation 97 % (95-98) 03/05/17 04:50 PT/INR, D-dimer PT 41.4 Seconds (9.4-12.1) H 03/15/17 02:57 Consult Discharge Plan - Plan Referrals: NONE,PCP [Primary Care Provider] - (working on placement to ecf) <Fidel Hayden P - Last Filed: 03/15/17 17:33> Date of Encounter: 03/15/17 - Assessment and plan (1) STEMI (ST elevation myocardial infarction) Current Visit: Yes Status: Acute Qualifiers: Involved coronary artery: LAD coronary artery Qualified Code(s): I21.02 - ST elevation (STEMI) myocardial infarction involving left anterior descending coronary artery (2) Acute systolic CHF (congestive heart failure) Current Visit: Yes Status: Acute (3) CVA (cerebral vascular accident) Current Visit: Yes Status: Acute Qualifiers: CVA mechanism: embolism Precerebral and cerebral artery: unspecified cerebral artery Qualified Code(s): I63.40 - Cerebral infarction due to embolism of unspecified cerebral artery (4) Atrial fibrillation Current Visit: Yes Status: Acute Qualifiers: Atrial fibrillation type: paroxysmal Qualified Code(s): I48.0 - Paroxysmal atrial fibrillation - Constitutional Vitals: Temp Pulse Resp BP Pulse Ox 98.8 F 60 19 121/72 97 03/15/17 15:41 03/15/17 15:41 03/15/17 15:41 03/15/17 15:41 03/15/17 15:41 Internal Medicine: Result - Labs CBC & Chem 7: 03/15/17 02:57 03/15/17 02:57 Labs: Short CBC 03/15/17 Range/Units 02:57 WBC 11.5 H (4.3-11.1) K/mcL Hgb 12.1 L (12.9-16.9) g/dL Hct 34.7 L (37.5-50.1) % Plt Count 376 (140-400) K/mcL Neutrophils # 9.0 H (1.6-8.9) K/mcL BMP 03/15/17 02:57 Sodium 142 Potassium 3.0 L Chloride 107 Carbon Dioxide 24 BUN 35 H Creatinine 1.49 H Glucose 108 H Calcium 9.2 Urine 03/15/17 Range/Units 11:08 Urine Color Yellow (Yellow) Urine Clarity Clear (Clear) Urine pH 5.5 (5.0-8.0) pH Units Ur Specific [place] 1.024 (1.010-1.025) Urine Protein 30 H (Neg-Trace) mg/dL Urine Glucose (UA) Normal (Normal) mg/dL - ABG Interpretation ABG results: ABG ABG pH 7.48 pH Units (7.32-7.45) H 03/05/17 04:50 ABG pCO2 38 mmHg (35-45) 03/05/17 04:50 ABG pO2 89 mmHg (85-104) 03/05/17 04:50 ABG O2 Saturation 97 % (95-98) 03/05/17 04:50 PT/INR, D-dimer PT 41.4 Seconds (9.4-12.1) H 03/15/17 02:57 - Attending Attestation I examined this patient and my medical decision-making was reviewed with the Resident Physician. I agree with the documented findings, disposition and treatment plan as described except to the extent set forth below.
[2017-03-15 11:35] LABS: Bilirubin,Urine Negative (Negative); Blood,Urine Negative (Negative); Color,Urine Yellow (Yellow); Glucose,Urine (UA) Normal (Normal); Ketones,Urine Negative (Negative); Leukocyte Esterase,Urine Negative (Negative); Nitrite,Urine Negative (Negative); PH,Urine 5.5 pH Units (5.0-8.0); Protein,Urine 30 mg/dL (Neg-Trace); Specific Gravity,Urine 1.024 (1.010-1.025); Urobilinogen,Urine Normal (Normal)
[2017-03-15 11:36] LABS: Hyaline Casts,Urine Few per lpf (None-Few)
[2017-03-15 11:38] LABS: Clarity,Urine Clear (Clear)
[2017-03-15 11:50] LABS: Calcium Oxalate Crystals,Urine Present; Granular Casts,Urine Few per lpf (None Seen)
[2017-03-15 11:51] LABS: White Blood Cell Casts,Urine Few per lpf (None Seen)
[2017-03-15 11:53] LABS: Uric Acid Crystals,Urine Present
[2017-03-15 11:54] LABS: Bacteria,Urine Few per hpf (None-Few); Squamous Epithelial Cell,Urine Few per lpf (None-Few)
[2017-03-15] MEDS: Levofloxacin 500 MG/100 ML 500 MG/100 ML BAG IVPB SCH (17:58)
[2017-03-15] MEDS: Mirtazapine 15 MG TABLET PO SCH (22:05)
[2017-03-16] MEDS: Cefepime HCl 2,000 MG in D5% in Water (Mini-Bag+) 100 ML IVPB SCH ×2 (06:17→17:40)
[2017-03-16] MEDS ORDERED: Vancomycin 1,000 MG in D5% in Water 250 ML IVPB SCH (07:00)
[2017-03-16 07:16] LABS: INR 2.9; Prothrombin Time 32.1 Seconds (9.4-12.1)
[2017-03-16 07:21] LABS: Basophils # 0.1 K/mcL (0.0-0.2); Basophils % 0.8 %; Eosinophils # 0.4 K/mcL (0.0-0.6); Eosinophils % 3.9 %; Hematocrit 35.5 % (37.5-50.1); Immature Granulocytes % 0.7 % (0-4); Lymphocytes # 1.3 K/mcL (0.6-4.6); Lymphocytes % 12.3 %; Mean Corpuscular HGB Conc 33.8 g/dL (31.6-35.5); Mean Corpuscular Hemoglobin 29.3 pg (28.0-33.3); Mean Corpuscular Volume 86.8 fL (83.0-100.0); Mean Platelet Volume 10.5 fL (9.4-12.4); Monocytes # 0.8 K/mcL (0.0-1.3); Monocytes % 7.8 %; Neutrophils # 7.5 K/mcL (1.6-8.9); Platelet Count 407 K/mcL (140-400); Red Blood Count 4.09 M/mcL (4.19-5.50); Red Cell Distribution Width 12.7 % (11.5-14.5); Segmented Neutrophils % 74.5 %
[2017-03-16 07:33] LABS: Calcium 9.6 mg/dL (8.6-10.8); Potassium 2.9 mEq/L (3.5-4.5)
[2017-03-16] MEDS: Aspirin 81 MG TAB.CHEW PO SCH (08:16)
[2017-03-16] MEDS: amLODIPine 5 MG TABLET PO SCH (08:16)
[2017-03-16] MEDS: *HR* Ticagrelor 90 MG TABLET PO SCH ×2 (08:16→21:35)
[2017-03-16] MEDS: Lisinopril 20 MG TABLET PO SCH (08:16)
--- NOTE | 2017-03-16 13:14 | Internal Med Progress Note ---
Date of Encounter: 03/16/17 Time of Encounter: 13:12 - Assessment and plan (1) CVA (cerebral vascular accident) Current Visit: Yes Status: Acute Assessment and plan: 03/16/2017 Patient is alert and oriented. Able to communicate briefly. Noted input from social science manager regarding legal guardianship. Awaiting for reply from SNF 03/15/2107 The infarct is likely from embolus alert and oriented to person, place, and time. More oriented today than yesterday. Left side still more weak than right. Mr. Patel is a 66 year old male with no previous cardiac history who presented to the ED with dyspnea and stated that he had chest discomfort that occurred last night, became more severe and eventually subsided. EKG concerning for acute NE anteroseptal and STEMI. Troponin >50. Aspirin, brilinta and heparin given in ED. Patient was in respiratory distress and hypoxic when cath team arrived, patient was intubated and brought to microbiology lab manager for attempt to revascularlize and resuscitate him. TTE EF 25% with wall motion abnormalities in LAD distribution. Patient was noted to have paroxysmal atrial fibrillation. After extubation it was found that the patient had left upper and lower extremity paresis. It is believed that he had a CVA. Head CT- No signs of acute bleeding. Patient had MRI completed that showed multiple acute infarcts bilaterally suggestive of embolic phenomena. The patient has been oriented to person and reason being here. However he believes that it is 1978 and he is in [place] or [place]. He is not been alert and orientedx3, without full capacity. We had a family meeting yesterday with 6 of his family members including him, Dr. Hayden, Dr. Johnston, Dr. Crook, and social work- Екатерина. Below is the discussion in the family meeting. We are awaiting legal guardianship of the patient and for Medicaid papers to be filled out by the legal guardian. Then placement will be established and a SNF. Plan: -Awaiting placement to SNF -social science manager is going to set up legal guardianship and papers for Medicaid -we will continue to closely monitor the patient for acute neurological changes 03/14/2017 -FAMILY MEETING: Had a meeting today with his family and social work. The family was informed of the patient's very severe NE and the events that developed afterwards. Family stated that none of them wanted to be his legal guardian or power of meter technician. Instead they wanted the legal Guardianship to be from an meter technician in [facility]. Social work is going to set up the legal guardianship. The family was informed of the patients self pay status, he has no insurance. When the legal guardian is in place they will set up his insurance so that he will be able to go to a SNF for rehabilitation. The family was informed that his cognitive ability may or may not improve back to baseline. All questions from the family were answered. Social work than worked with the family to record all the families names and phone numbers for contact. The family stated a clear understanding of the treatments and plan for the patient and they are all agreeable. -Patient does not have full capacity. He is alert and oriented to person, hospital, and reason being here. However he thinks it is 1978 and he is in [place]. -Neurology is following- appreciated -We will follow recommendations from neurology. -PT/OT recommend rehabilitation in a penitentiary Qualifiers: CVA mechanism: embolism Precerebral and cerebral artery: unspecified cerebral artery Qualified Code(s): I63.40 - Cerebral infarction due to embolism of unspecified cerebral artery (2) STEMI (ST elevation myocardial infarction) Current Visit: Yes Status: Acute Assessment and plan: -patient denies chest pain, dyspnea. Vitals are stable -Admitted with ST elevation myocardial infarction. -Upon admission noted that troponin was more than 50. -Underwent cardiac catheterization. -Cardiology recommendations- initiated -dual antiplatelet therapy uninterpreted for at least one year -repeat echo an outpatient setting -Noted that cardiology has signed off Plan close cardiac monitoring continue aspirin continue Coumadin continue lisinopril continue Prilinta Qualifiers: Involved coronary artery: LAD coronary artery Qualified Code(s): I21.02 - ST elevation (STEMI) myocardial infarction involving left anterior descending coronary artery (3) Acute systolic CHF (congestive heart failure) Current Visit: Yes Status: Acute Assessment and plan: Congestive heart failure with reduced ejection fraction Patient's ejection fraction is 25% by transthoracic echocardiogram. Patient was intubated/extubated. Continue intravenous Lasix. Plan: monitor labs including potassium monitor and intake and outtake (4) Atrial fibrillation Current Visit: Yes Status: Acute Assessment and plan: Stable Qualifiers: Atrial fibrillation type: paroxysmal Qualified Code(s): I48.0 - Paroxysmal atrial fibrillation - Subjective Interval history: Patient seen and examined. Chart reviewed. Patient is comfortably lying down in the bed. Patient denies chest pain, shortness of breath, dizziness, diarrhea or abdominal pain. - Constitutional Vitals: Temp Pulse Resp BP Pulse Ox 98.5 F 65 18 105/67 96 03/16/17 11:09 03/16/17 11:09 03/16/17 11:09 03/16/17 11:09 03/16/17 11:09 General appearance: Present: A&O X 3, pleasant, no acute distress, answers questions appropriately - Head Head exam: Present: atraumatic, normocephalic - Eye Eye exam: Present: PERRL, conjuntiva pink, sclera anicteric Pupils: Present: PERRL - Neck Neck exam general surgery: Present: supple, trachea midline. Absent: lymphadenopathy - Respiratory Respiratory exam: Present: CTAB. Absent: accessory muscle use, rales, rhonchi, wheezes - Cardiovascular Cardiovascular exam: Present: RRR, +S1, +S2. Absent: diastolic murmur, gallop, rubs, systolic murmur - GI/Abdominal GI/Abdominal exam: Present: normal bowel sounds, soft, no peritoneal signs. Absent: distended, tenderness - Extremities Exam Extremities exam: Present: warm, radial pulses palpable and symetrical. Absent : calf tenderness, cyanotic, pedal edema - Neurological Exam Neurological exam: Present: CN II-XII intact, oriented X3, no focal deficits. Absent: pronater drift, facial droop, speech deficit - Skin Skin exam: Present: dry, intact Internal Medicine: Result - Labs CBC & Chem 7: 03/16/17 06:32 03/16/17 06:32 Labs: Short CBC 03/16/17 Range/Units 06:32 WBC 10.1 (4.3-11.1) K/mcL Hgb 12.0 L (12.9-16.9) g/dL Hct 35.5 L (37.5-50.1) % Plt Count 407 H (140-400) K/mcL Neutrophils # 7.5 (1.6-8.9) K/mcL BMP 03/16/17 06:32 Sodium 142 Potassium 2.9 L Chloride 107 Carbon Dioxide 25 BUN 31 H Creatinine 1.48 H Glucose 94 Calcium 9.6 - ABG Interpretation ABG results: ABG ABG pH 7.48 pH Units (7.32-7.45) H 03/05/17 04:50 ABG pCO2 38 mmHg (35-45) 03/05/17 04:50 ABG pO2 89 mmHg (85-104) 03/05/17 04:50 ABG O2 Saturation 97 % (95-98) 03/05/17 04:50 PT/INR, D-dimer PT 32.1 Seconds (9.4-12.1) H 03/16/17 06:32 Consult Discharge Plan - Plan Referrals: NONE,PCP [Primary Care Provider] - (working on placement to ecf)
[2017-03-16] MEDS ORDERED: *HR* Warfarin 1 MG TABLET PO ONE (18:00)
[2017-03-16] MEDS: Mirtazapine 15 MG TABLET PO SCH (21:35)
[2017-03-16] MEDS: Levofloxacin 500 MG/100 ML 500 MG/100 ML BAG IVPB SCH (21:35)
[2017-03-17] MEDS: Cefepime HCl 2,000 MG in D5% in Water (Mini-Bag+) 100 ML IVPB SCH ×2 (06:09→18:02)
[2017-03-17 07:11] LABS: INR 2.1; Prothrombin Time 22.8 Seconds (9.4-12.1)
[2017-03-17] MEDS: Lisinopril 20 MG TABLET PO SCH (08:13)
[2017-03-17] MEDS: *HR* Ticagrelor 90 MG TABLET PO SCH ×2 (08:13→20:41)
[2017-03-17] MEDS: Aspirin 81 MG TAB.CHEW PO SCH (08:13)
[2017-03-17] MEDS: amLODIPine 5 MG TABLET PO SCH (08:13)
--- NOTE | 2017-03-17 15:36 | Internal Med Progress Note ---
Date of Encounter: 03/17/17 Time of Encounter: 15:34 - Assessment and plan (1) CVA (cerebral vascular accident) Current Visit: Yes Status: Acute Assessment and plan: 03/17/2017. Patient is alert and oriented. Denies any chest pain, shortness of breath. Awaiting for input from social work therapist regarding placement Awaiting for reply from social work therapist regarding power of computator. 03/16/2017 Patient is alert and oriented. Able to communicate briefly. Noted input from social work therapist regarding legal guardianship. Awaiting for reply from SNF 03/15/2107 The infarct is likely from embolus alert and oriented to person, place, and time. More oriented today than yesterday. Left side still more weak than right. Mr. Patel is a 66 year old male with no previous cardiac history who presented to the ED with dyspnea and stated that he had chest discomfort that occurred last night, became more severe and eventually subsided. EKG concerning for acute [place] anteroseptal and STEMI. Troponin >50. Aspirin, brilinta and heparin given in ED. Patient was in respiratory distress and hypoxic when cath team arrived, patient was intubated and brought to prosthetics lab technician for attempt to revascularlize and resuscitate him. TTE EF 25% with wall motion abnormalities in LAD distribution. Patient was noted to have paroxysmal atrial fibrillation. After extubation it was found that the patient had left upper and lower extremity paresis. It is believed that he had a CVA. Head CT- No signs of acute bleeding. Patient had MRI completed that showed multiple acute infarcts bilaterally suggestive of embolic phenomena. The patient has been oriented to person and reason being here. However he believes that it is 1978 and he is in [place] or [place]. He is not been alert and orientedx3, without full capacity. We had a family meeting yesterday with 6 of his family members including him, Dr. Hayden, Dr. Johnston, Dr. Crook, and social work- Екатерина. Below is the discussion in the family meeting. We are awaiting legal guardianship of the patient and for Medicaid papers to be filled out by the legal guardian. Then placement will be established and a SNF. Plan: -Awaiting placement to SNF -social work therapist is going to set up legal guardianship and papers for Medicaid -we will continue to closely monitor the patient for acute neurological changes 03/14/2017 -FAMILY MEETING: Had a meeting today with his family and social work. The family was informed of the patient's very severe OH and the events that developed afterwards. Family stated that none of them wanted to be his legal guardian or power of computator. Instead they wanted the legal Guardianship to be from an computator in [facility]. Social work is going to set up the legal guardianship. The family was informed of the patients self pay status, he has no insurance. When the legal guardian is in place they will set up his insurance so that he will be able to go to a SNF for rehabilitation. The family was informed that his cognitive ability may or may not improve back to baseline. All questions from the family were answered. Social work than worked with the family to record all the families names and phone numbers for contact. The family stated a clear understanding of the treatments and plan for the patient and they are all agreeable. -Patient does not have full capacity. He is alert and oriented to person, hospital, and reason being here. However he thinks it is 1978 and he is in [place]. -Neurology is following- appreciated -We will follow recommendations from neurology. -PT/OT recommend rehabilitation in a fpc Qualifiers: CVA mechanism: embolism Precerebral and cerebral artery: unspecified cerebral artery Qualified Code(s): I63.40 - Cerebral infarction due to embolism of unspecified cerebral artery (2) STEMI (ST elevation myocardial infarction) Current Visit: Yes Status: Acute Assessment and plan: -patient denies chest pain, dyspnea. Vitals are stable -Admitted with ST elevation myocardial infarction. -Upon admission noted that troponin was more than 50. -Underwent cardiac catheterization. -Cardiology recommendations- initiated -dual antiplatelet therapy uninterpreted for at least one year -repeat echo an outpatient setting -Noted that cardiology has signed off Plan close cardiac monitoring continue aspirin continue Coumadin continue lisinopril continue Prilinta Qualifiers: Involved coronary artery: LAD coronary artery Qualified Code(s): I21.02 - ST elevation (STEMI) myocardial infarction involving left anterior descending coronary artery (3) Acute systolic CHF (congestive heart failure) Current Visit: Yes Status: Acute Assessment and plan: Congestive heart failure with reduced ejection fraction Patient's ejection fraction is 25% by transthoracic echocardiogram. Patient was intubated/extubated. Continue intravenous Lasix. Plan: monitor labs including potassium monitor and intake and outtake (4) Atrial fibrillation Current Visit: Yes Status: Acute Assessment and plan: Stable Qualifiers: Atrial fibrillation type: paroxysmal Qualified Code(s): I48.0 - Paroxysmal atrial fibrillation - Subjective Interval history: Patient seen and examined. Chart reviewed. Patient is comfortably lying down in the bed. Patient denies chest pain, shortness of breath, dizziness, diarrhea or abdominal pain. 03/17/2017 Seen and examined. Chart reviewed. Patient is comfortably lying in bed. Patient denies shortness of breath, dizziness diarrhea or abdominal pain. - Constitutional Vitals: Temp Pulse Resp BP Pulse Ox 97.6 F 66 16 110/65 99 03/17/17 11:04 03/17/17 11:04 03/17/17 11:04 03/17/17 11:04 03/17/17 11:04 General appearance: Present: A&O X 3, pleasant, no acute distress, answers questions appropriately - Head Head exam: Present: atraumatic, normocephalic - Eye Eye exam: Present: PERRL, conjuntiva pink, sclera anicteric Pupils: Present: PERRL - Neck Neck exam general surgery: Present: supple, trachea midline. Absent: lymphadenopathy - Respiratory Respiratory exam: Present: CTAB. Absent: accessory muscle use, rales, rhonchi, wheezes - Cardiovascular Cardiovascular exam: Present: RRR, +S1, +S2. Absent: diastolic murmur, gallop, rubs, systolic murmur - GI/Abdominal GI/Abdominal exam: Present: normal bowel sounds, soft, no peritoneal signs. Absent: distended, tenderness - Extremities Exam Extremities exam: Present: warm, radial pulses palpable and symetrical. Absent : calf tenderness, cyanotic, pedal edema - Neurological Exam Neurological exam: Present: CN II-XII intact, oriented X3, no focal deficits. Absent: pronater drift, facial droop, speech deficit - Skin Skin exam: Present: dry, intact Internal Medicine: Result - Labs CBC & Chem 7: 03/16/17 06:32 03/16/17 06:32 - ABG Interpretation ABG results: ABG ABG pH 7.48 pH Units (7.32-7.45) H 03/05/17 04:50 ABG pCO2 38 mmHg (35-45) 03/05/17 04:50 ABG pO2 89 mmHg (85-104) 03/05/17 04:50 ABG O2 Saturation 97 % (95-98) 03/05/17 04:50 PT/INR, D-dimer PT 22.8 Seconds (9.4-12.1) H 03/17/17 05:30 Consult Discharge Plan - Plan Referrals: NONE,PCP [Primary Care Provider] - (working on placement to ecf)
[2017-03-17] MEDS ORDERED: *HR* Warfarin 1 MG TABLET PO ONE (18:00)
[2017-03-17] MEDS: Mirtazapine 15 MG TABLET PO SCH (20:41)
[2017-03-17] MEDS: Levofloxacin 500 MG/100 ML 500 MG/100 ML BAG IVPB SCH (20:42)
[2017-03-18 06:09] LABS: INR 1.9; Prothrombin Time 20.9 Seconds (9.4-12.1)
[2017-03-18] MEDS: Cefepime HCl 2,000 MG in D5% in Water (Mini-Bag+) 100 ML IVPB SCH ×2 (06:29→18:03)
[2017-03-18] MEDS: amLODIPine 5 MG TABLET PO SCH (09:07)
[2017-03-18] MEDS: Lisinopril 20 MG TABLET PO SCH (09:07)
[2017-03-18] MEDS: Aspirin 81 MG TAB.CHEW PO SCH (09:07)
[2017-03-18] MEDS: *HR* Ticagrelor 90 MG TABLET PO SCH ×2 (09:08→20:22)
--- NOTE | 2017-03-18 13:32 | Internal Med Progress Note ---
Date of Encounter: 03/18/17 Time of Encounter: 13:29 - Assessment and plan (1) CVA (cerebral vascular accident) Current Visit: Yes Status: Acute Assessment and plan: 03/18/2017 Patient is alert and oriented. Able to swallow well. Neurology signed off Awaiting for placement and power of soft drink powder mixer which will be a local mandrel puller. Please see medical social worker note for details Patient is also on antibiotics for possible aspiration pneumonia. Patient completed vancomycin for first 48 hours. Blood cultures were negative and hence vancomycin was discontinued. Patient is presently on cefepime. can be discontinued after 2 more days of IV antibiotics. 03/17/2017. Patient is alert and oriented. Denies any chest pain, shortness of breath. Awaiting for input from medical social worker regarding placement Awaiting for reply from medical social worker regarding power of soft drink powder mixer. 03/16/2017 Patient is alert and oriented. Able to communicate briefly. Noted input from medical social worker regarding legal guardianship. Awaiting for reply from SNF Qualifiers: CVA mechanism: embolism Precerebral and cerebral artery: unspecified cerebral artery Qualified Code(s): I63.40 - Cerebral infarction due to embolism of unspecified cerebral artery (2) STEMI (ST elevation myocardial infarction) Current Visit: Yes Status: Acute Assessment and plan: -patient denies chest pain, dyspnea. Vitals are stable -Admitted with ST elevation myocardial infarction. -Upon admission noted that troponin was more than 50. -Underwent cardiac catheterization. -Cardiology recommendations- initiated -dual antiplatelet therapy uninterpreted for at least one year -repeat echo an outpatient setting -Noted that cardiology has signed off Plan close cardiac monitoring continue aspirin continue Coumadin continue lisinopril continue Prilinta Qualifiers: Involved coronary artery: LAD coronary artery Qualified Code(s): I21.02 - ST elevation (STEMI) myocardial infarction involving left anterior descending coronary artery (3) Acute systolic CHF (congestive heart failure) Current Visit: Yes Status: Acute Assessment and plan: Congestive heart failure with reduced ejection fraction Patient's ejection fraction is 25% by transthoracic echocardiogram. Patient was intubated/extubated. Continue intravenous Lasix. Plan: monitor labs including potassium monitor and intake and outtake (4) Atrial fibrillation Current Visit: Yes Status: Acute Assessment and plan: Stable Qualifiers: Atrial fibrillation type: paroxysmal Qualified Code(s): I48.0 - Paroxysmal atrial fibrillation - Subjective Interval history: Patient seen and examined. Chart reviewed. Patient is comfortably lying down in the bed. Patient denies chest pain, shortness of breath, dizziness, diarrhea or abdominal pain. 03/17/2017 Seen and examined. Chart reviewed. Patient is comfortably lying in bed. Patient denies shortness of breath, dizziness diarrhea or abdominal pain. 03/18/2017 Seen and examined. Chart reviewed. Patient is comfortably lying in the bed. Patient denies any pain. Patient denies chest pain, shortness of breath, dizziness, diarrhea or abdominal pain. - Constitutional Vitals: Temp Pulse Resp BP Pulse Ox 98.1 F 67 17 130/78 97 03/18/17 10:49 03/18/17 10:49 03/18/17 10:49 03/18/17 10:49 03/18/17 10:49 General appearance: Present: A&O X 3, pleasant, no acute distress, answers questions appropriately - Head Head exam: Present: atraumatic, normocephalic - Eye Eye exam: Present: PERRL, conjuntiva pink, sclera anicteric Pupils: Present: PERRL - Neck Neck exam general surgery: Present: supple, trachea midline. Absent: lymphadenopathy - Respiratory Respiratory exam: Present: CTAB. Absent: accessory muscle use, rales, rhonchi, wheezes - Cardiovascular Cardiovascular exam: Present: RRR, +S1, +S2. Absent: diastolic murmur, gallop, rubs, systolic murmur - GI/Abdominal GI/Abdominal exam: Present: normal bowel sounds, soft, no peritoneal signs. Absent: distended, tenderness - Extremities Exam Extremities exam: Present: warm, radial pulses palpable and symetrical. Absent : calf tenderness, cyanotic, pedal edema - Neurological Exam Neurological exam: Present: CN II-XII intact, oriented X3, no focal deficits. Absent: pronater drift, facial droop, speech deficit - Skin Skin exam: Present: dry, intact Internal Medicine: Result - Labs CBC & Chem 7: 03/16/17 06:32 03/16/17 06:32 - ABG Interpretation ABG results: ABG ABG pH 7.48 pH Units (7.32-7.45) H 03/05/17 04:50 ABG pCO2 38 mmHg (35-45) 03/05/17 04:50 ABG pO2 89 mmHg (85-104) 03/05/17 04:50 ABG O2 Saturation 97 % (95-98) 03/05/17 04:50 PT/INR, D-dimer PT 20.9 Seconds (9.4-12.1) H 03/18/17 05:39 Consult Discharge Plan - Plan Referrals: NONE,PCP [Primary Care Provider] - (working on placement to ecf)
[2017-03-18] MEDS ORDERED: *HR* Warfarin 3 MG TABLET PO ONE (18:00)
[2017-03-18] MEDS: Mirtazapine 15 MG TABLET PO SCH (20:22)
[2017-03-19 06:07] LABS: Basophils # 0.1 K/mcL (0.0-0.2); Basophils % 0.7 %; Eosinophils # 0.3 K/mcL (0.0-0.6); Eosinophils % 3.5 %; Hematocrit 32.2 % (37.5-50.1); Hemoglobin 10.9 g/dL (12.9-16.9); Immature Granulocytes % 0.7 % (0-4); Lymphocytes # 1.7 K/mcL (0.6-4.6); Lymphocytes % 17.1 %; Mean Corpuscular HGB Conc 33.9 g/dL (31.6-35.5); Mean Corpuscular Volume 85.6 fL (83.0-100.0); Mean Platelet Volume 10.9 fL (9.4-12.4); Monocytes # 0.8 K/mcL (0.0-1.3); Neutrophils # 6.8 K/mcL (1.6-8.9); Platelet Count 348 K/mcL (140-400); Red Blood Count 3.76 M/mcL (4.19-5.50); Red Cell Distribution Width 12.6 % (11.5-14.5)
[2017-03-19 06:14] LABS: INR 1.8; Prothrombin Time 19.6 Seconds (9.4-12.1)
[2017-03-19 06:27] LABS: Alanine Aminotransferase 31 Units/L (0-55); Albumin/Globulin Ratio 0.9 (1.1-2.2); Alkaline Phosphatase 81 Units/L (38-126); Aspartate Amino Transferase 28 Units/L (5-34); BUN/Creatinine Ratio 16 (6-26); Bilirubin,Total 0.7 mg/dL (0.2-1.2); Calcium 9.4 mg/dL (8.6-10.8); Carbon Dioxide 23 mEq/L (19-29); Chloride 110 mEq/L (98-109); Globulin 3.5 g/dL (2.4-3.5); Glucose 87 mg/dL (70-99); Osmolality,Calculated 294 (280-300); Potassium 3.4 mEq/L (3.5-4.5); Sodium 141 mEq/L (136-145); Total Protein 6.5 g/dL (6.0-8.3); eGFR For African Americans > 60 (> 60); eGFR For Non-African Americans 56 (> 60)
[2017-03-19 06:39] LABS: Blood Urea Nitrogen 20 mg/dL (8-26)
[2017-03-19] MEDS: Cefepime HCl 2,000 MG in D5% in Water (Mini-Bag+) 100 ML IVPB SCH (07:00)
[2017-03-19] MEDS: Aspirin 81 MG TAB.CHEW PO SCH (07:41)
[2017-03-19] MEDS: amLODIPine 5 MG TABLET PO SCH (07:41)
[2017-03-19] MEDS: Lisinopril 20 MG TABLET PO SCH (07:41)
[2017-03-19] MEDS: *HR* Ticagrelor 90 MG TABLET PO SCH ×2 (07:41→21:15)
--- NOTE | 2017-03-19 14:01 | Internal Med Progress Note ---
<Kostas Henry - Last Filed: 03/19/17 13:59> Date of Encounter: 03/19/17 Time of Encounter: 13:59 - Assessment and plan (1) CVA (cerebral vascular accident) Current Visit: Yes Status: Acute Assessment and plan: Patient alert and oriented. Neurology has signed off. ROM is improving. Awaiting psych consult for competency. Awaiting placement, guardianship, and power of employment law attorney determination. Patient is on IV cefepime for possible aspiration pneumonia. Antibiotics can be discontinued tomorrow. Continue OT/PT Qualifiers: CVA mechanism: embolism Precerebral and cerebral artery: unspecified cerebral artery Qualified Code(s): I63.40 - Cerebral infarction due to embolism of unspecified cerebral artery (2) STEMI (ST elevation myocardial infarction) Current Visit: Yes Status: Acute Assessment and plan: Patient denies chest pain, dyspnea. Vitals are stable. Admitted with ST elevation myocardial infarction. Upon admission noted that troponin was more than 50. Underwent cardiac catheterization. Cardiology recommendations initiated -dual antiplatelet therapy uninterpreted for at least one year -repeat echo an outpatient setting -Noted that cardiology has signed off Plan close cardiac monitoring continue aspirin continue Coumadin continue lisinopril continue Brilinta Qualifiers: Involved coronary artery: LAD coronary artery Qualified Code(s): I21.02 - ST elevation (STEMI) myocardial infarction involving left anterior descending coronary artery (3) Acute systolic CHF (congestive heart failure) Current Visit: Yes Status: Acute Assessment and plan: Congestive heart failure with reduced ejection fraction of 25% by transthoracic echocardiogram. Patient was intubated/extubated. Continue intravenous Lasix. Plan: monitor labs including potassium monitor and intake and outtake - Subjective Interval history: Patient is comfortably lying in bed, alert, and in no acute distress.He is happy to report that his movement in his left leg is getting better and that he is working with PT on ambulating. He reports no complaints, denies chest pain, dyspnea, cough, nausea, vomiting, diarrhea, or difficulty urinating. - Constitutional Vitals: Temp Pulse Resp BP Pulse Ox 98.3 F 70 17 115/73 97 03/19/17 12:34 03/19/17 12:34 03/19/17 12:34 03/19/17 12:34 03/19/17 12:34 General appearance: Present: A&O X 3, pleasant, no acute distress, answers questions appropriately - Respiratory Respiratory exam: Present: CTAB. Absent: accessory muscle use, rales, rhonchi, wheezes - Cardiovascular Cardiovascular exam: Present: RRR, +S1, +S2. Absent: diastolic murmur, systolic murmur - GI/Abdominal GI/Abdominal exam: Present: normal bowel sounds, soft. Absent: distended, firm , guarding, rigid, tenderness - Extremities Exam Extremities exam: Present: full ROM. Absent: calf tenderness, cyanotic, joint swelling, pedal edema - Neurological Exam Neurological exam: Present: alert, CN II-XII intact, oriented X3, no focal deficits Internal Medicine: Result - Labs CBC & Chem 7: 03/19/17 04:46 03/19/17 04:46 Labs: Short CBC 03/19/17 Range/Units 04:46 WBC 9.7 (4.3-11.1) K/mcL Hgb 10.9 L (12.9-16.9) g/dL Hct 32.2 L (37.5-50.1) % Plt Count 348 (140-400) K/mcL Neutrophils # 6.8 (1.6-8.9) K/mcL BMP 03/19/17 04:46 Sodium 141 Potassium 3.4 L Chloride 110 H Carbon Dioxide 23 BUN 20 D Creatinine 1.29 H Glucose 87 Calcium 9.4 Liver Function 03/19/17 Range/Units 04:46 Total Bilirubin 0.7 (0.2-1.2) mg/dL AST 28 (5-34) Units/L ALT 31 (0-55) Units/L Alkaline Phosphatase 81 (38-126) Units/L Albumin 3.0 L (3.5-5.0) g/dL - ABG Interpretation ABG results: ABG ABG pH 7.48 pH Units (7.32-7.45) H 03/05/17 04:50 ABG pCO2 38 mmHg (35-45) 03/05/17 04:50 ABG pO2 89 mmHg (85-104) 03/05/17 04:50 ABG O2 Saturation 97 % (95-98) 03/05/17 04:50 PT/INR, D-dimer PT 19.6 Seconds (9.4-12.1) H 03/19/17 04:46 Consult Discharge Plan - Plan Referrals: NONE,PCP [Primary Care Provider] - (working on placement to [facility]) <Armando Bach - Last Filed: 03/19/17 23:27> Date of Encounter: 03/19/17 - Constitutional Vitals: Temp Pulse Resp BP Pulse Ox 98.7 F 69 16 96/61 96 03/19/17 18:46 03/19/17 18:46 03/19/17 18:46 03/19/17 18:46 03/19/17 18:46 Internal Medicine: Result - Labs CBC & Chem 7: 03/19/17 04:46 03/19/17 04:46 Labs: Short CBC 03/19/17 Range/Units 04:46 WBC 9.7 (4.3-11.1) K/mcL Hgb 10.9 L (12.9-16.9) g/dL Hct 32.2 L (37.5-50.1) % Plt Count 348 (140-400) K/mcL Neutrophils # 6.8 (1.6-8.9) K/mcL BMP 03/19/17 04:46 Sodium 141 Potassium 3.4 L Chloride 110 H Carbon Dioxide 23 BUN 20 D Creatinine 1.29 H Glucose 87 Calcium 9.4 Liver Function 03/19/17 Range/Units 04:46 Total Bilirubin 0.7 (0.2-1.2) mg/dL AST 28 (5-34) Units/L ALT 31 (0-55) Units/L Alkaline Phosphatase 81 (38-126) Units/L Albumin 3.0 L (3.5-5.0) g/dL - ABG Interpretation ABG results: ABG ABG pH 7.48 pH Units (7.32-7.45) H 03/05/17 04:50 ABG pCO2 38 mmHg (35-45) 03/05/17 04:50 ABG pO2 89 mmHg (85-104) 03/05/17 04:50 ABG O2 Saturation 97 % (95-98) 03/05/17 04:50 PT/INR, D-dimer PT 19.6 Seconds (9.4-12.1) H 03/19/17 04:46 - Attending Attestation I evaluated this patient with the Resident. He has been declared incompetent, so know waiting for guardianship. Appears very stable. Cont. the coumadin.
--- NOTE | 2017-03-19 14:24 | Consult Note ---
Date of Encounter: 03/19/17 Time of Encounter: 13:00 Assessment & Recommendation (1) Encounter for evaluation of ability to make decisions regarding care Current visit: Yes Status: Acute Assessment & Recommendation: Patient seen today for capacity assessment. He is oriented to self and place and is aware of the medical issues he is having. However he is a unable to discuss treatment options and reliably answer questions about his health issues. He has difficulty with orientation to time but is able to make up for this by reading the white board which has the date on it. Unsure of patient's previous level of functioning prior to CVA. At this point, does not have the ability to make medical decisions for himself. History of Present Illness Patient: new to practice Requesting Physician: Fidel Hayden MD Reason for consult: Capacity assessment History of present illness: Mr. Patel is a 66 year old male with an unclear psychiatric history who presented to the hospital with ST elevation AL and eventual CVA. Primary team requested evaluation for capacity assessment. On interview patient is oriented to person and place. He is able to tell this provider the date but only after looking on the white board hanging in the room with date on it. He did know the season of the year as well. When asked about patient's medical issues he states he knows he has stroke and a heart attack. He is not sure if he can cook , clean or care for himself any longer. He is not sure of what medical treatment he is receiving here. He states that he feels confused from time to time and is unsure of what exactly is going on. He is able to answer some questions directly and then at times he will states he is not sure about answers. He does not think that he has had a history of depression or anxiety but cannot remember. He denies current thoughts of wanting to hurt himself. He denies any history of suicide attempts but states he cannot remember that either. CC: Fidel Hayden MD Past Med Surg Social Fam HX - Past Medical History Medical history: hypertension, seizures - Past Psychiatric History Past psychiatric history details: Patient reports he is not aware of any past psychiatric history. Family psychiatric history: Yes Family Psychiatric History Details: He thinks his sister may have dementia Family History of Suicide: Unknown - Social History Smoking Status: Former smoker Smokeless Tobacco Status: No Alcohol use: none Drug use: none Current living situation: Home - Independent Medications & Allergies Unable To Obtain [Unable to Obtain] 03/02/17 [History] Allergies No Known Allergies Allergy (Verified 02/28/17 16:24) Review of Systems ROS limited: due to patient condition Psychiatric: Reports: confusion, memory loss, difficulty concentrating Mental Status Exam Patient orientation: Yes Person, Yes Place, Yes Circumstance Level of alertness: Alert Behavior: calm, cooperative Psychomotor activity: Normal Eye contact: Maintains Eye Contact Mood description: Euthymic/stable Affect description: constricted Speech pattern: Slowed Speech volume: Normal Thought process: Circumstantial, [place] Thought content: No Suicidal ideation, No Homicidal ideation Perceptual disturbances: No Auditory hallucinations, No Visual hallucinations Attention span: Capable of Focused Attention Memory description: Immediate Intact, Recent Impaired, Remote Impaired Patient reliability: Questionable Historian Intelligence estimate: Average Judgment: Limited Insight: Minimal Results - Vital Signs Vital signs: Temp Pulse Resp BP Pulse Ox 98.3 F 70 17 115/73 97 03/19/17 12:34 03/19/17 12:34 03/19/17 12:34 03/19/17 12:34 03/19/17 12:34 - Labs Labs: Laboratory Last Values WBC 9.7 K/mcL (4.3-11.1) 03/19/17 04:46 RBC 3.76 M/mcL (4.19-5.50) L 03/19/17 04:46 Hgb 10.9 g/dL (12.9-16.9) L 03/19/17 04:46 Hct 32.2 % (37.5-50.1) L 03/19/17 04:46 MCV 85.6 fL (83.0-100.0) 03/19/17 04:46 MCH 29.0 pg (28.0-33.3) 03/19/17 04:46 MCHC 33.9 g/dL (31.6-35.5) 03/19/17 04:46 RDW 12.6 % (11.5-14.5) 03/19/17 04:46 Plt Count 348 K/mcL (140-400) 03/19/17 04:46 MPV 10.9 fL (9.4-12.4) 03/19/17 04:46 Immature Gran % 0.7 % (0-4) 03/19/17 04:46 Seg Neutrophils % 70.0 % 03/19/17 04:46 Lymphocytes % 17.1 % 03/19/17 04:46 Monocytes % 8.0 % 03/19/17 04:46 Eosinophils % 3.5 % 03/19/17 04:46 Basophils % 0.7 % 03/19/17 04:46 Neutrophils # 6.8 K/mcL (1.6-8.9) 03/19/17 04:46 Lymphocytes # 1.7 K/mcL (0.6-4.6) 03/19/17 04:46 Monocytes # 0.8 K/mcL (0.0-1.3) 03/19/17 04:46 Eosinophils # 0.3 K/mcL (0.0-0.6) 03/19/17 04:46 Basophils # 0.1 K/mcL (0.0-0.2) 03/19/17 04:46 Nucleated RBCs/100 WBC 0.1 /100 WBC (0) H 03/07/17 03:43 PT 19.6 Seconds (9.4-12.1) H 03/19/17 04:46 INR 1.8 03/19/17 04:46 APTT 89.6 Seconds (26.0-36.0) H 03/09/17 01:24 ABG pH 7.48 pH Units (7.32-7.45) H 03/05/17 04:50 ABG pCO2 38 mmHg (35-45) 03/05/17 04:50 ABG pO2 89 mmHg (85-104) 03/05/17 04:50 ABG HCO3 28.3 mEQ/L (21-27) H 03/05/17 04:50 ABG Total CO2 29.5 mEq/L (20-26) H 03/05/17 04:50 ABG O2 Saturation 97 % (95-98) 03/05/17 04:50 ABG Base Excess 4.6 mEq/L (-2.0 to 3.0) H 03/05/17 04:50 Blood Gas Modality ASSIST CONTROL 03/04/17 04:25 Inspired O2 50 % 03/04/17 04:25 Sodium 141 mEq/L (136-145) 03/19/17 04:46 Potassium 3.4 mEq/L (3.5-4.5) L 03/19/17 04:46 Chloride 110 mEq/L (98-109) H 03/19/17 04:46 Carbon Dioxide 23 mEq/L (19-29) 03/19/17 04:46 BUN 20 mg/dL (8-26) D 03/19/17 04:46 Creatinine 1.29 mg/dL (0.72-1.25) H 03/19/17 04:46 Est GFR ( Amer) > 60 (> 60) 03/19/17 04:46 Est GFR (Non-Af Amer) 56 (> 60) L 03/19/17 04:46 BUN/Creatinine Ratio 16 (6-26) 03/19/17 04:46 Glucose 87 mg/dL (70-99) 03/19/17 04:46 POC Glucose 113 (58-89) H 03/08/17 11:46 Est Mean Plasma Glucose 94 mg/dl 03/01/17 04:00 Hemoglobin A1c 4.9 % (-5.6) 03/01/17 04:00 Calculated Osmolality 294 (280-300) 03/19/17 04:46 Lactic Acid 1.7 mmol/L (0.5-2.2) 03/01/17 04:00 Calcium 9.4 mg/dL (8.6-10.8) 03/19/17 04:46 Ionized Calcium 1.16 mmol/L (1.15-1.35) 03/05/17 04:54 Phosphorus 4.6 mg/dL (2.3-4.7) 03/05/17 04:54 Magnesium 2.2 mg/dL (1.6-2.6) 03/10/17 00:52 Total Bilirubin 0.7 mg/dL (0.2-1.2) 03/19/17 04:46 Direct Bilirubin 0.3 mg/dL (0.0-0.5) 03/01/17 04:00 Indirect Bilirubin 0.3 mg/dL (0.0-1.2) 03/01/17 04:00 AST 28 Units/L (5-34) 03/19/17 04:46 ALT 31 Units/L (0-55) 03/19/17 04:46 Alkaline Phosphatase 81 Units/L (38-126) 03/19/17 04:46 Troponin I > 50.00 ng/mL (0-0.03) H* 02/28/17 16:55 B-Natriuretic Peptide 857 pg/mL (0-100) H 02/28/17 16:55 Serum Total Protein 6.5 g/dL (6.0-8.3) 03/19/17 04:46 Albumin 3.0 g/dL (3.5-5.0) L 03/19/17 04:46 Globulin 3.5 g/dL (2.4-3.5) 03/19/17 04:46 Albumin/Globulin Ratio 0.9 (1.1-2.2) L 03/19/17 04:46 Urine Color Yellow (Yellow) 03/15/17 11:08 Urine Clarity Clear (Clear) 03/15/17 11:08 Urine pH 5.5 pH Units (5.0-8.0) 03/15/17 11:08 Ur Specific [place] 1.024 (1.010-1.025) 03/15/17 11:08 Urine Protein 30 mg/dL (Neg-Trace) H 03/15/17 11:08 Urine Glucose (UA) Normal mg/dL (Normal) 03/15/17 11:08 Urine Ketones Negative mg/dL (Negative) 03/15/17 11:08 Urine Blood Negative (Negative) 03/15/17 11:08 Urine Nitrite Negative (Negative) 03/15/17 11:08 Urine Bilirubin Negative (Negative) 03/15/17 11:08 Urine Urobilinogen Normal mg/dL (Normal) 03/15/17 11:08 Ur Leukocyte Esterase Negative (Negative) 03/15/17 11:08 Urine Microscopic RBC 5-15 per hpf (0-3) H 03/15/17 11:08 Urine Microscopic WBC 5-15 per hpf (0-3) H 03/15/17 11:08 Ur Squamous Epith Cells Few per lpf (None-Few) 03/15/17 11:08 Calcium Oxalate Crystal Present 03/15/17 11:08 Uric Acid Crystals Present 03/15/17 11:08 Urine Bacteria Few per hpf (None-Few) 03/15/17 11:08 Hyaline Casts Few per lpf (None-Few) 03/15/17 11:08 Granular Casts Few per lpf (None Seen) H 03/15/17 11:08 WBC Casts Few per lpf (None Seen) H 03/15/17 11:08 Ur Culture Indicated? YES (NO) A 03/15/17 11:08 Vancomycin Trough 17.8 mcg/mL (10-20) 03/16/17 06:32 Specimen Rejected Volume 03/02/17 04:00 Consult Discharge Plan - Plan Referrals: NONE,PCP [Primary Care Provider] - (working on placement to e[facility])
[2017-03-19] MEDS ORDERED: *HR* Warfarin 3 MG TABLET PO ONE (18:00)
[2017-03-19] MEDS: Mirtazapine 15 MG TABLET PO SCH (21:15)
[2017-03-20] MEDS: amLODIPine 5 MG TABLET PO SCH (08:30)
[2017-03-20] MEDS: Aspirin 81 MG TAB.CHEW PO SCH (08:30)
[2017-03-20] MEDS: Lisinopril 20 MG TABLET PO SCH (08:30)
[2017-03-20] MEDS: *HR* Ticagrelor 90 MG TABLET PO SCH ×2 (08:30→21:38)
[2017-03-20 09:26] LABS: INR 1.8; Prothrombin Time 20.3 Seconds (9.4-12.1)
--- NOTE | 2017-03-20 10:38 | Internal Med Progress Note ---
Date of Encounter: 03/20/17 Time of Encounter: 10:36 - Assessment and plan (1) CVA (cerebral vascular accident) Current Visit: Yes Status: Acute Assessment and plan: Patient alert and oriented. Neurology has signed off. ROM is improving. Jose declared him incompetent to make his own medical decisions. Awaiting placement, guardianship, and power of prosecuting attorney determination. Discontinue antibiotics. Continue OT/PT Qualifiers: CVA mechanism: embolism Precerebral and cerebral artery: unspecified cerebral artery Qualified Code(s): I63.40 - Cerebral infarction due to embolism of unspecified cerebral artery (2) STEMI (ST elevation myocardial infarction) Current Visit: Yes Status: Acute Assessment and plan: Patient denies chest pain, dyspnea. Vitals are stable. Admitted with ST elevation myocardial infarction. Upon admission noted that troponin was more than 50. Underwent cardiac catheterization. Cardiology recommendations initiated -dual antiplatelet therapy uninterpreted for at least one year -repeat echo an outpatient setting -Noted that cardiology has signed off Plan continue aspirin continue Coumadin continue lisinopril continue Brilinta Qualifiers: Involved coronary artery: LAD coronary artery Qualified Code(s): I21.02 - ST elevation (STEMI) myocardial infarction involving left anterior descending coronary artery (3) Acute systolic CHF (congestive heart failure) Current Visit: Yes Status: Acute Assessment and plan: Congestive heart failure with reduced ejection fraction of 25% by transthoracic echocardiogram. Patient was intubated/extubated. Continue intravenous Lasix. - Subjective Interval history: Patient is comfortably lying in bed, alert, and in no acute distress. He reports no complaints, denies chest pain, dyspnea, cough, nausea, vomiting, diarrhea, or difficulty urinating. Awaiting placement. - Constitutional Vitals: Temp Pulse Resp BP Pulse Ox 98.3 F 68 19 132/73 97 03/20/17 06:57 03/20/17 06:57 03/20/17 06:57 03/20/17 06:57 03/20/17 06:57 General appearance: Present: A&O X 3, pleasant, no acute distress, answers questions appropriately - Head Head exam: Present: atraumatic, normocephalic - Eye Eye exam: Present: sclera anicteric - ENT ENT exam: Present: mucous membranes moist - Respiratory Respiratory exam: Present: CTAB. Absent: accessory muscle use, rales, rhonchi, wheezes - Cardiovascular Cardiovascular exam: Present: RRR, +S1, +S2. Absent: diastolic murmur, systolic murmur - GI/Abdominal GI/Abdominal exam: Present: normal bowel sounds, soft. Absent: distended, tenderness - Extremities Exam Extremities exam: Present: warm, radial pulses palpable and symetrical. Absent : calf tenderness, pedal edema - Skin Skin exam: Present: dry, normal color, warm. Absent: abrasion, rash Internal Medicine: Result - Labs CBC & Chem 7: 03/19/17 04:46 03/19/17 04:46 - ABG Interpretation ABG results: ABG ABG pH 7.48 pH Units (7.32-7.45) H 03/05/17 04:50 ABG pCO2 38 mmHg (35-45) 03/05/17 04:50 ABG pO2 89 mmHg (85-104) 03/05/17 04:50 ABG O2 Saturation 97 % (95-98) 03/05/17 04:50 PT/INR, D-dimer PT 20.3 Seconds (9.4-12.1) H 03/20/17 09:11 Consult Discharge Plan - Plan Referrals: NONE,PCP [Primary Care Provider] - (working on placement to ecf)
--- NOTE | 2017-03-20 14:01 | Invasive Diagnostic Lab Proc ---
Name: Kobe Patel Date of Study: 02/28/2017 Date: 1950 Ht: 70.1in Medical Record#: [id number] Age: 66 Wt: 220.46lb Gender: Male BSA: 2.18 Order #: [id number] BMI: 31.56 Physicians Procedure Physician: Sherman Smith MD, [facility] Referring MD: Referring MD: Staff Name Position Time In Sites, Meeta RT (R) Monitor 06:52 PM Sue Burr RT Scrub 06:52 PM Chris Dejesus RN Four Slide Machine Setter 06:52 PM Indications Indication STEMI Procedures Performed Procedure L HRT ARTERY/VENTRICLE ANGIO PRQ CARD REVASC CT 1 VSL CENTRAL LINE PLACEMENT MOD SED OTH PHYS/QHP 5/>YRS MOD SED OTHER PHYS/QHP EA MOD SED OTHER PHYS/QHP EA Pre-Procedure Checklist Informed consent is complete signed and on chart. H&P is on chart. ID band is on and ID verified with patient. Patient NPO for procedure The procedure was described for the patient and questions were answered. Blood Pressure: 231/150 ECG is on chart. Rhythm: Sinus Tachycardia Plan of Care Patient will tolerate the procedure without complications. Adequate level of comfort will be maintained. Hemodynamics will remain stable Patient will recover from procedure without complications. Respiratory function will be maintained. Cardiac rhythm will remain stable. Patient temperature will be maintained. Patient and/or family have verbalized understanding of the procedure. Patient Education Chief Complaint/Reason for Test: Cardiac Cath Developmental Category: Geriatric (65+ years) Developmentally Appropriate for Age: Yes Learning Barriers: None Education Needs: Procedure Education Method: Verbal Information Taught: Cardiac Cath Educational Evaluation: Able to repeat information Intravenous Access Time IV Size Location DC'd Fluid/Drip Rate Units RN 20g 1 1/4" Patent On Arrival Rt Arm 18g 1 1/4" Patent On Arrival Lt Arm 25 ml/hr Chris Dejesus RN Allergies No Known Allergies Vital Signs Time BP (mmHg) HR (bpm) O2 Sat. RR (bpm) LOC 07:00 PM 178 / 108 126 86 % 18 07:03 PM 187 / 111 123 86 % 25 07:06 PM 178 / 109 120 83 % 12 07:09 PM 192 / 114 116 84 % 12 07:12 PM 191 / 115 115 85 % 26 07:15 PM 180 / 105 114 87 % 12 07:18 PM 171 / 105 116 87 % 29 07:21 PM 177 / 103 114 87 % 17 07:24 PM 175 / 104 115 85 % 19 07:27 PM 162 / 92 111 86 % 26 06:40 PM 231 / 150 % 06:42 PM 231 / 138 137 84 % 06:46 PM 199 / 127 131 82 % 16 06:48 PM 196 / 127 134 96 % 7 06:51 PM 182 / 118 129 92 % 22 06:54 PM 179 / 113 128 87 % 20 06:57 PM 179 / 106 125 86 % 21 07:30 PM 166 / 98 109 86 % 26 07:33 PM 150 / 88 108 85 % 21 07:36 PM 141 / 87 107 84 % 26 07:39 PM 132 / 80 106 84 % 19 Procedural Medications Time Medication Dose Units Method Given By 06:44 PM Oxygen L/min mechanical ventilator Chris Dejesus RN 06:44 PM Versed 2 mg Intravenous Chris Dejesus RN 06:44 PM Fentanyl 50 mcg Intravenous Chris Dejesus RN 06:50 PM Versed 2 mg Intravenous Chris Dejesus RN 06:50 PM Fentanyl 50 mcg Intravenous Chris Dejesus RN 06:53 PM Lidocaine 2% 15 ml Subcutaneous Sherman Smith MD, [facility] 07:01 PM Aggrastat Bolus: 50 ml Intravenous Chris Dejesus RN 07:01 PM Aggrastat 12.5mg/250ml 18 ml Intravenous Chris Dejesus RN 07:03 PM Nitroglycerin 200 mcg Intracoronary Sherman Smith MD 07:07 PM Versed 4 mg/hr Intravenous Chris Dejesus RN 07:07 PM Versed 2 mg Intravenous Chris Dejesus RN 07:09 PM Nitroglycerin 15 mcg/hr Intravenous Chris Dejesus RN 07:16 PM Nitroglycerin 30 mcg/hr Intravenous Chris Dejesus RN 07:16 PM Fentanyl 100 mcg/hr Intravenous Chris Dejesus RN 07:21 PM Nitroglycerin 200 mcg Intracoronary Sherman Smith MD 07:24 PM Nitroglycerin 45 mcg/hr Intravenous Chris Dejesus RN 07:27 PM Sodium Bicarbonate 1 amp Intravenous Chris Dejesus RN ASA Classification: Emergent Procedure: ASA score is assumed Manolo Score Preprocedure Postprocedure Activity 0- Unable to move extremities or lift head Activity 0- Unable to move extremities or lift head Circulation 2- SBP +/= 20 points of pre-anesthetic level Circulation 2- SBP +/= 20 points of pre-anesthetic level Consciousness 0- Non-responsive Consciousness 0- Non-responsive O2 Saturation 0- O2 saturation 90% even with O2 supplement O2 Saturation 0- O2 saturation 90% even with O2 supplement Respiratory 0- Apneic requires ventilator or assisted respiration Respiratory 0- Apneic requires ventilator or assisted respiration Total Score 2 Total Score 2 Contrast Agent: Isovue Diagnostic Contrast: 162 ml Total Contrast: 162 ml Fluoro Dose: 803 mGy Activated Clotting Time Time Seconds to Clot 07:09 PM 324 Procedure Log Time Note Enter By 06:06 PM CathStat 06:38 PM Vitals capture started with the following parameters, Patient=Adult, Interval=3 min, Initial Yczgqxve=825 mmHg, Deflation Rate=5 mmHg, Cuff placed on Right Arm 06:38 PM Patient charges- Angio tray pack, Navilyst 3mm J, Pulse Oximetry and ACIST tubing and transducer tsites 06:38 PM Pt arrived to cytology laboratory manager 2 at 18:38 [email or web address] 06:38 PM Meeta Marie (R) Position: Monitor Time in: 18:38 [email or web address] 06:38 PM Sue Burr RT Position: Scrub Time in: 18:38 [email or web address] 06:38 PM Chris Dejesus RN Position: Four Slide Machine Setter Time in: 18:38 csmith 06:39 PM Clinical Presentation: STEMI or equivalent tsites 06:39 PM Case Delayed No tsites 06:40 PM Physician arrived 18:40 tsites 06:40 PM FPFH=262/150 mmhg 06:42 PM DA=210 bpm, GWLW=507/138 mmhg, SpO2=84 % 06:44 PM Hair removed from procedure site in emergency department using clippers. Bilateral groin prepped with Chloraprep by Meeta Marie (R), safety strap applied then patient was draped. Skin intact. tsites 06:44 PM Time: 18:44 Oxygen on at L/min per mechanical ventilator by Chris Dejesus RN tsites 06:44 PM Time: 18:44 Versed 2 mg Intravenous Given by Chris Dejesus RN tsites 06:44 PM Time: 18:55 Fentanyl 50 mcg Intravenous Given by Chris Dejesus RN tsites 06:46 PM SM=865 bpm, SZXG=558/127 mmhg, SpO2=82 %, Resp=16 B/min 06:48 PM Recorded ECG: SL=161 Condition=Condition 1 06:48 PM HL=321 bpm, SLSB=653/127 mmhg, SpO2=96.0 %, Resp=7 B/min 06:50 PM Time: 18:50 Versed 2 mg Intravenous Given by Chris Dejesus RN tsites 06:50 PM Time: 18:50 Fentanyl 50 mcg Intravenous Given by Chris Dejesus RN tsites 06:51 PM UJ=004 bpm, NFSZ=203/118 mmhg, SpO2=92 %, Resp=22 B/min 06:52 PM Time out performed according to hospital policy tsites 06:52 PM Procedure start 18:52 tsites 06:52 PM Pressure channel 1 zeroed. 06:53 PM Time: 18:53 15 ml Lidocaine 2% to right groin Subcutaneous Given by Sherman Smith MD, [facility] tsites 06:54 PM UM=693 bpm, CZHL=740/113 mmhg, SpO2=87.0 %, Resp=20 B/min 06:54 PM Access obtained by percutaneous puncture. 4Fr 10cm Terumo Cummings sheath placed in right Femoral vein. [id number] tsites 06:55 PM Access obtained by percutaneous puncture. 6Fr 10cm Terumo Cummings sheath placed in right Femoral artery. [id number] tsites 06:56 PM 0.035 145cm Navilyst 3mmJ wire [id number] tsites 06:56 PM 5Fr FR 4 catheter inserted over the wire [facility] tsites 06:56 PM RCA angiography performed in multiple views. tsites 06:56 PM Recorded Pressure: Ao, OW=485, Condition=Condition 1 (Aorta) Ao 106/4/63 06:57 PM SR=826 bpm, VNZD=304/106 mmhg, SpO2=86 %, Resp=21 B/min 06:57 PM Catheter removed tsites 06:57 PM PCI Status Emergency tsites 06:57 PM PCI Indication: Immediate PCI for STEMI tsites 06:57 PM 6Fr EBU 3.5 Medtronic guide catheter was used to cannulate the PCI vessel successfully. reused? No tsites 06:58 PM LCA angiography performed in multiple views. tsites 06:58 PM Recorded Pressure: Ao, ZZ=338, Condition=Condition 1 (Aorta) Ao 21/-35/-18 07:00 PM YM=084 bpm, WREK=795/108 mmhg, SpO2=86.0 %, Resp=18 B/min 07:01 PM Time: 19:01 Aggrastat Bolus: 50 ml Intravenous Given by Chris Dejesus RN Newman pump tsites 07:01 PM Time: 19:01 Aggrastat 12.5mg/250ml 18 ml Intravenous Given by Chris Dejesus RN Newman pump tsites 07:02 PM Inflation device was opened. tsites 07:02 PM .014 Brinckerhoff 182cm guide wire across target lesion- successful. reused? No tsites 07:03 PM LC=685 bpm, OAPZ=677/111 mmhg, SpO2=86 %, Resp=25 B/min 07:03 PM Time: 19:03 Nitroglycerin 200 mcg Intracoronary Given by Sherman Smith MD tsites 07:04 PM 2.25 mm x 12 mm Emerge Monorail balloon across target lesion- successful. reused? No tsites 07:05 PM Balloon inflated @ 10 favian for 10 seconds tsites 07:06 PM NH=351 bpm, ODTZ=746/109 mmhg, SpO2=83 %, Resp=12 B/min 07:06 PM Balloon inflated @ 12 favian for 15 seconds tsites 07:07 PM Time: 19:07 Versed 4 mg/hr Intravenous Given by Chris Dejesus RN tsites 07:07 PM Time: 19:07 Versed 2 mg Intravenous Given by Chris Dejesus RN tsites 07:08 PM Balloon catheter removed intact. tsites 07:09 PM 2.5mm x 20mm Synergy drug-eluting stent across target lesion- successful Lot #[id number] tsites 07:09 PM KQ=724 bpm, HFKB=877/114 mmhg, SpO2=84 %, Resp=12 B/min 07:09 PM Stent deployed @ 18 favian for 18 seconds tsites 07:09 PM Time: 19:09 Nitroglycerin 15 mcg/hr Intravenous Given by Chris Dejesus RN tsites 07:09 PM At 19:09 the ACT was 324 seconds. tsites 07:12 PM XV=835 bpm, WSKP=920/115 mmhg, SpO2=85 %, Resp=26 B/min 07:12 PM Stent delivery system removed intact. tsites 07:12 PM 3.0mm x 16mm Synergy drug-eluting stent across target lesion- successful Lot #[id number] tsites 07:14 PM Stent deployed @ 16 favian for 14 seconds tsites 07:15 PM CN=234 bpm, GBQS=689/105 mmhg, SpO2=87 %, Resp=12 B/min 07:16 PM Stent delivery system removed intact. tsites 07:16 PM 4.0 mm x 8mm NC Trek Rx balloon across target lesion- successful. reused? No tsites 07:16 PM Time: 19:16 Nitroglycerin 30 mcg/hr Intravenous Given by Chris Dejesus RN tsites 07:16 PM Time: 19:16 Fentanyl 100 mcg/hr Intravenous Given by Chris Dejesus RN tsites 07:18 PM Balloon inflated @ 12 favian for 6 seconds tsites 07:18 PM TQ=127 bpm, YKCY=786/105 mmhg, SpO2=87.0 %, Resp=29 B/min 07:19 PM Guide wire removed intact. tsites 07:19 PM Balloon catheter removed intact. tsites 07:19 PM Guide catheter removed intact. tsites 07:20 PM 5Fr Pigtail catheter inserted over the wire [facility] tsites 07:21 PM HF=962 bpm, NMJI=353/103 mmhg, SpO2=87.0 %, Resp=17 B/min 07:21 PM Recorded Pressure: LV, RK=863, Condition=Condition 1 (Left Ventricle) LV 177/3/29 07:21 PM Catheter selectively placed in left ventricle tsites 07:21 PM Bolus angiogram of left Ventricle complete: 12 ml/sec for a total of 30 mls tsites 07:22 PM Time: 19:21 Nitroglycerin 200 mcg Intracoronary Given by Sherman Smith MD tsites 07:23 PM Recorded Pressure: LV, Ao, GP=313, Condition=Condition 1 (Left Ventricle) LV 160/17/20, (Aorta) Ao 159/99/122 07:23 PM Catheter removed tsites 07:23 PM Coronary Dominance: right tsites 07:24 PM Lesion found in Proximal LAD. Pre Stenosis: 99 Pre ELISE Flow: 2: Partial Flow/Perfusion (> 1 but < 3) tsites 07:24 PM LV=098 bpm, CCKB=451/104 mmhg, SpO2=85.0 %, Resp=19 B/min 07:24 PM Lesion found in Mid LAD. Pre Stenosis: 95 Pre ELISE Flow: 2: Partial Flow/Perfusion (> 1 but < 3) tsites 07:24 PM Time: 19:24 Nitroglycerin 45 mcg/hr Intravenous Given by Chris Dejesus RN tsites 07:25 PM Bolus angiogram of right Femoral complete: 2 ml/sec for a total of 4 mls tsites 07:25 PM Lesion found in Mid Circumflex. Pre Stenosis: 20 Pre ELISE Flow: tsites 07:26 PM Lesion found in Mid RCA. Pre Stenosis: 20 Pre ELISE Flow: tsites 07:26 PM Proximal Left Anterior Descending Coronary Artery with 99% stenosis. If graft is supplying this territory, 0 % stenosis. tsites 07:26 PM Mid/Distal Left Anterior Descending Coronary Artery and diagonal branches with 95% stenosis. If graft is supplying this area, 0 % stenosis tsites 07:26 PM Circumflex, Obtuse Marginal, Left Posterior Descending, and Left Posterolateral Coronary Arteries with 20 % stenosis. If graft is supplying this area, 0 % stenosis tsites 07:26 PM Right Coronary, Right Posterior Descending Arteries with Right Posterolateral and Acute Marginal branches with 20 % stenosis. If graft is supplying this area, 0 % stenosis tsites 07:26 PM Procedure completed at 19:26 tsites 07:27 PM XV=624 bpm, NYWD=048/92 mmhg, SpO2=86.0 %, Resp=26 B/min 07:27 PM Sign out completed: Radiation Dose 803 mGy Fluoro Time: 6.8 Isovue 370 - 500ml contrast 162 ml given by Sherman Smith MD, [facility]. Complications: NoneCardiac Rehab Consult needed: YesConfirmed administered medications: Yes tsites 07:27 PM Isovue 370 - 500ml,1 Bottle(s) used. tsites 07:27 PM Sheath left in place to be pulled on floor/holding areaV+Pad tsites 07:27 PM Time: 19:27 Sodium Bicarbonate 1 amp Intravenous Given by Chris Dejesus RN tsites 07:29 PM Time: 19:29 Brilinta 180 mg OG Given by Chris Dejesus RN tsites 07:30 PM TK=272 bpm, QQJI=623/98 mmhg, SpO2=86.0 %, Resp=26 B/min 07:32 PM Post ECG Sinus Tachycardia tsites 07:32 PM Post Blood Pressure 166/98 tsites 07:33 PM 19:32 Post Pulses Bilateral DP & PT 1+ tsites 07:33 PM ML=692 bpm, OZVW=727/88 mmhg, SpO2=85.0 %, Resp=21 B/min 07:34 PM Information taught Cardiac Cath and PCI tsites 07:34 PM Education needs Procedure, Plan of Care, and Responsibilities of Patient in Care tsites 07:34 PM Learning barriers :None tsites 07:34 PM Education Methods Verbal tsites 07:34 PM Education evaluation Able to repeat information tsites 07:34 PM Site status No bleeding/hematoma - Rt Groin as reported by Sue Burr RT at 19:34 tsites 07:34 PM Opsite applied tsites 07:34 PM Plavix, Effient or Brilinta given Yes tsites 07:34 PM Delay to floor No tsites 07:34 PM Patient out of room: 19:34 tsites 07:34 PM Family placed in consult room. tsites 07:36 PM HA=451 bpm, BCUM=948/87 mmhg, SpO2=84 %, Resp=26 B/min 07:39 PM IH=175 bpm, HVPT=111/80 mmhg, SpO2=84 %, Resp=19 B/min 07:42 PM Vitals capture stopped. 07:59 PM Report given to veronica WILKINSON Pt taken to ICU Room #7. 19:59 tsites Equipment Used Size Length Diameter Item Category ACT Other Angio tray pack Other Terumo Cummings sheath Terumo Cummings sheath Britetip Guide catheter Navilyst 3mmJ wire Newman pump Other Inflation kit Other BMW Guidewire Emerge PTCA Dilatation Catheter Monorail Balloon Promus Element Plus Rx Drug Eluting Stent Promus Element Plus Rx Drug Eluting Stent NC Trek Rx Balloon Isovue 370- 500ml Contrast V+Pad Patch J-loop Other Complications Complication None Hemodynamics Pressures Site Systolic/A Wave Diastolic/V Wave Mean AO 106 4 63 AO 21 -35 -18 LV 177 3 29 LV 160 17 20 AO 159 99 122 Post Procedure Information Blood Pressure: 166/98 mmHg Rhythm: Sinus Tachycardia Post procedural instructions were given Closure Device Time Device Success/Fail 02/28/2017 7:59:00 PM Manual Compression Site Checks Time Location Status Staff Sheath In? Note 07:34 PM Rt Groin No bleeding/hematoma Sue Burr RT Yes Pulses Time Site Pre-Procedure Post-Procedure Note Bilateral DP & PT 1+ 7:32:00 PM Bilateral DP & PT 1+ Updated by Meeta Marie RT (R) on 03/20/2017 1:56:57 PM Meeta Marie RT electronically signed on 03/20/2017 1:57:20 PM with status of Final
[2017-03-20] MEDS ORDERED: *HR* Warfarin 2 MG TABLET PO ONE (18:00)
[2017-03-20] MEDS: Mirtazapine 15 MG TABLET PO SCH (21:37)
[2017-03-21 06:27] LABS: INR 1.8; Prothrombin Time 19.4 Seconds (9.4-12.1)
[2017-03-21] MEDS: *HR* Ticagrelor 90 MG TABLET PO SCH ×2 (07:57→20:34)
[2017-03-21] MEDS: amLODIPine 5 MG TABLET PO SCH (07:57)
[2017-03-21] MEDS: Aspirin 81 MG TAB.CHEW PO SCH (07:57)
[2017-03-21] MEDS: Lisinopril 20 MG TABLET PO SCH (07:57)
--- NOTE | 2017-03-21 12:56 | Internal Med Progress Note ---
<Kostas Henry - Last Filed: 03/21/17 15:23> Date of Encounter: 03/21/17 Time of Encounter: 12:55 - Assessment and plan (1) CVA (cerebral vascular accident) Current Visit: Yes Status: Acute Assessment and plan: Patient alert and oriented. ROM is improving. Jose declared him incompetent to make his own medical decisions. Awaiting placement, guardianship, and power of divorce attorney determination. MUD TEMPERER has contacted cubing machine tender, siblings. Patient has sister in [facility] [address] in [place], [place] Continue OT/PT Qualifiers: CVA mechanism: embolism Precerebral and cerebral artery: unspecified cerebral artery Qualified Code(s): I63.40 - Cerebral infarction due to embolism of unspecified cerebral artery (2) STEMI (ST elevation myocardial infarction) Current Visit: Yes Status: Acute Assessment and plan: Patient denies chest pain, dyspnea. Vitals are stable. Underwent cardiac catheterization. Cardiology recommendations initiated -dual antiplatelet therapy uninterpreted for at least one year -repeat echo an outpatient setting -Noted that cardiology has signed off Plan continue aspirin continue Coumadin - monitor PT/INR continue lisinopril continue Brilinta Qualifiers: Involved coronary artery: LAD coronary artery Qualified Code(s): I21.02 - ST elevation (STEMI) myocardial infarction involving left anterior descending coronary artery (3) Acute systolic CHF (congestive heart failure) Current Visit: Yes Status: Acute Assessment and plan: Patient is euvolemic, denies dyspnea, orthopnea. Congestive heart failure with reduced ejection fraction of 25% by transthoracic echocardiogram. Patient was intubated/extubated. Continue intravenous Lasix. - Subjective Interval history: Patient is comfortably lying in bed, alert, and in no acute distress. He reports no complaints, denies chest pain, dyspnea, cough, nausea, vomiting, diarrhea, or difficulty urinating. Awaiting placement. Encouraged by continued improvement with strength. - Constitutional Vitals: Temp Pulse Resp BP Pulse Ox 97.8 F 73 18 132/81 97 03/21/17 07:23 03/21/17 07:23 03/21/17 07:23 03/21/17 07:23 03/21/17 07:23 General appearance: Present: A&O X 3, pleasant, no acute distress, answers questions appropriately Internal Medicine: Result - Labs CBC & Chem 7: 03/19/17 04:46 03/19/17 04:46 - ABG Interpretation ABG results: ABG ABG pH 7.48 pH Units (7.32-7.45) H 03/05/17 04:50 ABG pCO2 38 mmHg (35-45) 03/05/17 04:50 ABG pO2 89 mmHg (85-104) 03/05/17 04:50 ABG O2 Saturation 97 % (95-98) 03/05/17 04:50 PT/INR, D-dimer PT 19.4 Seconds (9.4-12.1) H 03/21/17 06:09 Consult Discharge Plan - Plan Referrals: NONE,PCP [Primary Care Provider] - (working on placement to ec, will follow up with PCP at [facility]) <Armando Bach - Last Filed: 03/21/17 20:30> Date of Encounter: 03/21/17 - Constitutional Vitals: Temp Pulse Resp BP Pulse Ox 98.4 F 64 16 105/54 96 03/21/17 18:50 03/21/17 18:50 03/21/17 18:50 03/21/17 18:50 03/21/17 18:50 Internal Medicine: Result - Labs CBC & Chem 7: 03/19/17 04:46 03/19/17 04:46 - ABG Interpretation ABG results: ABG ABG pH 7.48 pH Units (7.32-7.45) H 03/05/17 04:50 ABG pCO2 38 mmHg (35-45) 03/05/17 04:50 ABG pO2 89 mmHg (85-104) 03/05/17 04:50 ABG O2 Saturation 97 % (95-98) 03/05/17 04:50 PT/INR, D-dimer PT 19.4 Seconds (9.4-12.1) H 03/21/17 06:09 - Attending Attestation I examined this patient and my medical decision-making was reviewed with the Resident Physician. I agree with the documented findings, disposition and treatment plan as described except to the extent set forth below.
[2017-03-21] MEDS ORDERED: *HR* Warfarin 2 MG TABLET PO ONE (18:00)
[2017-03-21] MEDS: Mirtazapine 15 MG TABLET PO SCH (20:34)
[2017-03-22 06:31] LABS: INR 1.7; Prothrombin Time 18.6 Seconds (9.4-12.1)
[2017-03-22] MEDS: *HR* Ticagrelor 90 MG TABLET PO SCH ×2 (07:57→22:40)
[2017-03-22] MEDS: Lisinopril 20 MG TABLET PO SCH (07:57)
[2017-03-22] MEDS: amLODIPine 5 MG TABLET PO SCH (07:57)
[2017-03-22] MEDS: Aspirin 81 MG TAB.CHEW PO SCH (07:58)
[2017-03-22] MEDS ORDERED: Aminoglycoside Consult 1 EACH MC ONE (08:44)
--- NOTE | 2017-03-22 16:49 | Internal Med Progress Note ---
<Kostas Henry - Last Filed: 03/22/17 16:46> Date of Encounter: 03/22/17 Time of Encounter: 16:46 - Assessment and plan (1) CVA (cerebral vascular accident) Current Visit: Yes Status: Acute Assessment and plan: Patient alert and oriented. ROM is improving. Jose declared him incompetent to make his own medical decisions. Awaiting placement, guardianship, and power of applications engineering manager determination. J2EE DEVELOPER has contacted vat cleaner, siblings. Patient has sister in [facility] [address] in [place], [place] Continue OT/PT for ambulation and stability Qualifiers: CVA mechanism: embolism Precerebral and cerebral artery: unspecified cerebral artery Qualified Code(s): I63.40 - Cerebral infarction due to embolism of unspecified cerebral artery (2) STEMI (ST elevation myocardial infarction) Current Visit: Yes Status: Acute Assessment and plan: Patient denies chest pain, dyspnea. Vitals are stable. Underwent cardiac catheterization. Cardiology recommendations initiated -dual antiplatelet therapy uninterpreted for at least one year -repeat echo an outpatient setting -Noted that cardiology has signed off Plan continue aspirin continue Coumadin - monitor PT/INR continue lisinopril continue Brilinta Qualifiers: Involved coronary artery: LAD coronary artery Qualified Code(s): I21.02 - ST elevation (STEMI) myocardial infarction involving left anterior descending coronary artery (3) Acute systolic CHF (congestive heart failure) Current Visit: Yes Status: Acute Assessment and plan: Patient is euvolemic, denies dyspnea, orthopnea. Congestive heart failure with reduced ejection fraction of 25% by transthoracic echocardiogram. Patient was intubated/extubated. Continue intravenous Lasix. - Subjective Interval history: Patient is comfortably lying in bed, alert, and in no acute distress. He reports no complaints, denies chest pain, dyspnea, cough, nausea, vomiting, diarrhea, or difficulty urinating. Awaiting placement. - Constitutional Vitals: Temp Pulse Resp BP Pulse Ox 98.4 F 67 14 138/83 96 03/22/17 14:48 03/22/17 14:48 03/22/17 14:48 03/22/17 14:48 03/22/17 14:48 General appearance: Present: A&O X 3, pleasant, no acute distress, answers questions appropriately - Head Head exam: Present: atraumatic, normocephalic - Eye Eye exam: Present: sclera anicteric - ENT ENT exam: Present: mucous membranes moist - Respiratory Respiratory exam: Present: CTAB. Absent: rales, rhonchi, wheezes - Cardiovascular Cardiovascular exam: Present: RRR, +S1, +S2. Absent: distant heart sounds, systolic murmur - GI/Abdominal GI/Abdominal exam: Present: normal bowel sounds, soft. Absent: distended, rigid , tenderness - Extremities Exam Extremities exam: Present: warm, radial pulses palpable and symetrical. Absent : calf tenderness, joint swelling, pedal edema - Neurological Exam Neurological exam: Present: alert, CN II-XII intact, no focal deficits Internal Medicine: Result - Labs CBC & Chem 7: 03/19/17 04:46 03/19/17 04:46 - ABG Interpretation ABG results: ABG ABG pH 7.48 pH Units (7.32-7.45) H 03/05/17 04:50 ABG pCO2 38 mmHg (35-45) 03/05/17 04:50 ABG pO2 89 mmHg (85-104) 03/05/17 04:50 ABG O2 Saturation 97 % (95-98) 03/05/17 04:50 PT/INR, D-dimer PT 18.6 Seconds (9.4-12.1) H 03/22/17 05:17 Consult Discharge Plan - Plan Referrals: NONE,PCP [Primary Care Provider] - ([facility], will follow up with PCP at [facility]) <Armando Bach - Last Filed: 03/22/17 17:59> Date of Encounter: 03/22/17 - Constitutional Vitals: Temp Pulse Resp BP Pulse Ox 98.4 F 67 14 138/83 96 03/22/17 14:48 03/22/17 14:48 03/22/17 14:48 03/22/17 14:48 03/22/17 14:48 Internal Medicine: Result - Labs CBC & Chem 7: 03/19/17 04:46 03/19/17 04:46 - ABG Interpretation ABG results: ABG ABG pH 7.48 pH Units (7.32-7.45) H 03/05/17 04:50 ABG pCO2 38 mmHg (35-45) 03/05/17 04:50 ABG pO2 89 mmHg (85-104) 03/05/17 04:50 ABG O2 Saturation 97 % (95-98) 03/05/17 04:50 PT/INR, D-dimer PT 18.6 Seconds (9.4-12.1) H 03/22/17 05:17 - Attending Attestation I examined this patient and my medical decision-making was reviewed with the Resident Physician. I agree with the documented findings, disposition and treatment plan as described except to the extent set forth below.
[2017-03-22] MEDS ORDERED: *HR* Warfarin 3 MG TABLET PO ONE (18:00)
[2017-03-22] MEDS: Mirtazapine 15 MG TABLET PO SCH (22:39)
[2017-03-23 05:40] LABS: INR 1.8; Prothrombin Time 19.7 Seconds (9.4-12.1)
[2017-03-23] MEDS: amLODIPine 5 MG TABLET PO SCH (07:42)
[2017-03-23] MEDS: Lisinopril 20 MG TABLET PO SCH (07:42)
[2017-03-23] MEDS: Aspirin 81 MG TAB.CHEW PO SCH (07:46)
[2017-03-23] MEDS: *HR* Ticagrelor 90 MG TABLET PO SCH ×2 (07:46→20:49)
--- NOTE | 2017-03-23 09:53 | Internal Med Progress Note ---
<HaiOskar hickey - Last Filed: 03/23/17 09:50> Date of Encounter: 03/23/17 Time of Encounter: 09:50 - Assessment and plan (1) CVA (cerebral vascular accident) Current Visit: Yes Status: Acute Assessment and plan: Status post heart catheterization. Patient is recovering nicely. He continues to work with physical therapy and occupational therapy and continues to improve. He is ambulating with a walker without difficulty. Is currently anticoagulated with Coumadin and pharmacy is assisting in his Coumadin dose. He was declared not competent to make his own medical decisions and therefore we are in the process of obtaining guardianship and obtaining insurance coverage which is the barrier to discharge. We will continue with PT and OT. Qualifiers: CVA mechanism: embolism Precerebral and cerebral artery: unspecified cerebral artery Qualified Code(s): I63.40 - Cerebral infarction due to embolism of unspecified cerebral artery (2) STEMI (ST elevation myocardial infarction) Current Visit: Yes Status: Acute Assessment and plan: Stable at this time. Continue dual antiplatelet therapy. Qualifiers: Involved coronary artery: LAD coronary artery Qualified Code(s): I21.02 - ST elevation (STEMI) myocardial infarction involving left anterior descending coronary artery - Subjective Interval history: Patient seen and examined at bedside. He has no complaints at this time. He has been up walking around and states that he feels better with this. He denies chest pain, shortness of breath. - Constitutional Vitals: Temp Pulse Resp BP Pulse Ox 98.2 F 67 16 103/70 96 03/23/17 06:57 03/23/17 06:57 03/23/17 06:57 03/23/17 06:57 03/23/17 06:57 General appearance: Present: A&O X 3, pleasant, no acute distress, answers questions appropriately - Respiratory Respiratory exam: Present: CTAB. Absent: rales, rhonchi, wheezes - Cardiovascular Cardiovascular exam: Present: RRR. Absent: gallop, rubs, systolic murmur - GI/Abdominal GI/Abdominal exam: Present: normal bowel sounds, soft. Absent: distended, tenderness - Extremities Exam Extremities exam: Present: warm. Absent: pedal edema, tenderness Internal Medicine: Result - Labs CBC & Chem 7: 03/19/17 04:46 03/19/17 04:46 - ABG Interpretation ABG results: ABG ABG pH 7.48 pH Units (7.32-7.45) H 03/05/17 04:50 ABG pCO2 38 mmHg (35-45) 03/05/17 04:50 ABG pO2 89 mmHg (85-104) 03/05/17 04:50 ABG O2 Saturation 97 % (95-98) 03/05/17 04:50 PT/INR, D-dimer PT 19.7 Seconds (9.4-12.1) H 03/23/17 05:02 Consult Discharge Plan - Plan Referrals: NONE,PCP [Primary Care Provider] - (working on placement to ec, will follow up with PCP at [facility]) <Tino Leone - Last Filed: 03/23/17 18:28> Date of Encounter: 03/23/17 - Assessment and plan (1) CVA (cerebral vascular accident) Current Visit: Yes Status: Acute 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 (2) STEMI (ST elevation myocardial infarction) Current Visit: Yes Status: Acute Qualifiers: Involved coronary artery: LAD coronary artery Qualified Code(s): I21.02 - ST elevation (STEMI) myocardial infarction involving left anterior descending coronary artery (3) Paralysis of left lower extremity Current Visit: Yes Status: Acute (4) Atrial fibrillation Current Visit: Yes Status: Acute Qualifiers: Atrial fibrillation type: paroxysmal Qualified Code(s): I48.0 - Paroxysmal atrial fibrillation - Constitutional Vitals: Temp Pulse Resp BP Pulse Ox 98.2 F 76 16 144/87 96 03/23/17 16:12 03/23/17 16:12 03/23/17 16:12 03/23/17 16:12 03/23/17 16:12 Internal Medicine: Result - Labs CBC & Chem 7: 03/19/17 04:46 03/19/17 04:46 - ABG Interpretation ABG results: ABG ABG pH 7.48 pH Units (7.32-7.45) H 03/05/17 04:50 ABG pCO2 38 mmHg (35-45) 03/05/17 04:50 ABG pO2 89 mmHg (85-104) 03/05/17 04:50 ABG O2 Saturation 97 % (95-98) 03/05/17 04:50 PT/INR, D-dimer PT 19.7 Seconds (9.4-12.1) H 03/23/17 05:02 - Attending Attestation I examined this patient and my medical decision-making was reviewed with the Resident Physician on 03/23/17. I agree with the documented findings, disposition and treatment plan as described except to the extent set forth below. Mr. Patel is currently admitted for STEMI and acute CVA. He remains moderate risk due to potential for worsening cardiac and neuro status. Mr. Patel has no new acute issues. He is working with therapy. No fever or chills. Exam Alert. Comfortable Mucus membranes moist Heart reg No wheeze Abd soft I/P 1. Acute NSTEMI 2. Acute CVA Working on discharge planning for SNF. Further diagnoses and plan as above.
[2017-03-23] MEDS ORDERED: *HR* Warfarin 3 MG TABLET PO ONE (18:00)
[2017-03-23] MEDS: Mirtazapine 15 MG TABLET PO SCH (20:50)
[2017-03-24 06:53] LABS: Prothrombin Time 22.5 Seconds (9.4-12.1)
--- NOTE | 2017-03-24 07:35 | Internal Med Progress Note ---
<Kelley Oliver - Last Filed: 03/24/17 12:36> Date of Encounter: 03/24/17 Time of Encounter: 07:32 - Assessment and plan (1) CVA (cerebral vascular accident) Current Visit: Yes Status: Acute Assessment and plan: Status post heart catheterization. Patient continues to work with PT/OT and continues to improve. He is ambulating with a walker without difficulty. Is currently anticoagulated with Coumadin and pharmacy is assisting in his Coumadin dose. He was declared not competent to make his own medical decisions and therefore we are in the process of obtaining guardianship and obtaining insurance coverage, which is the barrier to discharge. Plan: -Continue with PT and OT. 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 (2) STEMI (ST elevation myocardial infarction) Current Visit: Yes Status: Acute Assessment and plan: S/P PTCA/EVER in proximal and mid LAD 02/28/17 Stable at this time. Plan: -Continue dual antiplatelet therapy. Qualifiers: Involved coronary artery: LAD coronary artery Qualified Code(s): I21.02 - ST elevation (STEMI) myocardial infarction involving left anterior descending coronary artery - Subjective Interval history: Patient seen and examined, lying comfortably in bed watching TV. Patient denies any CP, SOB, abd pain or any other complaints at this time. He states that he has been getting up and walking with therapy and is tolerating it well. - Constitutional Vitals: Temp Pulse Resp BP Pulse Ox 98.4 F 68 16 147/78 97 03/23/17 23:33 03/23/17 23:33 03/23/17 23:33 03/23/17 23:33 03/23/17 23:33 General appearance: Present: A&O X 3, pleasant, no acute distress, answers questions appropriately - Head Head exam: Present: atraumatic, normocephalic - Neck Neck exam general surgery: Present: supple, trachea midline - Respiratory Respiratory exam: Present: CTAB. Absent: accessory muscle use, rales, rhonchi, wheezes - Cardiovascular Cardiovascular exam: Present: RRR, +S1, +S2. Absent: diastolic murmur, gallop, rubs, systolic murmur - GI/Abdominal GI/Abdominal exam: Present: normal bowel sounds, soft, no peritoneal signs. Absent: distended, tenderness - Extremities Exam Extremities exam: Present: warm, radial pulses palpable and symetrical. Absent : calf tenderness, cyanotic, pedal edema - Neurological Exam Neurological exam: Present: alert. Absent: facial droop, speech deficit - Skin Skin exam: Present: dry, intact Internal Medicine: Result - Labs CBC & Chem 7: 03/19/17 04:46 03/19/17 04:46 - ABG Interpretation ABG results: ABG ABG pH 7.48 pH Units (7.32-7.45) H 03/05/17 04:50 ABG pCO2 38 mmHg (35-45) 03/05/17 04:50 ABG pO2 89 mmHg (85-104) 03/05/17 04:50 ABG O2 Saturation 97 % (95-98) 03/05/17 04:50 PT/INR, D-dimer PT 22.5 Seconds (9.4-12.1) H 03/24/17 06:41 Consult Discharge Plan - Plan Referrals: NONE,PCP [Primary Care Provider] - (working on placement to [facility], will follow up with PCP at [facility]) <Tino Leone - Last Filed: 03/24/17 13:11> Date of Encounter: 03/24/17 - Assessment and plan (1) CVA (cerebral vascular accident) Current Visit: Yes Status: Acute 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 (2) STEMI (ST elevation myocardial infarction) Current Visit: Yes Status: Acute Qualifiers: Involved coronary artery: LAD coronary artery Qualified Code(s): I21.02 - ST elevation (STEMI) myocardial infarction involving left anterior descending coronary artery (3) Paralysis of left lower extremity Current Visit: Yes Status: Acute (4) Atrial fibrillation Current Visit: Yes Status: Acute Qualifiers: Atrial fibrillation type: paroxysmal Qualified Code(s): I48.0 - Paroxysmal atrial fibrillation - Constitutional Vitals: Temp Pulse Resp BP Pulse Ox 97.9 F 68 16 155/82 97 03/24/17 07:42 03/24/17 07:42 03/24/17 07:42 03/24/17 07:42 03/24/17 07:42 Internal Medicine: Result - Labs CBC & Chem 7: 03/19/17 04:46 03/19/17 04:46 Labs: Urine 03/15/17 Range/Units 08:24 Urine Color Yellow (Yellow) Urine Clarity Clear (Clear) Urine pH 5.5 (5.0-8.0) pH Units Ur Specific [place] 1.024 (1.010-1.025) Urine Protein 30 H (Neg-Trace) mg/dL Urine Glucose (UA) Normal (Normal) mg/dL - ABG Interpretation ABG results: ABG ABG pH 7.48 pH Units (7.32-7.45) H 03/05/17 04:50 ABG pCO2 38 mmHg (35-45) 03/05/17 04:50 ABG pO2 89 mmHg (85-104) 03/05/17 04:50 ABG O2 Saturation 97 % (95-98) 03/05/17 04:50 PT/INR, D-dimer PT 22.5 Seconds (9.4-12.1) H 03/24/17 06:41 - Attending Attestation I examined this patient and my medical decision-making was reviewed with the Resident Physician on 03/24/17. I agree with the documented findings, disposition and treatment plan as described except to the extent set forth below. Mr. Patel is currently admitted for acute STEMI complicated by acute CVA. He remains moderate risk due to potential for worsening cardiac and neurologic status. Mr. Patel says he feels OK. No acute issues overnight. No fever or chills. Has been up ambulating with walker. Denies pain at this time. Working on discharge planning for rehab. He has been deemed incompetent and will need guardian. Exam Alert. Comfortable Mucus membranes moist Heart reg at this time Lungs clear currently Abd soft No edema I/P 1. STEMI - stable at this point in time 2. Acute bilateral embolic CVAs Further diagnoses and plan as above.
[2017-03-24] MEDS: amLODIPine 5 MG TABLET PO SCH (08:21)
[2017-03-24] MEDS: Aspirin 81 MG TAB.CHEW PO SCH (08:21)
[2017-03-24] MEDS: Lisinopril 20 MG TABLET PO SCH (08:21)
[2017-03-24] MEDS: *HR* Ticagrelor 90 MG TABLET PO SCH ×2 (08:21→20:19)
[2017-03-24] MEDS ORDERED: *HR* Warfarin 2 MG TABLET PO ONE (18:00)
[2017-03-24] MEDS: Mirtazapine 15 MG TABLET PO SCH (20:19)
[2017-03-25 05:52] LABS: INR 2.2; Prothrombin Time 24.2 Seconds (9.4-12.1)
[2017-03-25] MEDS: Lisinopril 20 MG TABLET PO SCH (08:45)
[2017-03-25] MEDS: Aspirin 81 MG TAB.CHEW PO SCH (08:45)
[2017-03-25] MEDS: amLODIPine 5 MG TABLET PO SCH (08:45)
[2017-03-25] MEDS: *HR* Ticagrelor 90 MG TABLET PO SCH ×2 (08:45→20:25)
--- NOTE | 2017-03-25 08:52 | Internal Med Progress Note ---
<Duy Sherman - Last Filed: 03/25/17 14:37> Date of Encounter: 03/25/17 Time of Encounter: 08:51 - Assessment and plan (1) CVA (cerebral vascular accident) Current Visit: Yes Status: Acute Assessment and plan: Patient has been improving neurologically day by day Will re-evaluate competency by re-consulting psych He may go home if deemed competent and we do not have to await court appointed family law attorney for temporary guardianship Continue with PT/OT 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 He has no complaints this morning other than "feeling bored". He has been walking in the hallway with minimal difficulty and wants to stay active as he has been here for many days. - Constitutional Vitals: Temp Pulse Resp BP Pulse Ox 97.8 F 64 13 132/84 98 03/25/17 08:00 03/25/17 08:00 03/25/17 08:00 03/25/17 08:00 03/25/17 08:00 General appearance: Present: A&O X 3, pleasant, no acute distress, answers questions appropriately Internal Medicine: Result - Labs CBC & Chem 7: 03/19/17 04:46 03/19/17 04:46 - ABG Interpretation ABG results: ABG ABG pH 7.48 pH Units (7.32-7.45) H 03/05/17 04:50 ABG pCO2 38 mmHg (35-45) 03/05/17 04:50 ABG pO2 89 mmHg (85-104) 03/05/17 04:50 ABG O2 Saturation 97 % (95-98) 03/05/17 04:50 PT/INR, D-dimer PT 24.2 Seconds (9.4-12.1) H 03/25/17 04:55 Consult Discharge Plan - Plan Referrals: NONE,PCP [Primary Care Provider] - (working on placement to ec, will follow up with PCP at [facility]) <Tino Leone - Last Filed: 03/25/17 16:57> Date of Encounter: 03/25/17 - Assessment and plan (1) CVA (cerebral vascular accident) Current Visit: Yes Status: Acute 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 (2) STEMI (ST elevation myocardial infarction) Current Visit: Yes Status: Acute Qualifiers: Involved coronary artery: LAD coronary artery Qualified Code(s): I21.02 - ST elevation (STEMI) myocardial infarction involving left anterior descending coronary artery (3) Paralysis of left lower extremity Current Visit: Yes Status: Acute (4) Atrial fibrillation Current Visit: Yes Status: Acute Qualifiers: Atrial fibrillation type: paroxysmal Qualified Code(s): I48.0 - Paroxysmal atrial fibrillation - Constitutional Vitals: Temp Pulse Resp BP Pulse Ox 97.8 F 64 13 132/84 98 03/25/17 09:00 03/25/17 09:00 03/25/17 09:00 03/25/17 09:00 03/25/17 08:00 Internal Medicine: Result - Labs CBC & Chem 7: 03/19/17 04:46 03/19/17 04:46 - ABG Interpretation ABG results: ABG ABG pH 7.48 pH Units (7.32-7.45) H 03/05/17 04:50 ABG pCO2 38 mmHg (35-45) 03/05/17 04:50 ABG pO2 89 mmHg (85-104) 03/05/17 04:50 ABG O2 Saturation 97 % (95-98) 03/05/17 04:50 PT/INR, D-dimer PT 24.2 Seconds (9.4-12.1) H 03/25/17 04:55 - Attending Attestation I examined this patient and my medical decision-making was reviewed with the Resident Physician on 03/25/17. I agree with the documented findings, disposition and treatment plan as described except to the extent set forth below. Mr. Patel is currently admitted for acute STEMI and multiple embolic CVAs. He remains moderate risk due to potential for worsening cardiac and neuro status. Mr. Patel feels OK. He is doing crossword puzzles. He has been ambulating in the [place] with help. No fever or chills. No GI issues. Exam Alert. Comfortable Mucus membranes moist Heart reg No wheeze I/P 1. CAD s/p STEMI 2. Multiple CVAs Pt has been deemed incompetent. He may have improved so will ask psych for re evaluation. Further diagnoses and plan as above.
[2017-03-25] MEDS ORDERED: *HR* Warfarin 3 MG TABLET PO ONE (18:00)
[2017-03-25] MEDS: Mirtazapine 15 MG TABLET PO SCH (20:25)
[2017-03-26 06:40] LABS: INR 2.2; Prothrombin Time 24.8 Seconds (9.4-12.1)
[2017-03-26] MEDS: Lisinopril 20 MG TABLET PO SCH (09:25)
[2017-03-26] MEDS: *HR* Ticagrelor 90 MG TABLET PO SCH ×2 (09:25→20:26)
[2017-03-26] MEDS: amLODIPine 5 MG TABLET PO SCH (09:25)
[2017-03-26] MEDS: Aspirin 81 MG TAB.CHEW PO SCH (09:26)
--- NOTE | 2017-03-26 10:34 | Consult Note ---
Date of Encounter: 03/26/17 Time of Encounter: 08:45 Assessment & Recommendation (1) Cognitive and behavioral changes Current visit: Yes Status: Acute History of Present Illness Requesting Physician: Tino Leone DO Reason for consult: reevaluate for competency. History of present illness: Mr. Patel is a 66 year old male was seen today at medical floor in his room , Patient has been dx with CVA and Myocardial infarction. he has cognitive function impairment. I had heart attack and stroke they say , i do not remember anything . unable to get collateral as patient has no children or family , his 4 siblings are older than him and is not in contact with them. Patient was able to give history but had to be redirected multiple times, at times he is confused. states he does not know where he was or what happened. He denies any psychiatric history but has h/o Seizures and in treatment for 20 years as per him and was on Dilantin for years till ran out of prescription few months ago but does not remember dates. he is not depressed, denies anxiety , no psychosis. he is alert , hard of hearing was oriented to day and month , he looked at the board in room on which date was yesterday but he was able to say correct date as he knew it was from yesterday, he was unable to tell me what he ate last night, he looked at his tray and told me what he ate for breakfast. he states all his life people have taken care of him and had been staying with friends, he has worked here and there , states i never filed taxes and i have no close family. Denies any alcohol or drug use, he quit smoking 10 yrs ago. he states he think he was in pretty good shape , he has never been hospitalized , and he staes one of his friend Dr Karrie Gallo [facility] prescribes him Dilantin , denies taking any other medication. A/p Cognitive impairment secondary to medical condition. Plan Patient is at present not able to take care of his basic ADL , he is still somewhat confused, he is confabulating,he cannot make medical decisions and his baseline is unknown , as per him he has been taken care of by his friend but now she moved to [facility] and noone to go to. he has no place to go , he has no support and will need to be in supervised setting . Thank you for consult. CC: Tino Leone, DO Past Med Surg Social Fam HX - Past Medical History Medical history: hypertension, seizures - Past Psychiatric History Family psychiatric history: Unknown Family History of Suicide: Unknown - Social History Smoking Status: Former smoker Smokeless Tobacco Status: No Alcohol use: none Drug use: none Medications & Allergies Unable To Obtain [Unable to Obtain] 03/02/17 [History] Allergies No Known Allergies Allergy (Verified 02/28/17 16:24) Review of Systems Psychiatric: Reports: confusion, memory loss, difficulty concentrating Mental Status Exam Patient orientation: Yes Time, Yes Place Level of alertness: Alert Patient appearance: Average Behavior: calm, cooperative Psychomotor activity: Normal Eye contact: Maintains Eye Contact Mood description: Euthymic/stable Affect description: congruent with mood Speech pattern: Normal rate Speech volume: Normal Thought process: Circumstantial, Pyatt Attention span: Unable to Sustain Attention Memory description: Immediate Impaired, Recent Impaired, Remote Intact Patient reliability: Questionable Historian Intelligence estimate: Average Judgment: Limited Insight: Minimal Results - Vital Signs Vital signs: Temp Pulse Resp BP Pulse Ox 98 F 67 14 144/71 97 03/26/17 09:24 03/26/17 09:24 03/26/17 09:24 03/26/17 09:24 03/26/17 09:24 - Labs Labs: Laboratory Last Values WBC 9.7 K/mcL (4.3-11.1) 03/19/17 04:46 RBC 3.76 M/mcL (4.19-5.50) L 03/19/17 04:46 Hgb 10.9 g/dL (12.9-16.9) L 03/19/17 04:46 Hct 32.2 % (37.5-50.1) L 03/19/17 04:46 MCV 85.6 fL (83.0-100.0) 03/19/17 04:46 MCH 29.0 pg (28.0-33.3) 03/19/17 04:46 MCHC 33.9 g/dL (31.6-35.5) 03/19/17 04:46 RDW 12.6 % (11.5-14.5) 03/19/17 04:46 Plt Count 348 K/mcL (140-400) 03/19/17 04:46 MPV 10.9 fL (9.4-12.4) 03/19/17 04:46 Immature Gran % 0.7 % (0-4) 03/19/17 04:46 Seg Neutrophils % 70.0 % 03/19/17 04:46 Lymphocytes % 17.1 % 03/19/17 04:46 Monocytes % 8.0 % 03/19/17 04:46 Eosinophils % 3.5 % 03/19/17 04:46 Basophils % 0.7 % 03/19/17 04:46 Neutrophils # 6.8 K/mcL (1.6-8.9) 03/19/17 04:46 Lymphocytes # 1.7 K/mcL (0.6-4.6) 03/19/17 04:46 Monocytes # 0.8 K/mcL (0.0-1.3) 03/19/17 04:46 Eosinophils # 0.3 K/mcL (0.0-0.6) 03/19/17 04:46 Basophils # 0.1 K/mcL (0.0-0.2) 03/19/17 04:46 Nucleated RBCs/100 WBC 0.1 /100 WBC (0) H 03/07/17 03:43 PT 24.8 Seconds (9.4-12.1) H 03/26/17 06:25 INR 2.2 03/26/17 06:25 APTT 89.6 Seconds (26.0-36.0) H 03/09/17 01:24 ABG pH 7.48 pH Units (7.32-7.45) H 03/05/17 04:50 ABG pCO2 38 mmHg (35-45) 03/05/17 04:50 ABG pO2 89 mmHg (85-104) 03/05/17 04:50 ABG HCO3 28.3 mEQ/L (21-27) H 03/05/17 04:50 ABG Total CO2 29.5 mEq/L (20-26) H 03/05/17 04:50 ABG O2 Saturation 97 % (95-98) 03/05/17 04:50 ABG Base Excess 4.6 mEq/L (-2.0 to 3.0) H 03/05/17 04:50 Blood Gas Modality ASSIST CONTROL 03/04/17 04:25 Inspired O2 50 % 03/04/17 04:25 Sodium 141 mEq/L (136-145) 03/19/17 04:46 Potassium 3.4 mEq/L (3.5-4.5) L 03/19/17 04:46 Chloride 110 mEq/L (98-109) H 03/19/17 04:46 Carbon Dioxide 23 mEq/L (19-29) 03/19/17 04:46 BUN 20 mg/dL (8-26) D 03/19/17 04:46 Creatinine 1.29 mg/dL (0.72-1.25) H 03/19/17 04:46 Est GFR ( Amer) > 60 (> 60) 03/19/17 04:46 Est GFR (Non-Af Amer) 56 (> 60) L 03/19/17 04:46 BUN/Creatinine Ratio 16 (6-26) 03/19/17 04:46 Glucose 87 mg/dL (70-99) 03/19/17 04:46 POC Glucose 113 (58-89) H 03/08/17 11:46 Est Mean Plasma Glucose 94 mg/dl 03/01/17 04:00 Hemoglobin A1c 4.9 % (-5.6) 03/01/17 04:00 Calculated Osmolality 294 (280-300) 03/19/17 04:46 Lactic Acid 1.7 mmol/L (0.5-2.2) 03/01/17 04:00 Calcium 9.4 mg/dL (8.6-10.8) 03/19/17 04:46 Ionized Calcium 1.16 mmol/L (1.15-1.35) 03/05/17 04:54 Phosphorus 4.6 mg/dL (2.3-4.7) 03/05/17 04:54 Magnesium 2.2 mg/dL (1.6-2.6) 03/10/17 00:52 Total Bilirubin 0.7 mg/dL (0.2-1.2) 03/19/17 04:46 Direct Bilirubin 0.3 mg/dL (0.0-0.5) 03/01/17 04:00 Indirect Bilirubin 0.3 mg/dL (0.0-1.2) 03/01/17 04:00 AST 28 Units/L (5-34) 03/19/17 04:46 ALT 31 Units/L (0-55) 03/19/17 04:46 Alkaline Phosphatase 81 Units/L (38-126) 03/19/17 04:46 Troponin I > 50.00 ng/mL (0-0.03) H* 02/28/17 16:55 B-Natriuretic Peptide 857 pg/mL (0-100) H 02/28/17 16:55 Serum Total Protein 6.5 g/dL (6.0-8.3) 03/19/17 04:46 Albumin 3.0 g/dL (3.5-5.0) L 03/19/17 04:46 Globulin 3.5 g/dL (2.4-3.5) 03/19/17 04:46 Albumin/Globulin Ratio 0.9 (1.1-2.2) L 03/19/17 04:46 Urine Color Yellow (Yellow) 03/15/17 08:24 Urine Clarity Clear (Clear) 03/15/17 08:24 Urine pH 5.5 pH Units (5.0-8.0) 03/15/17 08:24 Ur Specific [place] 1.024 (1.010-1.025) 03/15/17 08:24 Urine Protein 30 mg/dL (Neg-Trace) H 03/15/17 08:24 Urine Glucose (UA) Normal mg/dL (Normal) 03/15/17 08:24 Urine Ketones Negative mg/dL (Negative) 03/15/17 08:24 Urine Blood Negative (Negative) 03/15/17 08:24 Urine Nitrite Negative (Negative) 03/15/17 08:24 Urine Bilirubin Negative (Negative) 03/15/17 08:24 Urine Urobilinogen Normal mg/dL (Normal) 03/15/17 08:24 Ur Leukocyte Esterase Negative (Negative) 03/15/17 08:24 Urine Microscopic RBC 5-15 per hpf (0-3) H 03/15/17 08:24 Urine Microscopic WBC 5-15 per hpf (0-3) H 03/15/17 08:24 Ur Squamous Epith Cells Few per lpf (None-Few) 03/15/17 08:24 Calcium Oxalate Crystal Present 03/15/17 08:24 Uric Acid Crystals Present 03/15/17 08:24 Urine Bacteria Few per hpf (None-Few) 03/15/17 08:24 Hyaline Casts Few per lpf (None-Few) 03/15/17 08:24 Granular Casts Few per lpf (None Seen) H 03/15/17 08:24 WBC Casts Few per lpf (None Seen) H 03/15/17 08:24 Ur Culture Indicated? YES (NO) A 03/15/17 08:24 Vancomycin Trough 17.8 mcg/mL (10-20) 03/16/17 06:32 Specimen Rejected Volume 03/02/17 04:00 Consult Discharge Plan - Plan Referrals: NONE,PCP [Primary Care Provider] - (working on placement to ec, will follow up with PCP at [facility])
--- NOTE | 2017-03-26 15:39 | Internal Med Progress Note ---
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 He has no complaints this afternoon and is in good spirits , stating he is just happy to still be alive. Has no pain, SOB, NVD. - Constitutional Vitals: Temp Pulse Resp BP Pulse Ox 98 F 67 14 144/71 97 03/26/17 09:24 03/26/17 09:24 03/26/17 09:24 03/26/17 09:24 03/26/17 09:24 General appearance: Present: A&O X 3, pleasant, no acute distress, answers questions appropriately - Head Head exam: Present: atraumatic, normocephalic - Eye Eye exam: Present: PERRL, conjuntiva pink, sclera anicteric - Neck Neck exam general surgery: Present: supple, trachea midline. Absent: lymphadenopathy - Respiratory Respiratory exam: Present: CTAB. Absent: accessory muscle use, rales, rhonchi, wheezes - Cardiovascular Cardiovascular exam: Present: RRR, +S1, +S2. Absent: diastolic murmur, gallop, rubs, systolic murmur - GI/Abdominal GI/Abdominal exam: Present: normal bowel sounds, soft, no peritoneal signs. Absent: distended, tenderness - Extremities Exam Extremities exam: Present: warm, radial pulses palpable and symmetrical. Absent : calf tenderness, cyanotic, pedal edema - Neurological Exam Neurological exam: Present: alert, no focal deficits. Absent: pronater drift, facial droop, speech deficit - Skin Skin exam: Present: dry, intact Internal Medicine: Result - Labs CBC & Chem 7: 03/19/17 04:46 03/19/17 04:46 - ABG Interpretation ABG results: ABG ABG pH 7.48 pH Units (7.32-7.45) H 03/05/17 04:50 ABG pCO2 38 mmHg (35-45) 03/05/17 04:50 ABG pO2 89 mmHg (85-104) 03/05/17 04:50 ABG O2 Saturation 97 % (95-98) 03/05/17 04:50 PT/INR, D-dimer PT 24.8 Seconds (9.4-12.1) H 03/26/17 06:25 Consult Discharge Plan - Plan Referrals: NONE,PCP [Primary Care Provider] - (working on placement to ec, will follow up with PCP at [facility]) <Quinn Greenberg - Last Filed: 03/26/17 16:38> Date of Encounter: 03/26/17 - Constitutional Vitals: Temp Pulse Resp BP Pulse Ox 98 F 67 14 144/71 97 03/26/17 09:24 03/26/17 09:24 03/26/17 09:24 03/26/17 09:24 03/26/17 09:24 Internal Medicine: Result - Labs CBC & Chem 7: 03/19/17 04:46 03/19/17 04:46 - ABG Interpretation ABG results: ABG ABG pH 7.48 pH Units (7.32-7.45) H 03/05/17 04:50 ABG pCO2 38 mmHg (35-45) 03/05/17 04:50 ABG pO2 89 mmHg (85-104) 03/05/17 04:50 ABG O2 Saturation 97 % (95-98) 03/05/17 04:50 PT/INR, D-dimer PT 24.8 Seconds (9.4-12.1) H 03/26/17 06:25 - Attending Attestation I examined this patient and my medical decision-making was reviewed with the Resident Physician on 03/26/17. I agree with the documented findings, disposition and treatment plan as described except to the extent set forth below. Patient is a clinically stable patient awaiting legal guardianship He is medically stable for discharge when socially cleared He has no new complains, he is ambulatory Physical exam unremarkable Labs and Imaging reviewed Continue current care
[2017-03-26] MEDS ORDERED: *HR* Warfarin 2 MG TABLET PO ONE (18:00)
[2017-03-26] MEDS: Mirtazapine 15 MG TABLET PO SCH (20:27)
[2017-03-27] MEDS: *HR* Ticagrelor 90 MG TABLET PO SCH ×2 (08:32→21:39)
[2017-03-27] MEDS: amLODIPine 5 MG TABLET PO SCH (08:32)
[2017-03-27] MEDS: Aspirin 81 MG TAB.CHEW PO SCH (08:32)
[2017-03-27] MEDS: Lisinopril 20 MG TABLET PO SCH (08:32)
--- NOTE | 2017-03-27 08:48 | Internal Med Progress Note ---
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 He still has no complaints this morning and is eagerly awaiting to hear what his employment law attorney has to say. Comfortable watching TV and finished his meals without problems. - Constitutional Vitals: Temp Pulse Resp BP Pulse Ox 97.5 F L 58 16 133/78 96 03/27/17 07:39 03/27/17 07:39 03/27/17 07:39 03/27/17 07:39 03/27/17 07:39 General appearance: Present: A&O X 3, pleasant, no acute distress, answers questions appropriately - Head Head exam: Present: atraumatic, normocephalic - Eye Eye exam: Present: PERRL, conjuntiva pink, sclera anicteric - Neck Neck exam general surgery: Present: supple, trachea midline. Absent: lymphadenopathy - Respiratory Respiratory exam: Present: CTAB. Absent: accessory muscle use, rales, rhonchi, wheezes - Cardiovascular Cardiovascular exam: Present: RRR, +S1, +S2. Absent: diastolic murmur, gallop, rubs, systolic murmur - GI/Abdominal GI/Abdominal exam: Present: normal bowel sounds, soft, no peritoneal signs. Absent: distended, tenderness - Extremities Exam Extremities exam: Present: warm, radial pulses palpable and symmetrical. Absent : calf tenderness, cyanotic, pedal edema - Neurological Exam Neurological exam: Present: alert, oriented X3, no focal deficits. Absent: facial droop, speech deficit - Skin Skin exam: Present: dry, intact Internal Medicine: Result - Labs CBC & Chem 7: 03/19/17 04:46 03/19/17 04:46 - ABG Interpretation ABG results: ABG ABG pH 7.48 pH Units (7.32-7.45) H 03/05/17 04:50 ABG pCO2 38 mmHg (35-45) 03/05/17 04:50 ABG pO2 89 mmHg (85-104) 03/05/17 04:50 ABG O2 Saturation 97 % (95-98) 03/05/17 04:50 PT/INR, D-dimer PT 24.8 Seconds (9.4-12.1) H 03/26/17 06:25 Consult Discharge Plan - Plan Referrals: NONE,PCP [Primary Care Provider] - (working on placement to [facility], will follow up with PCP at [facility]) <Quinn Greenberg - Last Filed: 03/27/17 15:07> Date of Encounter: 03/27/17 - Constitutional Vitals: Temp Pulse Resp BP Pulse Ox 97.5 F L 58 16 133/78 96 03/27/17 07:39 03/27/17 07:39 03/27/17 07:39 03/27/17 07:39 03/27/17 07:39 Internal Medicine: Result - Labs CBC & Chem 7: 03/19/17 04:46 03/19/17 04:46 - ABG Interpretation ABG results: ABG ABG pH 7.48 pH Units (7.32-7.45) H 03/05/17 04:50 ABG pCO2 38 mmHg (35-45) 03/05/17 04:50 ABG pO2 89 mmHg (85-104) 03/05/17 04:50 ABG O2 Saturation 97 % (95-98) 03/05/17 04:50 PT/INR, D-dimer PT 29.3 Seconds (9.4-12.1) H 03/27/17 09:22 - Attending Attestation I examined this patient and my medical decision-making was reviewed with the Resident Physician on 03/27/17. I agree with the documented findings, disposition and treatment plan as described except to the extent set forth below. Patient is a clinically stable patient awaiting legal guardianship He is medically stable for discharge when socially cleared He has no new complains, he is ambulatory Physical exam unremarkable Labs and Imaging reviewed Continue current care
[2017-03-27 09:48] LABS: INR 2.6; Prothrombin Time 29.3 Seconds (9.4-12.1)
[2017-03-27] MEDS ORDERED: *HR* Warfarin 2 MG TABLET PO ONE (18:00)
[2017-03-27] MEDS: Mirtazapine 15 MG TABLET PO SCH (21:40)
[2017-03-28 05:35] LABS: INR 2.7; Prothrombin Time 29.6 Seconds (9.4-12.1)
[2017-03-28] MEDS: Lisinopril 20 MG TABLET PO SCH (08:08)
[2017-03-28] MEDS: Aspirin 81 MG TAB.CHEW PO SCH (08:08)
[2017-03-28] MEDS: *HR* Ticagrelor 90 MG TABLET PO SCH ×2 (08:09→20:43)
[2017-03-28] MEDS: amLODIPine 5 MG TABLET PO SCH (08:09)
--- NOTE | 2017-03-28 08:40 | Internal Med Progress Note ---
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 He is comfortable and ate his breakfast this morning and still is awaiting to hear back to the environmental attorney. Has no complaints this morning. - Constitutional Vitals: Temp Pulse Resp BP Pulse Ox 97.4 F L 65 15 122/72 96 03/28/17 06:51 03/28/17 06:51 03/28/17 06:51 03/28/17 06:51 03/28/17 06:51 General appearance: Present: A&O X 3, pleasant, no acute distress, answers questions appropriately - Head Head exam: Present: atraumatic, normocephalic - Eye Eye exam: Present: PERRL, conjuntiva pink, sclera anicteric - Neck Neck exam general surgery: Present: supple, trachea midline. Absent: lymphadenopathy - Respiratory Respiratory exam: Present: CTAB. Absent: accessory muscle use, rales, rhonchi, wheezes - Cardiovascular Cardiovascular exam: Present: RRR, +S1, +S2. Absent: diastolic murmur, gallop, rubs, systolic murmur - GI/Abdominal GI/Abdominal exam: Present: normal bowel sounds, soft, no peritoneal signs. Absent: distended, tenderness - Extremities Exam Extremities exam: Present: warm, radial pulses palpable and symmetrical. Absent : calf tenderness, cyanotic, pedal edema - Neurological Exam Neurological exam: Present: alert, oriented X3, no focal deficits. Absent: facial droop, speech deficit - Skin Skin exam: Present: dry, intact Internal Medicine: Result - Labs CBC & Chem 7: 03/19/17 04:46 03/19/17 04:46 - ABG Interpretation ABG results: ABG ABG pH 7.48 pH Units (7.32-7.45) H 03/05/17 04:50 ABG pCO2 38 mmHg (35-45) 03/05/17 04:50 ABG pO2 89 mmHg (85-104) 03/05/17 04:50 ABG O2 Saturation 97 % (95-98) 03/05/17 04:50 PT/INR, D-dimer PT 29.6 Seconds (9.4-12.1) H 03/28/17 04:38 Consult Discharge Plan - Plan Referrals: NONE,PCP [Primary Care Provider] - (working on placement to [facility], will follow up with PCP at [facility]) <Quinn Greenberg - Last Filed: 03/28/17 12:55> Date of Encounter: 03/28/17 - Constitutional Vitals: Temp Pulse Resp BP Pulse Ox 97.4 F L 65 15 122/72 96 03/28/17 06:51 03/28/17 06:51 03/28/17 06:51 03/28/17 06:51 03/28/17 06:51 Internal Medicine: Result - Labs CBC & Chem 7: 03/19/17 04:46 03/19/17 04:46 - ABG Interpretation ABG results: ABG ABG pH 7.48 pH Units (7.32-7.45) H 03/05/17 04:50 ABG pCO2 38 mmHg (35-45) 03/05/17 04:50 ABG pO2 89 mmHg (85-104) 03/05/17 04:50 ABG O2 Saturation 97 % (95-98) 03/05/17 04:50 PT/INR, D-dimer PT 29.6 Seconds (9.4-12.1) H 03/28/17 04:38 - Attending Attestation I examined this patient and my medical decision-making was reviewed with the Resident Physician on 04/04. I agree with the documented findings, disposition and treatment plan as described except to the extent set forth below. Patient is a clinically stable patient awaiting legal guardianship He is medically stable for discharge when socially cleared He has no new complains, he is ambulatory Physical exam unremarkable Labs and Imaging reviewed-INR is therapeutic Continue current care rest of details as in resident physician's documentation
[2017-03-28] MEDS ORDERED: *HR* Warfarin 2 MG TABLET PO ONE (18:00)
[2017-03-28] MEDS: Mirtazapine 15 MG TABLET PO SCH (20:44)
[2017-03-29 05:05] LABS: INR 2.7; Prothrombin Time 30.4 Seconds (9.4-12.1)
[2017-03-29] MEDS: Aspirin 81 MG TAB.CHEW PO SCH (07:20)
[2017-03-29] MEDS: amLODIPine 5 MG TABLET PO SCH (07:20)
[2017-03-29] MEDS: *HR* Ticagrelor 90 MG TABLET PO SCH ×2 (07:21→22:28)
[2017-03-29] MEDS: Lisinopril 20 MG TABLET PO SCH (07:21)
--- NOTE | 2017-03-29 09:03 | Internal Med Progress Note ---
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 He appears comfortable and is laying in his bed after eating breakfast. He did complain of mild diarrhea last night but it only happened once. Denies chest or abdominal pain, shortness of breath, nausea, vomiting. - Constitutional Vitals: Temp Pulse Resp BP Pulse Ox 97.8 F 63 18 130/74 97 03/29/17 08:15 03/29/17 08:15 03/29/17 08:15 03/29/17 08:15 03/29/17 08:15 General appearance: Present: A&O X 3, pleasant, no acute distress, answers questions appropriately - Head Head exam: Present: atraumatic, normocephalic - Eye Eye exam: Present: PERRL, conjuntiva pink, sclera anicteric Pupils: Present: PERRL - Neck Neck exam general surgery: Present: supple, trachea midline. Absent: lymphadenopathy - Respiratory Respiratory exam: Present: CTAB. Absent: accessory muscle use, rales, rhonchi, wheezes - Cardiovascular Cardiovascular exam: Present: RRR, +S1, +S2. Absent: diastolic murmur, gallop, rubs, systolic murmur - GI/Abdominal GI/Abdominal exam: Present: normal bowel sounds, soft, no peritoneal signs. Absent: distended, tenderness - Extremities Exam Extremities exam: Present: warm, radial pulses palpable and symmetrical. Absent : calf tenderness, cyanotic, pedal edema - Neurological Exam Neurological exam: Present: alert, no focal deficits. Absent: facial droop, speech deficit - Skin Skin exam: Present: dry, intact Internal Medicine: Result - Labs CBC & Chem 7: 03/19/17 04:46 03/19/17 04:46 - ABG Interpretation ABG results: ABG ABG pH 7.48 pH Units (7.32-7.45) H 03/05/17 04:50 ABG pCO2 38 mmHg (35-45) 03/05/17 04:50 ABG pO2 89 mmHg (85-104) 03/05/17 04:50 ABG O2 Saturation 97 % (95-98) 03/05/17 04:50 PT/INR, D-dimer PT 30.4 Seconds (9.4-12.1) H 03/29/17 04:13 Consult Discharge Plan - Plan Referrals: NONE,PCP [Primary Care Provider] - (working on placement to [facility], will [facility] with [facility]CP at [facility]) <Quinn Greenberg - Last Filed: 03/29/17 14:50> Date of Encounter: 03/29/17 - Constitutional Vitals: Temp Pulse Resp BP Pulse Ox 97.8 F 63 18 130/74 97 03/29/17 08:15 03/29/17 08:15 03/29/17 08:15 03/29/17 08:15 03/29/17 08:15 Internal Medicine: Result - Labs CBC & Chem 7: 03/19/17 04:46 03/19/17 04:46 - ABG Interpretation ABG results: ABG ABG pH 7.48 pH Units (7.32-7.45) H 03/05/17 04:50 ABG pCO2 38 mmHg (35-45) 03/05/17 04:50 ABG pO2 89 mmHg (85-104) 03/05/17 04:50 ABG O2 Saturation 97 % (95-98) 03/05/17 04:50 PT/INR, D-dimer PT 30.4 Seconds (9.4-12.1) H 03/29/17 04:13 - Attending Attestation I examined this patient and my medical decision-making was reviewed with the Resident Physician on 03/29/17. I agree with the documented findings, disposition and treatment plan as described except to the extent set forth below. Patient is a clinically stable patient awaiting legal guardianship no new complains Physical exam is unremarkable, vitals are stable INR 2.7 Continue current care rest of details as in resident physician's documentation
[2017-03-29] MEDS ORDERED: *HR* Warfarin 3 MG TABLET PO ONE (18:00)
[2017-03-29] MEDS: Mirtazapine 15 MG TABLET PO SCH (22:28)
[2017-03-30 06:38] LABS: INR 2.9; Prothrombin Time 32.3 Seconds (9.4-12.1)
[2017-03-30] MEDS: Aspirin 81 MG TAB.CHEW PO SCH (07:50)
[2017-03-30] MEDS: *HR* Ticagrelor 90 MG TABLET PO SCH ×2 (07:50→21:12)
[2017-03-30] MEDS: Lisinopril 20 MG TABLET PO SCH (07:50)
[2017-03-30] MEDS: amLODIPine 5 MG TABLET PO SCH (07:50)
--- NOTE | 2017-03-30 11:18 | Internal Med Progress Note ---
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 (2) STEMI (ST elevation myocardial infarction) Current Visit: Yes Status: Acute Assessment and plan: s/p PTCA/EVER in proximal and mid LAD 02/28/17 No chest pain and hemodynamically stable at this time Continue dual antiplatelet therapy, BB, Lisinopril, Brilinta, Crestor Qualifiers: Involved coronary artery: LAD coronary artery Qualified Code(s): I21.02 - ST elevation (STEMI) myocardial infarction involving left anterior descending coronary artery - Subjective Interval history: Seen and evaluated at bedside No new events INR is therapeutic - Constitutional Vitals: Temp Pulse Resp BP Pulse Ox 97.8 F 66 20 138/73 99 03/30/17 07:32 03/30/17 07:32 03/30/17 07:32 03/30/17 07:32 03/30/17 07:32 General appearance: Present: A&O X 3, pleasant, no acute distress, answers questions appropriately - Head Head exam: Present: atraumatic, normocephalic - Eye Eye exam: Present: PERRL, conjuntiva pink, sclera anicteric Pupils: Present: PERRL - Neck Neck exam general surgery: Present: supple, trachea midline. Absent: lymphadenopathy - Respiratory Respiratory exam: Present: CTAB. Absent: accessory muscle use, rales, rhonchi, wheezes - Cardiovascular Cardiovascular exam: Present: RRR, +S1, +S2. Absent: diastolic murmur, gallop, rubs, systolic murmur - GI/Abdominal GI/Abdominal exam: Present: normal bowel sounds, soft, no peritoneal signs. Absent: distended, tenderness - Extremities Exam Extremities exam: Present: warm, radial pulses palpable and symmetrical. Absent : calf tenderness, cyanotic, pedal edema - Neurological Exam Neurological exam: Present: alert, CN II-XII intact, oriented X3, no focal deficits. Absent: pronater drift, facial droop, speech deficit - Skin Skin exam: Present: dry, intact Internal Medicine: Result - Labs CBC & Chem 7: 03/19/17 04:46 03/19/17 04:46 - ABG Interpretation ABG results: ABG ABG pH 7.48 pH Units (7.32-7.45) H 03/05/17 04:50 ABG pCO2 38 mmHg (35-45) 03/05/17 04:50 ABG pO2 89 mmHg (85-104) 03/05/17 04:50 ABG O2 Saturation 97 % (95-98) 03/05/17 04:50 PT/INR, D-dimer PT 32.3 Seconds (9.4-12.1) H 03/30/17 06:13 Consult Discharge Plan - Plan Referrals: NONE,PCP [Primary Care Provider] - (working on placement to ec, will follow up with PCP at [facility])
[2017-03-30] MEDS ORDERED: *HR* Warfarin 2 MG TABLET PO ONE (18:00)
[2017-03-30] MEDS: Mirtazapine 15 MG TABLET PO SCH (21:12)
[2017-03-31 05:51] LABS: INR 3.2; Prothrombin Time 36.1 Seconds (9.4-12.1)
[2017-03-31] MEDS: Lisinopril 20 MG TABLET PO SCH (07:21)
[2017-03-31] MEDS: amLODIPine 5 MG TABLET PO SCH (07:21)
[2017-03-31] MEDS: Aspirin 81 MG TAB.CHEW PO SCH (07:21)
[2017-03-31] MEDS: *HR* Ticagrelor 90 MG TABLET PO SCH ×2 (07:21→19:27)
--- NOTE | 2017-03-31 09:40 | Internal Med Progress Note ---
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 He is comfortable laying in bed this morning and has no complaints. He is still yearly awaiting updates for his it programmer analyst for court- appointed guardianship. He denies any pain, shortness of breath, nausea, vomiting, diarrhea. - Constitutional Vitals: Temp Pulse Resp BP Pulse Ox 97.6 F 62 16 131/80 97 03/30/17 21:02 03/30/17 21:02 03/30/17 21:02 03/30/17 21:02 03/30/17 21:02 General appearance: Present: A&O X 3, pleasant, no acute distress, answers questions appropriately - Head Head exam: Present: atraumatic, normocephalic - Eye Eye exam: Present: PERRL, conjuntiva pink, sclera anicteric Pupils: Present: PERRL - Neck Neck exam general surgery: Present: supple, trachea midline. Absent: lymphadenopathy - Respiratory Respiratory exam: Present: CTAB. Absent: accessory muscle use, rales, rhonchi, wheezes - Cardiovascular Cardiovascular exam: Present: RRR, +S1, +S2. Absent: diastolic murmur, gallop, rubs, systolic murmur - GI/Abdominal GI/Abdominal exam: Present: normal bowel sounds, soft, no peritoneal signs. Absent: distended, tenderness - Extremities Exam Extremities exam: Present: warm, radial pulses palpable and symmetrical. Absent : calf tenderness, cyanotic, pedal edema - Neurological Exam Neurological exam: Present: alert, no focal deficits. Absent: facial droop, speech deficit - Skin Skin exam: Present: dry, intact Internal Medicine: Result - Labs CBC & Chem 7: 03/19/17 04:46 03/19/17 04:46 - ABG Interpretation ABG results: ABG ABG pH 7.48 pH Units (7.32-7.45) H 03/05/17 04:50 ABG pCO2 38 mmHg (35-45) 03/05/17 04:50 ABG pO2 89 mmHg (85-104) 03/05/17 04:50 ABG O2 Saturation 97 % (95-98) 03/05/17 04:50 PT/INR, D-dimer PT 36.1 Seconds (9.4-12.1) H 03/31/17 05:07 Consult Discharge Plan - Plan Referrals: NONE,PCP [Primary Care Provider] - (working on placement to [facility], will follow up with PCP at [facility]) <Quinn Greenberg - Last Filed: 03/31/17 12:59> Date of Encounter: 03/31/17 - Assessment and plan (1) CVA (cerebral vascular accident) Current Visit: Yes Status: Acute 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 (2) STEMI (ST elevation myocardial infarction) Current Visit: Yes Status: Acute Qualifiers: Involved coronary artery: LAD coronary artery Qualified Code(s): I21.02 - ST elevation (STEMI) myocardial infarction involving left anterior descending coronary artery - Constitutional Vitals: Temp Pulse Resp BP Pulse Ox 97.4 F L 62 15 116/71 98 03/31/17 11:21 03/31/17 11:21 03/31/17 11:21 03/31/17 11:21 03/31/17 11:21 Internal Medicine: Result - Labs CBC & Chem 7: 03/19/17 04:46 03/19/17 04:46 - ABG Interpretation ABG results: ABG ABG pH 7.48 pH Units (7.32-7.45) H 03/05/17 04:50 ABG pCO2 38 mmHg (35-45) 03/05/17 04:50 ABG pO2 89 mmHg (85-104) 03/05/17 04:50 ABG O2 Saturation 97 % (95-98) 03/05/17 04:50 PT/INR, D-dimer PT 36.1 Seconds (9.4-12.1) H 03/31/17 05:07 - Attending Attestation I examined this patient and my medical decision-making was reviewed with the Resident Physician on 03/31/17. I agree with the documented findings, disposition and treatment plan as described except to the extent set forth below. Patient is a clinically stable patient awaiting legal guardianship no new complains Physical exam is unremarkable, vitals are stable INR therapeutic Continue current care rest of details as in resident physician's documentation
[2017-03-31] MEDS ORDERED: *HR* Warfarin 3 MG TABLET PO ONE (18:00)
[2017-03-31] MEDS: Mirtazapine 15 MG TABLET PO SCH (19:27)
[2017-04-01 04:18] LABS: INR 3.2; Prothrombin Time 36.2 Seconds (9.4-12.1)
[2017-04-01] MEDS: Aspirin 81 MG TAB.CHEW PO SCH (08:05)
[2017-04-01] MEDS: Lisinopril 20 MG TABLET PO SCH (08:05)
[2017-04-01] MEDS: amLODIPine 5 MG TABLET PO SCH (08:05)
[2017-04-01] MEDS: *HR* Ticagrelor 90 MG TABLET PO SCH ×2 (08:05→21:02)
--- NOTE | 2017-04-01 08:52 | Internal Med Progress Note ---
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 He is comfortable this morning and ate his breakfast without difficulty. He has no issues with pain, breathing, nausea, vomiting, or diarrhea. - Constitutional Vitals: Temp Pulse Resp BP Pulse Ox 97.8 F 64 18 125/72 97 04/01/17 08:22 04/01/17 07:13 04/01/17 07:13 04/01/17 07:13 04/01/17 07:13 General appearance: Present: A&O X 3, pleasant, no acute distress, answers questions appropriately - Head Head exam: Present: atraumatic, normocephalic - Eye Eye exam: Present: PERRL, conjuntiva pink, sclera anicteric - Neck Neck exam general surgery: Present: supple, trachea midline. Absent: lymphadenopathy - Respiratory Respiratory exam: Present: CTAB. Absent: accessory muscle use, rales, rhonchi, wheezes - Cardiovascular Cardiovascular exam: Present: RRR, +S1, +S2. Absent: diastolic murmur, gallop, rubs, systolic murmur - GI/Abdominal GI/Abdominal exam: Present: normal bowel sounds, soft, no peritoneal signs. Absent: distended, tenderness - Extremities Exam Extremities exam: Present: warm, radial pulses palpable and symmetrical. Absent : calf tenderness, cyanotic, pedal edema - Neurological Exam Neurological exam: Present: alert, no focal deficits. Absent: facial droop, speech deficit - Skin Skin exam: Present: dry, intact Internal Medicine: Result - Labs CBC & Chem 7: 03/19/17 04:46 03/19/17 04:46 - ABG Interpretation ABG results: ABG ABG pH 7.48 pH Units (7.32-7.45) H 03/05/17 04:50 ABG pCO2 38 mmHg (35-45) 03/05/17 04:50 ABG pO2 89 mmHg (85-104) 03/05/17 04:50 ABG O2 Saturation 97 % (95-98) 03/05/17 04:50 PT/INR, D-dimer PT 36.2 Seconds (9.4-12.1) H 04/01/17 03:58 Consult Discharge Plan - Plan Referrals: NONE,PCP [Primary Care Provider] - (working on placement to [facility], will follow up with PCP at [facility]) <Quinn Greenberg - Last Filed: 04/01/17 17:38> Date of Encounter: 04/01/17 - Assessment and plan (1) CVA (cerebral vascular accident) Current Visit: Yes Status: Acute 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 (2) STEMI (ST elevation myocardial infarction) Current Visit: Yes Status: Acute Qualifiers: Involved coronary artery: LAD coronary artery Qualified Code(s): I21.02 - ST elevation (STEMI) myocardial infarction involving left anterior descending coronary artery - Constitutional Vitals: Temp Pulse Resp BP Pulse Ox 97.3 F L 65 18 135/72 96 04/01/17 16:27 04/01/17 16:27 04/01/17 16:27 04/01/17 16:27 04/01/17 16:27 Internal Medicine: Result - Labs CBC & Chem 7: 03/19/17 04:46 03/19/17 04:46 - ABG Interpretation ABG results: ABG ABG pH 7.48 pH Units (7.32-7.45) H 03/05/17 04:50 ABG pCO2 38 mmHg (35-45) 03/05/17 04:50 ABG pO2 89 mmHg (85-104) 03/05/17 04:50 ABG O2 Saturation 97 % (95-98) 03/05/17 04:50 PT/INR, D-dimer PT 36.2 Seconds (9.4-12.1) H 04/01/17 03:58 - Attending Attestation I examined this patient and my medical decision-making was reviewed with the Resident Physician on 04/01/17. I agree with the documented findings, disposition and treatment plan as described except to the extent set forth below. Patient is a clinically stable patient awaiting legal guardianship no new complains Physical exam is unremarkable, vitals are stable INR supra-therapeutic Continue current care Pharmacy to dose his coumadin Monitor INR rest of details as in resident physician's documentation
[2017-04-01] MEDS ORDERED: *HR* Warfarin 3 MG TABLET PO ONE (18:00)
[2017-04-01] MEDS: Mirtazapine 15 MG TABLET PO SCH (21:02)
[2017-04-02 06:20] LABS: INR 2.9; Prothrombin Time 32.8 Seconds (9.4-12.1)
[2017-04-02] MEDS: *HR* Ticagrelor 90 MG TABLET PO SCH ×2 (07:11→20:27)
[2017-04-02] MEDS: amLODIPine 5 MG TABLET PO SCH (07:11)
[2017-04-02] MEDS: Lisinopril 20 MG TABLET PO SCH (07:11)
[2017-04-02] MEDS: Aspirin 81 MG TAB.CHEW PO SCH (07:11)
--- NOTE | 2017-04-02 14:01 | Internal Med Progress Note ---
<Duy Sherman - Last Filed: 04/02/17 13:59> Date of Encounter: 04/02/17 Time of Encounter: 13:59 - Assessment and plan (1) CVA (cerebral vascular accident) Current Visit: Yes Status: Acute Assessment and plan: Patient's mental status has remained stable over past week Psych re-evaluated competency 03/26 but did not believe he could make his decisions Still awaiting court appointed application architect response for temporary guardianship, expect to hear a response this week Continue with PT/OT 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 He is laying in bed and has no complaints this morning and is eagerly awaiting to hear any updates from the application architect. Has no issues with pain, breathing, nausea, vomiting, or diarrhea. - Constitutional Vitals: Temp Pulse Resp BP Pulse Ox 97.6 F 59 14 120/71 95 04/02/17 07:59 04/02/17 07:59 04/02/17 07:59 04/02/17 07:59 04/02/17 07:59 General appearance: Present: A&O X 3, pleasant, no acute distress, answers questions appropriately - Head Head exam: Present: atraumatic, normocephalic - Eye Eye exam: Present: PERRL, conjuntiva pink, sclera anicteric - Neck Neck exam general surgery: Present: supple, trachea midline. Absent: lymphadenopathy - Respiratory Respiratory exam: Present: CTAB. Absent: accessory muscle use, rales, rhonchi, wheezes - Cardiovascular Cardiovascular exam: Present: RRR, +S1, +S2. Absent: diastolic murmur, gallop, rubs, systolic murmur - GI/Abdominal GI/Abdominal exam: Present: normal bowel sounds, soft, no peritoneal signs. Absent: distended, tenderness - Extremities Exam Extremities exam: Present: warm, radial pulses palpable and symmetrical. Absent : calf tenderness, cyanotic, pedal edema - Neurological Exam Neurological exam: Present: alert, no focal deficits. Absent: facial droop, speech deficit - Skin Skin exam: Present: dry, intact Internal Medicine: Result - Labs CBC & Chem 7: 03/19/17 04:46 03/19/17 04:46 - ABG Interpretation ABG results: ABG ABG pH 7.48 pH Units (7.32-7.45) H 03/05/17 04:50 ABG pCO2 38 mmHg (35-45) 03/05/17 04:50 ABG pO2 89 mmHg (85-104) 03/05/17 04:50 ABG O2 Saturation 97 % (95-98) 03/05/17 04:50 PT/INR, D-dimer PT 32.8 Seconds (9.4-12.1) H 04/02/17 05:28 Consult Discharge Plan - Plan Referrals: NONE,PCP [Primary Care Provider] - ([facility], will [facility] with [facility]CP at [facility]) <Fidel Hayden P - Last Filed: 04/02/17 17:32> Date of Encounter: 04/02/17 - Assessment and plan (1) CVA (cerebral vascular accident) Current Visit: Yes Status: Acute 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 (2) STEMI (ST elevation myocardial infarction) Current Visit: Yes Status: Acute Qualifiers: Involved coronary artery: LAD coronary artery Qualified Code(s): I21.02 - ST elevation (STEMI) myocardial infarction involving left anterior descending coronary artery (3) Acute systolic CHF (congestive heart failure) Current Visit: Yes Status: Acute (4) Atrial fibrillation Current Visit: Yes Status: Acute Qualifiers: Atrial fibrillation type: paroxysmal Qualified Code(s): I48.0 - Paroxysmal atrial fibrillation - Constitutional Vitals: Temp Pulse Resp BP Pulse Ox 97.6 F 59 14 120/71 95 04/02/17 07:59 04/02/17 07:59 04/02/17 07:59 04/02/17 07:59 04/02/17 07:59 Internal Medicine: Result - Labs CBC & Chem 7: 03/19/17 04:46 03/19/17 04:46 - ABG Interpretation ABG results: ABG ABG pH 7.48 pH Units (7.32-7.45) H 03/05/17 04:50 ABG pCO2 38 mmHg (35-45) 03/05/17 04:50 ABG pO2 89 mmHg (85-104) 03/05/17 04:50 ABG O2 Saturation 97 % (95-98) 03/05/17 04:50 PT/INR, D-dimer PT 32.8 Seconds (9.4-12.1) H 04/02/17 05:28 - Attending Attestation I examined this patient and my medical decision-making was reviewed with the Resident Physician. I agree with the documented findings, disposition and treatment plan as described except to the extent set forth below.
[2017-04-02] MEDS ORDERED: *HR* Warfarin 2 MG TABLET PO ONE (18:00)
[2017-04-02] MEDS: Mirtazapine 15 MG TABLET PO SCH (20:27)
[2017-04-03 04:44] LABS: INR 2.9; Prothrombin Time 32.4 Seconds (9.4-12.1)
[2017-04-03] MEDS: *HR* Ticagrelor 90 MG TABLET PO SCH ×2 (07:17→21:57)
[2017-04-03] MEDS: amLODIPine 5 MG TABLET PO SCH (07:17)
[2017-04-03] MEDS: Lisinopril 20 MG TABLET PO SCH (07:17)
[2017-04-03] MEDS: Aspirin 81 MG TAB.CHEW PO SCH (07:17)
--- NOTE | 2017-04-03 08:33 | Internal Med Progress Note ---
<Duy Sherman - Last Filed: 04/03/17 13:39> Date of Encounter: 04/03/17 Time of Encounter: 08:32 - Assessment and plan (1) CVA (cerebral vascular accident) Current Visit: Yes Status: Acute Assessment and plan: Patient's mental status has remained stable over past week Psych re-evaluated competency 03/26 but did not believe he could make his decisions; will re-evaluate today Still awaiting court appointed varnish blender response for temporary guardianship, expect to hear a response this week Social work will contact risk/legal for additional options Continue with PT/OT 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 (2) STEMI (ST elevation myocardial infarction) Current Visit: Yes Status: Acute Assessment and plan: s/p PTCA/EVER in proximal and mid LAD 02/28/17 No chest pain and hemodynamically stable at this time Continue dual antiplatelet therapy, BB, Lisinopril, Brilinta, Crestor Qualifiers: Involved coronary artery: LAD coronary artery Qualified Code(s): I21.02 - ST elevation (STEMI) myocardial infarction involving left anterior descending coronary artery (3) Systolic CHF Current Visit: Yes Status: Chronic Assessment and plan: Not in exacerbation at this time Continue BB, ACEi; no need for diuresis at this time Qualifiers: Qualified Code(s): I50.20 - Unspecified systolic (congestive) heart failure (4) Atrial fibrillation Current Visit: Yes Status: Chronic Assessment and plan: INR is therapeutic Continue Coumadin Qualifiers: Atrial fibrillation type: paroxysmal Qualified Code(s): I48.0 - Paroxysmal atrial fibrillation - Subjective Interval history: Pt seen and examined. He is sitting in bed and finished his breakfast. Has no complaints other than wanting to get up and walk around more. No pain, shortness of breath, nausea, vomiting, diarrhea. - Constitutional Vitals: Temp Pulse Resp BP Pulse Ox 97.9 F 64 16 119/73 96 04/03/17 07:14 04/03/17 07:14 04/03/17 07:14 04/03/17 07:14 04/03/17 07:14 General appearance: Present: A&O X 3, pleasant, no acute distress, answers questions appropriately - Head Head exam: Present: atraumatic, normocephalic - Eye Eye exam: Present: PERRL, conjuntiva pink, sclera anicteric - Neck Neck exam general surgery: Present: supple, trachea midline. Absent: lymphadenopathy - Respiratory Respiratory exam: Present: CTAB. Absent: accessory muscle use, rales, rhonchi, wheezes - Cardiovascular Cardiovascular exam: Present: RRR, +S1, +S2. Absent: diastolic murmur, gallop, rubs, systolic murmur - GI/Abdominal GI/Abdominal exam: Present: normal bowel sounds, soft, no peritoneal signs. Absent: distended, tenderness - Extremities Exam Extremities exam: Present: warm, radial pulses palpable and symmetrical. Absent : calf tenderness, cyanotic, pedal edema - Neurological Exam Neurological exam: Present: alert, no focal deficits. Absent: facial droop, speech deficit - Skin Skin exam: Present: dry, intact Internal Medicine: Result - Labs CBC & Chem 7: 03/19/17 04:46 03/19/17 04:46 - ABG Interpretation ABG results: ABG ABG pH 7.48 pH Units (7.32-7.45) H 03/05/17 04:50 ABG pCO2 38 mmHg (35-45) 03/05/17 04:50 ABG pO2 89 mmHg (85-104) 03/05/17 04:50 ABG O2 Saturation 97 % (95-98) 03/05/17 04:50 PT/INR, D-dimer PT 32.4 Seconds (9.4-12.1) H 04/03/17 04:20 Consult Discharge Plan - Plan Referrals: NONE,PCP [Primary Care Provider] - (working on placement to [facility], will follow up with PCP at [facility]) <Fidel Hayden P - Last Filed: 04/03/17 18:09> Date of Encounter: 04/03/17 - Assessment and plan (1) CVA (cerebral vascular accident) Current Visit: Yes Status: Acute 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 (2) STEMI (ST elevation myocardial infarction) Current Visit: Yes Status: Acute Qualifiers: Involved coronary artery: LAD coronary artery Qualified Code(s): I21.02 - ST elevation (STEMI) myocardial infarction involving left anterior descending coronary artery (3) Acute systolic CHF (congestive heart failure) Current Visit: Yes Status: Acute (4) Atrial fibrillation Current Visit: Yes Status: Chronic Qualifiers: Atrial fibrillation type: paroxysmal Qualified Code(s): I48.0 - Paroxysmal atrial fibrillation - Constitutional Vitals: Temp Pulse Resp BP Pulse Ox 97.5 F L 63 20 121/69 97 04/03/17 09:16 04/03/17 09:16 04/03/17 09:16 04/03/17 09:16 04/03/17 09:16 Internal Medicine: Result - Labs CBC & Chem 7: 03/19/17 04:46 03/19/17 04:46 - ABG Interpretation ABG results: ABG ABG pH 7.48 pH Units (7.32-7.45) H 03/05/17 04:50 ABG pCO2 38 mmHg (35-45) 03/05/17 04:50 ABG pO2 89 mmHg (85-104) 03/05/17 04:50 ABG O2 Saturation 97 % (95-98) 03/05/17 04:50 PT/INR, D-dimer PT 32.4 Seconds (9.4-12.1) H 04/03/17 04:20 - Attending Attestation I examined this patient and my medical decision-making was reviewed with the Resident Physician. I agree with the documented findings, disposition and treatment plan as described except to the extent set forth below.
--- NOTE | 2017-04-03 15:44 | Consult Note ---
Date of Encounter: 04/03/17 Time of Encounter: 12:45 Assessment & Recommendation (1) Cognitive and behavioral changes Current visit: Yes Status: Acute Assessment & Recommendation: guardianship papers filled out. History of Present Illness Requesting Physician: Fidel Hayden MD Reason for consult: competency and guardianship. History of present illness: Mr. Patel is a 66 year old male consulted today for competency and guardian ship paper work. Patient remains same, he is not oriented until he sees the board in the room with dates, he is unable to recall my name , reminded him and he repeated but was unable to recall after 3 minutes. he is having recent and immediate memory impairment, he is unable to make decission about his medical illness, he is not able to take care of his fianances, he is unable to tell me how he would spend his money and unable to do simple subtraction. he is more alert, not confused , cooperative , calm , pleasant but at present needs supervised placement and guardianship. his cognitive baseline is unknown , this could be worsened bc of his medical condition. CC: Fidel Hayden MD Past Med Surg Social Fam HX - Past Medical History Medical history: hypertension, seizures - Social History Smoking Status: Former smoker Smokeless Tobacco Status: No Alcohol use: none Drug use: none Medications & Allergies Unable To Obtain [Unable to Obtain] 03/02/17 [History] Allergies No Known Allergies Allergy (Verified 02/28/17 16:24) Review of Systems Psychiatric: Reports: confusion, memory loss, difficulty concentrating Mental Status Exam Level of alertness: Alert Patient appearance: Unkempt Behavior: calm, cooperative Psychomotor activity: Normal Eye contact: Maintains Eye Contact Mood description: Euthymic/stable Affect description: constricted Speech pattern: Coherent Speech volume: Normal Thought process: Evasive Thought content: Yes Intact Attention span: Unable to Focus, Unable to Sustain Attention Memory description: Immediate Impaired, Recent Impaired Patient reliability: Questionable Historian Judgment: Poor Insight: Minimal Results - Vital Signs Vital signs: Temp Pulse Resp BP Pulse Ox 97.5 F L 63 20 121/69 97 04/03/17 09:16 04/03/17 09:16 04/03/17 09:16 04/03/17 09:16 04/03/17 09:16 - Labs Labs: Laboratory Last Values WBC 9.7 K/mcL (4.3-11.1) 03/19/17 04:46 RBC 3.76 M/mcL (4.19-5.50) L 03/19/17 04:46 Hgb 10.9 g/dL (12.9-16.9) L 03/19/17 04:46 Hct 32.2 % (37.5-50.1) L 03/19/17 04:46 MCV 85.6 fL (83.0-100.0) 03/19/17 04:46 MCH 29.0 pg (28.0-33.3) 03/19/17 04:46 MCHC 33.9 g/dL (31.6-35.5) 03/19/17 04:46 RDW 12.6 % (11.5-14.5) 03/19/17 04:46 Plt Count 348 K/mcL (140-400) 03/19/17 04:46 MPV 10.9 fL (9.4-12.4) 03/19/17 04:46 Immature Gran % 0.7 % (0-4) 03/19/17 04:46 Seg Neutrophils % 70.0 % 03/19/17 04:46 Lymphocytes % 17.1 % 03/19/17 04:46 Monocytes % 8.0 % 03/19/17 04:46 Eosinophils % 3.5 % 03/19/17 04:46 Basophils % 0.7 % 03/19/17 04:46 Neutrophils # 6.8 K/mcL (1.6-8.9) 03/19/17 04:46 Lymphocytes # 1.7 K/mcL (0.6-4.6) 03/19/17 04:46 Monocytes # 0.8 K/mcL (0.0-1.3) 03/19/17 04:46 Eosinophils # 0.3 K/mcL (0.0-0.6) 03/19/17 04:46 Basophils # 0.1 K/mcL (0.0-0.2) 03/19/17 04:46 Nucleated RBCs/100 WBC 0.1 /100 WBC (0) H 03/07/17 03:43 PT 32.4 Seconds (9.4-12.1) H 04/03/17 04:20 INR 2.9 04/03/17 04:20 APTT 89.6 Seconds (26.0-36.0) H 03/09/17 01:24 ABG pH 7.48 pH Units (7.32-7.45) H 03/05/17 04:50 ABG pCO2 38 mmHg (35-45) 03/05/17 04:50 ABG pO2 89 mmHg (85-104) 03/05/17 04:50 ABG HCO3 28.3 mEQ/L (21-27) H 03/05/17 04:50 ABG Total CO2 29.5 mEq/L (20-26) H 03/05/17 04:50 ABG O2 Saturation 97 % (95-98) 03/05/17 04:50 ABG Base Excess 4.6 mEq/L (-2.0 to 3.0) H 03/05/17 04:50 Blood Gas Modality ASSIST CONTROL 03/04/17 04:25 Inspired O2 50 % 03/04/17 04:25 Sodium 141 mEq/L (136-145) 03/19/17 04:46 Potassium 3.4 mEq/L (3.5-4.5) L 03/19/17 04:46 Chloride 110 mEq/L (98-109) H 03/19/17 04:46 Carbon Dioxide 23 mEq/L (19-29) 03/19/17 04:46 BUN 20 mg/dL (8-26) D 03/19/17 04:46 Creatinine 1.29 mg/dL (0.72-1.25) H 03/19/17 04:46 Est GFR ( Amer) > 60 (> 60) 03/19/17 04:46 Est GFR (Non-Af Amer) 56 (> 60) L 03/19/17 04:46 BUN/Creatinine Ratio 16 (6-26) 03/19/17 04:46 Glucose 87 mg/dL (70-99) 03/19/17 04:46 POC Glucose 113 (58-89) H 03/08/17 11:46 Est Mean Plasma Glucose 94 mg/dl 03/01/17 04:00 Hemoglobin A1c 4.9 % (-5.6) 03/01/17 04:00 Calculated Osmolality 294 (280-300) 03/19/17 04:46 Lactic Acid 1.7 mmol/L (0.5-2.2) 03/01/17 04:00 Calcium 9.4 mg/dL (8.6-10.8) 03/19/17 04:46 Ionized Calcium 1.16 mmol/L (1.15-1.35) 03/05/17 04:54 Phosphorus 4.6 mg/dL (2.3-4.7) 03/05/17 04:54 Magnesium 2.2 mg/dL (1.6-2.6) 03/10/17 00:52 Total Bilirubin 0.7 mg/dL (0.2-1.2) 03/19/17 04:46 Direct Bilirubin 0.3 mg/dL (0.0-0.5) 03/01/17 04:00 Indirect Bilirubin 0.3 mg/dL (0.0-1.2) 03/01/17 04:00 AST 28 Units/L (5-34) 03/19/17 04:46 ALT 31 Units/L (0-55) 03/19/17 04:46 Alkaline Phosphatase 81 Units/L (38-126) 03/19/17 04:46 Troponin I > 50.00 ng/mL (0-0.03) H* 02/28/17 16:55 B-Natriuretic Peptide 857 pg/mL (0-100) H 02/28/17 16:55 Serum Total Protein 6.5 g/dL (6.0-8.3) 03/19/17 04:46 Albumin 3.0 g/dL (3.5-5.0) L 03/19/17 04:46 Globulin 3.5 g/dL (2.4-3.5) 03/19/17 04:46 Albumin/Globulin Ratio 0.9 (1.1-2.2) L 03/19/17 04:46 Urine Color Yellow (Yellow) 03/15/17 08:24 Urine Clarity Clear (Clear) 03/15/17 08:24 Urine pH 5.5 pH Units (5.0-8.0) 03/15/17 08:24 Ur Specific [place] 1.024 (1.010-1.025) 03/15/17 08:24 Urine Protein 30 mg/dL (Neg-Trace) H 03/15/17 08:24 Urine Glucose (UA) Normal mg/dL (Normal) 03/15/17 08:24 Urine Ketones Negative mg/dL (Negative) 03/15/17 08:24 Urine Blood Negative (Negative) 03/15/17 08:24 Urine Nitrite Negative (Negative) 03/15/17 08:24 Urine Bilirubin Negative (Negative) 03/15/17 08:24 Urine Urobilinogen Normal mg/dL (Normal) 03/15/17 08:24 Ur Leukocyte Esterase Negative (Negative) 03/15/17 08:24 Urine Microscopic RBC 5-15 per hpf (0-3) H 03/15/17 08:24 Urine Microscopic WBC 5-15 per hpf (0-3) H 03/15/17 08:24 Ur Squamous Epith Cells Few per lpf (None-Few) 03/15/17 08:24 Calcium Oxalate Crystal Present 03/15/17 08:24 Uric Acid Crystals Present 03/15/17 08:24 Urine Bacteria Few per hpf (None-Few) 03/15/17 08:24 Hyaline Casts Few per lpf (None-Few) 03/15/17 08:24 Granular Casts Few per lpf (None Seen) H 03/15/17 08:24 WBC Casts Few per lpf (None Seen) H 03/15/17 08:24 Ur Culture Indicated? YES (NO) A 03/15/17 08:24 Vancomycin Trough 17.8 mcg/mL (10-20) 03/16/17 06:32 Specimen Rejected Contaminated 03/27/17 08:27 Consult Discharge Plan - Plan Referrals: NONE,PCP [Primary Care Provider] - (working [facility] placement [facility], will follow up with PCP at [facility])
[2017-04-03] MEDS: *HR* Warfarin 2 MG TABLET PO SCH (17:20)
[2017-04-03] MEDS: Mirtazapine 15 MG TABLET PO SCH (21:57)
[2017-04-04] MEDS: Aspirin 81 MG TAB.CHEW PO SCH (08:12)
[2017-04-04] MEDS: amLODIPine 5 MG TABLET PO SCH (08:12)
[2017-04-04] MEDS: *HR* Ticagrelor 90 MG TABLET PO SCH ×2 (08:12→22:05)
[2017-04-04] MEDS: Lisinopril 20 MG TABLET PO SCH (08:12)
--- NOTE | 2017-04-04 09:22 | Internal Med Progress Note ---
<Duy Sherman - Last Filed: 04/04/17 09:19> Date of Encounter: 04/04/17 Time of Encounter: 09:20 - Assessment and plan (1) CVA (cerebral vascular accident) Current Visit: Yes Status: Acute Assessment and plan: Patient's mental status has remained stable over past week Psych re-evaluated competency 04/03 and has signed appropriate paperwork Still awaiting court appointed identity management consultant response for temporary guardianship, Social work will contact risk/legal for additional options Continue with PT/OT 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 (2) STEMI (ST elevation myocardial infarction) Current Visit: Yes Status: Acute Assessment and plan: s/p PTCA/EVER in proximal and mid LAD 02/28/17 No chest pain and hemodynamically stable at this time Continue dual antiplatelet therapy, BB, Lisinopril, Brilinta, Crestor Qualifiers: Involved coronary artery: LAD coronary artery Qualified Code(s): I21.02 - ST elevation (STEMI) myocardial infarction involving left anterior descending coronary artery (3) Systolic CHF Current Visit: Yes Status: Chronic Assessment and plan: Not in exacerbation at this time Continue BB, ACEi; no need for diuresis at this time Qualifiers: Qualified Code(s): I50.20 - Unspecified systolic (congestive) heart failure (4) Atrial fibrillation Current Visit: Yes Status: Chronic Assessment and plan: INR is therapeutic Continue Coumadin Qualifiers: Atrial fibrillation type: paroxysmal Qualified Code(s): I48.0 - Paroxysmal atrial fibrillation - Subjective Interval history: Pt seen and examined. He is comfortably laying in bed this morning and is patiently awaiting guardianship. Has no complaints of pain, shortness of breath , nausea, vomiting, diarrhea. - Constitutional Vitals: Temp Pulse Resp BP Pulse Ox 97.9 F 65 16 128/79 95 04/03/17 19:06 04/03/17 19:06 04/03/17 19:06 04/03/17 19:06 04/03/17 19:06 General appearance: Present: cooperative, pleasant, no acute distress, answers questions appropriately - Head Head exam: Present: atraumatic, normocephalic - Eye Eye exam: Present: PERRL, conjuntiva pink, sclera anicteric - Neck Neck exam general surgery: Present: supple, trachea midline. Absent: lymphadenopathy - Respiratory Respiratory exam: Present: CTAB. Absent: accessory muscle use, rales, rhonchi, wheezes - Cardiovascular Cardiovascular exam: Present: RRR, +S1, +S2. Absent: diastolic murmur, gallop, rubs, systolic murmur - GI/Abdominal GI/Abdominal exam: Present: normal bowel sounds, soft, no peritoneal signs. Absent: distended, tenderness - Extremities Exam Extremities exam: Present: warm, radial pulses palpable and symmetrical. Absent : calf tenderness, cyanotic, pedal edema - Neurological Exam Neurological exam: Present: alert, no focal deficits. Absent: facial droop, speech deficit - Skin Skin exam: Present: dry, intact Internal Medicine: Result - Labs CBC & Chem 7: 03/19/17 04:46 03/19/17 04:46 - ABG Interpretation ABG results: ABG ABG pH 7.48 pH Units (7.32-7.45) H 03/05/17 04:50 ABG pCO2 38 mmHg (35-45) 03/05/17 04:50 ABG pO2 89 mmHg (85-104) 03/05/17 04:50 ABG O2 Saturation 97 % (95-98) 03/05/17 04:50 PT/INR, D-dimer PT 32.4 Seconds (9.4-12.1) H 04/03/17 04:20 Consult Discharge Plan - Plan Referrals: NONE,PCP [Primary Care Provider] - (working on placement to [facility], will follow up with PCP at [facility]) <Fidel Hyaden P - Last Filed: 04/04/17 18:28> Date of Encounter: 04/04/17 - Assessment and plan (1) CVA (cerebral vascular accident) Current Visit: Yes Status: Acute 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 (2) STEMI (ST elevation myocardial infarction) Current Visit: Yes Status: Acute Qualifiers: Involved coronary artery: LAD coronary artery Qualified Code(s): I21.02 - ST elevation (STEMI) myocardial infarction involving left anterior descending coronary artery (3) Acute systolic CHF (congestive heart failure) Current Visit: Yes Status: Acute (4) Atrial fibrillation Current Visit: Yes Status: Chronic Qualifiers: Atrial fibrillation type: paroxysmal Qualified Code(s): I48.0 - Paroxysmal atrial fibrillation - Constitutional Vitals: Temp Pulse Resp BP Pulse Ox 98.1 F 66 16 136/73 99 04/04/17 17:18 04/04/17 17:18 04/04/17 17:18 04/04/17 17:18 04/04/17 17:18 Internal Medicine: Result - Labs CBC & Chem 7: 03/19/17 04:46 03/19/17 04:46 - ABG Interpretation ABG results: ABG ABG pH 7.48 pH Units (7.32-7.45) H 03/05/17 04:50 ABG pCO2 38 mmHg (35-45) 03/05/17 04:50 ABG pO2 89 mmHg (85-104) 03/05/17 04:50 ABG O2 Saturation 97 % (95-98) 03/05/17 04:50 PT/INR, D-dimer PT 32.4 Seconds (9.4-12.1) H 04/03/17 04:20 - Attending Attestation I examined this patient and my medical decision-making was reviewed with the Resident Physician. I agree with the documented findings, disposition and treatment plan as described except to the extent set forth below.
[2017-04-04] MEDS: *HR* Warfarin 2 MG TABLET PO SCH (17:13)
[2017-04-04] MEDS: Mirtazapine 15 MG TABLET PO SCH (22:06)
[2017-04-05 07:11] LABS: Basophils # 0.1 K/mcL (0.0-0.2); Basophils % 0.5 %; Eosinophils # 0.2 K/mcL (0.0-0.6); Eosinophils % 2.3 %; Hematocrit 31.9 % (37.5-50.1); Hemoglobin 10.9 g/dL (12.9-16.9); Immature Granulocytes % 0.2 % (0-4); Lymphocytes # 1.7 K/mcL (0.6-4.6); Lymphocytes % 18.4 %; Mean Corpuscular HGB Conc 34.2 g/dL (31.6-35.5); Mean Corpuscular Volume 87.9 fL (83.0-100.0); Monocytes # 0.7 K/mcL (0.0-1.3); Neutrophils # 6.6 K/mcL (1.6-8.9); Platelet Count 159 K/mcL (140-400); Red Blood Count 3.63 M/mcL (4.19-5.50); Red Cell Distribution Width 13.7 % (11.5-14.5); Segmented Neutrophils % 71.6 %
[2017-04-05 07:12] LABS: BUN/Creatinine Ratio 18 (6-26); Blood Urea Nitrogen 20 mg/dL (8-26); Calcium 9.7 mg/dL (8.6-10.8); Carbon Dioxide 26 mEq/L (19-29); Chloride 109 mEq/L (98-109); Glucose 94 mg/dL (70-99); INR 2.6; Osmolality,Calculated 296 (280-300); Potassium 3.8 mEq/L (3.5-4.5); Prothrombin Time 28.1 Seconds (9.4-12.1); Sodium 142 mEq/L (136-145); eGFR For African Americans > 60 (> 60); eGFR For Non-African Americans > 60 (> 60)
[2017-04-05] MEDS: *HR* Ticagrelor 90 MG TABLET PO SCH ×2 (08:04→21:14)
[2017-04-05] MEDS: amLODIPine 5 MG TABLET PO SCH (08:04)
[2017-04-05] MEDS: Aspirin 81 MG TAB.CHEW PO SCH (08:04)
[2017-04-05] MEDS: Lisinopril 20 MG TABLET PO SCH (08:04)
--- NOTE | 2017-04-05 08:26 | Internal Med Progress Note ---
<Duy Sherman - Last Filed: 04/05/17 08:24> Date of Encounter: 04/05/17 Time of Encounter: 08:24 - Assessment and plan (1) CVA (cerebral vascular accident) Current Visit: Yes Status: Acute Assessment and plan: Patient's mental status has remained stable over past week Psych re-evaluated competency 04/03 and has signed appropriate paperwork Still awaiting court appointed patent prosecution attorney response for temporary guardianship, Social work will contact risk/legal for additional options Continue with PT/OT 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 (2) STEMI (ST elevation myocardial infarction) Current Visit: Yes Status: Acute Assessment and plan: s/p PTCA/EVER in proximal and mid LAD 02/28/17 No chest pain and hemodynamically stable at this time Continue dual antiplatelet therapy, BB, Lisinopril, Brilinta, Crestor Qualifiers: Involved coronary artery: LAD coronary artery Qualified Code(s): I21.02 - ST elevation (STEMI) myocardial infarction involving left anterior descending coronary artery (3) Systolic CHF Current Visit: Yes Status: Chronic Assessment and plan: Not in exacerbation at this time Continue BB, ACEi; no need for diuresis at this time as patient is euvolemic Qualifiers: Qualified Code(s): I50.20 - Unspecified systolic (congestive) heart failure (4) Atrial fibrillation Current Visit: Yes Status: Chronic Assessment and plan: INR is therapeutic Continue Coumadin Qualifiers: Atrial fibrillation type: paroxysmal Qualified Code(s): I48.0 - Paroxysmal atrial fibrillation - Subjective Interval history: Pt seen and examined. He is comfortably laying in bed this morning and still has no complaints. Has no chest pain, shortness of breath, nausea, vomiting, diarrhea, fevers. - Constitutional Vitals: Temp Pulse Resp BP Pulse Ox 98.5 F 59 17 133/64 97 04/05/17 07:38 04/05/17 07:38 04/05/17 07:38 04/05/17 07:38 04/05/17 07:38 General appearance: Present: cooperative, pleasant, no acute distress, answers questions appropriately - Head Head exam: Present: atraumatic, normocephalic - Eye Eye exam: Present: PERRL, conjuntiva pink, sclera anicteric - Neck Neck exam general surgery: Present: supple, trachea midline. Absent: lymphadenopathy - Respiratory Respiratory exam: Present: CTAB. Absent: accessory muscle use, rales, rhonchi, wheezes - Cardiovascular Cardiovascular exam: Present: RRR, +S1, +S2. Absent: diastolic murmur, gallop, rubs, systolic murmur - GI/Abdominal GI/Abdominal exam: Present: normal bowel sounds, soft, no peritoneal signs. Absent: distended, tenderness - Extremities Exam Extremities exam: Present: warm, radial pulses palpable and symmetrical. Absent : calf tenderness, cyanotic, pedal edema - Neurological Exam Neurological exam: Present: alert, CN II-XII intact, oriented X3, no focal deficits. Absent: facial droop, speech deficit - Skin Skin exam: Present: dry, intact Internal Medicine: Result - Labs CBC & Chem 7: 04/05/17 06:10 04/05/17 06:10 Labs: Short CBC 04/05/17 Range/Units 06:10 WBC 9.2 (4.3-11.1) K/mcL Hgb 10.9 L (12.9-16.9) g/dL Hct 31.9 L (37.5-50.1) % Plt Count 159 (140-400) K/mcL Neutrophils # 6.6 (1.6-8.9) K/mcL BMP 04/05/17 06:10 Sodium 142 Potassium 3.8 Chloride 109 Carbon Dioxide 26 BUN 20 Creatinine 1.09 Glucose 94 Calcium 9.7 - ABG Interpretation ABG results: ABG ABG pH 7.48 pH Units (7.32-7.45) H 03/05/17 04:50 ABG pCO2 38 mmHg (35-45) 03/05/17 04:50 ABG pO2 89 mmHg (85-104) 03/05/17 04:50 ABG O2 Saturation 97 % (95-98) 03/05/17 04:50 PT/INR, D-dimer PT 28.1 Seconds (9.4-12.1) H 04/05/17 06:10 Consult Discharge Plan - Plan Referrals: NONE,PCP [Primary Care Provider] - (working on placement to [facility], will follow up with PCP at [facility]) <Fidel Hayden P - Last Filed: 04/05/17 20:26> Date of Encounter: 04/05/17 - Assessment and plan (1) CVA (cerebral vascular accident) Current Visit: Yes Status: Acute 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 (2) STEMI (ST elevation myocardial infarction) Current Visit: Yes Status: Acute Qualifiers: Involved coronary artery: LAD coronary artery Qualified Code(s): I21.02 - ST elevation (STEMI) myocardial infarction involving left anterior descending coronary artery (3) Acute systolic CHF (congestive heart failure) Current Visit: Yes Status: Acute (4) Atrial fibrillation Current Visit: Yes Status: Chronic Qualifiers: Atrial fibrillation type: paroxysmal Qualified Code(s): I48.0 - Paroxysmal atrial fibrillation - Constitutional Vitals: Temp Pulse Resp BP Pulse Ox 97.7 F 64 16 122/74 96 04/05/17 20:02 04/05/17 20:02 04/05/17 20:02 04/05/17 20:02 04/05/17 20:02 Internal Medicine: Result - Labs CBC & Chem 7: 04/05/17 06:10 04/05/17 06:10 Labs: Short CBC 04/05/17 Range/Units 06:10 WBC 9.2 (4.3-11.1) K/mcL Hgb 10.9 L (12.9-16.9) g/dL Hct 31.9 L (37.5-50.1) % Plt Count 159 (140-400) K/mcL Neutrophils # 6.6 (1.6-8.9) K/mcL BMP 04/05/17 06:10 Sodium 142 Potassium 3.8 Chloride 109 Carbon Dioxide 26 BUN 20 Creatinine 1.09 Glucose 94 Calcium 9.7 - ABG Interpretation ABG results: ABG ABG pH 7.48 pH Units (7.32-7.45) H 03/05/17 04:50 ABG pCO2 38 mmHg (35-45) 03/05/17 04:50 ABG pO2 89 mmHg (85-104) 03/05/17 04:50 ABG O2 Saturation 97 % (95-98) 03/05/17 04:50 PT/INR, D-dimer PT 28.1 Seconds (9.4-12.1) H 04/05/17 06:10 - Attending Attestation I examined this patient and my medical decision-making was reviewed with the Resident Physician. I agree with the documented findings, disposition and treatment plan as described except to the extent set forth below.
[2017-04-05] MEDS: *HR* Warfarin 2 MG TABLET PO SCH (18:04)
[2017-04-05] MEDS: Mirtazapine 15 MG TABLET PO SCH (21:15)
[2017-04-06] MEDS: Lisinopril 20 MG TABLET PO SCH (08:13)
[2017-04-06] MEDS: Aspirin 81 MG TAB.CHEW PO SCH (08:13)
[2017-04-06] MEDS: amLODIPine 5 MG TABLET PO SCH (08:13)
[2017-04-06] MEDS: *HR* Ticagrelor 90 MG TABLET PO SCH ×2 (08:13→21:53)
--- NOTE | 2017-04-06 12:51 | Internal Med Progress Note ---
Date of Encounter: 04/06/17 Time of Encounter: 12:49 - Assessment and plan (1) CVA (cerebral vascular accident) Current Visit: Yes Status: Acute Assessment and plan: Patient's mental status has remained stable over past week Psych re-evaluated competency 04/03 and has signed appropriate paperwork Still awaiting court appointed securities attorney response for temporary guardianship, Social work will contact risk/legal for additional options Continue with PT/OT 04/06/2017 awaiting placement. 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 (2) STEMI (ST elevation myocardial infarction) Current Visit: Yes Status: Acute Assessment and plan: s/p PTCA/EVER in proximal and mid LAD 02/28/17 No chest pain and hemodynamically stable at this time Continue dual antiplatelet therapy, BB, Lisinopril, Brilinta, Crestor Qualifiers: Involved coronary artery: LAD coronary artery Qualified Code(s): I21.02 - ST elevation (STEMI) myocardial infarction involving left anterior descending coronary artery (3) Acute systolic CHF (congestive heart failure) Current Visit: Yes Status: Acute Assessment and plan: Patient is euvolemic, denies dyspnea, orthopnea. Congestive heart failure with reduced ejection fraction of 25% by transthoracic echocardiogram. Patient was intubated/extubated. Continue intravenous Lasix. (4) Atrial fibrillation Current Visit: Yes Status: Chronic Assessment and plan: INR is therapeutic Continue Coumadin Qualifiers: Atrial fibrillation type: paroxysmal Qualified Code(s): I48.0 - Paroxysmal atrial fibrillation - Subjective Interval history: Patient seen and examined. Chart reviewed. Patient is comfortably lying down in the bed. Patient denies chest pain, shortness of breath, dizziness, diarrhea or abdominal pain. - Constitutional Vitals: Temp Pulse Resp BP Pulse Ox 98.2 F 61 14 122/71 97 04/06/17 07:50 04/06/17 07:50 04/06/17 07:50 04/06/17 07:50 04/06/17 07:50 General appearance: Present: cooperative, pleasant, no acute distress, answers questions appropriately - Head Head exam: Present: atraumatic, normocephalic - Eye Eye exam: Present: PERRL, conjuntiva pink, sclera anicteric Pupils: Present: PERRL - Neck Neck exam general surgery: Present: supple, trachea midline. Absent: lymphadenopathy - Respiratory Respiratory exam: Present: CTAB. Absent: accessory muscle use, rales, rhonchi, wheezes - Cardiovascular Cardiovascular exam: Present: RRR, +S1, +S2. Absent: diastolic murmur, gallop, rubs, systolic murmur - GI/Abdominal GI/Abdominal exam: Present: normal bowel sounds, soft, no peritoneal signs. Absent: distended, tenderness - Extremities Exam Extremities exam: Present: warm, radial pulses palpable and symmetrical. Absent : calf tenderness, cyanotic, pedal edema - Neurological Exam Neurological exam: Present: CN II-XII intact, oriented X3, no focal deficits. Absent: pronater drift, facial droop, speech deficit - Skin Skin exam: Present: dry, intact Internal Medicine: Result - Labs CBC & Chem 7: 04/05/17 06:10 04/05/17 06:10 - ABG Interpretation ABG results: ABG ABG pH 7.48 pH Units (7.32-7.45) H 03/05/17 04:50 ABG pCO2 38 mmHg (35-45) 03/05/17 04:50 ABG pO2 89 mmHg (85-104) 03/05/17 04:50 ABG O2 Saturation 97 % (95-98) 03/05/17 04:50 PT/INR, D-dimer PT 28.1 Seconds (9.4-12.1) H 04/05/17 06:10 Consult Discharge Plan - Plan Referrals: NONE,PCP [Primary Care Provider] - (working on placement to [facility], will follow [facility] with [facility] at [facility])
[2017-04-06] MEDS: *HR* Warfarin 2 MG TABLET PO SCH (18:00)
[2017-04-06] MEDS: Mirtazapine 15 MG TABLET PO SCH (21:54)
[2017-04-07] MEDS: *HR* Ticagrelor 90 MG TABLET PO SCH ×2 (08:46→20:24)
[2017-04-07] MEDS: amLODIPine 5 MG TABLET PO SCH (08:46)
[2017-04-07] MEDS: Lisinopril 20 MG TABLET PO SCH (08:47)
[2017-04-07] MEDS: Aspirin 81 MG TAB.CHEW PO SCH (08:47)
--- NOTE | 2017-04-07 16:13 | Internal Med Progress Note ---
Date of Encounter: 04/07/17 Time of Encounter: 16:11 - Assessment and plan (1) CVA (cerebral vascular accident) Current Visit: Yes Status: Acute Assessment and plan: Patient's mental status has remained stable over past week Psych re-evaluated competency 04/03 and has signed appropriate paperwork Still awaiting court appointed anodiser response for temporary guardianship, Social work will contact risk/legal for additional options Continue with PT/OT 04/06/2017 awaiting placement. 04/07/2017. 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 (2) STEMI (ST elevation myocardial infarction) Current Visit: Yes Status: Acute Assessment and plan: s/p PTCA/EVER in proximal and mid LAD 02/28/17 No chest pain and hemodynamically stable at this time Continue dual antiplatelet therapy, BB, Lisinopril, Brilinta, Crestor Qualifiers: Involved coronary artery: LAD coronary artery Qualified Code(s): I21.02 - ST elevation (STEMI) myocardial infarction involving left anterior descending coronary artery (3) Acute systolic CHF (congestive heart failure) Current Visit: Yes Status: Acute Assessment and plan: Patient is euvolemic, denies dyspnea, orthopnea. Congestive heart failure with reduced ejection fraction of 25% by transthoracic echocardiogram. Patient was intubated/extubated. Continue intravenous Lasix. (4) Atrial fibrillation Current Visit: Yes Status: Chronic Assessment and plan: INR is therapeutic Continue Coumadin Qualifiers: Atrial fibrillation type: paroxysmal Qualified Code(s): I48.0 - Paroxysmal atrial fibrillation - Subjective Interval history: Patient seen and examined. Chart reviewed. Patient is comfortably lying down in the bed. Patient denies chest pain, shortness of breath, dizziness, diarrhea or abdominal pain. 04/07/2017. Patient seen and examined. Chart reviewed at length. Patient was walking around the room and had his shower today. Patient denies shortness of breath, chest pain, nausea, vomiting, abdominal pain or diarrhea - Constitutional Vitals: Temp Pulse Resp BP Pulse Ox 98.2 F 67 14 129/79 97 04/07/17 07:13 04/07/17 07:13 04/07/17 07:13 04/07/17 07:13 04/07/17 07:13 General appearance: Present: cooperative, pleasant, no acute distress, answers questions appropriately - Head Head exam: Present: atraumatic, normocephalic - Eye Eye exam: Present: PERRL, conjuntiva pink, sclera anicteric Pupils: Present: PERRL - Neck Neck exam general surgery: Present: supple, trachea midline. Absent: lymphadenopathy - Respiratory Respiratory exam: Present: CTAB. Absent: accessory muscle use, rales, rhonchi, wheezes - Cardiovascular Cardiovascular exam: Present: RRR, +S1, +S2. Absent: diastolic murmur, gallop, rubs, systolic murmur - GI/Abdominal GI/Abdominal exam: Present: normal bowel sounds, soft, no peritoneal signs. Absent: distended, tenderness - Extremities Exam Extremities exam: Present: warm, radial pulses palpable and symmetrical. Absent : calf tenderness, cyanotic, pedal edema - Neurological Exam Neurological exam: Present: CN II-XII intact, oriented X3, no focal deficits. Absent: pronater drift, facial droop, speech deficit - Skin Skin exam: Present: dry, intact Internal Medicine: Result - Labs CBC & Chem 7: 04/05/17 06:10 04/05/17 06:10 - ABG Interpretation ABG results: ABG ABG pH 7.48 pH Units (7.32-7.45) H 03/05/17 04:50 ABG pCO2 38 mmHg (35-45) 03/05/17 04:50 ABG pO2 89 mmHg (85-104) 03/05/17 04:50 ABG O2 Saturation 97 % (95-98) 03/05/17 04:50 PT/INR, D-dimer PT 28.1 Seconds (9.4-12.1) H 04/05/17 06:10 Consult Discharge Plan - Plan Referrals: NONE,PCP [Primary Care Provider] - (working on placement to [facility], will follow up with PCP at [facility])
[2017-04-07] MEDS: *HR* Warfarin 2 MG TABLET PO SCH (18:44)
[2017-04-07] MEDS: Mirtazapine 15 MG TABLET PO SCH (20:24)
[2017-04-08 04:39] LABS: INR 2.9; Prothrombin Time 31.4 Seconds (9.4-12.1)
[2017-04-08] MEDS: Aspirin 81 MG TAB.CHEW PO SCH (07:16)
[2017-04-08] MEDS: amLODIPine 5 MG TABLET PO SCH (07:16)
[2017-04-08] MEDS: *HR* Ticagrelor 90 MG TABLET PO SCH ×2 (07:16→19:51)
[2017-04-08] MEDS: Lisinopril 20 MG TABLET PO SCH (07:16)
--- NOTE | 2017-04-08 16:56 | Internal Med Progress Note ---
Date of Encounter: 04/08/17 Time of Encounter: 16:54 - Assessment and plan (1) CVA (cerebral vascular accident) Current Visit: Yes Status: Acute Assessment and plan: Patient's mental status has remained stable over past week Psych re-evaluated competency 04/03 and has signed appropriate paperwork Still awaiting court appointed state's attorney response for temporary guardianship, Social work will contact risk/legal for additional options Continue with PT/OT 04/06/2017 awaiting placement. 04/07/2017. Awaiting placement 04/08/2017 Seen by psychiatry. Discussed with the social media assistant. Court initiated guardianship is still pending. 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 (2) STEMI (ST elevation myocardial infarction) Current Visit: Yes Status: Acute Assessment and plan: s/p PTCA/EVER in proximal and mid LAD 02/28/17 No chest pain and hemodynamically stable at this time Continue dual antiplatelet therapy, BB, Lisinopril, Brilinta, Crestor Qualifiers: Involved coronary artery: LAD coronary artery Qualified Code(s): I21.02 - ST elevation (STEMI) myocardial infarction involving left anterior descending coronary artery (3) Acute systolic CHF (congestive heart failure) Current Visit: Yes Status: Acute Assessment and plan: Patient is euvolemic, denies dyspnea, orthopnea. Congestive heart failure with reduced ejection fraction of 25% by transthoracic echocardiogram. Patient was intubated/extubated. Continue intravenous Lasix. (4) Atrial fibrillation Current Visit: Yes Status: Chronic Assessment and plan: INR is therapeutic Continue Coumadin Qualifiers: Atrial fibrillation type: paroxysmal Qualified Code(s): I48.0 - Paroxysmal atrial fibrillation - Subjective Interval history: Patient seen and examined. Chart reviewed. Patient is comfortably lying down in the bed. Patient denies chest pain, shortness of breath, dizziness, diarrhea or abdominal pain. 04/07/2017. Patient seen and examined. Chart reviewed at length. Patient was walking around the room and had his shower today. Patient denies shortness of breath, chest pain, nausea, vomiting, abdominal pain or diarrhea 04/08/2017 Seen and examined. Chart reviewed. Patient denies chest pain, shortness of breath, nausea, abdominal pain or diarrhea. - Constitutional Vitals: Temp Pulse Resp BP Pulse Ox 97.6 F 60 18 111/67 99 04/08/17 08:45 04/08/17 08:45 04/08/17 08:45 04/08/17 08:45 04/08/17 08:45 General appearance: Present: cooperative, pleasant, no acute distress, answers questions appropriately - Head Head exam: Present: atraumatic, normocephalic - Eye Eye exam: Present: PERRL, conjuntiva pink, sclera anicteric Pupils: Present: PERRL - Neck Neck exam general surgery: Present: supple, trachea midline. Absent: lymphadenopathy - Respiratory Respiratory exam: Present: CTAB. Absent: accessory muscle use, rales, rhonchi, wheezes - Cardiovascular Cardiovascular exam: Present: RRR, +S1, +S2. Absent: diastolic murmur, gallop, rubs, systolic murmur - GI/Abdominal GI/Abdominal exam: Present: normal bowel sounds, soft, no peritoneal signs. Absent: distended, tenderness - Extremities Exam Extremities exam: Present: warm, radial pulses palpable and symmetrical. Absent : calf tenderness, cyanotic, pedal edema - Neurological Exam Neurological exam: Present: CN II-XII intact, oriented X3, no focal deficits. Absent: pronater drift, facial droop, speech deficit - Skin Skin exam: Present: dry, intact Internal Medicine: Result - Labs CBC & Chem 7: 04/05/17 06:10 04/05/17 06:10 - ABG Interpretation ABG results: ABG ABG pH 7.48 pH Units (7.32-7.45) H 03/05/17 04:50 ABG pCO2 38 mmHg (35-45) 03/05/17 04:50 ABG pO2 89 mmHg (85-104) 03/05/17 04:50 ABG O2 Saturation 97 % (95-98) 03/05/17 04:50 PT/INR, D-dimer PT 31.4 Seconds (9.4-12.1) H 04/08/17 04:02 Consult Discharge Plan - Plan Referrals: NONE,PCP [Primary Care Provider] - (working on placement to [facility], will follow up with PCP at [facility])
[2017-04-08] MEDS: *HR* Warfarin 2 MG TABLET PO SCH (17:45)
[2017-04-08] MEDS: Mirtazapine 15 MG TABLET PO SCH (19:51)
--- NOTE | 2017-04-09 08:23 | Internal Med Progress Note ---
Date of Encounter: 04/09/17 Time of Encounter: 08:14 - Assessment and plan (1) STEMI (ST elevation myocardial infarction) Current Visit: Yes Status: Acute Assessment and plan: s/p PTCA/EVER in proximal and mid LAD 02/28/17 No chest pain and hemodynamically stable at this time Continue dual antiplatelet therapy, BB, Lisinopril, Brilinta, Crestor Qualifiers: Involved coronary artery: LAD coronary artery Qualified Code(s): I21.02 - ST elevation (STEMI) myocardial infarction involving left anterior descending coronary artery (2) Acute systolic CHF (congestive heart failure) Current Visit: Yes Status: Resolved Assessment and plan: Patient is euvolemic, denies dyspnea, orthopnea. Not in exacerbation Congestive heart failure with reduced ejection fraction of 25% by transthoracic echocardiogram. Cont Coreg and Lisinopril and Statin (3) CVA (cerebral vascular accident) Current Visit: Yes Status: Acute Assessment and plan: Embolic stroke Continue with PT/OT Waiting on placement mean while will continue current symptomatic and supportive care cont Coumadin for anticoag cont statin 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 (4) Atrial fibrillation Current Visit: Yes Status: Chronic Assessment and plan: Rate controlled with Coreg INR is therapeutic Continue Coumadin Qualifiers: Atrial fibrillation type: paroxysmal Qualified Code(s): I48.0 - Paroxysmal atrial fibrillation (5) Encounter for evaluation of ability to make decisions regarding care Current Visit: Yes Status: Acute Assessment and plan: Patient's mental status has remained stable over past week Psych re-evaluated competency 04/03 and has signed appropriate paperwork Still awaiting court appointed corporate associate attorney response for temporary guardianship, Social work will contact risk/legal for additional options - Subjective Interval history: Mr. Patel is a 66 y/o M with known PMH of HTN and heavy smoking history who presented to our ER on 02/28/17 with chief complaint of chest pain. Pt happened to have acute STEMI, ateroseptal [place] with severely elevated Troponin in 50's. Pt did to for [facility] with stent placement of Proximal and Mid LAD. He went into acute repsiratory fialure with pulmonary edema for which he got intubated and admited to ICU. Apparently he developed acute Left hemiparesis on 2016. His MRI of brain showed small scattered acute infarcts in both cerebellar hemispheres as well as the cerebral hemispheres. There is no evidence of hemorrhage or mass effect. Pt seems to be incompetent to make any medical decision, also unable to find any family members / next to kin. At this point he was evaluated by psychiatrist on 04/03/17 for his competence and signed appropriate paperwork. Now we are waiting on court appointed corporate associate attorney response for temporary guardianship. I have seen the pt and examined him at bed side today. No events over night. He is alert, awake and oriented to place and self only. Denied any CP / SOB - Constitutional Vitals: Temp Pulse Resp BP Pulse Ox 98.4 F 58 18 135/76 96 04/09/17 07:25 04/09/17 07:25 04/09/17 07:25 04/09/17 07:25 04/09/17 07:25 General appearance: Present: cooperative, A&O X 1, pleasant, no acute distress, answers questions appropriately - Head Head exam: Present: atraumatic, normal inspection - Respiratory Respiratory exam: Present: decreased breath sounds. Absent: rales, respiratory distress, rhonchi, wheezes - Cardiovascular Cardiovascular exam: Present: +S1, +S2. Absent: systolic murmur - GI/Abdominal GI/Abdominal exam: Present: normal bowel sounds, soft. Absent: rebound, rigid, tenderness - Back Exam Back exam: Absent: CVA tenderness (L), CVA tenderness (R) - Neurological Exam Neurological exam: Present: alert - Psychiatric Psychiatric exam: Present: normal affect, normal mood Internal Medicine: Result - Labs CBC & Chem 7: 04/05/17 06:10 04/05/17 06:10 - ABG Interpretation ABG results: ABG ABG pH 7.48 pH Units (7.32-7.45) H 03/05/17 04:50 ABG pCO2 38 mmHg (35-45) 03/05/17 04:50 ABG pO2 89 mmHg (85-104) 03/05/17 04:50 ABG O2 Saturation 97 % (95-98) 03/05/17 04:50 PT/INR, D-dimer PT 31.4 Seconds (9.4-12.1) H 04/08/17 04:02 Consult Discharge Plan - Plan Referrals: NONE,PCP [Primary Care Provider] - (working on placement to [facility], will follow up with PCP at [facility])
[2017-04-09] MEDS: Lisinopril 20 MG TABLET PO SCH (08:34)
[2017-04-09] MEDS: Aspirin 81 MG TAB.CHEW PO SCH (08:34)
[2017-04-09] MEDS: amLODIPine 5 MG TABLET PO SCH (08:34)
[2017-04-09] MEDS: *HR* Ticagrelor 90 MG TABLET PO SCH ×2 (08:34→20:03)
[2017-04-09] MEDS: *HR* Warfarin 2 MG TABLET PO SCH (18:02)
[2017-04-09] MEDS: Mirtazapine 15 MG TABLET PO SCH (20:04)
[2017-04-10] MEDS: amLODIPine 5 MG TABLET PO SCH (07:51)
[2017-04-10] MEDS: Aspirin 81 MG TAB.CHEW PO SCH (07:51)
[2017-04-10] MEDS: *HR* Ticagrelor 90 MG TABLET PO SCH ×2 (07:51→20:55)
[2017-04-10] MEDS: Lisinopril 20 MG TABLET PO SCH (07:51)
--- NOTE | 2017-04-10 07:53 | Internal Med Progress Note ---
Date of Encounter: 04/10/17 Time of Encounter: 07:46 - Assessment and plan (1) STEMI (ST elevation myocardial infarction) Current Visit: Yes Status: Acute Assessment and plan: s/p PTCA/EVER in proximal and mid LAD 02/28/17 No chest pain and hemo dynamically stable at this time Continue dual anti platelet therapy ASA and Brilinta, BB, Lisinopril, Crestor Qualifiers: Involved coronary artery: LAD coronary artery Qualified Code(s): I21.02 - ST elevation (STEMI) myocardial infarction involving left anterior descending coronary artery (2) Acute systolic CHF (congestive heart failure) Current Visit: Yes Status: Resolved Assessment and plan: Patient is euvolemic, denies dyspnea, orthopnea. Not in exacerbation Congestive heart failure with reduced ejection fraction of 25% by transthoracic echocardiogram. Cont Coreg and Lisinopril and Statin no need of diuretics now (3) CVA (cerebral vascular accident) Current Visit: Yes Status: Acute Assessment and plan: Embolic stroke Continue with PT/OT Waiting on placement mean while will continue current symptomatic and supportive care cont Coumadin for anticoag cont statin 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 (4) Atrial fibrillation Current Visit: Yes Status: Chronic Assessment and plan: Rate controlled with Coreg INR is therapeutic Continue Coumadin Qualifiers: Atrial fibrillation type: paroxysmal Qualified Code(s): I48.0 - Paroxysmal atrial fibrillation (5) Encounter for evaluation of ability to make decisions regarding care Current Visit: Yes Status: Acute Assessment and plan: Patient's mental status has remained stable Psych re-evaluated competency 04/03 and has signed appropriate paperwork Still awaiting court appointed cfa response for temporary guardianship, Social work will contact risk/legal for additional options mean while will continue current supportive care - Subjective Interval history: Mr. Patel is a 66 y/o M with known PMH of HTN and heavy smoking history who presented to our ER on 02/28/17 with chief complaint of chest pain. Pt happened to have acute STEMI, ateroseptal [place] with severely elevated Troponin in 50's. Pt did to for [facility] with stent placement of Proximal and Mid LAD. He went into acute repsiratory fialure with pulmonary edema for which he got intubated and admited to ICU. Apparently he developed acute Left hemiparesis on 2016. His MRI of brain showed small scattered acute infarcts in both cerebellar hemispheres as well as the cerebral hemispheres. There is no evidence of hemorrhage or mass effect. Pt seems to be incompetent to make any medical decision, also unable to find any family members / next to kin. At this point he was evaluated by psychiatrist on 04/03/17 for his competence and signed appropriate paperwork. Now we are waiting on court appointed cfa response for temporary guardianship. I have seen the pt and examined him at bed side today. No events over night. He is alert, awake and oriented to place and self only. Denied any CP / SOB - Constitutional Vitals: Temp Pulse Resp BP Pulse Ox 97.7 F 57 16 135/75 96 04/10/17 07:06 04/10/17 07:06 04/10/17 07:06 04/10/17 07:06 04/10/17 07:06 General appearance: Present: cooperative, A&O X 1, pleasant, no acute distress, answers questions appropriately - Head Head exam: Present: atraumatic, normal inspection - Respiratory Respiratory exam: Present: decreased breath sounds. Absent: rales, respiratory distress, rhonchi, wheezes - Cardiovascular Cardiovascular exam: Present: RRR, +S1, +S2. Absent: systolic murmur - GI/Abdominal GI/Abdominal exam: Present: soft. Absent: rebound, rigid, tenderness - Extremities Exam Extremities exam: Absent: calf tenderness, pedal edema, tenderness - Neurological Exam Neurological exam: Present: alert, altered, CN II-XII intact, strengths equal and symetr throughout. Absent: pronater drift, facial droop, speech deficit - Psychiatric Psychiatric exam: Present: normal affect Internal Medicine: Result - Labs CBC & Chem 7: 04/05/17 06:10 04/05/17 06:10 - ABG Interpretation ABG results: ABG ABG pH 7.48 pH Units (7.32-7.45) H 03/05/17 04:50 ABG pCO2 38 mmHg (35-45) 03/05/17 04:50 ABG pO2 89 mmHg (85-104) 03/05/17 04:50 ABG O2 Saturation 97 % (95-98) 03/05/17 04:50 PT/INR, D-dimer PT 31.4 Seconds (9.4-12.1) H 04/08/17 04:02 Consult Discharge Plan - Plan Referrals: NONE,PCP [Primary Care Provider] - (working on placement to [facility], will follow up with PCP at [facility])
[2017-04-10] MEDS: *HR* Warfarin 2 MG TABLET PO SCH (17:10)
[2017-04-10] MEDS: Mirtazapine 15 MG TABLET PO SCH (20:52)
[2017-04-11] MEDS: Lisinopril 20 MG TABLET PO SCH (07:43)
[2017-04-11] MEDS: amLODIPine 5 MG TABLET PO SCH (07:43)
[2017-04-11] MEDS: Aspirin 81 MG TAB.CHEW PO SCH (07:44)
[2017-04-11] MEDS: *HR* Ticagrelor 90 MG TABLET PO SCH ×2 (07:44→20:26)
--- NOTE | 2017-04-11 08:29 | Internal Med Progress Note ---
Date of Encounter: 04/11/17 Time of Encounter: 08:09 - Assessment and plan (1) STEMI (ST elevation myocardial infarction) Current Visit: Yes Status: Acute Assessment and plan: s/p PTCA/EVER in proximal and mid LAD 02/28/17 No chest pain and hemo dynamically stable at this time Continue dual anti platelet therapy ASA and Brilinta, BB, Lisinopril, Crestor Qualifiers: Involved coronary artery: LAD coronary artery Qualified Code(s): I21.02 - ST elevation (STEMI) myocardial infarction involving left anterior descending coronary artery (2) Acute systolic CHF (congestive heart failure) Current Visit: Yes Status: Resolved Assessment and plan: Patient is euvolemic, denies dyspnea, orthopnea. Not in exacerbation Congestive heart failure with reduced ejection fraction of 25% by transthoracic echocardiogram. Cont Coreg and Lisinopril and Statin no need of diuretics now (3) CVA (cerebral vascular accident) Current Visit: Yes Status: Acute Assessment and plan: Embolic stroke Continue with PT/OT Waiting on placement mean while will continue current symptomatic and supportive care cont Coumadin for anticoag cont statin 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 (4) Atrial fibrillation Current Visit: Yes Status: Chronic Assessment and plan: Rate controlled with Coreg INR is therapeutic Continue Coumadin Qualifiers: Atrial fibrillation type: paroxysmal Qualified Code(s): I48.0 - Paroxysmal atrial fibrillation (5) Encounter for evaluation of ability to make decisions regarding care Current Visit: Yes Status: Acute Assessment and plan: Patient's mental status has remained stable Psych re-evaluated competency 04/03 and has signed appropriate paperwork Court appointed health care attorney Haile Blanc's office staff informed - they re waiting on a hearing date to be set by the court to review guardianship mean while will continue current supportive care - Subjective Interval history: Mr. Patel is a 66 y/o M with known PMH of HTN and heavy smoking history who presented to our ER on 02/28/17 with chief complaint of chest pain. Pt happened to have acute STEMI, ateroseptal [place] with severely elevated Troponin in 50's. Pt did to for [facility] with stent placement of Proximal and Mid LAD. He went into acute repsiratory fialure with pulmonary edema for which he got intubated and admited to ICU. Apparently he developed acute Left hemiparesis on 2016. His MRI of brain showed small scattered acute infarcts in both cerebellar hemispheres as well as the cerebral hemispheres. There is no evidence of hemorrhage or mass effect. Pt seems to be incompetent to make any medical decision, also unable to find any family members / next to kin. At this point he was evaluated by psychiatrist on 04/03/17 for his competence and signed appropriate paperwork. Now we are waiting on court appointed health care attorney response for temporary guardianship. I have seen the pt and examined him at bed side today. No events over night. He is alert, awake and oriented to place and self only. Denied any CP / SOB - Constitutional Vitals: Temp Pulse Resp BP Pulse Ox 98.3 F 89 15 131/79 99 04/11/17 07:07 04/11/17 07:07 04/11/17 07:07 04/11/17 07:07 04/11/17 07:07 General appearance: Present: cooperative, A&O X 1, pleasant, no acute distress, answers questions appropriately - Head Head exam: Present: atraumatic, normal inspection - Respiratory Respiratory exam: Present: CTAB. Absent: accessory muscle use, rales, rhonchi, wheezes - Cardiovascular Cardiovascular exam: Present: RRR, +S1, +S2. Absent: diastolic murmur, gallop, rubs, systolic murmur - GI/Abdominal GI/Abdominal exam: Present: soft. Absent: rebound, rigid, tenderness - Extremities Exam Extremities exam: Absent: calf tenderness, pedal edema, tenderness - Neurological Exam Neurological exam: Present: alert, CN II-XII intact. Absent: facial droop Internal Medicine: Result - Labs CBC & Chem 7: 04/05/17 06:10 04/05/17 06:10 - ABG Interpretation ABG results: ABG ABG pH 7.48 pH Units (7.32-7.45) H 03/05/17 04:50 ABG pCO2 38 mmHg (35-45) 03/05/17 04:50 ABG pO2 89 mmHg (85-104) 03/05/17 04:50 ABG O2 Saturation 97 % (95-98) 03/05/17 04:50 PT/INR, D-dimer PT 31.4 Seconds (9.4-12.1) H 04/08/17 04:02 Consult Discharge Plan - Plan Referrals: NONE,PCP [Primary Care Provider] - (working on placement to [facility], will follow up with PCP at [facility])
[2017-04-11] MEDS: *HR* Warfarin 2 MG TABLET PO SCH (16:49)
[2017-04-11] MEDS: Mirtazapine 15 MG TABLET PO SCH (20:27)
[2017-04-12 05:13] LABS: Basophils # 0.1 K/mcL (0.0-0.2); Basophils % 0.6 %; Eosinophils # 0.2 K/mcL (0.0-0.6); Eosinophils % 2.3 %; Hematocrit 29.3 % (37.5-50.1); Hemoglobin 10.3 g/dL (12.9-16.9); Immature Granulocytes % 0.4 % (0-4); Lymphocytes # 2.1 K/mcL (0.6-4.6); Lymphocytes % 21.5 %; Mean Corpuscular HGB Conc 35.2 g/dL (31.6-35.5); Mean Corpuscular Volume 85.4 fL (83.0-100.0); Mean Platelet Volume 10.5 fL (9.4-12.4); Monocytes # 0.6 K/mcL (0.0-1.3); Monocytes % 5.9 %; Neutrophils # 6.7 K/mcL (1.6-8.9); Platelet Count 196 K/mcL (140-400); Red Blood Count 3.43 M/mcL (4.19-5.50); Red Cell Distribution Width 13.7 % (11.5-14.5); Segmented Neutrophils % 69.3 %
[2017-04-12 05:15] LABS: INR 2.2; Prothrombin Time 23.7 Seconds (9.4-12.1)
[2017-04-12 05:23] LABS: BUN/Creatinine Ratio 19 (6-26); Blood Urea Nitrogen 20 mg/dL (8-26); Calcium 9.5 mg/dL (8.6-10.8); Carbon Dioxide 21 mEq/L (19-29); Chloride 111 mEq/L (98-109); Glucose 87 mg/dL (70-99); Osmolality,Calculated 292 (280-300); Potassium 3.8 mEq/L (3.5-4.5); Sodium 140 mEq/L (136-145); eGFR For African Americans > 60 (> 60); eGFR For Non-African Americans > 60 (> 60)
[2017-04-12] MEDS: *HR* Ticagrelor 90 MG TABLET PO SCH ×2 (08:39→20:42)
[2017-04-12] MEDS: Lisinopril 20 MG TABLET PO SCH (08:40)
[2017-04-12] MEDS: amLODIPine 5 MG TABLET PO SCH (08:40)
[2017-04-12] MEDS: Aspirin 81 MG TAB.CHEW PO SCH (08:40)
--- NOTE | 2017-04-12 13:25 | Internal Med Progress Note ---
Date of Encounter: 04/12/17 Time of Encounter: 08:00 - Assessment and plan (1) STEMI (ST elevation myocardial infarction) Current Visit: Yes Status: Acute Assessment and plan: s/p PTCA/EVER in proximal and mid LAD 02/28/17 No chest pain and hemo dynamically stable at this time Continue dual anti platelet therapy ASA and Brilinta, BB, Lisinopril, Crestor Qualifiers: Involved coronary artery: LAD coronary artery Qualified Code(s): I21.02 - ST elevation (STEMI) myocardial infarction involving left anterior descending coronary artery (2) Acute systolic CHF (congestive heart failure) Current Visit: Yes Status: Resolved Assessment and plan: Patient is euvolemic, denies dyspnea, orthopnea. Not in exacerbation Congestive heart failure with reduced ejection fraction of 25% by transthoracic echocardiogram. Cont Coreg and Lisinopril and Statin no need of diuretics now Reviewed labs.. stable electrolytes (3) CVA (cerebral vascular accident) Current Visit: Yes Status: Acute Assessment and plan: Embolic stroke Continue with PT/OT Waiting on placement mean while will continue current symptomatic and supportive care cont Coumadin for anticoag cont statin Reviewed labs stable Hb 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 (4) Atrial fibrillation Current Visit: Yes Status: Chronic Assessment and plan: Rate controlled with Coreg INR is therapeutic Continue Coumadin Qualifiers: Atrial fibrillation type: paroxysmal Qualified Code(s): I48.0 - Paroxysmal atrial fibrillation (5) Encounter for evaluation of ability to make decisions regarding care Current Visit: Yes Status: Acute Assessment and plan: Patient's mental status has remained stable Psych re-evaluated competency 04/03 and has signed appropriate paperwork Court appointed tax attorney Haile Blanc's office staff informed - they re waiting on a hearing date to be set by the court to review guardianship mean while will continue current supportive care - Subjective Interval history: Mr. Patel is a 66 y/o M with known PMH of HTN and heavy smoking history who presented to our ER on 02/28/17 with chief complaint of chest pain. Pt happened to have acute STEMI, ateroseptal [place] with severely elevated Troponin in 50's. Pt did to for [facility] with stent placement of Proximal and Mid [facility] which he got intub[facility] and admited to ICU. Apparently he developed acute Left hemiparesis on 2016. His MRI of brain showed small scattered acute infarcts in both cerebellar hemispheres as well as the cerebral hemispheres. There is no evidence of hemorrhage or mass effect. Pt seems to be incompetent to make any medical decision, also unable to find any family members / next to kin. At this point he was evaluated by psychiatrist on 04/03/17 for his competence and signed appropriate paperwork. Now we are waiting on court appointed tax attorney response for temporary guardianship. I have seen the pt and examined him at bed side today. No events over night. He is alert, awake and oriented to place and self only. Denied any CP / SOB - Constitutional Vitals: Temp Pulse Resp BP Pulse Ox 98.0 F 63 13 125/74 96 04/12/17 11:59 04/12/17 11:59 04/12/17 11:59 04/12/17 11:59 04/12/17 11:59 General appearance: Present: cooperative, A&O X 1, pleasant, no acute distress, answers questions appropriately - Head Head exam: Present: atraumatic, normal inspection - Respiratory Respiratory exam: Present: CTAB. Absent: respiratory distress, rhonchi, wheezes - Cardiovascular Cardiovascular exam: Present: RRR, +S1, +S2. Absent: diastolic murmur, gallop, rubs, systolic murmur - Extremities Exam Extremities exam: Absent: calf tenderness, pedal edema, tenderness - Neurological Exam Neurological exam: Present: alert, CN II-XII intact - Psychiatric Psychiatric exam: Present: normal affect, normal mood Internal Medicine: Result - Labs CBC & Chem 7: 04/12/17 04:40 04/12/17 04:40 Labs: Short CBC 04/12/17 Range/Units 04:40 WBC 9.6 (4.3-11.1) K/mcL Hgb 10.3 L (12.9-16.9) g/dL Hct 29.3 L (37.5-50.1) % Plt Count 196 (140-400) K/mcL Neutrophils # 6.7 (1.6-8.9) K/mcL BMP 04/12/17 04:40 Sodium 140 Potassium 3.8 Chloride 111 H Carbon Dioxide 21 BUN 20 Creatinine 1.06 Glucose 87 Calcium 9.5 - ABG Interpretation ABG results: ABG ABG pH 7.48 pH Units (7.32-7.45) H 03/05/17 04:50 ABG pCO2 38 mmHg (35-45) 03/05/17 04:50 ABG pO2 89 mmHg (85-104) 03/05/17 04:50 ABG O2 Saturation 97 % (95-98) 03/05/17 04:50 PT/INR, D-dimer PT 23.7 Seconds (9.4-12.1) H 04/12/17 04:40 Consult Discharge Plan - Plan Referrals: NONE,PCP [Primary Care Provider] - (working on placement to [facility], will follow up with PCP at [facility])
[2017-04-12] MEDS ORDERED: *HR* Warfarin 2.5 MG TABLET PO ONE (18:00)
[2017-04-12] MEDS: Mirtazapine 15 MG TABLET PO SCH (20:42)
[2017-04-13 05:19] LABS: INR 2.5; Prothrombin Time 27.2 Seconds (9.4-12.1)
[2017-04-13] MEDS: amLODIPine 5 MG TABLET PO SCH (08:04)
[2017-04-13] MEDS: *HR* Ticagrelor 90 MG TABLET PO SCH ×2 (08:04→21:10)
[2017-04-13] MEDS: Lisinopril 20 MG TABLET PO SCH (08:04)
[2017-04-13] MEDS: Aspirin 81 MG TAB.CHEW PO SCH (08:05)
--- NOTE | 2017-04-13 08:43 | Internal Med Progress Note ---
Date of Encounter: 04/13/17 Time of Encounter: 08:20 - Assessment and plan (1) CAD (coronary artery disease) Current Visit: Yes Status: Acute Assessment and plan: s/p PTCA/EVER in proximal and mid LAD 02/28/17 No chest pain and hemo dynamically stable at this time Continue BB, Lisinopril, Crestor and dual anti platelet therapy ASA and Brilinta , Qualifiers: Coronary Disease-Associated Artery/Lesion type: [place] artery Qualified Code(s): I25.10 - Atherosclerotic heart disease of [place] coronary artery without angina pectoris (2) STEMI (ST elevation myocardial infarction) Current Visit: Yes Status: Acute Qualifiers: Involved coronary artery: LAD coronary artery Qualified Code(s): I21.02 - ST elevation (STEMI) myocardial infarction involving left anterior descending coronary artery (3) Acute systolic CHF (congestive heart failure) Current Visit: Yes Status: Resolved Assessment and plan: Patient is euvolemic, denies dyspnea, orthopnea. Not in exacerbation Congestive heart failure with reduced ejection fraction of 25% by transthoracic echocardiogram. Cont Coreg and Lisinopril and Statin no need of diuretics now Reviewed labs.. stable electrolytes (4) CVA (cerebral vascular accident) Current Visit: Yes Status: Acute Assessment and plan: Embolic stroke Continue with PT/OT Waiting on placement mean while will continue current symptomatic and supportive care cont Coumadin for anticoag cont statin Reviewed labs stable Hb 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 (5) Atrial fibrillation Current Visit: Yes Status: Chronic Assessment and plan: Rate controlled with Coreg INR is therapeutic Continue Coumadin Qualifiers: Atrial fibrillation type: paroxysmal Qualified Code(s): I48.0 - Paroxysmal atrial fibrillation (6) Encounter for evaluation of ability to make decisions regarding care Current Visit: Yes Status: Acute Assessment and plan: Patient's mental status has remained stable Psych re-evaluated competency 04/03 and has signed appropriate paperwork Court appointed blood tester fowl Haile Blanc's office staff informed - they are waiting on a hearing date to be set by the court to review guardianship mean while will continue current supportive care - Subjective Interval history: Mr. Patel is a 66 y/o M with known PMH of HTN and heavy smoking history who presented to our ER on 02/28/17 with chief complaint of chest pain. Pt happened to have acute STEMI, ateroseptal [place] with severely elevated Troponin in 50's. Pt did to for [facility] with stent placement of Proximal and Mid LAD. He went into acute repsiratory fialure with pulmonary edema for which he got intubated and admited to ICU. Apparently he developed acute Left hemiparesis on 2016. His MRI of brain showed small scattered acute infarcts in both cerebellar hemispheres as well as the cerebral hemispheres. There is no evidence of hemorrhage or mass effect. Pt seems to be incompetent to make any medical decision, also unable to find any family members / next to kin. At this point he was evaluated by psychiatrist on 04/03/17 for his competence and signed appropriate paperwork. Now we are waiting on court appointed blood tester fowl response for temporary guardianship. I have seen the pt and examined him at bed side today. Resting comfortably in a chair and having his breakfast. No events over night. He is alert, awake and oriented to place and self only. Denied any CP / SOB. - Constitutional Vitals: Temp Pulse Resp BP Pulse Ox 97.7 F 56 14 116/70 97 04/13/17 07:32 04/13/17 07:32 04/13/17 07:32 04/13/17 07:32 04/13/17 07:32 General appearance: Present: cooperative, A&O X 1, pleasant, no acute distress, answers questions appropriately - Head Head exam: Present: atraumatic, normal inspection - Respiratory Respiratory exam: Present: decreased breath sounds. Absent: respiratory distress, rhonchi, wheezes - Cardiovascular Cardiovascular exam: Present: RRR, +S1, +S2. Absent: systolic murmur - GI/Abdominal GI/Abdominal exam: Present: soft. Absent: rebound, rigid, tenderness - Extremities Exam Extremities exam: Absent: calf tenderness, pedal edema, tenderness - Neurological Exam Neurological exam: Present: alert, CN II-XII intact. Absent: facial droop - Psychiatric Psychiatric exam: Present: normal affect, normal mood Internal Medicine: Result - Labs CBC & Chem 7: 04/12/17 04:40 04/12/17 04:40 - ABG Interpretation ABG results: ABG ABG pH 7.48 pH Units (7.32-7.45) H 03/05/17 04:50 ABG pCO2 38 mmHg (35-45) 03/05/17 04:50 ABG pO2 89 mmHg (85-104) 03/05/17 04:50 ABG O2 Saturation 97 % (95-98) 03/05/17 04:50 PT/INR, D-dimer PT 27.2 Seconds (9.4-12.1) H 04/13/17 04:07 Consult Discharge Plan - Plan Referrals: NONE,PCP [Primary Care Provider] - (working on placement to [facility], will follow up with PCP at [facility])
[2017-04-13] MEDS: *HR* Warfarin 2 MG TABLET PO SCH (17:12)
[2017-04-13] MEDS: Mirtazapine 15 MG TABLET PO SCH (21:11)
[2017-04-14 04:12] LABS: INR 2.7; Prothrombin Time 29.3 Seconds (9.4-12.1)
[2017-04-14] MEDS: Aspirin 81 MG TAB.CHEW PO SCH (07:56)
[2017-04-14] MEDS: *HR* Ticagrelor 90 MG TABLET PO SCH ×2 (07:56→20:54)
[2017-04-14] MEDS: Lisinopril 20 MG TABLET PO SCH (07:56)
[2017-04-14] MEDS: amLODIPine 5 MG TABLET PO SCH (07:56)
--- NOTE | 2017-04-14 07:59 | Internal Med Progress Note ---
Date of Encounter: 04/14/17 Time of Encounter: 07:45 - Assessment and plan (1) CAD (coronary artery disease) Current Visit: Yes Status: Acute Assessment and plan: s/p PTCA/EVER in proximal and mid LAD 02/28/17 No chest pain and hemo dynamically stable at this time Continue BB, Lisinopril, Crestor and dual anti platelet therapy ASA and Brilinta , Qualifiers: Coronary Disease-Associated Artery/Lesion type: [place] artery Qualified Code(s): I25.10 - Atherosclerotic heart disease of [place] coronary artery without angina pectoris (2) STEMI (ST elevation myocardial infarction) Current Visit: Yes Status: Acute Assessment and plan: s/p PTCA/EVER in proximal and mid LAD 02/28/17 No chest pain and hemo dynamically stable at this time Continue dual anti platelet therapy ASA and Brilinta, BB, Lisinopril, Crestor Qualifiers: Involved coronary artery: LAD coronary artery Qualified Code(s): I21.02 - ST elevation (STEMI) myocardial infarction involving left anterior descending coronary artery (3) Acute systolic CHF (congestive heart failure) Current Visit: Yes Status: Resolved Assessment and plan: Patient is euvolemic, denies dyspnea, orthopnea. Not in exacerbation Congestive systolic heart failure with reduced ejection fraction of 25% by TTE Cont Coreg and Lisinopril and Statin no need of diuretics now (4) CVA (cerebral vascular accident) Current Visit: Yes Status: Acute Assessment and plan: Embolic stroke Continue with PT/OT Waiting on placement mean while will continue current symptomatic and supportive care cont Coumadin for anticoag cont statin Reviewed labs therapeutic INR 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 (5) Atrial fibrillation Current Visit: Yes Status: Chronic Assessment and plan: Rate controlled with Coreg INR is therapeutic Continue Coumadin Qualifiers: Atrial fibrillation type: paroxysmal Qualified Code(s): I48.0 - Paroxysmal atrial fibrillation (6) Encounter for evaluation of ability to make decisions regarding care Current Visit: Yes Status: Acute Assessment and plan: Patient's mental status has remained stable Psych re-evaluated competency 04/03 and has signed appropriate paperwork Court appointed criminal defense attorney Haile Blanc's office staff informed - they are waiting on a hearing date to be set by the court to review guardianship mean while will continue current supportive care - Subjective Interval history: Mr. Patel is a 66 y/o M with known PMH of HTN and heavy smoking history who presented to our ER on 02/28/17 with chief complaint of chest pain. Pt happened to have acute STEMI, ateroseptal VA with severely elevated Troponin in 50's. Pt did to for emergency LHC with stent placement of Proximal and Mid LAD. He went into acute repsiratory fialure with pulmonary edema for which he got intubated and admited to ICU. Apparently he developed acute Left hemiparesis on 2016. His MRI of brain showed small scattered acute infarcts in both cerebellar hemispheres as well as the cerebral hemispheres. There is no evidence of hemorrhage or mass effect. Pt seems to be incompetent to make any medical decision, also unable to find any family members / next to kin. At this point he was evaluated by psychiatrist on 04/03/17 for his competence and signed appropriate paperwork. Now we are waiting on court appointed criminal defense attorney response for temporary guardianship. I have seen the pt and examined him at bed side today. Resting comfortably in bed. No events over night. He is alert, awake and oriented to place and self only. Denied any CP / SOB. - Constitutional Vitals: Temp Pulse Resp BP Pulse Ox 98.3 F 67 16 138/75 94 04/14/17 07:13 04/14/17 07:13 04/14/17 07:13 04/14/17 07:13 04/14/17 07:13 General appearance: Present: cooperative, A&O X 1, pleasant, no acute distress, answers questions appropriately - Head Head exam: Present: atraumatic, normal inspection - Respiratory Respiratory exam: Present: decreased breath sounds. Absent: rales, respiratory distress, rhonchi, wheezes - Cardiovascular Cardiovascular exam: Present: RRR, +S1, +S2. Absent: systolic murmur - GI/Abdominal GI/Abdominal exam: Present: normal bowel sounds, soft. Absent: rebound, rigid, tenderness - Extremities Exam Extremities exam: Absent: calf tenderness, pedal edema, tenderness - Neurological Exam Neurological exam: Present: alert, strengths equal and symetr throughout. Absent: pronater drift, facial droop, speech deficit - Psychiatric Psychiatric exam: Present: normal affect, normal mood Internal Medicine: Result - Labs CBC & Chem 7: 04/12/17 04:40 04/12/17 04:40 - ABG Interpretation ABG results: ABG ABG pH 7.48 pH Units (7.32-7.45) H 03/05/17 04:50 ABG pCO2 38 mmHg (35-45) 03/05/17 04:50 ABG pO2 89 mmHg (85-104) 03/05/17 04:50 ABG O2 Saturation 97 % (95-98) 03/05/17 04:50 PT/INR, D-dimer PT 29.3 Seconds (9.4-12.1) H 04/14/17 02:46 Consult Discharge Plan - Plan Referrals: NONE,PCP [Primary Care Provider] - (working on placement to [facility], will follow up with PCP at [facility])
[2017-04-14] MEDS: *HR* Warfarin 2 MG TABLET PO SCH (17:29)
[2017-04-14] MEDS: Mirtazapine 15 MG TABLET PO SCH (20:54)
[2017-04-15 05:44] LABS: INR 2.7; Prothrombin Time 30.2 Seconds (9.4-12.1)
[2017-04-15] MEDS: amLODIPine 5 MG TABLET PO SCH (07:37)
[2017-04-15] MEDS: Lisinopril 20 MG TABLET PO SCH (07:38)
[2017-04-15] MEDS: *HR* Ticagrelor 90 MG TABLET PO SCH ×2 (07:38→21:45)
[2017-04-15] MEDS: Aspirin 81 MG TAB.CHEW PO SCH (07:38)
--- NOTE | 2017-04-15 10:15 | Internal Med Progress Note ---
Date of Encounter: 04/15/17 Time of Encounter: 10:13 - Assessment and plan (1) CAD (coronary artery disease) Current Visit: Yes Status: Acute Assessment and plan: s/p PTCA/EVER in proximal and mid LAD 02/28/17 No chest pain and hemo dynamically stable at this time Continue BB, Lisinopril, Crestor and dual anti platelet therapy ASA and Brilinta , Qualifiers: Coronary Disease-Associated Artery/Lesion type: [place] artery Associated angina: with unstable angina Qualified Code(s): I25.110 - Atherosclerotic heart disease of [place] coronary artery with unstable angina pectoris (2) STEMI (ST elevation myocardial infarction) Current Visit: Yes Status: Acute Assessment and plan: s/p PTCA/EVER in proximal and mid LAD 02/28/17 No chest pain and hemo dynamically stable at this time Continue dual anti platelet therapy ASA and Brilinta, BB, Lisinopril, Crestor Qualifiers: Involved coronary artery: LAD coronary artery Qualified Code(s): I21.02 - ST elevation (STEMI) myocardial infarction involving left anterior descending coronary artery (3) Acute systolic CHF (congestive heart failure) Current Visit: Yes Status: Resolved Assessment and plan: Patient is euvolemic, denies dyspnea, orthopnea. Not in exacerbation Congestive systolic heart failure with reduced ejection fraction of 25% by TTE Cont Coreg and Lisinopril and Statin no need of diuretics now (4) CVA (cerebral vascular accident) Current Visit: Yes Status: Acute Assessment and plan: Embolic stroke Continue with PT/OT Waiting on placement mean while will continue current symptomatic and supportive care cont Coumadin for anticoag cont statin Reviewed labs therapeutic INR 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 (5) Atrial fibrillation Current Visit: Yes Status: Chronic Assessment and plan: Rate controlled with Coreg INR is therapeutic Continue Coumadin Qualifiers: Atrial fibrillation type: paroxysmal Qualified Code(s): I48.0 - Paroxysmal atrial fibrillation (6) Encounter for evaluation of ability to make decisions regarding care Current Visit: Yes Status: Acute Assessment and plan: Patient's mental status has remained stable Psych re-evaluated competency 04/03 and has signed appropriate paperwork Court appointed criminal attorney Haile Blanc's office staff informed - they are waiting on a hearing date to be set by the court to review guardianship mean while will continue current supportive care - Subjective Interval history: Mr. Patel is a 66 y/o M with known PMH of HTN and heavy smoking history who presented to our ER on 02/28/17 with chief complaint of chest pain. Pt happened to have acute STEMI, ateroseptal CT with severely elevated Troponin in 50's. Pt did to for emergency LHC with stent placement of Proximal and Mid LAD. He went into acute repsiratory fialure with pulmonary edema for which he got intubated and admited to ICU. Apparently he developed acute Left hemiparesis on 2016. His MRI of brain showed small scattered acute infarcts in both cerebellar hemispheres as well as the cerebral hemispheres. There is no evidence of hemorrhage or mass effect. Pt seems to be incompetent to make any medical decision, also unable to find any family members / next to kin. At this point he was evaluated by psychiatrist on 04/03/17 for his competence and signed appropriate paperwork. Now we are waiting on court appointed criminal attorney response for temporary guardianship. I have seen the pt and examined him at bed side today. Resting comfortably in bed. No events over night. He is alert, awake and oriented to place and self only. Denied any CP / SOB. - Constitutional Vitals: Temp Pulse Resp BP Pulse Ox 97.5 F L 60 17 122/69 97 04/15/17 07:12 04/15/17 07:12 04/15/17 07:12 04/15/17 07:12 04/15/17 07:12 General appearance: Present: cooperative, A&O X 1, pleasant, no acute distress, answers questions appropriately - Head Head exam: Present: atraumatic, normal inspection - Respiratory Respiratory exam: Present: decreased breath sounds. Absent: respiratory distress, rhonchi, wheezes - Cardiovascular Cardiovascular exam: Present: RRR, +S1, +S2. Absent: diastolic murmur, gallop, rubs, systolic murmur - GI/Abdominal GI/Abdominal exam: Present: soft. Absent: rebound, rigid, tenderness - Extremities Exam Extremities exam: Absent: calf tenderness, pedal edema, tenderness - Neurological Exam Neurological exam: Present: alert, CN II-XII intact, reflexes normal. Absent: facial droop, speech deficit - Psychiatric Psychiatric exam: Present: normal affect, normal mood Internal Medicine: Result - Labs CBC & Chem 7: 04/12/17 04:40 04/12/17 04:40 - ABG Interpretation ABG results: ABG ABG pH 7.48 pH Units (7.32-7.45) H 03/05/17 04:50 ABG pCO2 38 mmHg (35-45) 03/05/17 04:50 ABG pO2 89 mmHg (85-104) 03/05/17 04:50 ABG O2 Saturation 97 % (95-98) 03/05/17 04:50 PT/INR, D-dimer PT 30.2 Seconds (9.4-12.1) H 04/15/17 05:13 Consult Discharge Plan - Plan Referrals: NONE,PCP [Primary Care Provider] - (working on placement to [facility], will follow up with PCP at [facility])
[2017-04-15] MEDS: *HR* Warfarin 2 MG TABLET PO SCH (17:18)
[2017-04-15] MEDS: Mirtazapine 15 MG TABLET PO SCH (21:45)
[2017-04-16 05:52] LABS: INR 2.8
[2017-04-16] MEDS: *HR* Ticagrelor 90 MG TABLET PO SCH ×2 (09:32→21:32)
[2017-04-16] MEDS: amLODIPine 5 MG TABLET PO SCH (09:32)
[2017-04-16] MEDS: Aspirin 81 MG TAB.CHEW PO SCH (09:32)
[2017-04-16] MEDS: Lisinopril 20 MG TABLET PO SCH (09:32)
--- NOTE | 2017-04-16 15:10 | Internal Med Progress Note ---
Date of Encounter: 04/16/17 Time of Encounter: 09:50 - Assessment and plan (1) CAD (coronary artery disease) Current Visit: Yes Status: Acute Assessment and plan: No chest pain. On aspirin, Coreg, Brilinta, lisinopril. Doing well overall. Awaiting guardianship advertising account executive through the court system for placement Qualifiers: Coronary Disease-Associated Artery/Lesion type: [place] artery Associated angina: with unstable angina Qualified Code(s): I25.110 - Atherosclerotic heart disease of [place] coronary artery with unstable angina pectoris (2) Acute systolic CHF (congestive heart failure) Current Visit: Yes Status: Resolved Assessment and plan: Was treated with diuretics initially. Currently euvolemic. On Coreg and lisinopril and statin. Not currently on diuretics (3) Atrial fibrillation Current Visit: Yes Status: Chronic Assessment and plan: Rate controlled. On anticoagulation with Eliquis Qualifiers: Atrial fibrillation type: paroxysmal Qualified Code(s): I48.0 - Paroxysmal atrial fibrillation (4) CVA (cerebral vascular accident) Current Visit: Yes Status: Chronic Assessment and plan: Recent acute stroke. On aspirin and statin and anticoagulation. Continue physical therapy 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 (5) STEMI (ST elevation myocardial infarction) Current Visit: Yes Status: Resolved Assessment and plan: Status post-PCI and stent placement Qualifiers: Involved coronary artery: LAD coronary artery Qualified Code(s): I21.02 - ST elevation (STEMI) myocardial infarction involving left anterior descending coronary artery - Subjective Interval history: Patient is awake and alert. For tubal. No new complaints at this time. Doing well. Has been able to ambulate with physical therapy. - Constitutional Vitals: Temp Pulse Resp BP Pulse Ox 98.2 F 61 18 120/69 98 04/16/17 07:44 04/16/17 09:35 04/16/17 09:35 04/16/17 09:35 04/16/17 07:44 General appearance: Present: cooperative, A&O X 1, pleasant, no acute distress, answers questions appropriately - Neck Neck exam general surgery: Present: supple, trachea midline. Absent: lymphadenopathy - Respiratory Respiratory exam: Present: CTAB. Absent: accessory muscle use, rales, rhonchi, wheezes - Cardiovascular Cardiovascular exam: Present: RRR, +S1, +S2. Absent: diastolic murmur, gallop, rubs, systolic murmur - Extremities Exam Extremities exam: Present: warm, radial pulses palpable and symmetrical. Absent : calf tenderness, cyanotic, pedal edema Internal Medicine: Result - Labs CBC & Chem 7: 04/12/17 04:40 04/12/17 04:40 - ABG Interpretation ABG results: ABG ABG pH 7.48 pH Units (7.32-7.45) H 03/05/17 04:50 ABG pCO2 38 mmHg (35-45) 03/05/17 04:50 ABG pO2 89 mmHg (85-104) 03/05/17 04:50 ABG O2 Saturation 97 % (95-98) 03/05/17 04:50 PT/INR, D-dimer PT 31.0 Seconds (9.4-12.1) H 04/16/17 04:54 Consult Discharge Plan - Plan Referrals: NONE,PCP [Primary Care Provider] - (working on placement to [facility], will follow up with PCP at [facility])
[2017-04-16] MEDS: *HR* Warfarin 2 MG TABLET PO SCH (17:14)
[2017-04-16] MEDS: Mirtazapine 15 MG TABLET PO SCH (21:32)
[2017-04-17] MEDS: Lisinopril 20 MG TABLET PO SCH (08:48)
[2017-04-17] MEDS: *HR* Ticagrelor 90 MG TABLET PO SCH ×2 (08:48→21:27)
[2017-04-17] MEDS: Aspirin 81 MG TAB.CHEW PO SCH (08:49)
[2017-04-17] MEDS: amLODIPine 5 MG TABLET PO SCH (08:49)
--- NOTE | 2017-04-17 09:46 | Internal Med Progress Note ---
<Oskar Montoya - Last Filed: 04/17/17 09:44> Date of Encounter: 04/17/17 Time of Encounter: 09:44 - Assessment and plan (1) CVA (cerebral vascular accident) Current Visit: Yes Status: Chronic Assessment and plan: Stable. Patient seems to be making improvements with physical therapy. Continue physical therapy daily. 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 (2) STEMI (ST elevation myocardial infarction) Current Visit: Yes Status: Resolved Assessment and plan: Status post PCI and stent placement. Continue dual antiplatelet therapy. Qualifiers: Involved coronary artery: LAD coronary artery Qualified Code(s): I21.02 - ST elevation (STEMI) myocardial infarction involving left anterior descending coronary artery (3) Atrial fibrillation Current Visit: Yes Status: Chronic Assessment and plan: Currently regular rate and rhythm. Rate is controlled. Continue Coumadin for anticoagulation. INR is in acceptable range. We will check INR weekly. Qualifiers: Atrial fibrillation type: paroxysmal Qualified Code(s): I48.0 - Paroxysmal atrial fibrillation (4) CAD (coronary artery disease) Current Visit: Yes Status: Acute Assessment and plan: Stable. No chest pain. Continue aspirin, statin, beta david, Brillinta Qualifiers: Coronary Disease-Associated Artery/Lesion type: [place] artery Associated angina: with unstable angina Qualified Code(s): I25.110 - Atherosclerotic heart disease of [place] coronary artery with unstable angina pectoris (5) Acute systolic CHF (congestive heart failure) Current Visit: Yes Status: Resolved Assessment and plan: Due to acute NC.patient seems to be recurring nicely. Patient appears euvolemic with no diuretic use. Continue LAURA inhibitor, beta david. (6) Care plan discussed with patient Current Visit: Yes Status: Acute Assessment and plan: Patient is awaiting court date for determination of guardianship. - Subjective Interval history: Patient seen and examined at bedside. He has no complaints at this time. He has been up walking around. He denies chest pain, shortness of breath, weakness. - Constitutional Vitals: Temp Pulse Resp BP Pulse Ox 97.9 F 62 16 109/64 99 04/17/17 08:45 04/17/17 08:45 04/17/17 08:45 04/17/17 08:45 04/17/17 08:45 General appearance: Present: cooperative, A&O X 3, pleasant, no acute distress, answers questions appropriately - Respiratory Respiratory exam: Present: CTAB. Absent: rales, rhonchi, wheezes - Cardiovascular Cardiovascular exam: Present: RRR. Absent: gallop, rubs, systolic murmur - GI/Abdominal GI/Abdominal exam: Present: normal bowel sounds, soft. Absent: distended, tenderness - Extremities Exam Extremities exam: Present: warm. Absent: pedal edema, tenderness - Neurological Exam Neurological exam: Present: alert, CN II-XII intact, oriented X3, no focal deficits Internal Medicine: Result - Labs CBC & Chem 7: 04/12/17 04:40 04/12/17 04:40 - ABG Interpretation ABG results: ABG ABG pH 7.48 pH Units (7.32-7.45) H 03/05/17 04:50 ABG pCO2 38 mmHg (35-45) 03/05/17 04:50 ABG pO2 89 mmHg (85-104) 03/05/17 04:50 ABG O2 Saturation 97 % (95-98) 03/05/17 04:50 PT/INR, D-dimer PT 31.0 Seconds (9.4-12.1) H 04/16/17 04:54 Consult Discharge Plan - Plan Referrals: NONE,PCP [Primary Care Provider] - (working on placement to [facility], will follow up with PCP at [facility]) <Tino Leone - Last Filed: 04/17/17 17:18> Date of Encounter: 04/17/17 - Assessment and plan (1) CVA (cerebral vascular accident) Current Visit: Yes Status: Chronic 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 (2) STEMI (ST elevation myocardial infarction) Current Visit: Yes Status: Resolved Qualifiers: Involved coronary artery: LAD coronary artery Qualified Code(s): I21.02 - ST elevation (STEMI) myocardial infarction involving left anterior descending coronary artery (3) Atrial fibrillation Current Visit: Yes Status: Chronic Qualifiers: Atrial fibrillation type: paroxysmal Qualified Code(s): I48.0 - Paroxysmal atrial fibrillation (4) Systolic CHF Current Visit: Yes Status: Chronic Qualifiers: Congestive heart failure chronicity: chronic Qualified Code(s): I50.22 - Chronic systolic (congestive) heart failure - Constitutional Vitals: Temp Pulse Resp BP Pulse Ox 97.9 F 62 16 109/64 99 04/17/17 08:45 04/17/17 08:45 04/17/17 08:45 04/17/17 08:45 04/17/17 08:45 Internal Medicine: Result - Labs CBC & Chem 7: 04/12/17 04:40 04/12/17 04:40 - ABG Interpretation ABG results: ABG ABG pH 7.48 pH Units (7.32-7.45) H 03/05/17 04:50 ABG pCO2 38 mmHg (35-45) 03/05/17 04:50 ABG pO2 89 mmHg (85-104) 03/05/17 04:50 ABG O2 Saturation 97 % (95-98) 03/05/17 04:50 PT/INR, D-dimer PT 31.0 Seconds (9.4-12.1) H 04/16/17 04:54 - Attending Attestation I examined this patient and my medical decision-making was reviewed with the Resident Physician on 04/17/17. I agree with the documented findings, disposition and treatment plan as described except to the extent set forth below. Mr. Patel is currently admitted for multiple issues that are now stable. He is awaiting guardianship for placement and rehab. He remains low risk at this time. Mr. Patel feels OK. No new issues overnight. Exam Alert. Comfortable Heart reg No wheeze No edema I/P 1. CVA 2. STEMI Further diagnoses and plan as above.
[2017-04-17] MEDS: *HR* Warfarin 2 MG TABLET PO SCH (17:05)
[2017-04-17] MEDS: Mirtazapine 15 MG TABLET PO SCH (21:27)
--- NOTE | 2017-04-18 08:38 | Internal Med Progress Note ---
<Oskar Montoya Luis - Last Filed: 04/18/17 08:36> Date of Encounter: 04/18/17 Time of Encounter: 08:36 - Assessment and plan (1) CVA (cerebral vascular accident) Current Visit: Yes Status: Chronic Assessment and plan: Stable. Patient seems to be making improvements with physical therapy. Continue physical therapy daily. 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 (2) STEMI (ST elevation myocardial infarction) Current Visit: Yes Status: Resolved Assessment and plan: Status post PCI and stent placement. Continue dual antiplatelet therapy. Qualifiers: Involved coronary artery: LAD coronary artery Qualified Code(s): I21.02 - ST elevation (STEMI) myocardial infarction involving left anterior descending coronary artery (3) Atrial fibrillation Current Visit: Yes Status: Chronic Assessment and plan: Currently regular rate and rhythm. Rate is controlled. Continue Coumadin for anticoagulation. INR is in acceptable range. We will check INR weekly. Qualifiers: Atrial fibrillation type: paroxysmal Qualified Code(s): I48.0 - Paroxysmal atrial fibrillation (4) CAD (coronary artery disease) Current Visit: Yes Status: Acute Assessment and plan: Stable. No chest pain. Continue aspirin, statin, beta david, Brill[place] Qualifiers: Coronary Disease-Associated Artery/Lesion type: [place] artery Associated angina: with unstable angina Qualified Code(s): I25.110 - Atherosclerotic heart disease of [place] coronary artery with unstable angina pectoris (5) Acute systolic CHF (congestive heart failure) Current Visit: Yes Status: Resolved Assessment and plan: Due to acute CT.patient seems to be recurring nicely. Patient appears euvolemic with no diuretic use. Continue LAURA inhibitor, beta david. (6) Care plan discussed with patient Current Visit: Yes Status: Acute Assessment and plan: Patient is awaiting court date for determination of guardianship, date is apparently set for next week. - Subjective Interval history: Patient seen and examined at bedside. He has no complaints at this time. He has been up walking around. He denies chest pain, shortness of breath, weakness. - Constitutional Vitals: Temp Pulse Resp BP Pulse Ox 97.5 F L 63 16 154/73 98 04/18/17 07:59 04/18/17 07:59 04/18/17 07:59 08/31/17 07:59 04/18/17 07:59 General appearance: Present: cooperative, A&O X 3, pleasant, no acute distress, answers questions appropriately - Respiratory Respiratory exam: Present: CTAB. Absent: rales, rhonchi, wheezes - Cardiovascular Cardiovascular exam: Present: RRR. Absent: gallop, rubs, systolic murmur - GI/Abdominal GI/Abdominal exam: Present: normal bowel sounds, soft. Absent: distended, tenderness - Extremities Exam Extremities exam: Present: warm. Absent: pedal edema, tenderness - Neurological Exam Neurological exam: Present: alert, CN II-XII intact, oriented X3, no focal deficits Internal Medicine: Result - Labs CBC & Chem 7: 04/12/17 04:40 04/12/17 04:40 - ABG Interpretation ABG results: ABG ABG pH 7.48 pH Units (7.32-7.45) H 03/05/17 04:50 ABG pCO2 38 mmHg (35-45) 03/05/17 04:50 ABG pO2 89 mmHg (85-104) 03/05/17 04:50 ABG O2 Saturation 97 % (95-98) 03/05/17 04:50 PT/INR, D-dimer PT 31.0 Seconds (9.4-12.1) H 04/16/17 04:54 Consult Discharge Plan - Plan Referrals: NONE,PCP [Primary Care Provider] - (working on placement to [facility], will follow up with PCP at [facility]) <Tino Leone - Last Filed: 04/18/17 12:58> Date of Encounter: 04/18/17 - Assessment and plan (1) CVA (cerebral vascular accident) Current Visit: Yes Status: Chronic 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 (2) STEMI (ST elevation myocardial infarction) Current Visit: Yes Status: Resolved Qualifiers: Involved coronary artery: LAD coronary artery Qualified Code(s): I21.02 - ST elevation (STEMI) myocardial infarction involving left anterior descending coronary artery (3) Atrial fibrillation Current Visit: Yes Status: Chronic Qualifiers: Atrial fibrillation type: paroxysmal Qualified Code(s): I48.0 - Paroxysmal atrial fibrillation (4) Systolic CHF Current Visit: Yes Status: Chronic Qualifiers: Congestive heart failure chronicity: chronic Qualified Code(s): I50.22 - Chronic systolic (congestive) heart failure - Constitutional Vitals: Temp Pulse Resp BP Pulse Ox 97.5 F L 63 16 154/73 98 04/18/17 07:59 04/18/17 07:59 04/18/17 07:59 04/18/17 07:59 04/18/17 07:59 Internal Medicine: Result - Labs CBC & Chem 7: 04/12/17 04:40 04/12/17 04:40 - ABG Interpretation ABG results: ABG ABG pH 7.48 pH Units (7.32-7.45) H 03/05/17 04:50 ABG pCO2 38 mmHg (35-45) 03/05/17 04:50 ABG pO2 89 mmHg (85-104) 03/05/17 04:50 ABG O2 Saturation 97 % (95-98) 03/05/17 04:50 PT/INR, D-dimer PT 31.0 Seconds (9.4-12.1) H 04/16/17 04:54 - Attending Attestation I examined this patient and my medical decision-making was reviewed with the Resident Physician on 04/18/17. I agree with the documented findings, disposition and treatment plan as described except to the extent set forth below. Mr. Patel was originally admitted for STEMI with cardiogenic shock and subsequent CVA. He is awaiting guardianship for placement and has been deemed incompetent. He remains low risk at this time. Mr. Patel feels OK. No new issues. Exam Alert. Comfortable Heart not tachy No wheeze No edema I/P 1. CAD s/p STEMI 2. CVA Further diagnoses and plan as above.
[2017-04-18] MEDS: Aspirin 81 MG TAB.CHEW PO SCH (08:43)
[2017-04-18] MEDS: *HR* Ticagrelor 90 MG TABLET PO SCH ×2 (08:43→20:32)
[2017-04-18] MEDS: Lisinopril 20 MG TABLET PO SCH (08:43)
[2017-04-18] MEDS: amLODIPine 5 MG TABLET PO SCH (08:43)
[2017-04-18] MEDS: *HR* Warfarin 2 MG TABLET PO SCH (17:03)
[2017-04-18] MEDS: Mirtazapine 15 MG TABLET PO SCH (20:32)
[2017-04-19] MEDS: amLODIPine 5 MG TABLET PO SCH (08:14)
[2017-04-19] MEDS: Aspirin 81 MG TAB.CHEW PO SCH (08:15)
[2017-04-19] MEDS: *HR* Ticagrelor 90 MG TABLET PO SCH ×2 (08:15→20:51)
[2017-04-19] MEDS: Lisinopril 20 MG TABLET PO SCH (08:15)
[2017-04-19] MEDS: *HR* Warfarin 2 MG TABLET PO SCH (16:51)
--- NOTE | 2017-04-19 19:22 | Internal Med Progress Note ---
Date of Encounter: 04/19/17 Time of Encounter: 09:00 - Assessment and plan (1) CVA (cerebral vascular accident) Current Visit: Yes Status: Chronic Assessment and plan: No acute issues. Continue PT. 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 (2) STEMI (ST elevation myocardial infarction) Current Visit: Yes Status: Resolved Assessment and plan: Status post PCI and stent placement. Continue dual antiplatelet therapy. Qualifiers: Involved coronary artery: LAD coronary artery Qualified Code(s): I21.02 - ST elevation (STEMI) myocardial infarction involving left anterior descending coronary artery (3) Atrial fibrillation Current Visit: Yes Status: Chronic Assessment and plan: Currently regular rate and rhythm. Rate is controlled. Continue Coumadin for anticoagulation. INR is in acceptable range. We will check INR weekly. Qualifiers: Atrial fibrillation type: paroxysmal Qualified Code(s): I48.0 - Paroxysmal atrial fibrillation (4) Systolic CHF Current Visit: Yes Status: Chronic Assessment and plan: Not in exacerbation at this time Continue BB, ACEi; no need for diuresis at this time as patient is euvolemic Qualifiers: Congestive heart failure chronicity: chronic Qualified Code(s): I50.22 - Chronic systolic (congestive) heart failure - Subjective Interval history: Mr. Patel is currently hospitalized awaiting guardianship and placement. He remains low risk at this time. Mr. Patel feels OK at this time. No fever or chills. No CP or SOB. Up and working with therapy. - Constitutional Vitals: Temp Pulse Resp BP Pulse Ox 98.3 F 64 16 116/64 98 04/19/17 19:15 04/19/17 19:15 04/19/17 19:15 04/19/17 19:15 04/19/17 19:15 General appearance: Present: cooperative, A&O X 3, pleasant, answers questions appropriately - Head Head exam: Present: normocephalic - Eye Eye exam: Present: EOMI, conjuntiva pink - ENT ENT exam: Present: mucous membranes dry - Respiratory Respiratory exam: Present: CTAB. Absent: rales, rhonchi, wheezes - Cardiovascular Cardiovascular exam: Present: RRR. Absent: tachycardia - GI/Abdominal GI/Abdominal exam: Present: soft. Absent: mass, tenderness - Extremities Exam Extremities exam: Present: warm. Absent: tenderness - Neurological Exam Neurological exam: Present: alert, oriented X3 - Skin Skin exam: Present: dry, warm. Absent: rash Internal Medicine: Result - Labs CBC & Chem 7: 04/12/17 04:40 04/12/17 04:40 - ABG Interpretation ABG results: ABG ABG pH 7.48 pH Units (7.32-7.45) H 03/05/17 04:50 ABG pCO2 38 mmHg (35-45) 03/05/17 04:50 ABG pO2 89 mmHg (85-104) 03/05/17 04:50 ABG O2 Saturation 97 % (95-98) 03/05/17 04:50 PT/INR, D-dimer PT 31.0 Seconds (9.4-12.1) H 04/16/17 04:54 Consult Discharge Plan - Plan Referrals: NONE,PCP [Primary Care Provider] - (working on placement to ec, will follow up with PCP at [facility])
[2017-04-19] MEDS: Mirtazapine 15 MG TABLET PO SCH (20:51)
[2017-04-20] MEDS: Lisinopril 20 MG TABLET PO SCH (09:08)
[2017-04-20] MEDS: amLODIPine 5 MG TABLET PO SCH (09:08)
[2017-04-20] MEDS: Aspirin 81 MG TAB.CHEW PO SCH (09:08)
[2017-04-20] MEDS: *HR* Ticagrelor 90 MG TABLET PO SCH ×2 (09:08→20:44)
[2017-04-20] MEDS: *HR* Warfarin 2 MG TABLET PO SCH (17:49)
--- NOTE | 2017-04-20 18:45 | Internal Med Progress Note ---
Date of Encounter: 04/20/17 Time of Encounter: 09:00 - Assessment and plan (1) CVA (cerebral vascular accident) Current Visit: Yes Status: Chronic Assessment and plan: No acute issues. Continue therapy while inpatient. 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 (2) STEMI (ST elevation myocardial infarction) Current Visit: Yes Status: Resolved Assessment and plan: Status post PCI and stent placement. Continue dual antiplatelet therapy. Qualifiers: Involved coronary artery: LAD coronary artery Qualified Code(s): I21.02 - ST elevation (STEMI) myocardial infarction involving left anterior descending coronary artery (3) Atrial fibrillation Current Visit: Yes Status: Chronic Assessment and plan: Currently regular rate and rhythm. Rate is controlled. Continue Coumadin for anticoagulation. INR is in acceptable range. We will check INR weekly. Qualifiers: Atrial fibrillation type: paroxysmal Qualified Code(s): I48.0 - Paroxysmal atrial fibrillation (4) Systolic CHF Current Visit: Yes Status: Chronic Assessment and plan: Not in exacerbation at this time Continue BB, ACEi; no need for diuresis at this time as patient is euvolemic Qualifiers: Congestive heart failure chronicity: chronic Qualified Code(s): I50.22 - Chronic systolic (congestive) heart failure - Subjective Interval history: Mr. Patel is currently hospitalized awaiting guardianship and placement. He remains low risk at this time. Mr. Patel is doing OK. No new issues overnight. No CP or SOB. - Constitutional Vitals: Temp Pulse Resp BP Pulse Ox 97.7 F 54 16 113/70 98 04/20/17 07:34 04/20/17 07:34 04/20/17 07:34 04/20/17 07:34 04/20/17 07:34 General appearance: Present: cooperative, A&O X 3, pleasant, answers questions appropriately - Head Head exam: Present: normocephalic - Eye Eye exam: Present: EOMI, conjuntiva pink - ENT ENT exam: Present: mucous membranes moist - Respiratory Respiratory exam: Present: CTAB. Absent: rales, wheezes - Cardiovascular Cardiovascular exam: Present: RRR. Absent: tachycardia - GI/Abdominal GI/Abdominal exam: Present: soft. Absent: tenderness - Neurological Exam Neurological exam: Present: alert, oriented X3 Internal Medicine: Result - Labs CBC & Chem 7: 04/12/17 04:40 04/12/17 04:40 - ABG Interpretation ABG results: ABG ABG pH 7.48 pH Units (7.32-7.45) H 03/05/17 04:50 ABG pCO2 38 mmHg (35-45) 03/05/17 04:50 ABG pO2 89 mmHg (85-104) 03/05/17 04:50 ABG O2 Saturation 97 % (95-98) 03/05/17 04:50 PT/INR, D-dimer PT 31.0 Seconds (9.4-12.1) H 04/16/17 04:54 Consult Discharge Plan - Plan Referrals: NONE,PCP [Primary Care Provider] - (working on placement to [facility], will follow up with PCP at [facility])
[2017-04-20] MEDS: Mirtazapine 15 MG TABLET PO SCH (20:44)
[2017-04-21 04:50] LABS: INR 3.3; Prothrombin Time 36.2 Seconds (9.4-12.1)
[2017-04-21] MEDS: amLODIPine 5 MG TABLET PO SCH (09:11)
[2017-04-21] MEDS: Aspirin 81 MG TAB.CHEW PO SCH (09:11)
[2017-04-21] MEDS: *HR* Ticagrelor 90 MG TABLET PO SCH ×2 (09:11→21:30)
[2017-04-21] MEDS: Lisinopril 20 MG TABLET PO SCH (09:11)
--- NOTE | 2017-04-21 15:13 | Internal Med Progress Note ---
Date of Encounter: 04/21/17 Time of Encounter: 10:15 - Assessment and plan (1) CVA (cerebral vascular accident) Current Visit: Yes Status: Chronic Assessment and plan: Receiving therapy while inpatient. Awaiting guardianship for placement in ECF. 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 (2) STEMI (ST elevation myocardial infarction) Current Visit: Yes Status: Resolved Assessment and plan: Status post PCI and stent placement. Continue dual antiplatelet therapy. Qualifiers: Involved coronary artery: LAD coronary artery Qualified Code(s): I21.02 - ST elevation (STEMI) myocardial infarction involving left anterior descending coronary artery (3) Atrial fibrillation Current Visit: Yes Status: Chronic Assessment and plan: Currently regular rate and rhythm. Rate is controlled. Continue Coumadin for anticoagulation. INR high today - managment per pharmacy. Qualifiers: Atrial fibrillation type: paroxysmal Qualified Code(s): I48.0 - Paroxysmal atrial fibrillation (4) Systolic CHF Current Visit: Yes Status: Chronic Assessment and plan: Not in exacerbation at this time Continue BB, ACEi; no need for diuresis at this time as patient is euvolemic Qualifiers: Congestive heart failure chronicity: chronic Qualified Code(s): I50.22 - Chronic systolic (congestive) heart failure - Subjective Interval history: Mr. Patel is currently hospitalized awaiting guardianship and placement. He remains low risk at this time. Mr. Patel has no specific complaints. Slept OK. Eating OK. No fever or chills. No chest pain. - Constitutional Vitals: Temp Pulse Resp BP Pulse Ox 98.3 F 60 14 104/62 97 04/21/17 10:49 04/21/17 10:49 04/21/17 10:49 04/21/17 10:49 04/21/17 10:49 General appearance: Present: cooperative, A&O X 3, pleasant, answers questions appropriately - Head Head exam: Present: normocephalic - Eye Eye exam: Present: EOMI, conjuntiva pink - ENT ENT exam: Present: mucous membranes moist - Respiratory Respiratory exam: Present: decreased breath sounds. Absent: rales, rhonchi, wheezes - Cardiovascular Cardiovascular exam: Present: RRR. Absent: tachycardia - GI/Abdominal GI/Abdominal exam: Present: soft. Absent: tenderness - Extremities Exam Extremities exam: Present: warm. Absent: pedal edema, tenderness - Neurological Exam Neurological exam: Present: alert - Skin Skin exam: Present: dry, warm. Absent: rash Internal Medicine: Result - Labs CBC & Chem 7: 04/12/17 04:40 04/12/17 04:40 - ABG Interpretation ABG results: ABG ABG pH 7.48 pH Units (7.32-7.45) H 03/05/17 04:50 ABG pCO2 38 mmHg (35-45) 03/05/17 04:50 ABG pO2 89 mmHg (85-104) 03/05/17 04:50 ABG O2 Saturation 97 % (95-98) 03/05/17 04:50 PT/INR, D-dimer PT 36.2 Seconds (9.4-12.1) H 04/21/17 04:03 Consult Discharge Plan - Plan Referrals: NONE,PCP [Primary Care Provider] - (working on placement to ec, will follow up with PCP at [facility])
[2017-04-21] MEDS ORDERED: *HR* Warfarin 3 MG TABLET PO ONE (18:00)
[2017-04-21] MEDS: Mirtazapine 15 MG TABLET PO SCH (21:30)
[2017-04-22 07:22] LABS: INR 3.2; Prothrombin Time 35.4 Seconds (9.4-12.1)
[2017-04-22] MEDS: Aspirin 81 MG TAB.CHEW PO SCH (08:39)
[2017-04-22] MEDS: *HR* Ticagrelor 90 MG TABLET PO SCH ×2 (08:39→22:30)
[2017-04-22] MEDS: amLODIPine 5 MG TABLET PO SCH (08:39)
[2017-04-22] MEDS: Lisinopril 20 MG TABLET PO SCH (08:39)
--- NOTE | 2017-04-22 11:37 | Internal Med Progress Note ---
Date of Encounter: 04/22/17 Time of Encounter: 09:00 - Assessment and plan (1) CVA (cerebral vascular accident) Current Visit: Yes Status: Chronic Assessment and plan: No new issues. Awaiting placement ultimately. Pt has been deemed incompetent. 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 (2) STEMI (ST elevation myocardial infarction) Current Visit: Yes Status: Resolved Assessment and plan: Status post PCI and stent placement. Continue dual antiplatelet therapy. Qualifiers: Involved coronary artery: LAD coronary artery Qualified Code(s): I21.02 - ST elevation (STEMI) myocardial infarction involving left anterior descending coronary artery (3) Atrial fibrillation Current Visit: Yes Status: Chronic Assessment and plan: Currently regular rate and rhythm. Rate is controlled. Continue Coumadin for anticoagulation. INR high - managment per pharmacy. Qualifiers: Atrial fibrillation type: paroxysmal Qualified Code(s): I48.0 - Paroxysmal atrial fibrillation (4) Systolic CHF Current Visit: Yes Status: Chronic Assessment and plan: Not in exacerbation at this time Continue BB, ACEi; no need for diuresis at this time as patient is euvolemic Qualifiers: Congestive heart failure chronicity: chronic Qualified Code(s): I50.22 - Chronic systolic (congestive) heart failure - Subjective Interval history: Mr. Patel is currently hospitalized awaiting guardianship and placement. He remains low risk at this time. Mr. Patel is resting comfortably. No CP or SOB. Up in room and gonzales with walker. - Constitutional Vitals: Temp Pulse Resp BP Pulse Ox 97.6 F 64 14 131/67 98 04/22/17 10:24 04/22/17 10:24 04/22/17 10:24 04/22/17 10:24 04/22/17 10:24 General appearance: Present: cooperative, A&O X 3, pleasant, answers questions appropriately - Head Head exam: Present: normocephalic - Eye Eye exam: Present: EOMI, conjuntiva pink - ENT ENT exam: Present: mucous membranes moist - Respiratory Respiratory exam: Present: CTAB. Absent: rales, rhonchi, wheezes - Cardiovascular Cardiovascular exam: Present: RRR. Absent: tachycardia - GI/Abdominal GI/Abdominal exam: Present: soft. Absent: tenderness - Extremities Exam Extremities exam: Present: warm. Absent: tenderness - Neurological Exam Neurological exam: Present: alert - Skin Skin exam: Present: dry, warm. Absent: rash Internal Medicine: Result - Labs CBC & Chem 7: 04/12/17 04:40 04/12/17 04:40 - ABG Interpretation ABG results: ABG ABG pH 7.48 pH Units (7.32-7.45) H 03/05/17 04:50 ABG pCO2 38 mmHg (35-45) 03/05/17 04:50 ABG pO2 89 mmHg (85-104) 03/05/17 04:50 ABG O2 Saturation 97 % (95-98) 03/05/17 04:50 PT/INR, D-dimer PT 35.4 Seconds (9.4-12.1) H 04/22/17 06:25 Consult Discharge Plan - Plan Referrals: NONE,PCP [Primary Care Provider] - (working on placement to ecf, will follow up with PCP at [facility])
[2017-04-22] MEDS ORDERED: *HR* Warfarin 3 MG TABLET PO ONE (18:00)
[2017-04-22] MEDS: Mirtazapine 15 MG TABLET PO SCH (22:30)
[2017-04-23 04:35] LABS: INR 2.9; Prothrombin Time 31.4 Seconds (9.4-12.1)
[2017-04-23] MEDS: amLODIPine 5 MG TABLET PO SCH (09:31)
[2017-04-23] MEDS: *HR* Ticagrelor 90 MG TABLET PO SCH ×2 (09:31→21:10)
[2017-04-23] MEDS: Lisinopril 20 MG TABLET PO SCH (09:31)
[2017-04-23] MEDS: Aspirin 81 MG TAB.CHEW PO SCH (09:31)
[2017-04-23] MEDS ORDERED: *HR* Warfarin 2 MG TABLET PO ONE (18:00)
--- NOTE | 2017-04-23 19:01 | Internal Med Progress Note ---
Date of Encounter: 04/23/17 Time of Encounter: 08:00 - Assessment and plan (1) CVA (cerebral vascular accident) Current Visit: Yes Status: Chronic Assessment and plan: No new issues. Awaiting placement ultimately. Pt has been deemed incompetent. No new issues at this time. 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 (2) STEMI (ST elevation myocardial infarction) Current Visit: Yes Status: Resolved Assessment and plan: Status post PCI and stent placement. Continue dual antiplatelet therapy. Qualifiers: Involved coronary artery: LAD coronary artery Qualified Code(s): I21.02 - ST elevation (STEMI) myocardial infarction involving left anterior descending coronary artery (3) Atrial fibrillation Current Visit: Yes Status: Chronic Assessment and plan: Currently regular rate and rhythm. Rate is controlled. Continue Coumadin for anticoagulation. INR managment per pharmacy. Qualifiers: Atrial fibrillation type: paroxysmal Qualified Code(s): I48.0 - Paroxysmal atrial fibrillation (4) Systolic CHF Current Visit: Yes Status: Chronic Assessment and plan: Not in exacerbation at this time Continue BB, ACEi; no need for diuresis at this time as patient is euvolemic Qualifiers: Congestive heart failure chronicity: chronic Qualified Code(s): I50.22 - Chronic systolic (congestive) heart failure - Subjective Interval history: Mr. Patel is currently hospitalized awaiting guardianship and placement. He remains low risk at this time. Mr. Patel is resting comfortably. No CP or SOB. Wants to see social work. - Constitutional Vitals: Temp Pulse Resp BP Pulse Ox 97.7 F 56 18 120/67 97 04/23/17 08:00 04/23/17 08:00 04/23/17 08:00 04/23/17 08:00 04/23/17 08:00 General appearance: Present: cooperative, A&O X 3, pleasant, answers questions appropriately - Head Head exam: Present: normocephalic - Eye Eye exam: Present: conjuntiva pink - ENT ENT exam: Present: mucous membranes moist - Respiratory Respiratory exam: Present: CTAB. Absent: rales, wheezes - Cardiovascular Cardiovascular exam: Present: RRR. Absent: tachycardia - GI/Abdominal GI/Abdominal exam: Present: soft. Absent: tenderness - Extremities Exam Extremities exam: Present: warm. Absent: pedal edema, tenderness - Neurological Exam Neurological exam: Present: alert - Skin Skin exam: Present: warm. Absent: rash Internal Medicine: Result - Labs CBC & Chem 7: 04/12/17 04:40 04/12/17 04:40 - ABG Interpretation ABG results: ABG ABG pH 7.48 pH Units (7.32-7.45) H 03/05/17 04:50 ABG pCO2 38 mmHg (35-45) 03/05/17 04:50 ABG pO2 89 mmHg (85-104) 03/05/17 04:50 ABG O2 Saturation 97 % (95-98) 03/05/17 04:50 PT/INR, D-dimer PT 31.4 Seconds (9.4-12.1) H 04/23/17 03:47 Consult Discharge Plan - Plan Referrals: NONE,PCP [Primary Care Provider] - (working on placement to ecf, will follow up with PCP at [facility]
[2017-04-23] MEDS: Mirtazapine 15 MG TABLET PO SCH (21:10)
[2017-04-24 04:54] LABS: INR 2.9; Prothrombin Time 32.2 Seconds (9.4-12.1)
--- NOTE | 2017-04-24 09:06 | Internal Med Progress Note ---
<Oskar Montoya - Last Filed: 04/24/17 09:04> Date of Encounter: 04/24/17 Time of Encounter: 09:04 - Assessment and plan (1) CVA (cerebral vascular accident) Current Visit: Yes Status: Chronic Assessment and plan: No new issues. Continues to await placement. Pt has been deemed incompetent. 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 (2) STEMI (ST elevation myocardial infarction) Current Visit: Yes Status: Resolved Assessment and plan: Status post PCI and stent placement. Continue dual antiplatelet therapy. No chest pain Qualifiers: Involved coronary artery: LAD coronary artery Qualified Code(s): I21.02 - ST elevation (STEMI) myocardial infarction involving left anterior descending coronary artery (3) Atrial fibrillation Current Visit: Yes Status: Chronic Assessment and plan: Currently regular rate and rhythm. Rate is controlled. Continue Coumadin for anticoagulation. INR managment per pharmacy. INR theraputic Qualifiers: Atrial fibrillation type: paroxysmal Qualified Code(s): I48.0 - Paroxysmal atrial fibrillation (4) CAD (coronary artery disease) Current Visit: Yes Status: Acute Assessment and plan: Stable. No chest pain. Continue aspirin, statin, beta david, Brillinta Qualifiers: Coronary Disease-Associated Artery/Lesion type: [place] artery Associated angina: with unstable angina Qualified Code(s): I25.110 - Atherosclerotic heart disease of [place] coronary artery with unstable angina pectoris (5) Acute systolic CHF (congestive heart failure) Current Visit: Yes Status: Resolved Assessment and plan: Due to acute [place].patient seems to be recovering nicely. Patient appears euvolemic with no diuretic use. Continue LAURA inhibitor, beta david. (6) Care plan discussed with patient Current Visit: Yes Status: Acute Assessment and plan: Patient is awaiting court date for determination of guardianship. - Subjective Interval history: Patient seen and examined at bedside. He has no complaints at this time. He has been up walking around. He denies chest pain, shortness of breath, weakness. He is frustrated by the length of the guardianship process - Constitutional Vitals: Temp Pulse Resp BP Pulse Ox 97.6 F 59 17 115/60 98 04/24/17 06:45 04/24/17 06:45 04/24/17 06:45 04/24/17 06:45 04/24/17 06:45 General appearance: Present: cooperative, A&O X 3, pleasant, answers questions appropriately - Respiratory Respiratory exam: Present: CTAB. Absent: rales, rhonchi, wheezes - Cardiovascular Cardiovascular exam: Present: RRR. Absent: gallop, rubs, systolic murmur - GI/Abdominal GI/Abdominal exam: Present: normal bowel sounds, soft. Absent: distended, tenderness - Extremities Exam Extremities exam: Present: warm. Absent: pedal edema, tenderness - Neurological Exam Neurological exam: Present: alert, CN II-XII intact, oriented X3. Absent: no focal deficits Internal Medicine: Result - Labs CBC & Chem 7: 04/12/17 04:40 04/12/17 04:40 - ABG Interpretation ABG results: ABG ABG pH 7.48 pH Units (7.32-7.45) H 03/05/17 04:50 ABG pCO2 38 mmHg (35-45) 03/05/17 04:50 ABG pO2 89 mmHg (85-104) 03/05/17 04:50 ABG O2 Saturation 97 % (95-98) 03/05/17 04:50 PT/INR, D-dimer PT 32.2 Seconds (9.4-12.1) H 04/24/17 04:30 Consult Discharge Plan - Plan Referrals: NONE,PCP [Primary Care Provider] - ([facility], will follow [facility] with [facility]CP at [facility]) <Tino Leone - Last Filed: 04/24/17 16:31> Date of Encounter: 04/24/17 - Assessment and plan (1) CVA (cerebral vascular accident) Current Visit: Yes Status: Chronic 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 (2) STEMI (ST elevation myocardial infarction) Current Visit: Yes Status: Resolved Qualifiers: Involved coronary artery: LAD coronary artery Qualified Code(s): I21.02 - ST elevation (STEMI) myocardial infarction involving left anterior descending coronary artery (3) Atrial fibrillation Current Visit: Yes Status: Chronic Qualifiers: Atrial fibrillation type: paroxysmal Qualified Code(s): I48.0 - Paroxysmal atrial fibrillation (4) Systolic CHF Current Visit: Yes Status: Chronic Qualifiers: Congestive heart failure chronicity: chronic Qualified Code(s): I50.22 - Chronic systolic (congestive) heart failure - Constitutional Vitals: Temp Pulse Resp BP Pulse Ox 97.6 F 59 17 115/60 98 04/24/17 06:45 04/24/17 06:45 04/24/17 06:45 04/24/17 06:45 04/24/17 06:45 Internal Medicine: Result - Labs CBC & Chem 7: 04/12/17 04:40 04/12/17 04:40 - ABG Interpretation ABG results: ABG ABG pH 7.48 pH Units (7.32-7.45) H 03/05/17 04:50 ABG pCO2 38 mmHg (35-45) 03/05/17 04:50 ABG pO2 89 mmHg (85-104) 03/05/17 04:50 ABG O2 Saturation 97 % (95-98) 03/05/17 04:50 PT/INR, D-dimer PT 32.2 Seconds (9.4-12.1) H 04/24/17 04:30 - Attending Attestation I examined this patient and my medical decision-making was reviewed with the Resident Physician on 04/24/17. I agree with the documented findings, disposition and treatment plan as described except to the extent set forth below. Mr. Patel was originally admitted for multiple medical problems but is now waiting guardianship. He remains low risk at this time. Mr. Patel feels OK. No new issues. Exam Alert. Comfortable Heart reg No wheeze No edema I/P 1 CVA 2. STEMI D/C planning
[2017-04-24] MEDS: amLODIPine 5 MG TABLET PO SCH (10:11)
[2017-04-24] MEDS: Lisinopril 20 MG TABLET PO SCH (10:11)
[2017-04-24] MEDS: Aspirin 81 MG TAB.CHEW PO SCH (10:11)
[2017-04-24] MEDS: *HR* Ticagrelor 90 MG TABLET PO SCH ×2 (10:11→20:55)
[2017-04-24] MEDS: *HR* Warfarin 3 MG TABLET PO SCH (17:15)
[2017-04-24] MEDS: Mirtazapine 15 MG TABLET PO SCH (20:55)
[2017-04-25] MEDS: Aspirin 81 MG TAB.CHEW PO SCH (07:46)
[2017-04-25] MEDS: *HR* Ticagrelor 90 MG TABLET PO SCH ×2 (07:46→19:10)
[2017-04-25] MEDS: amLODIPine 5 MG TABLET PO SCH (07:46)
[2017-04-25] MEDS: Lisinopril 20 MG TABLET PO SCH (07:46)
--- NOTE | 2017-04-25 09:11 | Internal Med Progress Note ---
<Oskar Montoya - Last Filed: 04/25/17 10:18> Date of Encounter: 04/25/17 Time of Encounter: 09:10 - Assessment and plan (1) CVA (cerebral vascular accident) Current Visit: Yes Status: Chronic Assessment and plan: No new issues. Continues to await placement. Pt has been deemed incompetent. 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 (2) STEMI (ST elevation myocardial infarction) Current Visit: Yes Status: Resolved Assessment and plan: Status post PCI and stent placement. Continue dual antiplatelet therapy. No chest pain Qualifiers: Involved coronary artery: LAD coronary artery Qualified Code(s): I21.02 - ST elevation (STEMI) myocardial infarction involving left anterior descending coronary artery (3) Atrial fibrillation Current Visit: Yes Status: Chronic Assessment and plan: Currently regular rate and rhythm. Rate is controlled. Continue Coumadin for anticoagulation. INR managment per pharmacy. INR theraputic Qualifiers: Atrial fibrillation type: paroxysmal Qualified Code(s): I48.0 - Paroxysmal atrial fibrillation (4) CAD (coronary artery disease) Current Visit: Yes Status: Acute Assessment and plan: Stable. No chest pain. Continue aspirin, statin, beta david, Brillinta Qualifiers: Coronary Disease-Associated Artery/Lesion type: [place] artery [place] vs. transplanted heart: [place] heart Associated angina: with unstable angina Qualified Code(s): I25.110 - Atherosclerotic heart disease of [place] coronary artery with unstable angina pectoris (5) Acute systolic CHF (congestive heart failure) Current Visit: Yes Status: Resolved Assessment and plan: Due to acute [place].patient seems to be recovering nicely. Patient appears euvolemic with no diuretic use. Continue LAURA inhibitor, beta david. (6) Care plan discussed with patient Current Visit: Yes Status: Acute Assessment and plan: Patient is awaiting court date for determination of guardianship. - Subjective Interval history: Patient seen and examined at bedside. He has no complaints at this time. He has been up walking around. He denies chest pain, shortness of breath, weakness. He is frustrated by the length of the guardianship process but otherwise is doing well - Constitutional Vitals: Temp Pulse Resp BP Pulse Ox 97.9 F 61 16 106/62 97 04/25/17 06:54 04/25/17 06:54 04/25/17 06:54 04/25/17 06:54 04/25/17 06:54 General appearance: Present: cooperative, A&O X 3, pleasant, answers questions appropriately - Respiratory Respiratory exam: Present: CTAB. Absent: rales, rhonchi, wheezes - Cardiovascular Cardiovascular exam: Present: RRR. Absent: gallop, rubs, tachycardia - GI/Abdominal GI/Abdominal exam: Present: normal bowel sounds, soft. Absent: distended, tenderness - Extremities Exam Extremities exam: Present: warm. Absent: pedal edema, tenderness - Neurological Exam Neurological exam: Present: alert, CN II-XII intact, oriented X3, no focal deficits Internal Medicine: Result - Labs CBC & Chem 7: 04/12/17 04:40 04/12/17 04:40 - ABG Interpretation ABG results: ABG ABG pH 7.48 pH Units (7.32-7.45) H 03/05/17 04:50 ABG pCO2 38 mmHg (35-45) 03/05/17 04:50 ABG pO2 89 mmHg (85-104) 03/05/17 04:50 ABG O2 Saturation 97 % (95-98) 03/05/17 04:50 PT/INR, D-dimer PT 32.2 Seconds (9.4-12.1) H 04/24/17 04:30 Consult Discharge Plan - Plan Referrals: NONE,PCP [Primary Care Provider] - (working on placement to [facility], will follow up with PCP at [facility]) <Tino Leone - Last Filed: 04/25/17 19:19> Date of Encounter: 04/25/17 - Assessment and plan (1) CVA (cerebral vascular accident) Current Visit: Yes Status: Chronic 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 (2) STEMI (ST elevation myocardial infarction) Current Visit: Yes Status: Resolved Qualifiers: Involved coronary artery: LAD coronary artery Qualified Code(s): I21.02 - ST elevation (STEMI) myocardial infarction involving left anterior descending coronary artery (3) Atrial fibrillation Current Visit: Yes Status: Chronic Qualifiers: Atrial fibrillation type: paroxysmal Qualified Code(s): I48.0 - Paroxysmal atrial fibrillation (4) Systolic CHF Current Visit: Yes Status: Chronic Qualifiers: Congestive heart failure chronicity: chronic Qualified Code(s): I50.22 - Chronic systolic (congestive) heart failure - Constitutional Vitals: Temp Pulse Resp BP Pulse Ox 97.9 F 61 16 106/62 97 04/25/17 06:54 04/25/17 06:54 04/25/17 06:54 04/25/17 06:54 04/25/17 06:54 Internal Medicine: Result - Labs CBC & Chem 7: 04/12/17 04:40 04/12/17 04:40 - ABG Interpretation ABG results: ABG ABG pH 7.48 pH Units (7.32-7.45) H 03/05/17 04:50 ABG pCO2 38 mmHg (35-45) 03/05/17 04:50 ABG pO2 89 mmHg (85-104) 03/05/17 04:50 ABG O2 Saturation 97 % (95-98) 03/05/17 04:50 PT/INR, D-dimer PT 32.2 Seconds (9.4-12.1) H 04/24/17 04:30 - Attending Attestation I examined this patient and my medical decision-making was reviewed with the Resident Physician on 04/25/17. I agree with the documented findings, disposition and treatment plan as described except to the extent set forth below. Mr Patel is currently admitted awaiting guardianship for discharge. He is low risk at this time. Mr Patel feels OK today. No new issues. Exam Alert. Comfortable Heart reg No wheeze Abd soft No edema I/P 1. STEMI 2. CVA Further diagnoses and plan as above.
[2017-04-25] MEDS: *HR* Warfarin 2 MG TABLET PO SCH (17:09)
[2017-04-25] MEDS: Mirtazapine 15 MG TABLET PO SCH (19:11)
[2017-04-26] MEDS: *HR* Ticagrelor 90 MG TABLET PO SCH ×2 (07:35→20:25)
[2017-04-26] MEDS: Lisinopril 20 MG TABLET PO SCH (07:35)
[2017-04-26] MEDS: Aspirin 81 MG TAB.CHEW PO SCH (07:35)
[2017-04-26] MEDS: amLODIPine 5 MG TABLET PO SCH (07:35)
--- NOTE | 2017-04-26 09:13 | Internal Med Progress Note ---
<Oskar Montoya - Last Filed: 04/26/17 09:11> Date of Encounter: 04/26/17 Time of Encounter: 09:11 - Assessment and plan (1) CVA (cerebral vascular accident) Current Visit: Yes Status: Chronic Assessment and plan: No new issues. Continues to await placement. Pt has been deemed incompetent by psych twice. 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 (2) STEMI (ST elevation myocardial infarction) Current Visit: Yes Status: Resolved Assessment and plan: Status post PCI and stent placement. Continue dual antiplatelet therapy. No chest pain Qualifiers: Involved coronary artery: LAD coronary artery Qualified Code(s): I21.02 - ST elevation (STEMI) myocardial infarction involving left anterior descending coronary artery (3) Atrial fibrillation Current Visit: Yes Status: Chronic Assessment and plan: Currently regular rate and rhythm. Rate is controlled. Continue Coumadin for anticoagulation. INR managment per pharmacy. INR theraputic Qualifiers: Atrial fibrillation type: paroxysmal Qualified Code(s): I48.0 - Paroxysmal atrial fibrillation (4) CAD (coronary artery disease) Current Visit: Yes Status: Acute Assessment and plan: Stable. No chest pain. Continue aspirin, statin, beta david, Brillinta Qualifiers: Coronary Disease-Associated Artery/Lesion type: [place] artery [place] vs. transplanted heart: [place] heart Associated angina: with unstable angina Qualified Code(s): I25.110 - Atherosclerotic heart disease of [place] coronary artery with unstable angina pectoris (5) Acute systolic CHF (congestive heart failure) Current Visit: Yes Status: Resolved Assessment and plan: Due to acute [place].patient seems to be recovering nicely. Patient appears euvolemic with no diuretic use. Continue LAURA inhibitor, beta david. (6) Care plan discussed with patient Current Visit: Yes Status: Acute Assessment and plan: Patient is awaiting court date for determination of guardianship. - Subjective Interval history: Patient seen and examined at bedside. He has no complaints at this time. He has been up walking around. He denies chest pain, shortness of breath, weakness. He is frustrated by the length of the guardianship process but otherwise is doing well - Constitutional Vitals: Temp Pulse Resp BP Pulse Ox 97.5 F L 60 14 118/63 98 04/26/17 06:56 04/26/17 06:56 04/26/17 06:56 04/26/17 06:56 04/26/17 06:56 General appearance: Present: cooperative, A&O X 3, pleasant, answers questions appropriately - Respiratory Respiratory exam: Present: CTAB. Absent: rales, rhonchi, wheezes - Cardiovascular Cardiovascular exam: Present: RRR. Absent: gallop, rubs, systolic murmur - GI/Abdominal GI/Abdominal exam: Present: normal bowel sounds, soft. Absent: distended, tenderness - Extremities Exam Extremities exam: Present: warm. Absent: pedal edema, tenderness - Neurological Exam Neurological exam: Present: alert, CN II-XII intact, oriented X3, no focal deficits Internal Medicine: Result - Labs CBC & Chem 7: 04/12/17 04:40 04/12/17 04:40 - ABG Interpretation ABG results: ABG ABG pH 7.48 pH Units (7.32-7.45) H 03/05/17 04:50 ABG pCO2 38 mmHg (35-45) 03/05/17 04:50 ABG pO2 89 mmHg (85-104) 03/05/17 04:50 ABG O2 Saturation 97 % (95-98) 03/05/17 04:50 PT/INR, D-dimer PT 32.2 Seconds (9.4-12.1) H 04/24/17 04:30 Consult Discharge Plan - Plan Referrals: NONE,PCP [Primary Care Provider] - (working on placement [facility], will follow [facility] with [facility]) <Tino Leone - Last Filed: 04/26/17 18:18> Date of Encounter: 04/26/17 - Assessment and plan (1) CVA (cerebral vascular accident) Current Visit: Yes Status: Chronic 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 (2) STEMI (ST elevation myocardial infarction) Current Visit: Yes Status: Resolved Qualifiers: Involved coronary artery: LAD coronary artery Qualified Code(s): I21.02 - ST elevation (STEMI) myocardial infarction involving left anterior descending coronary artery (3) Atrial fibrillation Current Visit: Yes Status: Chronic Qualifiers: Atrial fibrillation type: paroxysmal Qualified Code(s): I48.0 - Paroxysmal atrial fibrillation (4) Systolic CHF Current Visit: Yes Status: Chronic Qualifiers: Congestive heart failure chronicity: chronic Qualified Code(s): I50.22 - Chronic systolic (congestive) heart failure - Constitutional Vitals: Temp Pulse Resp BP Pulse Ox 97.5 F L 60 14 126/84 98 04/26/17 06:56 04/26/17 06:56 04/26/17 06:56 04/26/17 15:41 04/26/17 06:56 Internal Medicine: Result - Labs CBC & Chem 7: 04/12/17 04:40 04/12/17 04:40 - ABG Interpretation ABG results: ABG ABG pH 7.48 pH Units (7.32-7.45) H 03/05/17 04:50 ABG pCO2 38 mmHg (35-45) 03/05/17 04:50 ABG pO2 89 mmHg (85-104) 03/05/17 04:50 ABG O2 Saturation 97 % (95-98) 03/05/17 04:50 PT/INR, D-dimer PT 32.2 Seconds (9.4-12.1) H 04/24/17 04:30 - Attending Attestation I examined this patient and my medical decision-making was reviewed with the Resident Physician on 04/26/17. I agree with the documented findings, disposition and treatment plan as described except to the extent set forth below. Mr. Patel is currently admitted awaiting guardianship and placement. He remains low risk. Mr. Patel is doing OK. No new issues. Exam Alert. Comfortable Heart reg No wheeze Abd soft I/P 1. CVA 2 STEMI Further diagnoses and plan as above.
[2017-04-26] MEDS: *HR* Warfarin 3 MG TABLET PO SCH (16:49)
[2017-04-26] MEDS: Mirtazapine 15 MG TABLET PO SCH (20:26)
[2017-04-27] MEDS: amLODIPine 5 MG TABLET PO SCH (09:38)
[2017-04-27] MEDS: *HR* Ticagrelor 90 MG TABLET PO SCH ×2 (09:39→22:05)
[2017-04-27] MEDS: Aspirin 81 MG TAB.CHEW PO SCH (09:39)
[2017-04-27] MEDS: Lisinopril 20 MG TABLET PO SCH (09:39)
--- NOTE | 2017-04-27 14:08 | Internal Med Progress Note ---
Date of Encounter: 04/27/17 Time of Encounter: 11:30 - Assessment and plan (1) CVA (cerebral vascular accident) Current Visit: Yes Status: Chronic Assessment and plan: No new issues. Court date for guardianship is 05/21. 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 (2) STEMI (ST elevation myocardial infarction) Current Visit: Yes Status: Resolved Assessment and plan: Status post PCI and stent placement. Continue dual antiplatelet therapy. Remains asymptomatic. Qualifiers: Involved coronary artery: LAD coronary artery Qualified Code(s): I21.02 - ST elevation (STEMI) myocardial infarction involving left anterior descending coronary artery (3) Atrial fibrillation Current Visit: Yes Status: Chronic Assessment and plan: Coumadin management per pharmacy. Rate controlled. Qualifiers: Atrial fibrillation type: paroxysmal Qualified Code(s): I48.0 - Paroxysmal atrial fibrillation (4) Systolic CHF Current Visit: Yes Status: Chronic Assessment and plan: Continue BB, ACEi; no need for diuresis at this time as patient is euvolemic. Qualifiers: Congestive heart failure chronicity: chronic Qualified Code(s): I50.22 - Chronic systolic (congestive) heart failure - Subjective Interval history: Mr. Patel is currently hospitalized awaiting guardianship and placement. He remains low risk at this time. Court date is 05/21. Mr. Patel is resting comfortably. He denies issues at this time. - Constitutional Vitals: Temp Pulse Resp BP Pulse Ox 97.5 F L 62 18 132/67 100 04/27/17 07:11 04/27/17 07:11 04/27/17 07:11 04/27/17 07:11 04/27/17 07:11 General appearance: Present: cooperative, A&O X 3, pleasant - Head Head exam: Present: normocephalic - Eye Eye exam: Present: conjuntiva pink - ENT ENT exam: Present: mucous membranes dry - Respiratory Respiratory exam: Present: CTAB. Absent: rales, rhonchi, wheezes - Cardiovascular Cardiovascular exam: Present: RRR. Absent: tachycardia - GI/Abdominal GI/Abdominal exam: Present: soft. Absent: tenderness - Extremities Exam Extremities exam: Present: warm. Absent: tenderness - Neurological Exam Neurological exam: Present: alert - Skin Skin exam: Present: warm. Absent: dry, rash Internal Medicine: Result - Labs CBC & Chem 7: 04/12/17 04:40 04/12/17 04:40 - ABG Interpretation ABG results: ABG ABG pH 7.48 pH Units (7.32-7.45) H 03/05/17 04:50 ABG pCO2 38 mmHg (35-45) 03/05/17 04:50 ABG pO2 89 mmHg (85-104) 03/05/17 04:50 ABG O2 Saturation 97 % (95-98) 03/05/17 04:50 PT/INR, D-dimer PT 32.2 Seconds (9.4-12.1) H 04/24/17 04:30 Consult Discharge Plan - Plan Referrals: NONE,PCP [Primary Care Provider] - (working on placement to [facility], will follow up with PCP at [facility])
[2017-04-27] MEDS: *HR* Warfarin 2 MG TABLET PO SCH (16:48)
[2017-04-27] MEDS: Mirtazapine 15 MG TABLET PO SCH (22:05)
[2017-04-28 07:14] LABS: Prothrombin Time 33.2 Seconds (9.4-12.1)
[2017-04-28] MEDS: *HR* Ticagrelor 90 MG TABLET PO SCH ×2 (08:01→21:29)
[2017-04-28] MEDS: amLODIPine 5 MG TABLET PO SCH (08:01)
[2017-04-28] MEDS: Aspirin 81 MG TAB.CHEW PO SCH (08:01)
[2017-04-28] MEDS: Lisinopril 20 MG TABLET PO SCH (08:01)
--- NOTE | 2017-04-28 16:20 | Internal Med Progress Note ---
Date of Encounter: 04/28/17 Time of Encounter: 10:30 - Assessment and plan (1) CVA (cerebral vascular accident) Current Visit: Yes Status: Chronic Assessment and plan: No new issues. Court date for guardianship is 05/21. 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 (2) STEMI (ST elevation myocardial infarction) Current Visit: Yes Status: Resolved Assessment and plan: Status post PCI and stent placement. Continue dual antiplatelet therapy. Remains asymptomatic. Qualifiers: Involved coronary artery: LAD coronary artery Qualified Code(s): I21.02 - ST elevation (STEMI) myocardial infarction involving left anterior descending coronary artery (3) Atrial fibrillation Current Visit: Yes Status: Chronic Assessment and plan: Coumadin management per pharmacy. Rate controlled. INR 3.0 today. Qualifiers: Atrial fibrillation type: paroxysmal Qualified Code(s): I48.0 - Paroxysmal atrial fibrillation (4) Systolic CHF Current Visit: Yes Status: Chronic Assessment and plan: Continue BB, ACEi; no need for diuresis at this time as patient is euvolemic. Qualifiers: Congestive heart failure chronicity: chronic Qualified Code(s): I50.22 - Chronic systolic (congestive) heart failure - Subjective Interval history: Mr. Patel is currently hospitalized awaiting guardianship and placement. He remains low risk at this time. Court date is 05/21. Mr. Patel just showered. No acute complaints at this time. - Constitutional Vitals: Temp Pulse Resp BP Pulse Ox 97.7 F 60 16 105/53 98 04/28/17 15:27 04/28/17 15:27 04/28/17 15:27 04/28/17 15:27 04/28/17 15:27 General appearance: Present: cooperative, A&O X 3, pleasant - Head Head exam: Present: normocephalic - Eye Eye exam: Present: EOMI, conjuntiva pink - ENT ENT exam: Present: mucous membranes dry - Respiratory Respiratory exam: Present: CTAB. Absent: rhonchi, wheezes - Cardiovascular Cardiovascular exam: Present: RRR. Absent: tachycardia - GI/Abdominal GI/Abdominal exam: Present: soft. Absent: mass, tenderness - Extremities Exam Extremities exam: Present: warm. Absent: tenderness - Neurological Exam Neurological exam: Present: alert. Absent: facial droop - Skin Skin exam: Present: dry, warm. Absent: erythema, rash Internal Medicine: Result - Labs CBC & Chem 7: 04/12/17 04:40 04/12/17 04:40 - ABG Interpretation ABG results: ABG ABG pH 7.48 pH Units (7.32-7.45) H 03/05/17 04:50 ABG pCO2 38 mmHg (35-45) 03/05/17 04:50 ABG pO2 89 mmHg (85-104) 03/05/17 04:50 ABG O2 Saturation 97 % (95-98) 03/05/17 04:50 PT/INR, D-dimer PT 33.2 Seconds (9.4-12.1) H 04/28/17 05:50 Consult Discharge Plan - Plan Referrals: NONE,PCP [Primary Care Provider] - (working on placement to [facility], will follow up with PCP at [facility])
[2017-04-28] MEDS: Mirtazapine 15 MG TABLET PO SCH (21:29)
[2017-04-28] MEDS: *HR* Warfarin 2 MG TABLET PO SCH (21:29)
[2017-04-29 04:37] LABS: Hematocrit 28.1 % (37.5-50.1); Hemoglobin 9.3 g/dL (12.9-16.9); Mean Corpuscular HGB Conc 33.1 g/dL (31.6-35.5); Mean Corpuscular Hemoglobin 29.1 pg (28.0-33.3); Mean Corpuscular Volume 87.8 fL (83.0-100.0); Mean Platelet Volume 9.8 fL (9.4-12.4); Platelet Count 206 K/mcL (140-400); Red Cell Distribution Width 14.4 % (11.5-14.5)
[2017-04-29 04:41] LABS: Prothrombin Time 33.1 Seconds (9.4-12.1)
[2017-04-29 04:54] LABS: BUN/Creatinine Ratio 22 (6-26); Blood Urea Nitrogen 26 mg/dL (8-26); Calcium 9.6 mg/dL (8.6-10.8); Carbon Dioxide 24 mEq/L (19-29); Chloride 110 mEq/L (98-109); Glucose 94 mg/dL (70-99); Osmolality,Calculated 297 (280-300); Potassium 4.2 mEq/L (3.5-4.5); Sodium 141 mEq/L (136-145); eGFR For African Americans > 60 (> 60); eGFR For Non-African Americans > 60 (> 60)
[2017-04-29] MEDS: Aspirin 81 MG TAB.CHEW PO SCH (08:07)
[2017-04-29] MEDS: amLODIPine 5 MG TABLET PO SCH (08:07)
[2017-04-29] MEDS: Lisinopril 20 MG TABLET PO SCH (08:07)
[2017-04-29] MEDS: *HR* Ticagrelor 90 MG TABLET PO SCH ×2 (08:08→20:02)
--- NOTE | 2017-04-29 08:57 | Internal Med Progress Note ---
<Oskar Montoya - Last Filed: 04/29/17 08:54> Date of Encounter: 04/29/17 Time of Encounter: 08:55 - Assessment and plan (1) CVA (cerebral vascular accident) Current Visit: Yes Status: Chronic Assessment and plan: No new issues. Court date for guardianship is 05/21. 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 (2) STEMI (ST elevation myocardial infarction) Current Visit: Yes Status: Resolved Assessment and plan: Status post PCI and stent placement. Continue dual antiplatelet therapy. Remains asymptomatic. Qualifiers: Involved coronary artery: LAD coronary artery Qualified Code(s): I21.02 - ST elevation (STEMI) myocardial infarction involving left anterior descending coronary artery (3) Atrial fibrillation Current Visit: Yes Status: Chronic Assessment and plan: Coumadin management per pharmacy. Rate controlled. INR 3.0 today. Qualifiers: Atrial fibrillation type: paroxysmal Qualified Code(s): I48.0 - Paroxysmal atrial fibrillation (4) CAD (coronary artery disease) Current Visit: Yes Status: Acute Assessment and plan: Stable. No chest pain. Continue aspirin, statin, beta david, Brillinta Qualifiers: Coronary Disease-Associated Artery/Lesion type: [place] artery [place] vs. transplanted heart: [place] heart Associated angina: with unstable angina Qualified Code(s): I25.110 - Atherosclerotic heart disease of [place] coronary artery with unstable angina pectoris (5) Acute systolic CHF (congestive heart failure) Current Visit: Yes Status: Resolved Assessment and plan: Due to acute RI.patient seems to be recovering nicely. Patient appears euvolemic with no diuretic use. Continue LAURA inhibitor, beta david. (6) Care plan discussed with patient Current Visit: Yes Status: Acute Assessment and plan: Patient is awaiting court date on 05/21 for determination of guardianship. - Subjective Interval history: Patient seen and examined at bedside. He has no complaints at this time. He has been up walking around. He denies chest pain, shortness of breath, weakness. - Constitutional Vitals: Temp Pulse Resp BP Pulse Ox 97.7 F 58 14 123/71 99 04/29/17 07:18 04/29/17 07:18 04/29/17 07:18 04/29/17 07:18 04/29/17 07:18 General appearance: Present: cooperative, A&O X 3, pleasant - Respiratory Respiratory exam: Present: CTAB. Absent: rales, rhonchi, wheezes - Cardiovascular Cardiovascular exam: Present: RRR. Absent: gallop, rubs, systolic murmur - GI/Abdominal GI/Abdominal exam: Present: normal bowel sounds, soft. Absent: distended, tenderness - Extremities Exam Extremities exam: Present: warm. Absent: pedal edema, tenderness - Neurological Exam Neurological exam: Present: alert, CN II-XII intact, oriented X3, no focal deficits Internal Medicine: Result - Labs CBC & Chem 7: 04/29/17 04:23 04/29/17 04:23 Labs: Short CBC 04/29/17 Range/Units 04:23 WBC 10.3 (4.3-11.1) K/mcL Hgb 9.3 L (12.9-16.9) g/dL Hct 28.1 L (37.5-50.1) % Plt Count 206 (140-400) K/mcL BMP 04/29/17 04:23 Sodium 141 Potassium 4.2 Chloride 110 H Carbon Dioxide 24 BUN 26 Creatinine 1.20 Glucose 94 Calcium 9.6 - ABG Interpretation ABG results: ABG ABG pH 7.48 pH Units (7.32-7.45) H 03/05/17 04:50 ABG pCO2 38 mmHg (35-45) 03/05/17 04:50 ABG pO2 89 mmHg (85-104) 03/05/17 04:50 ABG O2 Saturation 97 % (95-98) 03/05/17 04:50 PT/INR, D-dimer PT 33.1 Seconds (9.4-12.1) H 04/29/17 04:23 Consult Discharge Plan - Plan Referrals: NONE,PCP [Primary Care Provider] - (working on placement to [facility], will follow up with PCP at [facility]) <Tino Leone - Last Filed: 04/29/17 14:22> Date of Encounter: 04/29/17 - Assessment and plan (1) CVA (cerebral vascular accident) Current Visit: Yes Status: Chronic 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 (2) STEMI (ST elevation myocardial infarction) Current Visit: Yes Status: Resolved Qualifiers: Involved coronary artery: LAD coronary artery Qualified Code(s): I21.02 - ST elevation (STEMI) myocardial infarction involving left anterior descending coronary artery (3) Atrial fibrillation Current Visit: Yes Status: Chronic Qualifiers: Atrial fibrillation type: paroxysmal Qualified Code(s): I48.0 - Paroxysmal atrial fibrillation (4) Systolic CHF Current Visit: Yes Status: Chronic Qualifiers: Congestive heart failure chronicity: chronic Qualified Code(s): I50.22 - Chronic systolic (congestive) heart failure - Constitutional Vitals: Temp Pulse Resp BP Pulse Ox 97.7 F 58 14 123/71 99 04/29/17 07:18 04/29/17 07:18 04/29/17 07:18 04/29/17 07:18 04/29/17 07:18 Internal Medicine: Result - Labs CBC & Chem 7: 04/29/17 04:23 04/29/17 04:23 Labs: Short CBC 04/29/17 Range/Units 04:23 WBC 10.3 (4.3-11.1) K/mcL Hgb 9.3 L (12.9-16.9) g/dL Hct 28.1 L (37.5-50.1) % Plt Count 206 (140-400) K/mcL BMP 04/29/17 04:23 Sodium 141 Potassium 4.2 Chloride 110 H Carbon Dioxide 24 BUN 26 Creatinine 1.20 Glucose 94 Calcium 9.6 - ABG Interpretation ABG results: ABG ABG pH 7.48 pH Units (7.32-7.45) H 03/05/17 04:50 ABG pCO2 38 mmHg (35-45) 03/05/17 04:50 ABG pO2 89 mmHg (85-104) 03/05/17 04:50 ABG O2 Saturation 97 % (95-98) 03/05/17 04:50 PT/INR, D-dimer PT 33.1 Seconds (9.4-12.1) H 04/29/17 04:23 - Attending Attestation I examined this patient and my medical decision-making was reviewed with the Resident Physician on 04/29/17. I agree with the documented findings, disposition and treatment plan as described except to the extent set forth below. Mr Patel is currently admitted awaiting guardianship. He is low risk at this time. Exam Alert Comfortable Heart reg No wheeze No edema I/P 1 CVA 2. CAD Further diagnoses and plan as above.
[2017-04-29] MEDS: *HR* Warfarin 3 MG TABLET PO SCH (17:07)
[2017-04-29] MEDS: Mirtazapine 15 MG TABLET PO SCH (20:02)
[2017-04-30] MEDS: Aspirin 81 MG TAB.CHEW PO SCH (09:58)
[2017-04-30] MEDS: *HR* Ticagrelor 90 MG TABLET PO SCH ×2 (09:58→20:45)
[2017-04-30] MEDS: amLODIPine 5 MG TABLET PO SCH (09:58)
[2017-04-30] MEDS: Lisinopril 20 MG TABLET PO SCH (09:58)
--- NOTE | 2017-04-30 14:26 | Internal Med Progress Note ---
<Gladys Aponte - Last Filed: 04/30/17 14:51> Date of Encounter: 04/30/17 Time of Encounter: 14:46 - Assessment and plan (1) STEMI (ST elevation myocardial infarction) Current Visit: Yes Status: Resolved Assessment and plan: Status post PCI and stent placement. Continue dual antiplatelet therapy of Aspirin and Ticagrelor. Remains asymptomatic. Plan: - Ticagrelor 90mg PO BID - Aspirin 81 mg Po daily - Coumadin Qualifiers: Involved coronary artery: LAD coronary artery Qualified Code(s): I21.02 - ST elevation (STEMI) myocardial infarction involving left anterior descending coronary artery (2) Acute systolic CHF (congestive heart failure) Current Visit: Yes Status: Resolved Assessment and plan: systolic CHF 2/2 acute NE. Patient euvolemic currently with no diuretic use. Continue LAURA inhibitor, beta david. Plan: Lisinopril 20mg Po daily - Coreg 25mg PO BID (3) CVA (cerebral vascular accident) Current Visit: Yes Status: Chronic Assessment and plan: No new issues. weakness resolved. Court date for guardianship is 05/21. 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 (4) Atrial fibrillation Current Visit: Yes Status: Chronic Assessment and plan: Coumadin management per pharmacy. Rate controlled. INR 3.0 today. Qualifiers: Atrial fibrillation type: paroxysmal Qualified Code(s): I48.0 - Paroxysmal atrial fibrillation (5) CAD (coronary artery disease) Current Visit: Yes Status: Acute Assessment and plan: Stable. No chest pain. Continue aspirin, statin, beta david, Brillinta Qualifiers: Coronary Disease-Associated Artery/Lesion type: [place] artery [place] vs. transplanted heart: [place] heart Associated angina: with unstable angina Qualified Code(s): I25.110 - Atherosclerotic heart disease of [place] coronary artery with unstable angina pectoris - Subjective Interval history: Kobe 66M admitted 60 days ago with STEMI and Acute CHF complicated by CVA. Today, patient says he had some bleeding of his gums that he believes to be due to the Coumadin but he also was messing with his dentures this morning. He states that it has stopped bleeding though. He denies CP, SOB, abdominal pain, dizziness. - Constitutional Vitals: Temp Pulse Resp BP Pulse Ox 97.7 F 70 14 140/73 96 04/30/17 08:00 04/30/17 08:00 04/30/17 08:00 04/30/17 08:00 04/30/17 08:00 General appearance: Present: cooperative, A&O X 3, pleasant Exam: Constitutional: Alert, A&Ox3, in no acute distress, well nourished, well developed. Head: Normocephalic, atraumatic, normal contour and symmetric, no masses, lesions or scars Mouth: gums currently without bleeding, poor dentition most teeth absent, Heart: Normal, regular rate and rhythm, no murmurs Lungs: Clear to auscultation, no wheezes, rales, or rhonchi Abdomen: Soft, nondistended, nontender, and no masses palpable, bowel sounds present and normal, no guarding or rigidity. Extremities: No clubbing, cyanosis, or edema, radial pulse +2/4, capillary refill <2sec. Skin: Skin warm and dry, no lesions, no rashes, no jaundice Neurologic: Cranial nerves II through XII grossly intact, no focal deficits, strength within normal limits in all extremities Psych: Cooperative with exam, good eye contact, cognitive function intact, judgment good insight good, speech clear, thought process logical, and goal directed Internal Medicine: Result - Labs CBC & Chem 7: 04/29/17 04:23 04/29/17 04:23 - ABG Interpretation ABG results: ABG ABG pH 7.48 pH Units (7.32-7.45) H 03/05/17 04:50 ABG pCO2 38 mmHg (35-45) 03/05/17 04:50 ABG pO2 89 mmHg (85-104) 03/05/17 04:50 ABG O2 Saturation 97 % (95-98) 03/05/17 04:50 PT/INR, D-dimer PT 33.1 Seconds (9.4-12.1) H 04/29/17 04:23 Consult Discharge Plan - Plan Referrals: NONE,PCP [Primary Care Provider] - (working on placement to [facility], will follow up with PCP at [facility]) <Jared Daniels H - Last Filed: 04/30/17 16:23> Date of Encounter: 04/30/17 - Constitutional Vitals: Temp Pulse Resp BP Pulse Ox 97.7 F 70 14 140/73 96 04/30/17 08:00 04/30/17 08:00 04/30/17 08:00 04/30/17 08:00 04/30/17 08:00 Internal Medicine: Result - Labs CBC & Chem 7: 04/29/17 04:23 04/29/17 04:23 - ABG Interpretation ABG results: ABG ABG pH 7.48 pH Units (7.32-7.45) H 03/05/17 04:50 ABG pCO2 38 mmHg (35-45) 03/05/17 04:50 ABG pO2 89 mmHg (85-104) 03/05/17 04:50 ABG O2 Saturation 97 % (95-98) 03/05/17 04:50 PT/INR, D-dimer PT 33.1 Seconds (9.4-12.1) H 04/29/17 04:23 - Attending Attestation Stable, no changes I examined this patient and my medical decision-making was reviewed with the Resident Physician. I agree with the documented findings, disposition and treatment plan as described except to the extent set forth below.
[2017-04-30] MEDS: *HR* Warfarin 2 MG TABLET PO SCH (17:58)
[2017-04-30] MEDS: Mirtazapine 15 MG TABLET PO SCH (20:45)
[2017-05-01 05:53] LABS: INR 3.1; Prothrombin Time 33.8 Seconds (9.4-12.1)
[2017-05-01] MEDS: Aspirin 81 MG TAB.CHEW PO SCH (08:21)
[2017-05-01] MEDS: *HR* Ticagrelor 90 MG TABLET PO SCH ×2 (08:21→20:43)
[2017-05-01] MEDS: amLODIPine 5 MG TABLET PO SCH (08:21)
[2017-05-01] MEDS: Lisinopril 20 MG TABLET PO SCH (08:22)
--- NOTE | 2017-05-01 10:34 | Internal Med Progress Note ---
<Gladys Aponte - Last Filed: 05/01/17 10:18> Date of Encounter: 05/01/17 Time of Encounter: 10:10 - Assessment and plan (1) STEMI (ST elevation myocardial infarction) Current Visit: Yes Status: Resolved Assessment and plan: Status post PCI and stent placement. Continue dual antiplatelet therapy of Aspirin and Ticagrelor. Remains asymptomatic. Plan: - Ticagrelor 90mg PO BID - Aspirin 81 mg Po daily - Coumadin Qualifiers: Involved coronary artery: LAD coronary artery Qualified Code(s): I21.02 - ST elevation (STEMI) myocardial infarction involving left anterior descending coronary artery (2) Acute systolic CHF (congestive heart failure) Current Visit: Yes Status: Resolved Assessment and plan: systolic CHF 2/2 acute ID. Patient euvolemic currently with no diuretic use. Continue LAURA inhibitor, beta david. Plan: Lisinopril 20mg Po daily - Coreg 25mg PO BID (3) CVA (cerebral vascular accident) Current Visit: Yes Status: Chronic Assessment and plan: No new issues. weakness resolved. Court date for guardianship is 05/21. 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 (4) Atrial fibrillation Current Visit: Yes Status: Chronic Assessment and plan: Coumadin management per pharmacy. Rate controlled. INR 3.0 today. Qualifiers: Atrial fibrillation type: paroxysmal Qualified Code(s): I48.0 - Paroxysmal atrial fibrillation (5) CAD (coronary artery disease) Current Visit: Yes Status: Acute Assessment and plan: Stable. No chest pain. Continue aspirin, statin, beta david, Brillinta Qualifiers: Coronary Disease-Associated Artery/Lesion type: [place] artery [place] vs. transplanted heart: [place] heart Associated angina: with unstable angina Qualified Code(s): I25.110 - Atherosclerotic heart disease of [place] coronary artery with unstable angina pectoris - Subjective Interval history: Kobe 66M admitted 60 days ago with STEMI and Acute CHF complicated by CVA. Today, patient says he has no complaints today. His gums have not been bleeding. He has been getting up to walk multiple times a day. He denies CP, SOB, abdominal pain, dizziness. - Constitutional Vitals: Temp Pulse Resp BP Pulse Ox 97.5 F L 70 18 124/72 99 05/01/17 07:15 05/01/17 07:15 05/01/17 07:15 05/01/17 07:15 05/01/17 07:15 General appearance: Present: cooperative, A&O X 3, pleasant Exam: Constitutional: Alert, A&Ox3, in no acute distress, well nourished, well developed. Head: Normocephalic, atraumatic, normal contour and symmetric, no masses, lesions or scars Mouth: gums currently without bleeding, poor dentition most teeth absent, Heart: Normal, regular rate and rhythm, no murmurs Lungs: Clear to auscultation, no wheezes, rales, or rhonchi Abdomen: Soft, nondistended, nontender, and no masses palpable, bowel sounds present and normal, no guarding or rigidity. Extremities: No clubbing, cyanosis, or edema, radial pulse +2/4, capillary refill <2sec. Skin: Skin warm and dry, no lesions, no rashes, no jaundice Neurologic: Cranial nerves II through XII grossly intact, no focal deficits, strength within normal limits in all extremities Psych: Cooperative with exam, good eye contact, cognitive function intact, judgment good insight good, speech clear, thought process logical, and goal directed Internal Medicine: Result - Labs CBC & Chem 7: 04/29/17 04:23 04/29/17 04:23 - ABG Interpretation ABG results: ABG ABG pH 7.48 pH Units (7.32-7.45) H 03/05/17 04:50 ABG pCO2 38 mmHg (35-45) 03/05/17 04:50 ABG pO2 89 mmHg (85-104) 03/05/17 04:50 ABG O2 Saturation 97 % (95-98) 03/05/17 04:50 PT/INR, D-dimer PT 33.8 Seconds (9.4-12.1) H 05/01/17 05:38 Consult Discharge Plan - Plan Referrals: NONE,PCP [Primary Care Provider] - (working on placement to [facility], will follow up with PCP at [facility]) <Jared Daniels H - Last Filed: 05/01/17 14:18> Date of Encounter: 05/01/17 - Constitutional Vitals: Temp Pulse Resp BP Pulse Ox 97.5 F L 70 18 124/72 99 05/01/17 07:15 05/01/17 07:15 05/01/17 07:15 05/01/17 07:15 05/01/17 07:15 Internal Medicine: Result - Labs CBC & Chem 7: 04/29/17 04:23 04/29/17 04:23 - ABG Interpretation ABG results: ABG ABG pH 7.48 pH Units (7.32-7.45) H 03/05/17 04:50 ABG pCO2 38 mmHg (35-45) 03/05/17 04:50 ABG pO2 89 mmHg (85-104) 03/05/17 04:50 ABG O2 Saturation 97 % (95-98) 03/05/17 04:50 PT/INR, D-dimer PT 33.8 Seconds (9.4-12.1) H 05/01/17 05:38 - Attending Attestation Stable, no changes to the plan I examined this patient and my medical decision-making was reviewed with the Resident Physician. I agree with the documented findings, disposition and treatment plan as described except to the extent set forth below.
[2017-05-01] MEDS ORDERED: *HR* Warfarin 3 MG TABLET PO ONE (18:00)
[2017-05-01] MEDS: Mirtazapine 15 MG TABLET PO SCH (20:44)
[2017-05-02] MEDS: amLODIPine 5 MG TABLET PO SCH (08:47)
[2017-05-02] MEDS: *HR* Ticagrelor 90 MG TABLET PO SCH ×2 (08:47→20:22)
[2017-05-02] MEDS: Aspirin 81 MG TAB.CHEW PO SCH (08:47)
[2017-05-02] MEDS: Lisinopril 20 MG TABLET PO SCH (08:47)
--- NOTE | 2017-05-02 11:10 | Internal Med Progress Note ---
<Gladys Aponte - Last Filed: 05/02/17 13:43> Date of Encounter: 05/02/17 Time of Encounter: 01:00 - Assessment and plan (1) STEMI (ST elevation myocardial infarction) Current Visit: Yes Status: Resolved Assessment and plan: Status post PCI and stent placement. Continue dual antiplatelet therapy of Aspirin and Ticagrelor. Remains asymptomatic. Plan: - Ticagrelor 90mg PO BID - Aspirin 81 mg Po daily - Coumadin Qualifiers: Involved coronary artery: LAD coronary artery Qualified Code(s): I21.02 - ST elevation (STEMI) myocardial infarction involving left anterior descending coronary artery (2) Acute systolic CHF (congestive heart failure) Current Visit: Yes Status: Resolved Assessment and plan: systolic CHF 2/2 acute NE. Patient euvolemic currently with no diuretic use. Continue LAURA inhibitor, beta david. Plan: Lisinopril 20mg Po daily - Coreg 25mg PO BID (3) CVA (cerebral vascular accident) Current Visit: Yes Status: Chronic Assessment and plan: No new issues. weakness resolved. Court date for guardianship is 05/21. 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 (4) Atrial fibrillation Current Visit: Yes Status: Chronic Assessment and plan: Coumadin management per pharmacy. Rate controlled. INR 3.0 today. Qualifiers: Atrial fibrillation type: paroxysmal Qualified Code(s): I48.0 - Paroxysmal atrial fibrillation (5) CAD (coronary artery disease) Current Visit: Yes Status: Acute Qualifiers: Coronary Disease-Associated Artery/Lesion type: [place] artery [place] vs. transplanted heart: [place] heart Associated angina: with unstable angina Qualified Code(s): I25.110 - Atherosclerotic heart disease of [place] coronary artery with unstable angina pectoris - Subjective Interval history: Kobe 66M admitted 60 days ago with STEMI and Acute CHF complicated by CVA. Today, patient says he has no complaints today. His gums have not been bleeding. He has been getting up to walk multiple times a day. He denies CP, SOB, abdominal pain, dizziness. - Constitutional Vitals: Temp Pulse Resp BP Pulse Ox 98.8 F 63 18 124/66 98 05/02/17 06:49 05/02/17 06:49 05/02/17 06:49 05/02/17 06:49 05/02/17 06:49 General appearance: Present: cooperative, A&O X 3, pleasant Exam: Constitutional: Alert, A&Ox3, in no acute distress, well nourished, well developed. Head: Normocephalic, atraumatic, normal contour and symmetric, no masses, lesions or scars Mouth: gums currently without bleeding, poor dentition most teeth absent, Heart: Normal, regular rate and rhythm, no murmurs Lungs: Clear to auscultation, no wheezes, rales, or rhonchi Abdomen: Soft, nondistended, nontender, and no masses palpable, bowel sounds present and normal, no guarding or rigidity. Extremities: No clubbing, cyanosis, or edema, radial pulse +2/4, capillary refill <2sec. Skin: Skin warm and dry, no lesions, no rashes, no jaundice Neurologic: Cranial nerves II through XII grossly intact, no focal deficits, strength within normal limits in all extremities Psych: Cooperative with exam, good eye contact, cognitive function intact, judgment good insight good, speech clear, thought process logical, and goal directed Internal Medicine: Result - Labs CBC & Chem 7: 04/29/17 04:23 04/29/17 04:23 - ABG Interpretation ABG results: ABG ABG pH 7.48 pH Units (7.32-7.45) H 03/05/17 04:50 ABG pCO2 38 mmHg (35-45) 03/05/17 04:50 ABG pO2 89 mmHg (85-104) 03/05/17 04:50 ABG O2 Saturation 97 % (95-98) 03/05/17 04:50 PT/INR, D-dimer PT 33.8 Seconds (9.4-12.1) H 05/01/17 05:38 Consult Discharge Plan - Plan Referrals: NONE,PCP [Primary Care Provider] - (working on placement to [facility], will follow up with PCP at [facility]) <Jared Daniels H - Last Filed: 05/02/17 15:32> Date of Encounter: 05/02/17 - Constitutional Vitals: Temp Pulse Resp BP Pulse Ox 98.8 F 63 18 124/66 98 05/02/17 06:49 05/02/17 06:49 05/02/17 06:49 05/02/17 06:49 05/02/17 06:49 Internal Medicine: Result - Labs CBC & Chem 7: 04/29/17 04:23 04/29/17 04:23 - ABG Interpretation ABG results: ABG ABG pH 7.48 pH Units (7.32-7.45) H 03/05/17 04:50 ABG pCO2 38 mmHg (35-45) 03/05/17 04:50 ABG pO2 89 mmHg (85-104) 03/05/17 04:50 ABG O2 Saturation 97 % (95-98) 03/05/17 04:50 PT/INR, D-dimer PT 33.8 Seconds (9.4-12.1) H 05/01/17 05:38 - Attending Attestation Stable I examined this patient and my medical decision-making was reviewed with the Resident Physician. I agree with the documented findings, disposition and treatment plan as described except to the extent set forth below.
[2017-05-02] MEDS: *HR* Warfarin 3 MG TABLET PO SCH (16:54)
[2017-05-02] MEDS: Mirtazapine 15 MG TABLET PO SCH (20:22)
--- NOTE | 2017-05-03 07:54 | Internal Med Progress Note ---
<Gladys Aponte - Last Filed: 05/03/17 13:11> Date of Encounter: 05/03/17 Time of Encounter: 09:20 - Assessment and plan (1) STEMI (ST elevation myocardial infarction) Current Visit: Yes Status: Resolved Assessment and plan: Status post PCI and stent placement. Continue dual antiplatelet therapy of Aspirin and Ticagrelor. Remains asymptomatic. Plan: - Ticagrelor 90mg PO BID - Aspirin 81 mg Po daily - Coumadin Qualifiers: Involved coronary artery: LAD coronary artery Qualified Code(s): I21.02 - ST elevation (STEMI) myocardial infarction involving left anterior descending coronary artery (2) Acute systolic CHF (congestive heart failure) Current Visit: Yes Status: Resolved Assessment and plan: systolic CHF 2/2 acute [place]. Patient euvolemic currently with no diuretic use. Continue LAURA inhibitor, beta david. Plan: Lisinopril 20mg Po daily - Coreg 25mg PO BID (3) CVA (cerebral vascular accident) Current Visit: Yes Status: Chronic Assessment and plan: No new issues. weakness resolved. Court date for guardianship is 05/21. 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 (4) Atrial fibrillation Current Visit: Yes Status: Chronic Assessment and plan: Coumadin management per pharmacy. Rate controlled. INR 3.0 today. Qualifiers: Atrial fibrillation type: paroxysmal Qualified Code(s): I48.0 - Paroxysmal atrial fibrillation (5) CAD (coronary artery disease) Current Visit: Yes Status: Acute Assessment and plan: Stable. No chest pain. Continue aspirin, statin, beta david, Brillinta Qualifiers: Coronary Disease-Associated Artery/Lesion type: [place] artery [place] vs. transplanted heart: [place] heart Associated angina: with unstable angina Qualified Code(s): I25.110 - Atherosclerotic heart disease of [place] coronary artery with unstable angina pectoris - Subjective Interval history: Kobe 66M admitted 60 days ago with STEMI and Acute CHF complicated by CVA. Today, patient says he has no complaints today. He has been getting up to walk multiple times a day. He denies CP, SOB, abdominal pain, dizziness. - Constitutional Vitals: Temp Pulse Resp BP Pulse Ox 97.4 F L 63 18 126/62 96 05/03/17 07:37 05/03/17 07:37 05/03/17 07:37 05/03/17 07:37 05/03/17 07:37 General appearance: Present: cooperative, A&O X 3, pleasant Exam: Constitutional: Alert, A&Ox3, in no acute distress, well nourished, well developed. Head: Normocephalic, atraumatic, normal contour and symmetric, no masses, lesions or scars Mouth: gums currently without bleeding, poor dentition most teeth absent, Heart: Normal, regular rate and rhythm, no murmurs Lungs: Clear to auscultation, no wheezes, rales, or rhonchi Abdomen: Soft, nondistended, nontender, and no masses palpable, bowel sounds present and normal, no guarding or rigidity. Extremities: No clubbing, cyanosis, or edema, radial pulse +2/4, capillary refill <2sec. Skin: Skin warm and dry, no lesions, no rashes, no jaundice Neurologic: Cranial nerves II through XII grossly intact, no focal deficits, strength within normal limits in all extremities Psych: Cooperative with exam, good eye contact, cognitive function intact, judgment good insight good, speech clear, thought process logical, and goal directed Internal Medicine: Result - Labs CBC & Chem 7: 04/29/17 04:23 04/29/17 04:23 - ABG Interpretation ABG results: ABG ABG pH 7.48 pH Units (7.32-7.45) H 03/05/17 04:50 ABG pCO2 38 mmHg (35-45) 03/05/17 04:50 ABG pO2 89 mmHg (85-104) 03/05/17 04:50 ABG O2 Saturation 97 % (95-98) 03/05/17 04:50 PT/INR, D-dimer PT 33.8 Seconds (9.4-12.1) H 05/01/17 05:38 Consult Discharge Plan - Plan Referrals: NONE,PCP [Primary Care Provider] - (working on placement to [facility], will follow up with PCP at [facility]) <Jared Daniels H - Last Filed: 05/03/17 15:12> Date of Encounter: 05/03/17 - Constitutional Vitals: Temp Pulse Resp BP Pulse Ox 97.4 F L 63 18 126/62 96 05/03/17 07:37 05/03/17 07:37 05/03/17 07:37 05/03/17 07:37 05/03/17 07:37 Internal Medicine: Result - Labs CBC & Chem 7: 04/29/17 04:23 04/29/17 04:23 - ABG Interpretation ABG results: ABG ABG pH 7.48 pH Units (7.32-7.45) H 03/05/17 04:50 ABG pCO2 38 mmHg (35-45) 03/05/17 04:50 ABG pO2 89 mmHg (85-104) 03/05/17 04:50 ABG O2 Saturation 97 % (95-98) 03/05/17 04:50 PT/INR, D-dimer PT 33.8 Seconds (9.4-12.1) H 05/01/17 05:38 - Attending Attestation no new complaints I examined this patient and my medical decision-making was reviewed with the Resident Physician. I agree with the documented findings, disposition and treatment plan as described except to the extent set forth below.
[2017-05-03] MEDS: Lisinopril 20 MG TABLET PO SCH (08:03)
[2017-05-03] MEDS: amLODIPine 5 MG TABLET PO SCH (08:03)
[2017-05-03] MEDS: *HR* Ticagrelor 90 MG TABLET PO SCH ×2 (08:03→20:16)
[2017-05-03] MEDS: Aspirin 81 MG TAB.CHEW PO SCH (08:03)
[2017-05-03] MEDS: *HR* Warfarin 2 MG TABLET PO SCH (17:17)
[2017-05-03] MEDS: Mirtazapine 15 MG TABLET PO SCH (20:16)
[2017-05-04] MEDS: *HR* Ticagrelor 90 MG TABLET PO SCH ×2 (08:59→21:49)
[2017-05-04] MEDS: amLODIPine 5 MG TABLET PO SCH (08:59)
[2017-05-04] MEDS: Aspirin 81 MG TAB.CHEW PO SCH (08:59)
[2017-05-04] MEDS: Lisinopril 20 MG TABLET PO SCH (08:59)
--- NOTE | 2017-05-04 14:53 | Internal Med Progress Note ---
<DanielniviaChang Bryant - Last Filed: 05/04/17 14:56> Date of Encounter: 05/04/17 Time of Encounter: 14:52 - Assessment and plan (1) STEMI (ST elevation myocardial infarction) Current Visit: Yes Status: Resolved Assessment and plan: Status post PCI and stent placement. Continue dual antiplatelet therapy of Aspirin and Ticagrelor. - No new symptoms today. Plan: - Ticagrelor 90mg PO BID - Aspirin 81 mg Po daily - Coumadin Qualifiers: Involved coronary artery: LAD coronary artery Qualified Code(s): I21.02 - ST elevation (STEMI) myocardial infarction involving left anterior descending coronary artery (2) Acute systolic CHF (congestive heart failure) Current Visit: Yes Status: Resolved Assessment and plan: systolic CHF 2/2 acute [place]. Patient euvolemic currently with no diuretic use. Continue LAURA inhibitor, beta davdi. Plan: continue the following. Lisinopril 20mg Po daily - Coreg 25mg PO BID (3) CVA (cerebral vascular accident) Current Visit: Yes Status: Chronic Assessment and plan: No new issues. weakness resolved. - Court date for guardianship is 05/21. 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 (4) Atrial fibrillation Current Visit: Yes Status: Chronic Assessment and plan: Coumadin management per pharmacy. Rate controlled. INR 3.0 Qualifiers: Atrial fibrillation type: paroxysmal Qualified Code(s): I48.0 - Paroxysmal atrial fibrillation (5) CAD (coronary artery disease) Current Visit: Yes Status: Acute Assessment and plan: Stable. No chest pain. - Continue aspirin, statin, beta david, Brillinta Qualifiers: Coronary Disease-Associated Artery/Lesion type: [place] artery [place] vs. transplanted heart: [place] heart Associated angina: with unstable angina Qualified Code(s): I25.110 - Atherosclerotic heart disease of [place] coronary artery with unstable angina pectoris - Subjective Interval history: Mr. Patel has been seen at patient bedside. He says he feels well, no new changes or complaints. Denies fevers, chills, sweating, chest pain, N/V or any other concerning symptoms or concerns at this time. - Constitutional Vitals: Temp Pulse Resp BP Pulse Ox 98.1 F 59 16 119/67 96 05/04/17 07:19 05/04/17 07:19 05/04/17 07:19 05/04/17 07:19 05/04/17 07:19 General appearance: Present: cooperative, A&O X 3, pleasant Exam: Constitutional: Alert, A&Ox3, in no acute distress, well nourished, well developed. Head: Normocephalic, atraumatic, normal contour and symmetric, no masses, lesions or scars Mouth: gums currently without bleeding, poor dentition. Heart: Normal, regular rate and rhythm, no murmurs Lungs: Clear to auscultation, no wheezes, rales, or rhonchi Abdomen: Soft, nondistended, nontender, and no masses palpable, bowel sounds present and normal, no guarding or rigidity. Extremities: No clubbing, cyanosis, or edema, radial pulse +2/4, capillary refill <2sec. Skin: Skin warm and dry, no lesions, no rashes, no jaundice Neurologic: Cranial nerves II through XII grossly intact, no focal deficits, strength within normal limits in all extremities Psych: Cooperative with exam, good eye contact, cognitive function intact, judgment good insight good, speech clear, thought process logical, and goal directed Internal Medicine: Result - Labs CBC & Chem 7: 04/29/17 04:23 04/29/17 04:23 - ABG Interpretation ABG results: ABG ABG pH 7.48 pH Units (7.32-7.45) H 03/05/17 04:50 ABG pCO2 38 mmHg (35-45) 03/05/17 04:50 ABG pO2 89 mmHg (85-104) 03/05/17 04:50 ABG O2 Saturation 97 % (95-98) 03/05/17 04:50 PT/INR, D-dimer PT 33.8 Seconds (9.4-12.1) H 05/01/17 05:38 Consult Discharge Plan - Plan Referrals: NONE,PCP [Primary Care Provider] - ([facility], [facility] <Tino Leone - Last Filed: 05/04/17 18:53> Date of Encounter: 05/04/17 - Assessment and plan (1) CVA (cerebral vascular accident) Current Visit: Yes Status: Chronic 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 (2) STEMI (ST elevation myocardial infarction) Current Visit: Yes Status: Resolved Qualifiers: Involved coronary artery: LAD coronary artery Qualified Code(s): I21.02 - ST elevation (STEMI) myocardial infarction involving left anterior descending coronary artery (3) Atrial fibrillation Current Visit: Yes Status: Chronic Qualifiers: Atrial fibrillation type: paroxysmal Qualified Code(s): I48.0 - Paroxysmal atrial fibrillation (4) Systolic CHF Current Visit: Yes Status: Chronic Qualifiers: Congestive heart failure chronicity: chronic Qualified Code(s): I50.22 - Chronic systolic (congestive) heart failure - Constitutional Vitals: Temp Pulse Resp BP Pulse Ox 98.1 F 59 16 119/67 96 05/04/17 07:19 05/04/17 07:19 05/04/17 07:19 05/04/17 07:19 05/04/17 07:19 Internal Medicine: Result - Labs CBC & Chem 7: 04/29/17 04:23 04/29/17 04:23 - ABG Interpretation ABG results: ABG ABG pH 7.48 pH Units (7.32-7.45) H 03/05/17 04:50 ABG pCO2 38 mmHg (35-45) 03/05/17 04:50 ABG pO2 89 mmHg (85-104) 03/05/17 04:50 ABG O2 Saturation 97 % (95-98) 03/05/17 04:50 PT/INR, D-dimer PT 37.3 Seconds (9.4-12.1) H 05/04/17 14:39 - Attending Attestation I examined this patient and my medical decision-making was reviewed with the Resident Physician on 05/04/17. I agree with the documented findings, disposition and treatment plan as described except to the extent set forth below. Mr. Patel is currently admitted awaiting guardianship. He remains low risk at this time. Mr. Patel is feeling OK. He is up and walking around. Exam Alert. Pleasant Heart reg No wheeze No edema I/P 1. CVA 2. [place] Further diagnoses and plan as above.
[2017-05-04 14:59] LABS: INR 3.4; Prothrombin Time 37.3 Seconds (9.4-12.1)
[2017-05-04] MEDS: *HR* Warfarin 3 MG TABLET PO SCH (17:04)
[2017-05-04] MEDS: Mirtazapine 15 MG TABLET PO SCH (21:49)
[2017-05-05] MEDS: Aspirin 81 MG TAB.CHEW PO SCH (10:01)
[2017-05-05] MEDS: Lisinopril 20 MG TABLET PO SCH (10:02)
[2017-05-05] MEDS: amLODIPine 5 MG TABLET PO SCH (10:02)
[2017-05-05] MEDS: *HR* Ticagrelor 90 MG TABLET PO SCH ×2 (10:02→20:40)
--- NOTE | 2017-05-05 11:39 | Internal Med Progress Note ---
<Chang Oliver Manny - Last Filed: 05/05/17 11:37> Date of Encounter: 05/05/17 Time of Encounter: 09:00 - Assessment and plan (1) STEMI (ST elevation myocardial infarction) Current Visit: Yes Status: Resolved Assessment and plan: Status post PCI and stent placement. Continue dual antiplatelet therapy of Aspirin and Ticagrelor. - No new symptoms today. Plan: - Ticagrelor 90mg PO BID - Aspirin 81 mg Po daily - Coumadin Qualifiers: Involved coronary artery: LAD coronary artery Qualified Code(s): I21.02 - ST elevation (STEMI) myocardial infarction involving left anterior descending coronary artery (2) Acute systolic CHF (congestive heart failure) Current Visit: Yes Status: Resolved Assessment and plan: systolic CHF 2/2 acute [place]. Patient euvolemic currently with no diuretic use. Continue LAURA inhibitor, beta david. Plan: continue the following. Lisinopril 20mg Po daily - Coreg 25mg PO BID (3) CVA (cerebral vascular accident) Current Visit: Yes Status: Chronic Assessment and plan: No new issues. weakness resolved. - Court date for guardianship is 05/21. 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 (4) Atrial fibrillation Current Visit: Yes Status: Chronic Assessment and plan: Coumadin management per pharmacy. Rate controlled. INR 3.0 Qualifiers: Atrial fibrillation type: paroxysmal Qualified Code(s): I48.0 - Paroxysmal atrial fibrillation (5) CAD (coronary artery disease) Current Visit: Yes Status: Acute Assessment and plan: Stable. No chest pain. - Continue aspirin, statin, beta david, Brillinta Qualifiers: Coronary Disease-Associated Artery/Lesion type: [place] artery [place] vs. transplanted heart: [place] heart Associated angina: with unstable angina Qualified Code(s): I25.110 - Atherosclerotic heart disease of [place] coronary artery with unstable angina pectoris - Subjective Interval history: Mr. Patel has been seen at patient bedside. He denies any changes or concerns since our evaluation yesterday. - Constitutional Vitals: Temp Pulse Resp BP Pulse Ox 98.0 F 53 16 110/65 95 05/05/17 07:32 05/05/17 07:32 05/05/17 07:32 05/05/17 07:32 05/05/17 07:32 General appearance: Present: cooperative, A&O X 3, pleasant Exam: Constitutional: Alert, A&Ox3, in no acute distress, well nourished, well developed. Head: Normocephalic, atraumatic, normal contour and symmetric, no masses, lesions or scars Mouth: gums currently without bleeding, poor dentition. Heart: Normal, regular rate and rhythm, no murmurs Lungs: Clear to auscultation, no wheezes, rales, or rhonchi Abdomen: Soft, nondistended, nontender, and no masses palpable, bowel sounds present and normal, no guarding or rigidity. Extremities: No clubbing, cyanosis, or edema, radial pulse +2/4, capillary refill <2sec. Skin: Skin warm and dry, no lesions, no rashes, no jaundice Neurologic: Cranial nerves II through XII grossly intact, no focal deficits, strength within normal limits in all extremities Psych: Cooperative with exam, good eye contact, cognitive function intact, judgment good insight good, speech clear, thought process logical, and goal directed Internal Medicine: Result - Labs CBC & Chem 7: 04/29/17 04:23 04/29/17 04:23 - ABG Interpretation ABG results: ABG ABG pH 7.48 pH Units (7.32-7.45) H 03/05/17 04:50 ABG pCO2 38 mmHg (35-45) 03/05/17 04:50 ABG pO2 89 mmHg (85-104) 03/05/17 04:50 ABG O2 Saturation 97 % (95-98) 03/05/17 04:50 PT/INR, D-dimer PT 37.3 Seconds (9.4-12.1) H 05/04/17 14:39 Consult Discharge Plan - Plan Referrals: NONE,PCP [Primary Care Provider] - (working on placement to [facility], will follow up with PCP at [facility]) <Tino Leone - Last Filed: 05/05/17 18:38> Date of Encounter: 05/05/17 - Assessment and plan (1) CVA (cerebral vascular accident) Current Visit: Yes Status: Chronic 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 (2) STEMI (ST elevation myocardial infarction) Current Visit: Yes Status: Resolved Qualifiers: Involved coronary artery: LAD coronary artery Qualified Code(s): I21.02 - ST elevation (STEMI) myocardial infarction involving left anterior descending coronary artery (3) Atrial fibrillation Current Visit: Yes Status: Chronic Qualifiers: Atrial fibrillation type: paroxysmal Qualified Code(s): I48.0 - Paroxysmal atrial fibrillation (4) Systolic CHF Current Visit: Yes Status: Chronic Qualifiers: Congestive heart failure chronicity: chronic Qualified Code(s): I50.22 - Chronic systolic (congestive) heart failure - Constitutional Vitals: Temp Pulse Resp BP Pulse Ox 98.0 F 53 16 110/65 95 05/05/17 07:32 05/05/17 07:32 05/05/17 07:32 05/05/17 07:32 05/05/17 07:32 Internal Medicine: Result - Labs CBC & Chem 7: 04/29/17 04:23 04/29/17 04:23 - ABG Interpretation ABG results: ABG ABG pH 7.48 pH Units (7.32-7.45) H 03/05/17 04:50 ABG pCO2 38 mmHg (35-45) 03/05/17 04:50 ABG pO2 89 mmHg (85-104) 03/05/17 04:50 ABG O2 Saturation 97 % (95-98) 03/05/17 04:50 PT/INR, D-dimer PT 34.9 Seconds (9.4-12.1) H 05/05/17 13:43 - Attending Attestation I examined this patient and my medical decision-making was reviewed with the Resident Physician on 05/05/17. I agree with the documented findings, disposition and treatment plan as described except to the extent set forth below. Mr. Patel is currently admitted awaiting guardianship. He remains low risk. Mr Patel has no new issues. No fever or chills. Exam alert. Comfortable Heart reg No wheeze Abd soft I/P 1. Awaiting guardianship. Further diagnoses and plan as above.
[2017-05-05 14:07] LABS: INR 3.2; Prothrombin Time 34.9 Seconds (9.4-12.1)
[2017-05-05] MEDS: *HR* Warfarin 3 MG TABLET PO SCH (18:06)
[2017-05-05] MEDS: Mirtazapine 15 MG TABLET PO SCH (20:40)
[2017-05-06] MEDS: amLODIPine 5 MG TABLET PO SCH (09:38)
[2017-05-06] MEDS: *HR* Ticagrelor 90 MG TABLET PO SCH ×2 (09:38→20:07)
[2017-05-06] MEDS: Lisinopril 20 MG TABLET PO SCH (09:39)
[2017-05-06] MEDS: Aspirin 81 MG TAB.CHEW PO SCH (09:39)
--- NOTE | 2017-05-06 12:22 | Internal Med Progress Note ---
<Gladys Aponte - Last Filed: 05/06/17 12:20> Date of Encounter: 05/06/17 Time of Encounter: 10:20 - Assessment and plan (1) STEMI (ST elevation myocardial infarction) Current Visit: Yes Status: Resolved Assessment and plan: Status post PCI and stent placement. Continue dual antiplatelet therapy of Aspirin and Ticagrelor. - No new symptoms today. Plan: - Ticagrelor 90mg PO BID - Aspirin 81 mg Po daily - Coumadin Qualifiers: Involved coronary artery: LAD coronary artery Qualified Code(s): I21.02 - ST elevation (STEMI) myocardial infarction involving left anterior descending coronary artery (2) Acute systolic CHF (congestive heart failure) Current Visit: Yes Status: Resolved Assessment and plan: systolic CHF 2/2 acute [place]. Patient euvolemic currently with no diuretic use. Continue LAURA inhibitor, beta david. Plan: continue the following. Lisinopril 20mg Po daily - Coreg 25mg PO BID (3) CVA (cerebral vascular accident) Current Visit: Yes Status: Chronic Assessment and plan: No new issues. weakness resolved. - Court date for guardianship is 05/21. 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 (4) Atrial fibrillation Current Visit: Yes Status: Chronic Assessment and plan: Coumadin management per pharmacy. Rate controlled. INR 3.0 Qualifiers: Atrial fibrillation type: paroxysmal Qualified Code(s): I48.0 - Paroxysmal atrial fibrillation (5) CAD (coronary artery disease) Current Visit: Yes Status: Acute Assessment and plan: Stable. No chest pain. - Continue aspirin, statin, beta david, Brillinta Qualifiers: Coronary Disease-Associated Artery/Lesion type: [place] artery [place] vs. transplanted heart: [place] heart Associated angina: with unstable angina Qualified Code(s): I25.110 - Atherosclerotic heart disease of [place] coronary artery with unstable angina pectoris - Subjective Interval history: Kobe 66M admitted 60 days ago with STEMI and Acute CHF complicated by CVA. Today, patient says he has no complaints today. He has been walking around the hospital with his walker. He denies CP, SOB, abdominal pain, dizziness. - Constitutional Vitals: Temp Pulse Resp BP Pulse Ox 97.5 F L 56 18 121/75 97 05/06/17 07:21 05/06/17 07:21 05/06/17 07:21 05/06/17 07:21 05/06/17 07:21 General appearance: Present: cooperative, A&O X 3, pleasant Exam: Constitutional: Alert, A&Ox3, in no acute distress, well nourished, well developed. Head: Normocephalic, atraumatic, normal contour and symmetric, no masses, lesions or scars Mouth: gums currently without bleeding, poor dentition. Heart: Normal, regular rate and rhythm, no murmurs Lungs: Clear to auscultation, no wheezes, rales, or rhonchi Abdomen: Soft, nondistended, nontender, and no masses palpable, bowel sounds present and normal, no guarding or rigidity. Extremities: No clubbing, cyanosis, or edema, radial pulse +2/4, capillary refill <2sec. Skin: Skin warm and dry, no lesions, no rashes, no jaundice Neurologic: Cranial nerves II through XII grossly intact, no focal deficits, strength within normal limits in all extremities Psych: Cooperative with exam, good eye contact, cognitive function intact, judgment good insight good, speech clear, thought process logical, and goal directed Internal Medicine: Result - Labs CBC & Chem 7: 04/29/17 04:23 04/29/17 04:23 - ABG Interpretation ABG results: ABG ABG pH 7.48 pH Units (7.32-7.45) H 03/05/17 04:50 ABG pCO2 38 mmHg (35-45) 03/05/17 04:50 ABG pO2 89 mmHg (85-104) 03/05/17 04:50 ABG O2 Saturation 97 % (95-98) 03/05/17 04:50 PT/INR, D-dimer PT 34.9 Seconds (9.4-12.1) H 05/05/17 13:43 Consult Discharge Plan - Plan Referrals: NONE,PCP [Primary Care Provider] - (working [facility] placement to community [facility], will follow up with PCP at [facility]) <Tino Leone - Last Filed: 05/06/17 18:03> Date of Encounter: 05/06/17 - Assessment and plan (1) CVA (cerebral vascular accident) Current Visit: Yes Status: Chronic 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 (2) STEMI (ST elevation myocardial infarction) Current Visit: Yes Status: Resolved Qualifiers: Involved coronary artery: LAD coronary artery Qualified Code(s): I21.02 - ST elevation (STEMI) myocardial infarction involving left anterior descending coronary artery (3) Atrial fibrillation Current Visit: Yes Status: Chronic Qualifiers: Atrial fibrillation type: paroxysmal Qualified Code(s): I48.0 - Paroxysmal atrial fibrillation (4) Systolic CHF Current Visit: Yes Status: Chronic Qualifiers: Congestive heart failure chronicity: chronic Qualified Code(s): I50.22 - Chronic systolic (congestive) heart failure - Constitutional Vitals: Temp Pulse Resp BP Pulse Ox 97.5 F L 56 18 121/75 97 05/06/17 07:21 05/06/17 07:21 05/06/17 07:21 05/06/17 07:21 05/06/17 07:21 Internal Medicine: Result - Labs CBC & Chem 7: 04/29/17 04:23 04/29/17 04:23 - ABG Interpretation ABG results: ABG ABG pH 7.48 pH Units (7.32-7.45) H 03/05/17 04:50 ABG pCO2 38 mmHg (35-45) 03/05/17 04:50 ABG pO2 89 mmHg (85-104) 03/05/17 04:50 ABG O2 Saturation 97 % (95-98) 03/05/17 04:50 PT/INR, D-dimer PT 34.9 Seconds (9.4-12.1) H 05/05/17 13:43 - Attending Attestation I examined this patient and my medical decision-making was reviewed with the Resident Physician on 05/06/17. I agree with the documented findings, disposition and treatment plan as described except to the extent set forth below. Mr Patel is currently admitted awaiting guardianship and placement. He remains low risk. Mr Patel feels OK. No new issues overnight. Exam Alert. Comfortable No wheeze No edema I/P 1. [place] 2. CVA Further diagnoses and plan as above.
[2017-05-06] MEDS: *HR* Warfarin 2 MG TABLET PO SCH (16:58)
[2017-05-06] MEDS: Mirtazapine 15 MG TABLET PO SCH (20:07)
[2017-05-07] MEDS: Aspirin 81 MG TAB.CHEW PO SCH (08:07)
[2017-05-07] MEDS: Lisinopril 20 MG TABLET PO SCH (08:07)
[2017-05-07] MEDS: amLODIPine 5 MG TABLET PO SCH (08:07)
[2017-05-07] MEDS: *HR* Ticagrelor 90 MG TABLET PO SCH ×2 (08:07→20:18)
--- NOTE | 2017-05-07 10:43 | Internal Med Progress Note ---
Date of Encounter: 05/07/17 Time of Encounter: 10:42 - Assessment and plan (1) STEMI (ST elevation myocardial infarction) Current Visit: Yes Status: Acute Assessment and plan: Patient presented with acute STEMI. Cardiology evaluation was done and patient underwent left heart catheterization, received PTCA/drug-eluting stent to proximal and mid LAD. Continue dual antiplatelet therapy, beta david and statin. Currently stable. Qualifiers: Involved coronary artery: LAD coronary artery Qualified Code(s): I21.02 - ST elevation (STEMI) myocardial infarction involving left anterior descending coronary artery (2) Acute systolic CHF (congestive heart failure) Current Visit: Yes Status: Resolved Assessment and plan: Initial echocardiogram showed severely decreased ejection fraction, at around 25 % with segmental wall motion abnormality, mild diastolic dysfunction of left ventricle. Currently stable. Continue Coreg, lisinopril. (3) CVA (cerebral vascular accident) Current Visit: Yes Status: Chronic Assessment and plan: Noted to have acute onset of left lower extremity weakness subsequent to cardiac catheterization. MRI brain showed multiple small infarcts in bilateral cerebral and cerebellar areas, possible embolic phenomenon. Neurology consulted , continue aspirin and Coumadin for underlying atrial fibrillation. Physical and occupational therapy evaluation completed, recommend placement in extended care facility. Patient's functional status is currently much improved and physically he is able to be discharged home with 24-hour supervision. However, he has no family who is willing to be his next of kin, patient is homeless, without employment or medical insurance. He is noted to have issues with memory and cognition after STEMI and CVA. He is currently awaiting placement to extended care facility pending approval of legal guardianship to Hospital compliance attorney. 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 (4) Atrial fibrillation Current Visit: Yes Status: Chronic Assessment and plan: Currently rate controlled. Continue calcium channel david and beta david. Long-term anticoagulation with Coumadin, INR noted to be therapeutic. Qualifiers: Atrial fibrillation type: paroxysmal Qualified Code(s): I48.0 - Paroxysmal atrial fibrillation (5) Cognitive and behavioral changes Current Visit: Yes Status: Chronic Assessment and plan: Psychiatric evaluation has been completed twice during this hospitalization. Plan as mentioned above, awaiting placement in extended care facility. - Subjective Interval history: Able to tell me his name, place and date/day; denies chest pain, dyspnea, seizures, weakness; awaiting court hearing for legal guardianship by hospital's compliance attorney; - Constitutional Vitals: Temp Pulse Resp BP Pulse Ox 97.6 F 59 15 103/65 96 05/07/17 07:07 05/07/17 07:07 05/07/17 07:07 05/07/17 07:07 05/07/17 07:07 General appearance: Present: cooperative, A&O X 3, answers questions appropriately - Respiratory Respiratory exam: Present: CTAB. Absent: accessory muscle use, rales, rhonchi, wheezes - Cardiovascular Cardiovascular exam: Present: RRR, +S1, +S2. Absent: diastolic murmur, gallop, rubs, systolic murmur Internal Medicine: Result - Labs CBC & Chem 7: 04/29/17 04:23 04/29/17 04:23 - ABG Interpretation ABG results: ABG ABG pH 7.48 pH Units (7.32-7.45) H 03/05/17 04:50 ABG pCO2 38 mmHg (35-45) 03/05/17 04:50 ABG pO2 89 mmHg (85-104) 03/05/17 04:50 ABG O2 Saturation 97 % (95-98) 03/05/17 04:50 PT/INR, D-dimer PT 34.9 Seconds (9.4-12.1) H 05/05/17 13:43 Consult Discharge Plan - Plan Referrals: NONE,PCP [Primary Care Provider] - (working on placement to [facility], will follow up with PCP at [facility])
[2017-05-07] MEDS: *HR* Warfarin 3 MG TABLET PO SCH (16:57)
[2017-05-07] MEDS: Mirtazapine 15 MG TABLET PO SCH (20:19)
[2017-05-08] MEDS: Lisinopril 20 MG TABLET PO SCH (09:05)
[2017-05-08] MEDS: *HR* Ticagrelor 90 MG TABLET PO SCH ×2 (09:05→21:44)
[2017-05-08] MEDS: amLODIPine 5 MG TABLET PO SCH (09:05)
[2017-05-08] MEDS: Aspirin 81 MG TAB.CHEW PO SCH (09:05)
--- NOTE | 2017-05-08 10:06 | Internal Med Progress Note ---
Date of Encounter: 05/08/17 Time of Encounter: 10:05 - Assessment and plan (1) STEMI (ST elevation myocardial infarction) Current Visit: Yes Status: Acute Assessment and plan: Patient presented with acute STEMI. Cardiology evaluation was done and patient underwent left heart catheterization, received PTCA/drug-eluting stent to proximal and mid LAD. Continue dual antiplatelet therapy, beta david and statin. Currently stable. Qualifiers: Involved coronary artery: LAD coronary artery Qualified Code(s): I21.02 - ST elevation (STEMI) myocardial infarction involving left anterior descending coronary artery (2) Acute systolic CHF (congestive heart failure) Current Visit: Yes Status: Resolved (3) CVA (cerebral vascular accident) Current Visit: Yes Status: Chronic Assessment and plan: Noted to have acute onset of left lower extremity weakness subsequent to cardiac catheterization. MRI brain showed multiple small infarcts in bilateral cerebral and cerebellar areas, possible embolic phenomenon. Neurology consulted , continue aspirin and Coumadin for underlying atrial fibrillation. Physical and occupational therapy evaluation initially recommended placement in extended care facility. Patient's functional status is currently much improved and physically he is able to be discharged home with 24-hour supervision. However, he has no family who is willing to be his next of kin, patient is homeless, without employment or medical insurance. He is noted to have issues with memory and cognition after STEMI and CVA. He is currently awaiting placement to extended care facility pending approval of legal guardianship to Hospital [employer] attorney. 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 (4) Atrial fibrillation Current Visit: Yes Status: Chronic Qualifiers: Atrial fibrillation type: paroxysmal Qualified Code(s): I48.0 - Paroxysmal atrial fibrillation (5) Cognitive and behavioral changes Current Visit: Yes Status: Chronic - Subjective Interval history: Reports feeling well; thankful for the care he has been receiving at our facility; denies chest pain, dyspnea, nausea, vomiting, abdominal pain; - Constitutional Vitals: Temp Pulse Resp BP Pulse Ox 97.5 F L 62 15 121/65 97 05/08/17 07:40 05/08/17 07:40 05/08/17 07:40 05/08/17 07:40 05/08/17 07:40 General appearance: Present: cooperative, A&O X 3, answers questions appropriately - Respiratory Respiratory exam: Present: CTAB. Absent: accessory muscle use, rales, rhonchi, wheezes - Cardiovascular Cardiovascular exam: Present: RRR, +S1, +S2. Absent: diastolic murmur, gallop, rubs, systolic murmur Internal Medicine: Result - Labs CBC & Chem 7: 04/29/17 04:23 04/29/17 04:23 - ABG Interpretation ABG results: ABG ABG pH 7.48 pH Units (7.32-7.45) H 03/05/17 04:50 ABG pCO2 38 mmHg (35-45) 03/05/17 04:50 ABG pO2 89 mmHg (85-104) 03/05/17 04:50 ABG O2 Saturation 97 % (95-98) 03/05/17 04:50 PT/INR, D-dimer PT 34.9 Seconds (9.4-12.1) H 05/05/17 13:43 Consult Discharge Plan - Plan Referrals: NONE,PCP [Primary Care Provider] - (working on placement to [facility], will follow up with PCP at [facility])
[2017-05-08] MEDS: *HR* Warfarin 2 MG TABLET PO SCH (16:50)
[2017-05-08] MEDS: Mirtazapine 15 MG TABLET PO SCH (21:44)
[2017-05-09] MEDS: *HR* Ticagrelor 90 MG TABLET PO SCH ×2 (09:16→20:39)
[2017-05-09] MEDS: amLODIPine 5 MG TABLET PO SCH (09:16)
[2017-05-09] MEDS: Lisinopril 20 MG TABLET PO SCH (09:16)
[2017-05-09] MEDS: Aspirin 81 MG TAB.CHEW PO SCH (09:16)
--- NOTE | 2017-05-09 09:26 | Internal Med Progress Note ---
Date of Encounter: 05/09/17 Time of Encounter: 09:25 - Assessment and plan (1) STEMI (ST elevation myocardial infarction) Current Visit: Yes Status: Acute Assessment and plan: Patient had acute STEMI. Status post cardiology evaluation and left heart catheterization and PTCA/drug-eluting stent to proximal and mid LAD. Continue dual antiplatelet therapy, beta david and statin. Currently stable. Qualifiers: Involved coronary artery: LAD coronary artery Qualified Code(s): I21.02 - ST elevation (STEMI) myocardial infarction involving left anterior descending coronary artery (2) Acute systolic CHF (congestive heart failure) Current Visit: Yes Status: Resolved (3) CVA (cerebral vascular accident) Current Visit: Yes Status: Chronic Assessment and plan: MRI brain showed multiple small infarcts in bilateral cerebral and cerebellar areas, possible embolic phenomenon. Neurology consulted, continue aspirin and Coumadin for underlying atrial fibrillation. Daily Physical and occupational therapy. Patient is noted to have cognitive dysfunction, likely due to underlying medical conditions and recent myocardial infarction. He is noted to be more alert and oriented each day, will request psychiatry reevaluation for determination of capacity. He is currently awaiting placement to extended care facility pending approval of legal guardianship to Hospital research attorney. 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 (4) Atrial fibrillation Current Visit: Yes Status: Chronic Assessment and plan: Currently rate controlled. Continue calcium channel david and beta david. Long-term anticoagulation with Coumadin, INR noted to be therapeutic. Qualifiers: Atrial fibrillation type: paroxysmal Qualified Code(s): I48.0 - Paroxysmal atrial fibrillation (5) Cognitive and behavioral changes Current Visit: Yes Status: Chronic - Subjective Interval history: Denies new complaints; no chest or abdominal pain, dyspnea; ambulating well with his walker; awaiting court hearing for legal guardianship; - Constitutional Vitals: Temp Pulse Resp BP Pulse Ox 97.3 F L 56 17 114/64 97 05/09/17 06:41 05/09/17 06:41 05/09/17 06:41 05/09/17 06:41 05/09/17 06:41 General appearance: Present: cooperative, A&O X 3, answers questions appropriately - Respiratory Respiratory exam: Present: CTAB. Absent: accessory muscle use, rales, rhonchi, wheezes - Cardiovascular Cardiovascular exam: Present: RRR, +S1, +S2. Absent: diastolic murmur, gallop, rubs, systolic murmur Internal Medicine: Result - Labs CBC & Chem 7: 04/29/17 04:23 04/29/17 04:23 - ABG Interpretation ABG results: ABG ABG pH 7.48 pH Units (7.32-7.45) H 03/05/17 04:50 ABG pCO2 38 mmHg (35-45) 03/05/17 04:50 ABG pO2 89 mmHg (85-104) 03/05/17 04:50 ABG O2 Saturation 97 % (95-98) 03/05/17 04:50 PT/INR, D-dimer PT 34.9 Seconds (9.4-12.1) H 05/05/17 13:43 Consult Discharge Plan - Plan Referrals: NONE,PCP [Primary Care Provider] - (working on placement to [facility], will follow up with PCP at [facility])
--- NOTE | 2017-05-09 14:22 | Consult Note ---
Date of Encounter: 05/09/17 Time of Encounter: 12:30 Assessment & Recommendation (1) Cognitive and behavioral changes Current visit: Yes Status: Chronic History of Present Illness Requesting Physician: Moni Sampson MD Reason for consult: mental and decision making capacity. History of present illness: Mr. Patel is a 66 year old male consulted again today for capacity evaluation. This provider and Dr Lawler had seen Mr Patel last month . he was seen today , has multiple medical illnesses and recent CVA and CAD. he looks much better today , more verbal and very pleasant and cooperative and less confused. He still has memory lapses , unable to do serial 7 and recent memory 1/3 with prompting, still has to look at the board to tell me day, month and year. He feels alright and better, but states "i do not know what i need , i do snot know if i can take care of my self.i feel alright but then what the hell you are talking about." someone has to tell me what to do , i just can not think more. A/P cognitive decline secondary to medical illness. R/O vascular dementia. As per chart he has court hearing for legal guardianship. Patient at present because of his cognitive impairement not able to make decision for his treatment and care. Thank you for consult CC: Moni Sampson MD Past Med Surg Social Fam HX - Past Medical History Medical history: hypertension, seizures - Social History Smoking Status: Former smoker Smokeless Tobacco Status: No Alcohol use: none Drug use: none Medications & Allergies Unable To Obtain [Unable to Obtain] 03/02/17 [History] 3 Allergy/AdvReac Type Severity Reaction Status Date / Time No Known Allergies Allergy Verified 02/28/17 16:24 Review of Systems Psychiatric: Reports: confusion, memory loss, difficulty concentrating Mental Status Exam Level of alertness: Alert Patient appearance: Appropriate Behavior: cooperative Psychomotor activity: Normal Eye contact: Maintains Eye Contact Mood description: Euthymic/stable Affect description: congruent with mood Speech pattern: Slowed Speech volume: Normal Thought process: Tangential Thought content: Yes Intact Attention span: Unable to Sustain Attention Memory description: Immediate Impaired, Recent Impaired Patient reliability: Questionable Historian Intelligence estimate: Average Judgment: Poor Insight: Partial Results - Vital Signs Vital signs: Temp Pulse Resp BP Pulse Ox 97.3 F L 56 17 114/64 97 05/09/17 06:41 05/09/17 06:41 05/09/17 06:41 05/09/17 06:41 05/09/17 06:41 - Labs Labs: Laboratory Last Values WBC 10.3 K/mcL (4.3-11.1) 04/29/17 04:23 RBC 3.20 M/mcL (4.19-5.50) L 04/29/17 04:23 Hgb 9.3 g/dL (12.9-16.9) L 04/29/17 04:23 Hct 28.1 % (37.5-50.1) L 04/29/17 04:23 MCV 87.8 fL (83.0-100.0) 04/29/17 04:23 MCH 29.1 pg (28.0-33.3) 04/29/17 04:23 MCHC 33.1 g/dL (31.6-35.5) 04/29/17 04:23 RDW 14.4 % (11.5-14.5) 04/29/17 04:23 Plt Count 206 K/mcL (140-400) 04/29/17 04:23 MPV 9.8 fL (9.4-12.4) 04/29/17 04:23 Immature Gran % 0.4 % (0-4) 04/12/17 04:40 Seg Neutrophils % 69.3 % 04/12/17 04:40 Lymphocytes % 21.5 % 04/12/17 04:40 Monocytes % 5.9 % 04/12/17 04:40 Eosinophils % 2.3 % 04/12/17 04:40 Basophils % 0.6 % 04/12/17 04:40 Neutrophils # 6.7 K/mcL (1.6-8.9) 04/12/17 04:40 Lymphocytes # 2.1 K/mcL (0.6-4.6) 04/12/17 04:40 Monocytes # 0.6 K/mcL (0.0-1.3) 04/12/17 04:40 Eosinophils # 0.2 K/mcL (0.0-0.6) 04/12/17 04:40 Basophils # 0.1 K/mcL (0.0-0.2) 04/12/17 04:40 Nucleated RBCs/100 WBC 0.1 /100 WBC (0) H 03/07/17 03:43 PT 34.9 Seconds (9.4-12.1) H 05/05/17 13:43 INR 3.2 05/05/17 13:43 APTT 89.6 Seconds (26.0-36.0) H 03/09/17 01:24 ABG pH 7.48 pH Units (7.32-7.45) H 03/05/17 04:50 ABG pCO2 38 mmHg (35-45) 03/05/17 04:50 ABG pO2 89 mmHg (85-104) 03/05/17 04:50 ABG HCO3 28.3 mEQ/L (21-27) H 03/05/17 04:50 ABG Total CO2 29.5 mEq/L (20-26) H 03/05/17 04:50 ABG O2 Saturation 97 % (95-98) 03/05/17 04:50 ABG Base Excess 4.6 mEq/L (-2.0 to 3.0) H 03/05/17 04:50 Blood Gas Modality ASSIST CONTROL 03/04/17 04:25 Inspired O2 50 % 03/04/17 04:25 Sodium 141 mEq/L (136-145) 04/29/17 04:23 Potassium 4.2 mEq/L (3.5-4.5) 04/29/17 04:23 Chloride 110 mEq/L (98-109) H 04/29/17 04:23 Carbon Dioxide 24 mEq/L (19-29) 04/29/17 04:23 BUN 26 mg/dL (8-26) 04/29/17 04:23 Creatinine 1.20 mg/dL (0.72-1.25) 04/29/17 04:23 Est GFR ( Amer) > 60 (> 60) 04/29/17 04:23 Est GFR (Non-Af Amer) > 60 (> 60) 04/29/17 04:23 BUN/Creatinine Ratio 22 (6-26) 04/29/17 04:23 Glucose 94 mg/dL (70-99) 04/29/17 04:23 POC Glucose 113 (58-89) H 03/08/17 11:46 Est Mean Plasma Glucose 94 mg/dl 03/01/17 04:00 Hemoglobin A1c 4.9 % (-5.6) 03/01/17 04:00 Calculated Osmolality 297 (280-300) 04/29/17 04:23 Lactic Acid 1.7 mmol/L (0.5-2.2) 03/01/17 04:00 Calcium 9.6 mg/dL (8.6-10.8) 04/29/17 04:23 Ionized Calcium 1.16 mmol/L (1.15-1.35) 03/05/17 04:54 Phosphorus 4.6 mg/dL (2.3-4.7) 03/05/17 04:54 Magnesium 2.0 mg/dL (1.6-2.6) 04/29/17 04:23 Total Bilirubin 0.7 mg/dL (0.2-1.2) 03/19/17 04:46 Direct Bilirubin 0.3 mg/dL (0.0-0.5) 03/01/17 04:00 Indirect Bilirubin 0.3 mg/dL (0.0-1.2) 03/01/17 04:00 AST 28 Units/L (5-34) 03/19/17 04:46 ALT 31 Units/L (0-55) 03/19/17 04:46 Alkaline Phosphatase 81 Units/L (38-126) 03/19/17 04:46 Troponin I > 50.00 ng/mL (0-0.03) H* 02/28/17 16:55 B-Natriuretic Peptide 857 pg/mL (0-100) H 02/28/17 16:55 Serum Total Protein 6.5 g/dL (6.0-8.3) 03/19/17 04:46 Albumin 3.0 g/dL (3.5-5.0) L 03/19/17 04:46 Globulin 3.5 g/dL (2.4-3.5) 03/19/17 04:46 Albumin/Globulin Ratio 0.9 (1.1-2.2) L 03/19/17 04:46 Urine Color Yellow (Yellow) 03/15/17 08:24 Urine Clarity Clear (Clear) 03/15/17 08:24 Urine pH 5.5 pH Units (5.0-8.0) 03/15/17 08:24 Ur Specific Berkley 1.024 (1.010-1.025) 03/15/17 08:24 Urine Protein 30 mg/dL (Neg-Trace) H 03/15/17 08:24 Urine Glucose (UA) Normal mg/dL (Normal) 03/15/17 08:24 Urine Ketones Negative mg/dL (Negative) 03/15/17 08:24 Urine Blood Negative (Negative) 03/15/17 08:24 Urine Nitrite Negative (Negative) 03/15/17 08:24 Urine Bilirubin Negative (Negative) 03/15/17 08:24 Urine Urobilinogen Normal mg/dL (Normal) 03/15/17 08:24 Ur Leukocyte Esterase Negative (Negative) 03/15/17 08:24 Urine Microscopic RBC 5-15 per hpf (0-3) H 03/15/17 08:24 Urine Microscopic WBC 5-15 per hpf (0-3) H 03/15/17 08:24 Ur Squamous Epith Cells Few per lpf (None-Few) 03/15/17 08:24 Calcium Oxalate Crystal Present 03/15/17 08:24 Uric Acid Crystals Present 03/15/17 08:24 Urine Bacteria Few per hpf (None-Few) 03/15/17 08:24 Hyaline Casts Few per lpf (None-Few) 03/15/17 08:24 Granular Casts Few per lpf (None Seen) H 03/15/17 08:24 WBC Casts Few per lpf (None Seen) H 03/15/17 08:24 Ur Culture Indicated? YES (NO) A 03/15/17 08:24 Vancomycin Trough 17.8 mcg/mL (10-20) 03/16/17 06:32 Specimen Rejected Contaminated 03/27/17 08:27 Consult Discharge Plan - Plan Referrals: NONE,PCP [Primary Care Provider] - (working on placement to [facility], will follow up with PCP at [facility])
[2017-05-09] MEDS: *HR* Warfarin 3 MG TABLET PO SCH (16:57)
[2017-05-09] MEDS: Mirtazapine 15 MG TABLET PO SCH (20:39)
[2017-05-10 06:02] LABS: INR 3.3; Prothrombin Time 36.6 Seconds (9.4-12.1)
[2017-05-10] MEDS: Lisinopril 20 MG TABLET PO SCH (08:36)
[2017-05-10] MEDS: Aspirin 81 MG TAB.CHEW PO SCH (08:36)
[2017-05-10] MEDS: amLODIPine 5 MG TABLET PO SCH (08:36)
[2017-05-10] MEDS: *HR* Ticagrelor 90 MG TABLET PO SCH ×2 (08:36→20:10)
[2017-05-10] MEDS: *HR* Warfarin 3 MG TABLET PO SCH (16:56)
[2017-05-10] MEDS: Mirtazapine 15 MG TABLET PO SCH (20:11)
[2017-05-11] MEDS: *HR* Ticagrelor 90 MG TABLET PO SCH ×2 (08:35→20:23)
[2017-05-11] MEDS: Lisinopril 20 MG TABLET PO SCH (08:35)
[2017-05-11] MEDS: Aspirin 81 MG TAB.CHEW PO SCH (08:35)
[2017-05-11] MEDS: amLODIPine 5 MG TABLET PO SCH (08:35)
--- NOTE | 2017-05-11 09:17 | Internal Med Progress Note ---
Date of Encounter: 05/10/17 Time of Encounter: 15:45 - Assessment and plan (1) STEMI (ST elevation myocardial infarction) Current Visit: Yes Status: Acute Assessment and plan: Patient had acute STEMI. Status post cardiology evaluation and left heart catheterization and PTCA/drug-eluting stent to proximal and mid LAD. Continue dual antiplatelet therapy, beta david and statin. Currently stable. Qualifiers: Involved coronary artery: LAD coronary artery Qualified Code(s): I21.02 - ST elevation (STEMI) myocardial infarction involving left anterior descending coronary artery (2) Acute systolic CHF (congestive heart failure) Current Visit: Yes Status: Resolved (3) CVA (cerebral vascular accident) Current Visit: Yes Status: Chronic Assessment and plan: MRI brain showed multiple small infarcts in bilateral cerebral and cerebellar areas, possible embolic phenomenon. Neurology consulted, continue aspirin and Coumadin for underlying atrial fibrillation. Daily Physical and occupational therapy. Patient is noted to have cognitive dysfunction, likely due to underlying medical conditions and recent myocardial infarction. He is noted to be more alert and oriented each day; Psychiatry reevaluation appreciated- although seems alert and oriented in general, patient still needs to look at the board in his room to answer questions for date and year; he also does not have a sense of his medical diagnoses or follow up care; therefore he is still deemed to lack decision-making capacity and will require a legal guardian; He is currently awaiting placement to extended care facility pending approval of legal guardianship to Hospital employment attorney. 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 (4) Atrial fibrillation Current Visit: Yes Status: Chronic Assessment and plan: Currently rate controlled. Continue calcium channel david and beta david. Long-term anticoagulation with Coumadin, INR noted to be therapeutic. Qualifiers: Atrial fibrillation type: paroxysmal Qualified Code(s): I48.0 - Paroxysmal atrial fibrillation (5) Cognitive and behavioral changes Current Visit: Yes Status: Chronic Assessment and plan: Psychiatric evaluation has been completed thrice during this hospitalization. Patient lacks mental capacity and he is currently awaiting court hearing date to appoint a legal guardian for him, as his family declined to take his responsibility. director professional services on board. Plan as mentioned above, awaiting placement in extended care facility. - Subjective Interval history: Reports feeling well; denies chest pain, dyspnea, nausea, vomiting, abdominal pain; - Constitutional Vitals: Temp Pulse Resp BP Pulse Ox 97.4 F L 61 16 107/63 96 05/11/17 07:43 05/11/17 07:43 05/11/17 07:43 05/11/17 07:43 05/11/17 07:43 General appearance: Present: cooperative, A&O X 3, answers questions appropriately - Respiratory Respiratory exam: Present: CTAB. Absent: accessory muscle use, rales, rhonchi, wheezes - Cardiovascular Cardiovascular exam: Present: RRR, +S1, +S2. Absent: diastolic murmur, gallop, rubs, systolic murmur - GI/Abdominal GI/Abdominal exam: Present: normal bowel sounds, soft, no peritoneal signs. Absent: distended, tenderness Internal Medicine: Result - Labs CBC & Chem 7: 04/29/17 04:23 04/29/17 04:23 - ABG Interpretation ABG results: ABG ABG pH 7.48 pH Units (7.32-7.45) H 03/05/17 04:50 ABG pCO2 38 mmHg (35-45) 03/05/17 04:50 ABG pO2 89 mmHg (85-104) 03/05/17 04:50 ABG O2 Saturation 97 % (95-98) 03/05/17 04:50 PT/INR, D-dimer PT 36.6 Seconds (9.4-12.1) H 05/10/17 05:33 Consult Discharge Plan - Plan Referrals: NONE,PCP [Primary Care Provider] - (working on placement to [facility], will follow up with PCP at [facility])
--- NOTE | 2017-05-11 09:18 | Internal Med Progress Note ---
Date of Encounter: 05/11/17 Time of Encounter: 09:18 - Assessment and plan (1) STEMI (ST elevation myocardial infarction) Current Visit: Yes Status: Acute Assessment and plan: Patient had acute STEMI. Status post cardiology evaluation and left heart catheterization and PTCA/drug-eluting stent to proximal and mid LAD. Continue dual antiplatelet therapy, beta david and statin. Currently stable. Qualifiers: Involved coronary artery: LAD coronary artery Qualified Code(s): I21.02 - ST elevation (STEMI) myocardial infarction involving left anterior descending coronary artery (2) Acute systolic CHF (congestive heart failure) Current Visit: Yes Status: Resolved (3) CVA (cerebral vascular accident) Current Visit: Yes Status: Chronic Assessment and plan: MRI brain showed multiple small infarcts in bilateral cerebral and cerebellar areas, possible embolic phenomenon. Neurology consulted, continue aspirin and Coumadin for underlying atrial fibrillation. Daily Physical and occupational therapy. Patient is noted to have cognitive dysfunction, likely due to underlying medical conditions and recent myocardial infarction. Psychiatry reevaluation completed and- he is still deemed to lack decision-making capacity and will require a legal guardian; He is currently awaiting placement to extended care facility pending approval of legal guardianship to Hospital personal injury attorney. 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 (4) Atrial fibrillation Current Visit: Yes Status: Chronic Assessment and plan: Currently rate controlled. Continue calcium channel david and beta david. Long-term anticoagulation with Coumadin, INR noted to be therapeutic. Qualifiers: Atrial fibrillation type: paroxysmal Qualified Code(s): I48.0 - Paroxysmal atrial fibrillation (5) Cognitive and behavioral changes Current Visit: Yes Status: Chronic - Subjective Interval history: Reports feeling well; denies chest pain, dyspnea, nausea, vomiting, abdominal pain; has bowel movements; ambulating with walker; - Constitutional Vitals: Temp Pulse Resp BP Pulse Ox 97.4 F L 61 16 107/63 96 05/11/17 07:43 05/11/17 07:43 05/11/17 07:43 05/11/17 07:43 05/11/17 07:43 General appearance: Present: cooperative, A&O X 3, answers questions appropriately - Respiratory Respiratory exam: Present: CTAB. Absent: accessory muscle use, rales, rhonchi, wheezes - Cardiovascular Cardiovascular exam: Present: RRR, +S1, +S2. Absent: diastolic murmur, gallop, rubs, systolic murmur - GI/Abdominal GI/Abdominal exam: Present: normal bowel sounds, soft, no peritoneal signs. Absent: distended, tenderness Internal Medicine: Result - Labs CBC & Chem 7: 04/29/17 04:23 04/29/17 04:23 - ABG Interpretation ABG results: ABG ABG pH 7.48 pH Units (7.32-7.45) H 03/05/17 04:50 ABG pCO2 38 mmHg (35-45) 03/05/17 04:50 ABG pO2 89 mmHg (85-104) 03/05/17 04:50 ABG O2 Saturation 97 % (95-98) 03/05/17 04:50 PT/INR, D-dimer PT 36.6 Seconds (9.4-12.1) H 05/10/17 05:33 Consult Discharge Plan - Plan Referrals: NONE,PCP [Primary Care Provider] - (working on placement to [facility], will follow up with PCP at [facility])
[2017-05-11] MEDS: *HR* Warfarin 3 MG TABLET PO SCH (17:54)
[2017-05-11] MEDS: Mirtazapine 15 MG TABLET PO SCH (20:23)
[2017-05-12] MEDS: *HR* Ticagrelor 90 MG TABLET PO SCH ×2 (09:18→20:52)
[2017-05-12] MEDS: Aspirin 81 MG TAB.CHEW PO SCH (09:18)
[2017-05-12] MEDS: amLODIPine 5 MG TABLET PO SCH (09:18)
[2017-05-12] MEDS: Lisinopril 20 MG TABLET PO SCH (09:18)
--- NOTE | 2017-05-12 09:59 | Internal Med Progress Note ---
Date of Encounter: 05/12/17 Time of Encounter: 09:58 - Assessment and plan (1) STEMI (ST elevation myocardial infarction) Current Visit: Yes Status: Acute Assessment and plan: Patient had acute STEMI. Status post cardiology evaluation and left heart catheterization and PTCA/drug-eluting stent to proximal and mid LAD. Continue dual antiplatelet therapy, beta david and statin. Currently stable. Will check routine labs tomorrow; Qualifiers: Involved coronary artery: LAD coronary artery Qualified Code(s): I21.02 - ST elevation (STEMI) myocardial infarction involving left anterior descending coronary artery (2) Acute systolic CHF (congestive heart failure) Current Visit: Yes Status: Resolved (3) CVA (cerebral vascular accident) Current Visit: Yes Status: Chronic Assessment and plan: MRI brain showed multiple small infarcts in bilateral cerebral and cerebellar areas, possible embolic phenomenon. Neurology consulted, continue aspirin and Coumadin for underlying atrial fibrillation. Daily Physical and occupational therapy. Patient is noted to have cognitive dysfunction, likely due to underlying medical conditions and recent myocardial infarction. Psychiatry reevaluation completed and- he is still deemed to lack decision-making capacity and will require a legal guardian; He is currently awaiting placement to extended care facility pending approval of legal guardianship to Hospital finance attorney. 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 (4) Atrial fibrillation Current Visit: Yes Status: Chronic Qualifiers: Atrial fibrillation type: paroxysmal Qualified Code(s): I48.0 - Paroxysmal atrial fibrillation (5) Cognitive and behavioral changes Current Visit: Yes Status: Chronic - Subjective Interval history: Reports feeling well; denies chest pain, dyspnea, nausea, vomiting, abdominal pain; awaiting court hearing date for legal guardianship; - Constitutional Vitals: Temp Pulse Resp BP Pulse Ox 98.2 F 64 17 136/73 98 05/12/17 07:42 05/12/17 07:42 05/12/17 07:42 05/12/17 07:42 05/12/17 07:42 General appearance: Present: cooperative, A&O X 3, answers questions appropriately - Respiratory Respiratory exam: Present: CTAB. Absent: accessory muscle use, rales, rhonchi, wheezes - Cardiovascular Cardiovascular exam: Present: RRR, +S1, +S2. Absent: diastolic murmur, gallop, rubs, systolic murmur - Extremities Exam Extremities exam: Present: full ROM, warm, radial pulses palpable and symmetrical. Absent: calf tenderness, cyanotic, pedal edema Internal Medicine: Result - Labs CBC & Chem 7: 05/13/17 04:08 05/13/17 04:08 - ABG Interpretation ABG results: ABG ABG pH 7.48 pH Units (7.32-7.45) H 03/05/17 04:50 ABG pCO2 38 mmHg (35-45) 03/05/17 04:50 ABG pO2 89 mmHg (85-104) 03/05/17 04:50 ABG O2 Saturation 97 % (95-98) 03/05/17 04:50 PT/INR, D-dimer PT 36.6 Seconds (9.4-12.1) H 05/10/17 05:33 Consult Discharge Plan - Plan Referrals: NONE,PCP [Primary Care Provider] - (working on placement to [facility], will follow up with PCP at [facility])
[2017-05-12] MEDS: *HR* Warfarin 3 MG TABLET PO SCH (18:15)
[2017-05-12] MEDS: Mirtazapine 15 MG TABLET PO SCH (20:52)
[2017-05-13 05:04] LABS: Basophils # 0.1 K/mcL (0.0-0.2); Basophils % 0.5 %; Eosinophils # 0.2 K/mcL (0.0-0.6); Eosinophils % 2.1 %; Hematocrit 27.3 % (37.5-50.1); Hemoglobin 9.1 g/dL (12.9-16.9); Immature Granulocytes % 0.2 % (0-4); Lymphocytes # 2.4 K/mcL (0.6-4.6); Lymphocytes % 23.3 %; Mean Corpuscular HGB Conc 33.3 g/dL (31.6-35.5); Mean Corpuscular Hemoglobin 29.6 pg (28.0-33.3); Mean Corpuscular Volume 88.9 fL (83.0-100.0); Mean Platelet Volume 10.4 fL (9.4-12.4); Monocytes # 0.7 K/mcL (0.0-1.3); Monocytes % 6.7 %; Neutrophils # 6.9 K/mcL (1.6-8.9); Platelet Count 204 K/mcL (140-400); Red Blood Count 3.07 M/mcL (4.19-5.50); Red Cell Distribution Width 14.4 % (11.5-14.5); Segmented Neutrophils % 67.2 %
[2017-05-13 05:34] LABS: BUN/Creatinine Ratio 19 (6-26); Blood Urea Nitrogen 25 mg/dL (8-26); Calcium 9.4 mg/dL (8.6-10.8); Carbon Dioxide 22 mEq/L (19-29); Chloride 109 mEq/L (98-109); Glucose 86 mg/dL (70-99); Osmolality,Calculated 296 (280-300); Potassium 3.9 mEq/L (3.5-4.5); Sodium 141 mEq/L (136-145); eGFR For African Americans > 60 (> 60); eGFR For Non-African Americans 54 (> 60)
[2017-05-13] MEDS: Lisinopril 20 MG TABLET PO SCH (08:29)
[2017-05-13] MEDS: Aspirin 81 MG TAB.CHEW PO SCH (08:29)
[2017-05-13] MEDS: *HR* Ticagrelor 90 MG TABLET PO SCH ×2 (08:29→21:08)
[2017-05-13] MEDS: amLODIPine 5 MG TABLET PO SCH (08:29)
[2017-05-13] MEDS ORDERED: 0.9 % Sodium Chloride 1,000 ML IVC SCH (09:15)
--- NOTE | 2017-05-13 09:39 | Internal Med Progress Note ---
Date of Encounter: 05/13/17 Time of Encounter: 09:25 - Assessment and plan (1) STEMI (ST elevation myocardial infarction) Current Visit: Yes Status: Acute Assessment and plan: Patient had acute STEMI. Status post cardiology evaluation and left heart catheterization and PTCA/drug-eluting stent to proximal and mid LAD. Continue dual antiplatelet therapy, beta david and statin. Currently stable. Routine labs reviewed, noted to have mild elevation in serum creatinine. Will hold lisinopril for now, encourage oral hydration. Recheck serum creatinine in 1-2 days. Qualifiers: Involved coronary artery: LAD coronary artery Qualified Code(s): I21.02 - ST elevation (STEMI) myocardial infarction involving left anterior descending coronary artery (2) Acute systolic CHF (congestive heart failure) Current Visit: Yes Status: Resolved (3) CVA (cerebral vascular accident) Current Visit: Yes Status: Chronic Assessment and plan: MRI brain showed multiple small infarcts in bilateral cerebral and cerebellar areas, possible embolic phenomenon. Neurology consulted, continue aspirin and Coumadin for underlying atrial fibrillation. Daily Physical and occupational therapy. Patient is noted to have cognitive dysfunction, likely due to underlying medical conditions and recent myocardial infarction. Psychiatry reevaluation completed and- he is still deemed to lack decision-making capacity and will require a legal guardian; He is currently awaiting placement to extended care facility pending approval of legal guardianship to Hospital compliance attorney. 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 (4) Atrial fibrillation Current Visit: Yes Status: Chronic Assessment and plan: Currently rate controlled. Continue calcium channel david and beta david. Long-term anticoagulation with Coumadin, INR noted to be therapeutic. Qualifiers: Atrial fibrillation type: paroxysmal Qualified Code(s): I48.0 - Paroxysmal atrial fibrillation (5) Cognitive and behavioral changes Current Visit: Yes Status: Chronic (6) Renal dysfunction Current Visit: Yes Status: Acute Assessment and plan: Plan as above. - Subjective Interval history: Reports feeling well; denies chest pain, dyspnea, nausea, vomiting, abdominal pain; has bowel movements; ambulating with walker; - Constitutional Vitals: Temp Pulse Resp BP Pulse Ox 97.9 F 61 17 139/71 99 05/13/17 07:21 05/13/17 07:21 05/13/17 07:21 05/13/17 07:21 05/13/17 07:21 General appearance: Present: cooperative, A&O X 3, answers questions appropriately - Respiratory Respiratory exam: Present: CTAB. Absent: accessory muscle use, rales, rhonchi, wheezes - Cardiovascular Cardiovascular exam: Present: RRR, +S1, +S2. Absent: diastolic murmur, gallop, rubs, systolic murmur Internal Medicine: Result - Labs CBC & Chem 7: 05/13/17 04:08 05/13/17 04:08 Labs: Short CBC 05/13/17 Range/Units 04:08 WBC 10.2 (4.3-11.1) K/mcL Hgb 9.1 L (12.9-16.9) g/dL Hct 27.3 L (37.5-50.1) % Plt Count 204 (140-400) K/mcL Neutrophils # 6.9 (1.6-8.9) K/mcL BMP 05/13/17 04:08 Sodium 141 Potassium 3.9 Chloride 109 Carbon Dioxide 22 BUN 25 Creatinine 1.32 H Glucose 86 Calcium 9.4 - ABG Interpretation ABG results: ABG ABG pH 7.48 pH Units (7.32-7.45) H 03/05/17 04:50 ABG pCO2 38 mmHg (35-45) 03/05/17 04:50 ABG pO2 89 mmHg (85-104) 03/05/17 04:50 ABG O2 Saturation 97 % (95-98) 03/05/17 04:50 PT/INR, D-dimer PT 36.6 Seconds (9.4-12.1) H 05/10/17 05:33 Consult Discharge Plan - Plan Referrals: NONE,PCP [Primary Care Provider] - (working on placement to [facility], will follow up with PCP at [facility])
[2017-05-13] MEDS: *HR* Warfarin 3 MG TABLET PO SCH (17:03)
[2017-05-13] MEDS: Mirtazapine 15 MG TABLET PO SCH (21:08)
[2017-05-14 05:56] LABS: BUN/Creatinine Ratio 18 (6-26); Blood Urea Nitrogen 23 mg/dL (8-26); Calcium 9.5 mg/dL (8.6-10.8); Carbon Dioxide 23 mEq/L (19-29); Chloride 109 mEq/L (98-109); Glucose 91 mg/dL (70-99); Osmolality,Calculated 293 (280-300); Potassium 3.9 mEq/L (3.5-4.5); Sodium 140 mEq/L (136-145); eGFR For African Americans > 60 (> 60); eGFR For Non-African Americans 57 (> 60)
[2017-05-14] MEDS: amLODIPine 5 MG TABLET PO SCH (09:37)
[2017-05-14] MEDS: Lisinopril 20 MG TABLET PO SCH (09:37)
[2017-05-14] MEDS: *HR* Ticagrelor 90 MG TABLET PO SCH ×2 (09:38→20:52)
[2017-05-14] MEDS: Aspirin 81 MG TAB.CHEW PO SCH (09:38)
[2017-05-14] MEDS: *HR* Warfarin 3 MG TABLET PO SCH (16:26)
[2017-05-14] MEDS: Mirtazapine 15 MG TABLET PO SCH (20:51)
--- NOTE | 2017-05-14 23:02 | Internal Med Progress Note ---
Date of Encounter: 05/14/17 Time of Encounter: 13:00 - Assessment and plan (1) Systolic CHF Current Visit: Yes Status: Chronic Assessment and plan: Continue BB, ACEi; no need for diuresis at this time as patient is euvolemic. Qualifiers: Congestive heart failure chronicity: chronic Qualified Code(s): I50.22 - Chronic systolic (congestive) heart failure (2) STEMI (ST elevation myocardial infarction) Current Visit: Yes Status: Acute Assessment and plan: Patient had acute STEMI. Status post cardiology evaluation and left heart catheterization and PTCA/drug-eluting stent to proximal and mid LAD. Continue dual antiplatelet therapy, beta david and statin. Currently stable. Qualifiers: Involved coronary artery: LAD coronary artery Qualified Code(s): I21.02 - ST elevation (STEMI) myocardial infarction involving left anterior descending coronary artery (3) Renal dysfunction Current Visit: Yes Status: Acute Assessment and plan: Routine labs reviewed, Creatinine had slight improvement. Continue to hold lisinopril for now, encourage oral hydration. Recheck labs tomorrow. (4) CVA (cerebral vascular accident) Current Visit: Yes Status: Chronic Assessment and plan: MRI brain showed multiple small infarcts in bilateral cerebral and cerebellar areas, possible embolic phenomenon. Neurology consulted, continue aspirin and Coumadin for underlying atrial fibrillation. Daily Physical and occupational therapy. Patient is noted to have cognitive dysfunction, likely due to underlying medical conditions and recent myocardial infarction. Psychiatry reevaluation completed and- he is still deemed to lack decision-making capacity and will require a legal guardian; He is currently awaiting placement to extended care facility pending approval of legal guardianship to Hospital cap parts cutter. 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 Continue calcium channel david and beta david. Long-term anticoagulation with Coumadin, INR noted to be therapeutic. Qualifiers: Atrial fibrillation type: paroxysmal Qualified Code(s): I48.0 - Paroxysmal atrial fibrillation - Subjective Interval history: No acute events, no complaints. - Constitutional Vitals: Temp Pulse Resp BP Pulse Ox 97.7 F 64 16 100/55 94 05/14/17 20:06 05/14/17 20:06 05/14/17 20:06 05/14/17 20:06 05/14/17 20:06 General appearance: Present: cooperative, A&O X 3, answers questions appropriately - Respiratory Respiratory exam: Present: CTAB. Absent: accessory muscle use, rales, rhonchi, wheezes - Cardiovascular Cardiovascular exam: Present: RRR, +S1, +S2. Absent: diastolic murmur, gallop, rubs, systolic murmur - GI/Abdominal GI/Abdominal exam: Present: normal bowel sounds, soft, no peritoneal signs. Absent: distended, tenderness Internal Medicine: Result - Labs CBC & Chem 7: 05/13/17 04:08 05/14/17 05:06 Labs: BMP 05/14/17 05:06 Sodium 140 Potassium 3.9 Chloride 109 Carbon Dioxide 23 BUN 23 Creatinine 1.26 H Glucose 91 Calcium 9.5 - ABG Interpretation ABG results: ABG ABG pH 7.48 pH Units (7.32-7.45) H 03/05/17 04:50 ABG pCO2 38 mmHg (35-45) 03/05/17 04:50 ABG pO2 89 mmHg (85-104) 03/05/17 04:50 ABG O2 Saturation 97 % (95-98) 03/05/17 04:50 PT/INR, D-dimer PT 36.6 Seconds (9.4-12.1) H 05/10/17 05:33 Consult Discharge Plan - Plan Referrals: NONE,PCP [Primary Care Provider] - (working on placement to [facility], will follow up with PCP at [facility])
[2017-05-15] MEDS: Lisinopril 20 MG TABLET PO SCH (07:47)
[2017-05-15] MEDS: Aspirin 81 MG TAB.CHEW PO SCH (07:47)
[2017-05-15] MEDS: amLODIPine 5 MG TABLET PO SCH (07:47)
[2017-05-15] MEDS: *HR* Ticagrelor 90 MG TABLET PO SCH ×2 (07:47→20:56)
[2017-05-15] MEDS: *HR* Warfarin 3 MG TABLET PO SCH (17:41)
--- NOTE | 2017-05-15 19:34 | Internal Med Progress Note ---
Date of Encounter: 05/15/17 Time of Encounter: 15:00 - Assessment and plan (1) Systolic CHF Current Visit: Yes Status: Chronic Assessment and plan: Continue BB, ACEi; no need for diuresis at this time as patient is euvolemic. Qualifiers: Congestive heart failure chronicity: chronic Qualified Code(s): I50.22 - Chronic systolic (congestive) heart failure (2) STEMI (ST elevation myocardial infarction) Current Visit: Yes Status: Acute Assessment and plan: Patient had acute STEMI. Status post cardiology evaluation and left heart catheterization and PTCA/drug-eluting stent to proximal and mid LAD. Continue dual antiplatelet therapy, beta david and statin. Currently stable. Qualifiers: Involved coronary artery: LAD coronary artery Qualified Code(s): I21.02 - ST elevation (STEMI) myocardial infarction involving left anterior descending coronary artery (3) Renal dysfunction Current Visit: Yes Status: Acute Assessment and plan: Routine labs reviewed, Creatinine had slight improvement. Continue to hold lisinopril for now, encourage oral hydration. Recheck labs tomorrow. (4) CVA (cerebral vascular accident) Current Visit: Yes Status: Chronic Assessment and plan: MRI brain showed multiple small infarcts in bilateral cerebral and cerebellar areas, possible embolic phenomenon. Neurology consulted, continue aspirin and Coumadin for underlying atrial fibrillation. Daily Physical and occupational therapy. Patient is noted to have cognitive dysfunction, likely due to underlying medical conditions and recent myocardial infarction. Psychiatry reevaluation completed and- he is still deemed to lack decision-making capacity and will require a legal guardian; He is currently awaiting placement to extended care facility pending approval of legal guardianship to Hospital senior attorney. 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 Continue calcium channel david and beta david. Long-term anticoagulation with Coumadin, INR noted to be therapeutic. Qualifiers: Atrial fibrillation type: paroxysmal Qualified Code(s): I48.0 - Paroxysmal atrial fibrillation - Subjective Interval history: No acute events, no complaints. - Constitutional Vitals: Temp Pulse Resp BP Pulse Ox 98.1 F 65 16 114/64 97 05/15/17 19:16 05/15/17 19:16 05/15/17 19:16 05/15/17 19:16 05/15/17 19:16 General appearance: Present: cooperative, A&O X 3, answers questions appropriately Exam: - Respiratory Respiratory exam: Present: CTAB. Absent: accessory muscle use, rales, rhonchi, wheezes - Cardiovascular Cardiovascular exam: Present: RRR, +S1, +S2. Absent: diastolic murmur, gallop, rubs, systolic murmur - GI/Abdominal GI/Abdominal exam: Present: normal bowel sounds, soft, no peritoneal signs. Absent: distended, tenderness Internal Medicine: Result - Labs CBC & Chem 7: 05/13/17 04:08 05/14/17 05:06 - ABG Interpretation ABG results: ABG ABG pH 7.48 pH Units (7.32-7.45) H 03/05/17 04:50 ABG pCO2 38 mmHg (35-45) 03/05/17 04:50 ABG pO2 89 mmHg (85-104) 03/05/17 04:50 ABG O2 Saturation 97 % (95-98) 03/05/17 04:50 PT/INR, D-dimer PT 36.6 Seconds (9.4-12.1) H 05/10/17 05:33 Consult Discharge Plan - Plan Referrals: NONE,PCP [Primary Care Provider] - (working on placement to [facility], will follow up with PCP at [facility])
[2017-05-15] MEDS: Mirtazapine 15 MG TABLET PO SCH (20:56)
[2017-05-16] MEDS: Aspirin 81 MG TAB.CHEW PO SCH (08:54)
[2017-05-16] MEDS: Lisinopril 20 MG TABLET PO SCH (08:54)
[2017-05-16] MEDS: amLODIPine 5 MG TABLET PO SCH (08:54)
[2017-05-16] MEDS: *HR* Ticagrelor 90 MG TABLET PO SCH ×2 (08:54→20:55)
[2017-05-16] MEDS: *HR* Warfarin 3 MG TABLET PO SCH (17:27)
--- NOTE | 2017-05-16 19:06 | Internal Med Progress Note ---
Date of Encounter: 05/16/17 Time of Encounter: 14:00 - Assessment and plan (1) Systolic CHF Current Visit: Yes Status: Chronic Assessment and plan: Continue BB, ACEi; no need for diuresis at this time as patient is euvolemic. Qualifiers: Congestive heart failure chronicity: chronic Qualified Code(s): I50.22 - Chronic systolic (congestive) heart failure (2) STEMI (ST elevation myocardial infarction) Current Visit: Yes Status: Acute Assessment and plan: Patient had acute STEMI. Status post cardiology evaluation and left heart catheterization and PTCA/drug-eluting stent to proximal and mid LAD. Continue dual antiplatelet therapy, beta david and statin. Currently stable. Qualifiers: Involved coronary artery: LAD coronary artery Qualified Code(s): I21.02 - ST elevation (STEMI) myocardial infarction involving left anterior descending coronary artery (3) Renal dysfunction Current Visit: Yes Status: Acute Assessment and plan: Routine labs reviewed, Creatinine had slight improvement. Continue to hold lisinopril for now, encourage oral hydration. Recheck labs tomorrow. (4) CVA (cerebral vascular accident) Current Visit: Yes Status: Chronic Assessment and plan: MRI brain showed multiple small infarcts in bilateral cerebral and cerebellar areas, possible embolic phenomenon. Neurology consulted, continue aspirin and Coumadin for underlying atrial fibrillation. Daily Physical and occupational therapy. Patient is noted to have cognitive dysfunction, likely due to underlying medical conditions and recent myocardial infarction. Psychiatry reevaluation completed and- he is still deemed to lack decision-making capacity and will require a legal guardian; He is currently awaiting placement to extended care facility pending approval of legal guardianship to Hospital employment attorney. 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 Continue calcium channel david and beta david. Long-term anticoagulation with Coumadin, INR noted to be therapeutic. Qualifiers: Atrial fibrillation type: paroxysmal Qualified Code(s): I48.0 - Paroxysmal atrial fibrillation - Subjective Interval history: No acute events per patient and nursing staff, no complaints. - Constitutional Vitals: Temp Pulse Resp BP Pulse Ox 98.1 F 60 18 114/64 99 05/16/17 06:50 05/16/17 17:26 05/16/17 06:50 05/16/17 17:26 05/16/17 06:50 General appearance: Present: cooperative, A&O X 3, answers questions appropriately - Respiratory Respiratory exam: Present: CTAB. Absent: accessory muscle use, rales, rhonchi, wheezes - Cardiovascular Cardiovascular exam: Present: RRR, +S1, +S2. Absent: diastolic murmur, gallop, rubs, systolic murmur - Extremities Exam Extremities exam: Present: warm, radial pulses palpable and symmetrical. Absent : calf tenderness, cyanotic, pedal edema Internal Medicine: Result - Labs CBC & Chem 7: 05/13/17 04:08 05/14/17 05:06 - ABG Interpretation ABG results: ABG ABG pH 7.48 pH Units (7.32-7.45) H 03/05/17 04:50 ABG pCO2 38 mmHg (35-45) 03/05/17 04:50 ABG pO2 89 mmHg (85-104) 03/05/17 04:50 ABG O2 Saturation 97 % (95-98) 03/05/17 04:50 PT/INR, D-dimer PT 36.6 Seconds (9.4-12.1) H 05/10/17 05:33 Consult Discharge Plan - Plan Referrals: NONE,PCP [Primary Care Provider] - (working on placement to [facility], will follow up with PCP at [facility])
[2017-05-16] MEDS: Mirtazapine 15 MG TABLET PO SCH (20:55)
[2017-05-17 04:32] LABS: INR 2.4; Prothrombin Time 26.4 Seconds (9.4-12.1)
[2017-05-17] MEDS: amLODIPine 5 MG TABLET PO SCH (08:03)
[2017-05-17] MEDS: Lisinopril 20 MG TABLET PO SCH (08:03)
[2017-05-17] MEDS: *HR* Ticagrelor 90 MG TABLET PO SCH ×2 (08:03→20:28)
[2017-05-17] MEDS: Aspirin 81 MG TAB.CHEW PO SCH (08:04)
--- NOTE | 2017-05-17 13:51 | Internal Med Progress Note ---
Date of Encounter: 05/17/17 Time of Encounter: 14:00 - Assessment and plan (1) Systolic CHF Current Visit: Yes Status: Chronic Assessment and plan: Continue BB, ACEi; no need for diuresis at this time as patient is euvolemic. Qualifiers: Congestive heart failure chronicity: chronic Qualified Code(s): I50.22 - Chronic systolic (congestive) heart failure (2) STEMI (ST elevation myocardial infarction) Current Visit: Yes Status: Acute Assessment and plan: Patient had acute STEMI. Status post cardiology evaluation and left heart catheterization and PTCA/drug-eluting stent to proximal and mid LAD. Continue dual antiplatelet therapy, beta david and statin. Currently stable. Qualifiers: Involved coronary artery: LAD coronary artery Qualified Code(s): I21.02 - ST elevation (STEMI) myocardial infarction involving left anterior descending coronary artery (3) Renal dysfunction Current Visit: Yes Status: Acute (4) CVA (cerebral vascular accident) Current Visit: Yes Status: Chronic Assessment and plan: MRI brain showed multiple small infarcts in bilateral cerebral and cerebellar areas, possible embolic phenomenon. Neurology consulted, continue aspirin and Coumadin for underlying atrial fibrillation. Daily Physical and occupational therapy. Patient is noted to have cognitive dysfunction, likely due to underlying medical conditions and recent myocardial infarction. Psychiatry reevaluation completed and- he is still deemed to lack decision-making capacity and will require a legal guardian; He is currently awaiting placement to extended care facility pending approval of legal guardianship to Hospital chaplain resident. 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 - Constitutional Vitals: Temp Pulse Resp BP Pulse Ox 97.5 F L 59 17 118/72 99 05/17/17 06:46 05/17/17 06:46 05/17/17 06:46 05/17/17 06:46 05/17/17 06:46 General appearance: Present: cooperative, A&O X 3, answers questions appropriately - Head Head exam: Present: atraumatic, normocephalic - Respiratory Respiratory exam: Present: CTAB. Absent: accessory muscle use, rales, rhonchi, wheezes - Cardiovascular Cardiovascular exam: Present: RRR, +S1, +S2. Absent: diastolic murmur, gallop, rubs, systolic murmur - Extremities Exam Extremities exam: Present: warm, radial pulses palpable and symmetrical. Absent : calf tenderness, cyanotic, pedal edema Internal Medicine: Result - Labs CBC & Chem 7: 05/13/17 04:08 05/14/17 05:06 - ABG Interpretation ABG results: ABG ABG pH 7.48 pH Units (7.32-7.45) H 03/05/17 04:50 ABG pCO2 38 mmHg (35-45) 03/05/17 04:50 ABG pO2 89 mmHg (85-104) 03/05/17 04:50 ABG O2 Saturation 97 % (95-98) 03/05/17 04:50 PT/INR, D-dimer PT 26.4 Seconds (9.4-12.1) H 05/17/17 04:21 Consult Discharge Plan - Plan Referrals: NONE,PCP [Primary Care Provider] - (working on placement to [facility], will follow up with PCP at [facility])
[2017-05-17] MEDS: *HR* Warfarin 3 MG TABLET PO SCH (16:21)
[2017-05-17] MEDS: Mirtazapine 15 MG TABLET PO SCH (20:28)
[2017-05-18] MEDS: *HR* Ticagrelor 90 MG TABLET PO SCH ×2 (07:20→20:21)
[2017-05-18] MEDS: amLODIPine 5 MG TABLET PO SCH (07:20)
[2017-05-18] MEDS: Aspirin 81 MG TAB.CHEW PO SCH (07:21)
[2017-05-18] MEDS: Lisinopril 20 MG TABLET PO SCH (07:21)
--- NOTE | 2017-05-18 15:01 | Internal Med Progress Note ---
Date of Encounter: 05/18/17 Time of Encounter: 15:00 - Assessment and plan (1) Systolic CHF Current Visit: Yes Status: Chronic Assessment and plan: Continue BB, ACEi; no need for diuresis at this time as patient is euvolemic. Qualifiers: Congestive heart failure chronicity: chronic Qualified Code(s): I50.22 - Chronic systolic (congestive) heart failure (2) STEMI (ST elevation myocardial infarction) Current Visit: Yes Status: Acute Assessment and plan: Patient had acute STEMI. Status post cardiology evaluation and left heart catheterization and PTCA/drug-eluting stent to proximal and mid LAD. Continue dual antiplatelet therapy, beta david and statin. Currently stable. Qualifiers: Involved coronary artery: LAD coronary artery Qualified Code(s): I21.02 - ST elevation (STEMI) myocardial infarction involving left anterior descending coronary artery (3) Renal dysfunction Current Visit: Yes Status: Acute Assessment and plan: Routine labs reviewed, Creatinine had slight improvement. Continue to hold lisinopril for now, encourage oral hydration. Recheck labs tomorrow. (4) CVA (cerebral vascular accident) Current Visit: Yes Status: Chronic Assessment and plan: MRI brain showed multiple small infarcts in bilateral cerebral and cerebellar areas, possible embolic phenomenon. Neurology consulted, continue aspirin and Coumadin for underlying atrial fibrillation. Daily Physical and occupational therapy. Patient is noted to have cognitive dysfunction, likely due to underlying medical conditions and recent myocardial infarction. Psychiatry reevaluation completed and- he is still deemed to lack decision-making capacity and will require a legal guardian; He is currently awaiting placement to extended care facility pending approval of legal guardianship to Hospital workers' compensation claims examiner. 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 Continue calcium channel david and beta david. Long-term anticoagulation with Coumadin, INR noted to be therapeutic. Qualifiers: Atrial fibrillation type: paroxysmal Qualified Code(s): I48.0 - Paroxysmal atrial fibrillation - Subjective Interval history: No acute events per patient and nursing staff, no complaints. - Constitutional Vitals: Temp Pulse Resp BP Pulse Ox 97.8 F 57 15 130/71 97 05/18/17 07:12 05/18/17 07:12 05/18/17 07:12 05/18/17 07:12 05/18/17 07:12 General appearance: Present: cooperative, A&O X 3, answers questions appropriately - Head Head exam: Present: atraumatic, normocephalic - Respiratory Respiratory exam: Present: CTAB. Absent: accessory muscle use, rales, rhonchi, wheezes - Cardiovascular Cardiovascular exam: Present: RRR, +S1, +S2. Absent: diastolic murmur, gallop, rubs, systolic murmur Internal Medicine: Result - Labs CBC & Chem 7: 05/13/17 04:08 05/14/17 05:06 - ABG Interpretation ABG results: ABG ABG pH 7.48 pH Units (7.32-7.45) H 03/05/17 04:50 ABG pCO2 38 mmHg (35-45) 03/05/17 04:50 ABG pO2 89 mmHg (85-104) 03/05/17 04:50 ABG O2 Saturation 97 % (95-98) 03/05/17 04:50 PT/INR, D-dimer PT 26.4 Seconds (9.4-12.1) H 05/17/17 04:21 Consult Discharge Plan - Plan Referrals: NONE,PCP [Primary Care Provider] - (working on placement to [facility], will follow up with PCP at [facility])
[2017-05-18] MEDS: *HR* Warfarin 3 MG TABLET PO SCH (17:59)
[2017-05-18] MEDS: Mirtazapine 15 MG TABLET PO SCH (20:21)
[2017-05-19] MEDS: *HR* Ticagrelor 90 MG TABLET PO SCH ×2 (08:10→20:02)
[2017-05-19] MEDS: amLODIPine 5 MG TABLET PO SCH (08:10)
[2017-05-19] MEDS: Aspirin 81 MG TAB.CHEW PO SCH (08:10)
[2017-05-19] MEDS: Lisinopril 20 MG TABLET PO SCH (08:10)
--- NOTE | 2017-05-19 13:07 | Internal Med Progress Note ---
Date of Encounter: 05/19/17 Time of Encounter: 13:04 - Assessment and plan (1) Systolic CHF Current Visit: Yes Status: Chronic Assessment and plan: Continue BB, ACEi; . Qualifiers: Congestive heart failure chronicity: chronic Qualified Code(s): I50.22 - Chronic systolic (congestive) heart failure (2) STEMI (ST elevation myocardial infarction) Current Visit: Yes Status: Acute Assessment and plan: Patient had acute STEMI. Status post left heart catheterization and PTCA/drug- eluting stent to proximal and mid LAD. Continue dual antiplatelet therapy, beta david and statin. Currently stable. Qualifiers: Involved coronary artery: LAD coronary artery Qualified Code(s): I21.02 - ST elevation (STEMI) myocardial infarction involving left anterior descending coronary artery (3) Renal dysfunction Current Visit: Yes Status: Acute Assessment and plan: Routine labs reviewed, Creatinine had slight improvement. Continue to hold lisinopril for now, encourage oral hydration. Recheck labs tomorrow. (4) CVA (cerebral vascular accident) Current Visit: Yes Status: Chronic Assessment and plan: MRI brain showed multiple small infarcts in bilateral cerebral and cerebellar areas, possible embolic phenomenon. Neurology consulted, continue aspirin and Coumadin for underlying atrial fibrillation. Daily Physical and occupational therapy. Patient is noted to have cognitive dysfunction, likely due to underlying medical conditions and recent myocardial infarction. Psychiatry reevaluation completed and- he is still deemed to lack decision-making capacity and will require a legal guardian; He is currently awaiting placement to extended care facility pending approval of legal guardianship to Hospital divorce attorney. 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 - Constitutional Vitals: Temp Pulse Resp BP Pulse Ox 98.2 F 63 18 120/63 99 05/19/17 07:27 05/19/17 07:27 05/19/17 07:27 05/19/17 07:27 05/19/17 07:27 General appearance: Present: cooperative, A&O X 3, pleasant, no acute distress, answers questions appropriately - Eye Eye exam: Present: PERRL, conjuntiva pink, sclera anicteric Pupils: Present: PERRL - Respiratory Respiratory exam: Present: CTAB. Absent: accessory muscle use, rales, rhonchi, wheezes - Cardiovascular Cardiovascular exam: Present: RRR, +S1, +S2. Absent: diastolic murmur, gallop, rubs, systolic murmur Internal Medicine: Result - Labs CBC & Chem 7: 05/13/17 04:08 05/14/17 05:06 - ABG Interpretation ABG results: ABG ABG pH 7.48 pH Units (7.32-7.45) H 03/05/17 04:50 ABG pCO2 38 mmHg (35-45) 03/05/17 04:50 ABG pO2 89 mmHg (85-104) 03/05/17 04:50 ABG O2 Saturation 97 % (95-98) 03/05/17 04:50 PT/INR, D-dimer PT 26.4 Seconds (9.4-12.1) H 05/17/17 04:21 Consult Discharge Plan - Plan Referrals: NONE,PCP [Primary Care Provider] - (working on placement to [facility], will follow up with PCP at [facility])
[2017-05-19] MEDS: *HR* Warfarin 3 MG TABLET PO SCH (18:03)
[2017-05-19] MEDS: Mirtazapine 15 MG TABLET PO SCH (20:02)
[2017-05-20] MEDS: Aspirin 81 MG TAB.CHEW PO SCH (08:08)
[2017-05-20] MEDS: amLODIPine 5 MG TABLET PO SCH (08:08)
[2017-05-20] MEDS: *HR* Ticagrelor 90 MG TABLET PO SCH ×2 (08:08→20:28)
[2017-05-20] MEDS: Lisinopril 20 MG TABLET PO SCH (08:08)
[2017-05-20] MEDS: *HR* Warfarin 3 MG TABLET PO SCH (17:12)
--- NOTE | 2017-05-20 18:37 | Internal Med Progress Note ---
Date of Encounter: 05/20/17 Time of Encounter: 13:00 - Assessment and plan (1) STEMI (ST elevation myocardial infarction) Current Visit: Yes Status: Acute Assessment and plan: Patient had acute STEMI. Status post left heart catheterization and PTCA/drug- eluting stent to proximal and mid LAD. Continue dual antiplatelet therapy, beta david and statin. Currently stable. Qualifiers: Involved coronary artery: LAD coronary artery Qualified Code(s): I21.02 - ST elevation (STEMI) myocardial infarction involving left anterior descending coronary artery (2) Systolic CHF Current Visit: Yes Status: Chronic Qualifiers: Congestive heart failure chronicity: chronic Qualified Code(s): I50.22 - Chronic systolic (congestive) heart failure (3) Renal dysfunction Current Visit: Yes Status: Chronic Assessment and plan: Routine labs reviewed, Stable at baseline. (4) CVA (cerebral vascular accident) Current Visit: Yes Status: Chronic Assessment and plan: MRI brain showed multiple small infarcts in bilateral cerebral and cerebellar areas, possible embolic phenomenon. Neurology consulted, continue aspirin and Coumadin for underlying atrial fibrillation. Daily Physical and occupational therapy. Patient is noted to have cognitive dysfunction, likely due to underlying medical conditions and recent myocardial infarction. 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 - Constitutional Vitals: Temp Pulse Resp BP Pulse Ox 97.9 F 63 16 106/63 97 05/19/17 19:11 05/19/17 19:11 05/19/17 19:11 05/19/17 19:11 05/19/17 19:11 General appearance: Present: cooperative, A&O X 3, pleasant, no acute distress, answers questions appropriately - Head Head exam: Present: atraumatic, normocephalic - Neck Neck exam general surgery: Present: supple, trachea midline. Absent: lymphadenopathy - Respiratory Respiratory exam: Present: CTAB. Absent: accessory muscle use, rales, rhonchi, wheezes - Cardiovascular Cardiovascular exam: Present: RRR, +S1, +S2. Absent: diastolic murmur, gallop, rubs, systolic murmur - Extremities Exam Extremities exam: Present: warm, radial pulses palpable and symmetrical. Absent : calf tenderness, cyanotic, pedal edema Internal Medicine: Result - Labs CBC & Chem 7: 05/13/17 04:08 05/14/17 05:06 - ABG Interpretation ABG results: ABG ABG pH 7.48 pH Units (7.32-7.45) H 03/05/17 04:50 ABG pCO2 38 mmHg (35-45) 03/05/17 04:50 ABG pO2 89 mmHg (85-104) 03/05/17 04:50 ABG O2 Saturation 97 % (95-98) 03/05/17 04:50 PT/INR, D-dimer PT 26.4 Seconds (9.4-12.1) H 05/17/17 04:21 Consult Discharge Plan - Plan Additional Instructions: Psychiatry reevaluation completed and- he is still deemed to lack decision- making capacity and will require a legal guardian; He is currently awaiting placement to extended care facility pending approval of legal guardianship to Hospital state attorney. Referrals: NONE,PCP [Primary Care Provider] - (working on placement to [facility], [facility]
[2017-05-20] MEDS: Mirtazapine 15 MG TABLET PO SCH (20:27)
[2017-05-21] MEDS: Lisinopril 20 MG TABLET PO SCH (08:12)
[2017-05-21] MEDS: Aspirin 81 MG TAB.CHEW PO SCH (08:12)
[2017-05-21] MEDS: amLODIPine 5 MG TABLET PO SCH (08:12)
[2017-05-21] MEDS: *HR* Ticagrelor 90 MG TABLET PO SCH ×2 (08:13→20:11)
--- NOTE | 2017-05-21 12:12 | Internal Med Progress Note ---
Date of Encounter: 05/21/17 Time of Encounter: 12:09 - Assessment and plan (1) Acute systolic CHF (congestive heart failure) Current Visit: Yes Status: Resolved Assessment and plan: Initial echocardiogram showed severely decreased ejection fraction, at around 25 % with segmental wall motion abnormality, mild diastolic dysfunction of left ventricle. Currently stable. Continue Coreg, lisinopril. (2) Atrial fibrillation Current Visit: Yes Status: Chronic Assessment and plan: Currently rate controlled. Continue calcium channel david and beta david. Long-term anticoagulation with Coumadin, INR noted to be therapeutic. Qualifiers: Atrial fibrillation type: paroxysmal Qualified Code(s): I48.0 - Paroxysmal atrial fibrillation (3) CAD (coronary artery disease) Current Visit: Yes Status: Acute Assessment and plan: Stable. No chest pain. Continue aspirin, statin, beta david, Brillinta Qualifiers: Coronary Disease-Associated Artery/Lesion type: [place] artery [place] vs. transplanted heart: [place] heart Associated angina: with unstable angina Qualified Code(s): I25.110 - Atherosclerotic heart disease of [place] coronary artery with unstable angina pectoris (4) Cognitive and behavioral changes Current Visit: Yes Status: Chronic Assessment and plan: Psychiatric evaluation has been completed thrice during this hospitalization. Patient unable to take care of himself due to which legal guardianship has been requested, as his family declined to take his responsibility. Court date today (05/21/17) for legal guardianship media services specialist on board. Plan as mentioned above, awaiting placement in extended care facility. (5) CVA (cerebral vascular accident) Current Visit: Yes Status: Chronic Assessment and plan: MRI brain showed multiple small infarcts in bilateral cerebral and cerebellar areas, possible embolic phenomenon. Neurology consulted noted continue aspirin and Coumadin for underlying atrial fibrillation. Daily Physical and occupational therapy. 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 - Subjective Interval history: Patient is a 66y/o male admitted for STEMI and CVA. Upon admission patient was found to have severe cognitive and behavioral deficiencies due to which psychiatry was involved. As per psych's evaluation, patient was deemed to lack capacity due to which guardianship enrolment was initiated. Patient has been evaluated multiple times by psychiatry and decision to obtain guardianship has remained in place. Patient's court hearing is today (05/21/17) in regards his guardianship. Pt seen and examined at bedside. Resting comfortably in bed and denies any discomfort/distress at this time. Ambulating well with a walker. Currently AAO x 3. - Constitutional Vitals: Temp Pulse Resp BP Pulse Ox 97.4 F L 63 14 114/63 98 05/21/17 11:03 05/21/17 11:03 05/21/17 11:03 05/21/17 11:03 05/21/17 11:03 General appearance: Present: cooperative, A&O X 3, pleasant, no acute distress, answers questions appropriately - Head Head exam: Present: atraumatic, normocephalic - Eye Eye exam: Present: conjuntiva pink, sclera anicteric - Respiratory Respiratory exam: Present: CTAB. Absent: accessory muscle use, rales, rhonchi, wheezes - Cardiovascular Cardiovascular exam: Present: RRR, +S1, +S2. Absent: diastolic murmur, gallop, rubs, systolic murmur - GI/Abdominal GI/Abdominal exam: Present: normal bowel sounds, soft, no peritoneal signs. Absent: distended, tenderness - Extremities Exam Extremities exam: Present: warm, radial pulses palpable and symmetrical. Absent : calf tenderness, cyanotic, pedal edema - Neurological Exam Neurological exam: Present: alert, oriented X3 - Psychiatric Psychiatric exam: Present: normal affect, normal mood Internal Medicine: Result - Labs CBC & Chem 7: 05/13/17 04:08 05/14/17 05:06 - ABG Interpretation ABG results: ABG ABG pH 7.48 pH Units (7.32-7.45) H 03/05/17 04:50 ABG pCO2 38 mmHg (35-45) 03/05/17 04:50 ABG pO2 89 mmHg (85-104) 03/05/17 04:50 ABG O2 Saturation 97 % (95-98) 03/05/17 04:50 PT/INR, D-dimer PT 26.4 Seconds (9.4-12.1) H 05/17/17 04:21 Consult Discharge Plan - Plan Additional Instructions: Psychiatry reevaluation completed and- he is still deemed to lack decision- making capacity and will require a legal guardian; He is currently awaiting placement to extended care facility pending approval of legal guardianship to Hospital defense attorney. Referrals: NONE,PCP [Primary Care Provider] - (working on placement to [facility], will follow up with PCP at [facility])
[2017-05-21] MEDS: *HR* Warfarin 3 MG TABLET PO SCH (17:36)
[2017-05-21] MEDS: Mirtazapine 15 MG TABLET PO SCH (20:11)
[2017-05-22 06:20] LABS: Basophils # 0.1 K/mcL (0.0-0.2); Basophils % 0.7 %; Eosinophils # 0.2 K/mcL (0.0-0.6); Eosinophils % 2.4 %; Hematocrit 28.6 % (37.5-50.1); Hemoglobin 9.6 g/dL (12.9-16.9); Immature Granulocytes % 0.4 % (0-4); Lymphocytes # 1.8 K/mcL (0.6-4.6); Lymphocytes % 21.1 %; Mean Corpuscular HGB Conc 33.6 g/dL (31.6-35.5); Mean Corpuscular Hemoglobin 29.4 pg (28.0-33.3); Mean Corpuscular Volume 87.5 fL (83.0-100.0); Mean Platelet Volume 10.1 fL (9.4-12.4); Monocytes # 0.6 K/mcL (0.0-1.3); Neutrophils # 5.7 K/mcL (1.6-8.9); Platelet Count 206 K/mcL (140-400); Red Blood Count 3.27 M/mcL (4.19-5.50); Red Cell Distribution Width 14.1 % (11.5-14.5); Segmented Neutrophils % 68.4 %
[2017-05-22 06:23] LABS: INR 2.1; Prothrombin Time 22.9 Seconds (9.4-12.1)
[2017-05-22 06:32] LABS: BUN/Creatinine Ratio 18 (6-26); Blood Urea Nitrogen 22 mg/dL (8-26); Calcium 9.5 mg/dL (8.6-10.8); Carbon Dioxide 24 mEq/L (19-29); Chloride 110 mEq/L (98-109); Glucose 91 mg/dL (70-99); Magnesium 2.3 mg/dL (1.6-2.6); Osmolality,Calculated 295 (280-300); Phosphorous 3.9 mg/dL (2.3-4.7); Potassium 3.8 mEq/L (3.5-4.5); Sodium 141 mEq/L (136-145); eGFR For African Americans > 60 (> 60); eGFR For Non-African Americans 58 (> 60)
[2017-05-22] MEDS: Aspirin 81 MG TAB.CHEW PO SCH (08:23)
[2017-05-22] MEDS: amLODIPine 5 MG TABLET PO SCH (08:23)
[2017-05-22] MEDS: Lisinopril 20 MG TABLET PO SCH (08:24)
[2017-05-22] MEDS: *HR* Ticagrelor 90 MG TABLET PO SCH ×2 (08:24→20:26)
[2017-05-22 11:06] LABS: % Iron Saturation 18 % (20-55); Iron 53 mcg/dL (65-175); Transferrin 207 mg/dL (174-364)
[2017-05-22 11:30] LABS: Ferritin 388 ng/ml (22-275)
[2017-05-22] MEDS ORDERED: Sennosides/Docusate Sodium TABLET PO PRN (11:36)
--- NOTE | 2017-05-22 11:38 | Internal Med Progress Note ---
Date of Encounter: 05/22/17 Time of Encounter: 11:36 - Assessment and plan (1) Acute systolic CHF (congestive heart failure) Current Visit: Yes Status: Resolved Assessment and plan: Initial echocardiogram showed severely decreased ejection fraction, at around 25 % with segmental wall motion abnormality, mild diastolic dysfunction of left ventricle. Currently stable. Continue Coreg, lisinopril. (2) Atrial fibrillation Current Visit: Yes Status: Chronic Assessment and plan: Currently rate controlled. Continue calcium channel david and beta david. Long-term anticoagulation with Coumadin, INR noted to be therapeutic. Qualifiers: Atrial fibrillation type: paroxysmal Qualified Code(s): I48.0 - Paroxysmal atrial fibrillation (3) CAD (coronary artery disease) Current Visit: Yes Status: Acute Assessment and plan: Stable. No chest pain. Continue aspirin, statin, beta david, Brillinta Qualifiers: Coronary Disease-Associated Artery/Lesion type: [place] artery [place] vs. transplanted heart: [place] heart Associated angina: with unstable angina Qualified Code(s): I25.110 - Atherosclerotic heart disease of [place] coronary artery with unstable angina pectoris (4) Cognitive and behavioral changes Current Visit: Yes Status: Chronic Assessment and plan: Psychiatric evaluation has been completed thrice during this hospitalization. Patient unable to take care of himself due to which legal guardianship has been requested, as his family declined to take his responsibility. Court date (05/21/17) for legal guardianship, awaiting decision vp celebrity services on board. Plan as mentioned above, awaiting placement in extended care facility. (5) CVA (cerebral vascular accident) Current Visit: Yes Status: Chronic Assessment and plan: MRI brain showed multiple small infarcts in bilateral cerebral and cerebellar areas, possible embolic phenomenon. Neurology consulted noted continue aspirin and Coumadin for underlying atrial fibrillation. Daily Physical and occupational therapy. 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 (6) Anemia Current Visit: Yes Status: Acute Assessment and plan: Findings consistent with iron deficiency anemia will start Ferrous sulfate Added Senna plus PO qdaily prn constipation H&H low but acceptable no acute bleeding reported at this time will continue to closely monitor Qualifiers: Anemia type: iron deficiency Iron deficiency anemia type: unspecified iron deficiency Qualified Code(s): D50.9 - Iron deficiency anemia, unspecified - Subjective Interval history: Patient is a 66y/o male admitted for STEMI and CVA. Upon admission patient was found to have severe cognitive and behavioral deficiencies due to which psychiatry was involved. As per psych's evaluation, patient was deemed to lack capacity due to which guardianship enrolment was initiated. Patient has been evaluated multiple times by psychiatry and decision to obtain guardianship has remained in place. Patient's court hearing was on (05/21/17) in regards his guardianship. Pt seen and examined at bedside. Resting comfortably in bed and denies any discomfort/distress at this time. Ambulating well with a walker. Currently AAO x 3. Lab work up concerning for anemia due to which iron profile was ordered. Iron studies concerning for iron def anemia, will start PO iron supplementation - Constitutional Vitals: Temp Pulse Resp BP Pulse Ox 98.1 F 60 17 134/75 97 05/22/17 06:50 05/22/17 06:50 05/22/17 06:50 05/22/17 06:50 05/22/17 06:50 General appearance: Present: cooperative, A&O X 3, pleasant, no acute distress, answers questions appropriately - Head Head exam: Present: atraumatic, normocephalic - Eye Eye exam: Present: normal appearance, conjuntiva pink, sclera anicteric - Respiratory Respiratory exam: Present: CTAB. Absent: accessory muscle use, rales, rhonchi, wheezes - Cardiovascular Cardiovascular exam: Present: RRR, +S1, +S2. Absent: diastolic murmur, gallop, rubs, systolic murmur - GI/Abdominal GI/Abdominal exam: Present: normal bowel sounds, soft, no peritoneal signs. Absent: distended, tenderness - Extremities Exam Extremities exam: Present: warm, radial pulses palpable and symmetrical. Absent : calf tenderness, cyanotic, pedal edema - Neurological Exam Neurological exam: Present: alert, oriented X3 - Psychiatric Psychiatric exam: Present: normal affect, normal mood Internal Medicine: Result - Labs CBC & Chem 7: 05/22/17 05:51 05/22/17 05:51 Labs: Short CBC 05/22/17 Range/Units 05:51 WBC 8.3 (4.3-11.1) K/mcL Hgb 9.6 L (12.9-16.9) g/dL Hct 28.6 L (37.5-50.1) % Plt Count 206 (140-400) K/mcL Neutrophils # 5.7 (1.6-8.9) K/mcL BMP 05/22/17 05:51 Sodium 141 Potassium 3.8 Chloride 110 H Carbon Dioxide 24 BUN 22 Creatinine 1.25 Glucose 91 Calcium 9.5 - ABG Interpretation ABG results: ABG ABG pH 7.48 pH Units (7.32-7.45) H 03/05/17 04:50 ABG pCO2 38 mmHg (35-45) 03/05/17 04:50 ABG pO2 89 mmHg (85-104) 03/05/17 04:50 ABG O2 Saturation 97 % (95-98) 03/05/17 04:50 PT/INR, D-dimer PT 22.9 Seconds (9.4-12.1) H 05/22/17 05:51 Consult Discharge Plan - Plan Additional Instructions: Psychiatry reevaluation completed and- he is still deemed to lack decision- making capacity and will require a legal guardian; He is currently awaiting placement to extended care facility pending approval of legal guardianship to Hospital consumer attorney. Referrals: NONE,PCP [Primary Care Provider] - (working on placement to [facility], will follow up with PCP at [facility])
[2017-05-22] MEDS: *HR* Warfarin 3 MG TABLET PO SCH (17:18)
[2017-05-22] MEDS: Mirtazapine 15 MG TABLET PO SCH (20:25)
[2017-05-23] MEDS: amLODIPine 5 MG TABLET PO SCH (09:53)
[2017-05-23] MEDS: Aspirin 81 MG TAB.CHEW PO SCH (09:54)
[2017-05-23] MEDS: Lisinopril 20 MG TABLET PO SCH (09:54)
[2017-05-23] MEDS: *HR* Ticagrelor 90 MG TABLET PO SCH ×2 (10:02→20:29)
--- NOTE | 2017-05-23 11:59 | Internal Med Progress Note ---
Date of Encounter: 05/23/17 Time of Encounter: 11:58 - Assessment and plan (1) Acute systolic CHF (congestive heart failure) Current Visit: Yes Status: Resolved Assessment and plan: Initial echocardiogram showed severely decreased ejection fraction, at around 25 % with segmental wall motion abnormality, mild diastolic dysfunction of left ventricle. Currently stable. Continue Coreg, lisinopril. (2) Atrial fibrillation Current Visit: Yes Status: Chronic Assessment and plan: Currently rate controlled. Continue calcium channel david and beta david. Long-term anticoagulation with Coumadin, INR noted to be therapeutic. Qualifiers: Atrial fibrillation type: paroxysmal Qualified Code(s): I48.0 - Paroxysmal atrial fibrillation (3) CAD (coronary artery disease) Current Visit: Yes Status: Acute Assessment and plan: Stable. No chest pain. Continue aspirin, statin, beta david, Brillinta Qualifiers: Coronary Disease-Associated Artery/Lesion type: [place] artery [place] vs. transplanted heart: [place] heart Associated angina: with unstable angina Qualified Code(s): I25.110 - Atherosclerotic heart disease of [place] coronary artery with unstable angina pectoris (4) Cognitive and behavioral changes Current Visit: Yes Status: Chronic Assessment and plan: Psychiatric evaluation has been completed thrice during this hospitalization. Patient unable to take care of himself due to which legal guardianship has been requested, as his family declined to take his responsibility. Court date (05/21/17) for legal guardianship, Guardian assigned business services manager on board. Plan as mentioned above, awaiting placement in extended care facility. (5) CVA (cerebral vascular accident) Current Visit: Yes Status: Chronic Assessment and plan: MRI brain showed multiple small infarcts in bilateral cerebral and cerebellar areas, possible embolic phenomenon. Neurology consulted noted continue aspirin and Coumadin for underlying atrial fibrillation. Daily Physical and occupational therapy. 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 (6) Anemia Current Visit: Yes Status: Acute Assessment and plan: Findings consistent with anemia of chronic disease d/c ferrous sulfate H&H low but acceptable no acute bleeding reported at this time will continue to closely monitor Qualifiers: Anemia type: iron deficiency Iron deficiency anemia type: unspecified iron deficiency Qualified Code(s): D50.9 - Iron deficiency anemia, unspecified - Subjective Interval history: Patient is a 66y/o male admitted for STEMI and CVA. Upon admission patient was found to have severe cognitive and behavioral deficiencies due to which psychiatry was involved. As per psych's evaluation, patient was deemed to lack capacity due to which guardianship enrolment was initiated. Patient has been evaluated multiple times by psychiatry and decision to obtain guardianship has remained in place. Patient's court hearing was on (05/21/17) in regards his guardianship. Pt's guardianship has been rewarded to [employer] psychiatric social worker on board and has made attempt to communicate with the guardian. Pt seen and examined at bedside. Resting comfortably in bed and denies any discomfort/distress at this time. Ambulating well with a walker. Currently AAO x 3. Lab work up concerning for anemia due to which iron profile was ordered. Iron studies consistent with anemia of chronic disease, contrary to the documentation from prior day. Will discontinue ferrous sulfate. - Constitutional Vitals: Temp Pulse Resp BP Pulse Ox 98 F 60 16 110/59 96 05/23/17 07:01 05/23/17 07:01 05/23/17 07:01 05/23/17 07:01 05/23/17 07:01 General appearance: Present: cooperative, A&O X 3, pleasant, no acute distress, answers questions appropriately - Head Head exam: Present: atraumatic, normocephalic - Eye Eye exam: Present: conjuntiva pink, sclera anicteric - Respiratory Respiratory exam: Present: CTAB. Absent: accessory muscle use, rales, rhonchi, wheezes - Cardiovascular Cardiovascular exam: Present: RRR, +S1, +S2. Absent: diastolic murmur, gallop, rubs, systolic murmur - GI/Abdominal GI/Abdominal exam: Present: normal bowel sounds, soft, no peritoneal signs. Absent: distended, tenderness - Extremities Exam Extremities exam: Present: warm, radial pulses palpable and symmetrical. Absent : calf tenderness, cyanotic, pedal edema - Neurological Exam Neurological exam: Present: alert, oriented X3 - Psychiatric Psychiatric exam: Present: normal affect, normal mood Internal Medicine: Result - Labs CBC & Chem 7: 05/22/17 05:51 05/22/17 05:51 - ABG Interpretation ABG results: ABG ABG pH 7.48 pH Units (7.32-7.45) H 03/05/17 04:50 ABG pCO2 38 mmHg (35-45) 03/05/17 04:50 ABG pO2 89 mmHg (85-104) 03/05/17 04:50 ABG O2 Saturation 97 % (95-98) 03/05/17 04:50 PT/INR, D-dimer PT 22.9 Seconds (9.4-12.1) H 05/22/17 05:51 Consult Discharge Plan - Plan Additional Instructions: Psychiatry reevaluation completed and- he is still deemed to lack decision- making capacity and will require a legal guardian; He is currently awaiting placement to extended care facility pending approval of legal guardianship to Hospital assistant attorney general. Referrals: NONE,PCP [Primary Care Provider] - (working on placement to [facility], will follow up with PCP at [facility])
[2017-05-23] MEDS: *HR* Warfarin 3 MG TABLET PO SCH (18:33)
[2017-05-23] MEDS: Mirtazapine 15 MG TABLET PO SCH (20:29)
[2017-05-24] MEDS: Aspirin 81 MG TAB.CHEW PO SCH (09:03)
[2017-05-24] MEDS: Lisinopril 20 MG TABLET PO SCH (09:03)
[2017-05-24] MEDS: *HR* Ticagrelor 90 MG TABLET PO SCH ×2 (09:03→20:36)
[2017-05-24] MEDS: amLODIPine 5 MG TABLET PO SCH (09:03)
--- NOTE | 2017-05-24 10:18 | Internal Med Progress Note ---
Date of Encounter: 05/24/17 Time of Encounter: 10:17 - Assessment and plan (1) Acute systolic CHF (congestive heart failure) Current Visit: Yes Status: Resolved Assessment and plan: Initial echocardiogram showed severely decreased ejection fraction, at around 25 % with segmental wall motion abnormality, mild diastolic dysfunction of left ventricle. Currently stable. Continue Coreg, lisinopril. (2) Atrial fibrillation Current Visit: Yes Status: Chronic Assessment and plan: Currently rate controlled. Continue calcium channel david and beta david. Long-term anticoagulation with Coumadin, INR noted to be therapeutic. Qualifiers: Atrial fibrillation type: paroxysmal Qualified Code(s): I48.0 - Paroxysmal atrial fibrillation (3) CAD (coronary artery disease) Current Visit: Yes Status: Acute Assessment and plan: Stable. No chest pain. Continue aspirin, statin, beta david, Brillinta Qualifiers: Coronary Disease-Associated Artery/Lesion type: [place] artery [place] vs. transplanted heart: [place] heart Associated angina: with unstable angina Qualified Code(s): I25.110 - Atherosclerotic heart disease of [place] coronary artery with unstable angina pectoris (4) Cognitive and behavioral changes Current Visit: Yes Status: Chronic Assessment and plan: Psychiatric evaluation has been completed thrice during this hospitalization. Patient unable to take care of himself due to which legal guardianship has been requested, as his family declined to take his responsibility. Court date (05/21/17) for legal guardianship, Guardian assigned business services assistant on board. Plan as mentioned above, awaiting placement in extended care facility. (5) CVA (cerebral vascular accident) Current Visit: Yes Status: Chronic Assessment and plan: MRI brain showed multiple small infarcts in bilateral cerebral and cerebellar areas, possible embolic phenomenon. Neurology consulted noted continue aspirin and Coumadin for underlying atrial fibrillation. Daily Physical and occupational therapy. 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 (6) Anemia Current Visit: Yes Status: Acute Assessment and plan: Findings consistent with anemia of chronic disease H&H low but acceptable no acute bleeding reported at this time will continue to closely monitor Qualifiers: Anemia type: iron deficiency Iron deficiency anemia type: unspecified iron deficiency Qualified Code(s): D50.9 - Iron deficiency anemia, unspecified - Subjective Interval history: Patient is a 66y/o male admitted for STEMI and CVA. Upon admission patient was found to have severe cognitive and behavioral deficiencies due to which psychiatry was involved. As per psych's evaluation, patient was deemed to lack capacity due to which guardianship enrolment was initiated. Patient has been evaluated multiple times by psychiatry and decision to obtain guardianship has remained in place. Patient's court hearing was on (05/21/17) in regards his guardianship. Pt's guardianship has been rewarded to [employer] professor of social work on board and has made attempt to communicate with the guardian. Pt seen and examined at bedside. Resting comfortably in bed and denies any discomfort/distress at this time. Ambulating well with a walker. Currently AAO x 3. No overnight issues reported - Constitutional Vitals: Temp Pulse Resp BP Pulse Ox 98.5 F 65 19 109/61 96 05/24/17 07:47 05/24/17 07:47 05/24/17 07:47 05/24/17 07:47 05/24/17 07:47 General appearance: Present: cooperative, A&O X 3, pleasant, no acute distress, answers questions appropriately - Head Head exam: Present: atraumatic, normocephalic - Respiratory Respiratory exam: Present: CTAB. Absent: accessory muscle use, rales, rhonchi, wheezes - Cardiovascular Cardiovascular exam: Present: RRR, +S1, +S2. Absent: diastolic murmur, gallop, rubs, systolic murmur - GI/Abdominal GI/Abdominal exam: Present: normal bowel sounds, soft, no peritoneal signs. Absent: distended, tenderness - Extremities Exam Extremities exam: Present: full ROM, warm, radial pulses palpable and symmetrical. Absent: calf tenderness, cyanotic, pedal edema - Neurological Exam Neurological exam: Present: alert, oriented X3 Internal Medicine: Result - Labs CBC & Chem 7: 05/22/17 05:51 05/22/17 05:51 - ABG Interpretation ABG results: ABG ABG pH 7.48 pH Units (7.32-7.45) H 03/05/17 04:50 ABG pCO2 38 mmHg (35-45) 03/05/17 04:50 ABG pO2 89 mmHg (85-104) 03/05/17 04:50 ABG O2 Saturation 97 % (95-98) 03/05/17 04:50 PT/INR, D-dimer PT 22.9 Seconds (9.4-12.1) H 05/22/17 05:51 Consult Discharge Plan - Plan Additional Instructions: Psychiatry reevaluation completed and- he is still deemed to lack decision- making capacity and will require a legal guardian; He is currently awaiting placement to extended care facility pending approval of legal guardianship to Hospital assistant county attorney. Referrals: NONE,PCP [Primary Care Provider] - (working on placement to [facility], will follow up with PCP at [facility])
[2017-05-24] MEDS: *HR* Warfarin 3 MG TABLET PO SCH (18:15)
[2017-05-24] MEDS: Mirtazapine 15 MG TABLET PO SCH (20:36)
[2017-05-25] MEDS: amLODIPine 5 MG TABLET PO SCH (09:06)
[2017-05-25] MEDS: *HR* Ticagrelor 90 MG TABLET PO SCH ×2 (09:06→20:40)
[2017-05-25] MEDS: Aspirin 81 MG TAB.CHEW PO SCH (09:06)
[2017-05-25] MEDS: Lisinopril 20 MG TABLET PO SCH (09:06)
--- NOTE | 2017-05-25 09:44 | Internal Med Progress Note ---
Date of Encounter: 05/25/17 Time of Encounter: 09:43 - Assessment and plan (1) Acute systolic CHF (congestive heart failure) Current Visit: Yes Status: Resolved Assessment and plan: Initial echocardiogram showed severely decreased ejection fraction, at around 25 % with segmental wall motion abnormality, mild diastolic dysfunction of left ventricle. Currently stable. Continue Coreg, lisinopril. (2) Atrial fibrillation Current Visit: Yes Status: Chronic Assessment and plan: Currently rate controlled. Continue calcium channel david and beta david. Long-term anticoagulation with Coumadin, INR noted to be therapeutic. Qualifiers: Atrial fibrillation type: paroxysmal Qualified Code(s): I48.0 - Paroxysmal atrial fibrillation (3) CAD (coronary artery disease) Current Visit: Yes Status: Acute Assessment and plan: Stable. No chest pain. Continue aspirin, statin, beta david, Brillinta Qualifiers: Coronary Disease-Associated Artery/Lesion type: [place] artery [place] vs. transplanted heart: [place] heart Associated angina: with unstable angina Qualified Code(s): I25.110 - Atherosclerotic heart disease of [place] coronary artery with unstable angina pectoris (4) Cognitive and behavioral changes Current Visit: Yes Status: Chronic Assessment and plan: Psychiatric evaluation has been completed thrice during this hospitalization. Patient unable to take care of himself due to which legal guardianship has been requested, as his family declined to take his responsibility. Court date (05/21/17) for legal guardianship, Guardian assigned caregiver services home on board. Plan as mentioned above, awaiting placement in extended care facility. Pt is AAO x 3 but does not exhibit complete understanding of his medical diagnosis or treatment plan. (5) CVA (cerebral vascular accident) Current Visit: Yes Status: Chronic Assessment and plan: MRI brain showed multiple small infarcts in bilateral cerebral and cerebellar areas, possible embolic phenomenon. Neurology consulted noted continue aspirin and Coumadin for underlying atrial fibrillation. Daily Physical and occupational therapy. 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 (6) Anemia Current Visit: Yes Status: Acute Assessment and plan: Findings consistent with anemia of chronic disease H&H low but acceptable no acute bleeding reported at this time will continue to closely monitor Qualifiers: Anemia type: unspecified type Qualified Code(s): D64.9 - Anemia, unspecified - Subjective Interval history: Patient is a 66y/o male admitted for STEMI and CVA. Upon admission patient was found to have severe cognitive and behavioral deficiencies due to which psychiatry was involved. As per psych's evaluation, patient was deemed to lack capacity due to which guardianship enrolment was initiated. Patient has been evaluated multiple times by psychiatry and decision to obtain guardianship has remained in place. Patient's court hearing was on (05/21/17) in regards his guardianship. Pt's guardianship has been rewarded to [employer] social service liaison on board and has made attempt to communicate with the guardian. Pt seen and examined at bedside. Resting comfortably in bed and denies any discomfort/distress at this time. Ambulating well with a walker. Currently AAO x 3. No overnight issues reported - Constitutional Vitals: Temp Pulse Resp BP Pulse Ox 98.0 F 56 18 111/67 97 05/25/17 06:54 05/25/17 06:54 05/25/17 06:54 05/25/17 06:54 05/25/17 06:54 General appearance: Present: cooperative, A&O X 3, pleasant, no acute distress, answers questions appropriately - Head Head exam: Present: atraumatic, normocephalic - Eye Eye exam: Present: conjuntiva pink, sclera anicteric - Respiratory Respiratory exam: Present: CTAB. Absent: accessory muscle use, rales, rhonchi, wheezes - Cardiovascular Cardiovascular exam: Present: RRR, +S1, +S2. Absent: diastolic murmur, gallop, rubs, systolic murmur - GI/Abdominal GI/Abdominal exam: Present: normal bowel sounds, soft, no peritoneal signs. Absent: distended, tenderness - Extremities Exam Extremities exam: Present: warm, radial pulses palpable and symmetrical. Absent : calf tenderness, cyanotic, pedal edema - Neurological Exam Neurological exam: Present: alert, oriented X3 Internal Medicine: Result - Labs CBC & Chem 7: 05/22/17 05:51 05/22/17 05:51 - ABG Interpretation ABG results: ABG ABG pH 7.48 pH Units (7.32-7.45) H 03/05/17 04:50 ABG pCO2 38 mmHg (35-45) 03/05/17 04:50 ABG pO2 89 mmHg (85-104) 03/05/17 04:50 ABG O2 Saturation 97 % (95-98) 03/05/17 04:50 PT/INR, D-dimer PT 22.9 Seconds (9.4-12.1) H 05/22/17 05:51 Consult Discharge Plan - Plan Additional Instructions: Psychiatry reevaluation completed and- he is still deemed to lack decision- making capacity and will require a legal guardian; He is currently awaiting placement to extended care facility pending approval of legal guardianship to Hospital assistant city attorney. Referrals: NONE,PCP [Primary Care Provider] - (working on placement to [facility], will follow up with PCP at [facility])
[2017-05-25] MEDS: *HR* Warfarin 3 MG TABLET PO SCH (17:39)
[2017-05-25] MEDS: Mirtazapine 15 MG TABLET PO SCH (20:40)
[2017-05-26] MEDS: Lisinopril 20 MG TABLET PO SCH (08:55)
[2017-05-26] MEDS: Aspirin 81 MG TAB.CHEW PO SCH (08:56)
[2017-05-26] MEDS: amLODIPine 5 MG TABLET PO SCH (08:56)
[2017-05-26] MEDS: *HR* Ticagrelor 90 MG TABLET PO SCH ×2 (08:56→20:54)
--- NOTE | 2017-05-26 09:27 | Internal Med Progress Note ---
Date of Encounter: 05/26/17 Time of Encounter: 09:26 - Assessment and plan (1) Acute systolic CHF (congestive heart failure) Current Visit: Yes Status: Resolved Assessment and plan: Initial echocardiogram showed severely decreased ejection fraction, at around 25 % with segmental wall motion abnormality, mild diastolic dysfunction of left ventricle. Currently stable. Continue Coreg, lisinopril. (2) Atrial fibrillation Current Visit: Yes Status: Chronic Assessment and plan: Currently rate controlled. Continue calcium channel david and beta david. Long-term anticoagulation with Coumadin, INR noted to be therapeutic. Qualifiers: Atrial fibrillation type: paroxysmal Qualified Code(s): I48.0 - Paroxysmal atrial fibrillation (3) CAD (coronary artery disease) Current Visit: Yes Status: Acute Assessment and plan: Stable. No chest pain. Continue aspirin, statin, beta david, Brillinta Qualifiers: Coronary Disease-Associated Artery/Lesion type: [place] artery [place] vs. transplanted heart: [place] heart Associated angina: with unstable angina Qualified Code(s): I25.110 - Atherosclerotic heart disease of [place] coronary artery with unstable angina pectoris (4) Cognitive and behavioral changes Current Visit: Yes Status: Chronic Assessment and plan: Psychiatric evaluation has been completed thrice during this hospitalization. Patient unable to take care of himself due to which legal guardianship has been requested, as his family declined to take his responsibility. Court date (05/21/17) for legal guardianship, Guardian assigned manager administrative services on board. Plan as mentioned above, awaiting placement in extended care facility. Pt is AAO x 3 but does not exhibit complete understanding of his medical diagnosis or treatment plan. (5) CVA (cerebral vascular accident) Current Visit: Yes Status: Chronic Assessment and plan: MRI brain showed multiple small infarcts in bilateral cerebral and cerebellar areas, possible embolic phenomenon. Neurology consulted noted continue aspirin and Coumadin for underlying atrial fibrillation. Daily Physical and occupational therapy. 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 (6) Anemia Current Visit: Yes Status: Acute Assessment and plan: Findings consistent with anemia of chronic disease H&H low but acceptable no acute bleeding reported at this time will continue to closely monitor Qualifiers: Anemia type: unspecified type Qualified Code(s): D64.9 - Anemia, unspecified - Subjective Interval history: Patient is a 66y/o male admitted for STEMI and CVA. Upon admission patient was found to have severe cognitive and behavioral deficiencies due to which psychiatry was involved. As per psych's evaluation, patient was deemed to lack capacity due to which guardianship enrolment was initiated. Patient has been evaluated multiple times by psychiatry and decision to obtain guardianship has remained in place. Patient's court hearing was on (05/21/17) in regards his guardianship. Pt's guardianship has been rewarded to [employer] social security assessor on board and has made attempt to communicate with the guardian. Pt seen and examined at bedside. Resting comfortably in bed and denies any discomfort/distress at this time. Ambulating well with a walker. Currently AAO x 3. No overnight issues reported - Constitutional Vitals: Temp Pulse Resp BP Pulse Ox 97.8 F 58 17 114/60 100 05/26/17 06:44 05/26/17 06:44 05/26/17 06:44 05/26/17 06:44 05/26/17 06:44 General appearance: Present: cooperative, A&O X 3, pleasant, no acute distress, answers questions appropriately - Head Head exam: Present: atraumatic, normocephalic - Eye Eye exam: Present: conjuntiva pink, sclera anicteric - Respiratory Respiratory exam: Present: CTAB. Absent: accessory muscle use, rales, rhonchi, wheezes - Cardiovascular Cardiovascular exam: Present: RRR, +S1, +S2. Absent: diastolic murmur, gallop, rubs, systolic murmur - GI/Abdominal GI/Abdominal exam: Present: normal bowel sounds, soft, no peritoneal signs. Absent: distended, tenderness - Extremities Exam Extremities exam: Present: warm, radial pulses palpable and symmetrical. Absent : calf tenderness, cyanotic, pedal edema - Neurological Exam Neurological exam: Present: alert, oriented X3 Internal Medicine: Result - Labs CBC & Chem 7: 05/22/17 05:51 05/22/17 05:51 - ABG Interpretation ABG results: ABG ABG pH 7.48 pH Units (7.32-7.45) H 03/05/17 04:50 ABG pCO2 38 mmHg (35-45) 03/05/17 04:50 ABG pO2 89 mmHg (85-104) 03/05/17 04:50 ABG O2 Saturation 97 % (95-98) 03/05/17 04:50 PT/INR, D-dimer PT 22.9 Seconds (9.4-12.1) H 05/22/17 05:51 Consult Discharge Plan - Plan Additional Instructions: Psychiatry reevaluation completed and- he is still deemed to lack decision- making capacity and will require a legal guardian; He is currently awaiting placement to extended care facility pending approval of legal guardianship to Hospital assistant attorney general. Referrals: NONE,PCP [Primary Care Provider] - (working on placement to [facility], will follow up with PCP at [facility])
[2017-05-26] MEDS: *HR* Warfarin 3 MG TABLET PO SCH (18:02)
[2017-05-26] MEDS: Mirtazapine 15 MG TABLET PO SCH (20:54)
[2017-05-27] MEDS: *HR* Ticagrelor 90 MG TABLET PO SCH ×2 (08:11→20:15)
[2017-05-27] MEDS: amLODIPine 5 MG TABLET PO SCH (08:11)
[2017-05-27] MEDS: Lisinopril 20 MG TABLET PO SCH (08:11)
[2017-05-27] MEDS: Aspirin 81 MG TAB.CHEW PO SCH (08:11)
--- NOTE | 2017-05-27 13:51 | Internal Med Progress Note ---
Date of Encounter: 05/27/17 Time of Encounter: 13:49 - Assessment and plan (1) Acute systolic CHF (congestive heart failure) Current Visit: Yes Status: Resolved Assessment and plan: Initial echocardiogram showed severely decreased ejection fraction, at around 25 % with segmental wall motion abnormality, mild diastolic dysfunction of left ventricle. Currently stable. Continue Coreg, lisinopril. (2) Atrial fibrillation Current Visit: Yes Status: Chronic Assessment and plan: Currently rate controlled. Continue calcium channel david and beta david. Long-term anticoagulation with Coumadin, INR noted to be therapeutic. Qualifiers: Atrial fibrillation type: paroxysmal Qualified Code(s): I48.0 - Paroxysmal atrial fibrillation (3) CAD (coronary artery disease) Current Visit: Yes Status: Acute Assessment and plan: Stable. No chest pain. Continue aspirin, statin, beta david, Brillinta Qualifiers: Coronary Disease-Associated Artery/Lesion type: [place] artery [place] vs. transplanted heart: [place] heart Associated angina: with unstable angina Qualified Code(s): I25.110 - Atherosclerotic heart disease of [place] coronary artery with unstable angina pectoris (4) Cognitive and behavioral changes Current Visit: Yes Status: Chronic Assessment and plan: Psychiatric evaluation has been completed thrice during this hospitalization. Patient unable to take care of himself due to which legal guardianship has been requested, as his family declined to take his responsibility. Court date (05/21/17) for legal guardianship, Guardian assigned guest services manager on board. Plan as mentioned above, awaiting placement in extended care facility. Pt is AAO x 3 but does not exhibit complete understanding of his medical diagnosis or treatment plan. (5) CVA (cerebral vascular accident) Current Visit: Yes Status: Chronic Assessment and plan: MRI brain showed multiple small infarcts in bilateral cerebral and cerebellar areas, possible embolic phenomenon. Neurology consulted noted continue aspirin and Coumadin for underlying atrial fibrillation. Pt ambulating well daily physical therapy 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 (6) Anemia Current Visit: Yes Status: Acute Assessment and plan: Findings consistent with anemia of chronic disease H&H low but acceptable no acute bleeding reported at this time will continue to closely monitor Qualifiers: Anemia type: unspecified type Qualified Code(s): D64.9 - Anemia, unspecified - Subjective Interval history: Patient is a 66y/o male admitted for STEMI and CVA. Upon admission patient was found to have severe cognitive and behavioral deficiencies due to which psychiatry was involved. As per psych's evaluation, patient was deemed to lack capacity due to which guardianship enrolment was initiated. Patient has been evaluated multiple times by psychiatry and decision to obtain guardianship has remained in place. Patient's court hearing was on (05/21/17) in regards his guardianship. Pt's guardianship has been rewarded to [employer] pediatric social worker on board and has made attempt to communicate with the guardian. Pt seen and examined at bedside. Resting comfortably in bed and denies any discomfort/distress at this time. Ambulating well with a walker. Currently AAO x 3. No overnight issues reported - Constitutional Vitals: Temp Pulse Resp BP Pulse Ox 97.9 F 58 17 134/69 97 05/27/17 07:33 05/27/17 07:33 05/27/17 07:33 05/27/17 07:33 05/27/17 07:33 General appearance: Present: cooperative, A&O X 3, pleasant, no acute distress, answers questions appropriately - Head Head exam: Present: atraumatic, normocephalic - Eye Eye exam: Present: conjuntiva pink, sclera anicteric - Respiratory Respiratory exam: Present: CTAB. Absent: accessory muscle use, rales, rhonchi, wheezes - Cardiovascular Cardiovascular exam: Present: RRR, +S1, +S2. Absent: diastolic murmur, gallop, rubs, systolic murmur - GI/Abdominal GI/Abdominal exam: Present: normal bowel sounds, soft, no peritoneal signs. Absent: distended, tenderness - Extremities Exam Extremities exam: Present: warm, radial pulses palpable and symmetrical. Absent : calf tenderness, cyanotic, pedal edema - Neurological Exam Neurological exam: Present: alert, oriented X3 - Psychiatric Psychiatric exam: Present: normal affect, normal mood Internal Medicine: Result - Labs CBC & Chem 7: 05/22/17 05:51 05/22/17 05:51 - ABG Interpretation ABG results: ABG ABG pH 7.48 pH Units (7.32-7.45) H 03/05/17 04:50 ABG pCO2 38 mmHg (35-45) 03/05/17 04:50 ABG pO2 89 mmHg (85-104) 03/05/17 04:50 ABG O2 Saturation 97 % (95-98) 03/05/17 04:50 PT/INR, D-dimer PT 22.9 Seconds (9.4-12.1) H 05/22/17 05:51 Consult Discharge Plan - Plan Additional Instructions: Psychiatry reevaluation completed and- he is still deemed to lack decision- making capacity and will require a legal guardian; He is currently awaiting placement to extended care facility pending approval of legal guardianship to Hospital criminal defense attorney. Referrals: NONE,PCP [Primary Care Provider] - (working on placement to [facility], will follow up with PCP at [facility])
[2017-05-27] MEDS: *HR* Warfarin 3 MG TABLET PO SCH (18:31)
[2017-05-27] MEDS: Mirtazapine 15 MG TABLET PO SCH (20:15)
[2017-05-28] MEDS: Aspirin 81 MG TAB.CHEW PO SCH (09:23)
[2017-05-28] MEDS: *HR* Ticagrelor 90 MG TABLET PO SCH ×2 (09:23→21:00)
[2017-05-28] MEDS: Lisinopril 20 MG TABLET PO SCH (09:23)
[2017-05-28] MEDS: amLODIPine 5 MG TABLET PO SCH (09:23)
--- NOTE | 2017-05-28 11:36 | Internal Med Progress Note ---
Date of Encounter: 05/28/17 Time of Encounter: 11:35 - Assessment and plan (1) Acute systolic CHF (congestive heart failure) Current Visit: Yes Status: Resolved Assessment and plan: Initial echocardiogram showed severely decreased ejection fraction, at around 25 % with segmental wall motion abnormality, mild diastolic dysfunction of left ventricle. Currently stable. Continue Coreg, lisinopril. (2) Atrial fibrillation Current Visit: Yes Status: Chronic Assessment and plan: Currently rate controlled. Continue calcium channel david and beta david. Long-term anticoagulation with Coumadin, INR noted to be therapeutic. Qualifiers: Atrial fibrillation type: paroxysmal Qualified Code(s): I48.0 - Paroxysmal atrial fibrillation (3) CAD (coronary artery disease) Current Visit: Yes Status: Acute Assessment and plan: Stable. No chest pain. Continue aspirin, statin, beta david, Brillinta Qualifiers: Coronary Disease-Associated Artery/Lesion type: [place] artery [place] vs. transplanted heart: [place] heart Associated angina: with unstable angina Qualified Code(s): I25.110 - Atherosclerotic heart disease of [place] coronary artery with unstable angina pectoris (4) Cognitive and behavioral changes Current Visit: Yes Status: Chronic Assessment and plan: Psychiatric evaluation has been completed thrice during this hospitalization. Patient unable to take care of himself due to which legal guardianship has been requested, as his family declined to take his responsibility. Court date (05/21/17) for legal guardianship, Guardian assigned technical services manager on board. Plan as mentioned above, awaiting placement in extended care facility. Pt is AAO x 3 but does not exhibit complete understanding of his medical diagnosis or treatment plan. (5) CVA (cerebral vascular accident) Current Visit: Yes Status: Chronic Assessment and plan: MRI brain showed multiple small infarcts in bilateral cerebral and cerebellar areas, possible embolic phenomenon. Neurology consulted noted continue aspirin and Coumadin for underlying atrial fibrillation. Pt ambulating well daily physical therapy 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 (6) Anemia Current Visit: Yes Status: Acute Assessment and plan: Findings consistent with anemia of chronic disease H&H low but acceptable no acute bleeding reported at this time will continue to closely monitor Qualifiers: Anemia type: unspecified type Qualified Code(s): D64.9 - Anemia, unspecified - Subjective Interval history: Patient is a 66y/o male admitted for STEMI and CVA. Upon admission patient was found to have severe cognitive and behavioral deficiencies due to which psychiatry was involved. As per psych's evaluation, patient was deemed to lack capacity due to which guardianship enrolment was initiated. Patient has been evaluated multiple times by psychiatry and decision to obtain guardianship has remained in place. Patient's court hearing was on (05/21/17) in regards his guardianship. Pt's guardianship has been rewarded to [employer] social service liaison on board and has made attempt to communicate with the guardian. Pt seen and examined at bedside. Resting comfortably in bed and denies any discomfort/distress at this time. Ambulating well with a walker. Currently AAO x 3. No overnight issues reported - Constitutional Vitals: Temp Pulse Resp BP Pulse Ox 97.7 F 62 17 124/63 98 05/28/17 07:29 05/28/17 07:29 05/28/17 07:29 05/28/17 07:29 05/28/17 07:29 General appearance: Present: cooperative, A&O X 3, pleasant, no acute distress, answers questions appropriately - Head Head exam: Present: atraumatic, normocephalic - Eye Eye exam: Present: conjuntiva pink, sclera anicteric - Respiratory Respiratory exam: Present: CTAB. Absent: respiratory distress, wheezes - Cardiovascular Cardiovascular exam: Present: RRR, +S1, +S2. Absent: diastolic murmur, gallop, rubs, systolic murmur - GI/Abdominal GI/Abdominal exam: Present: normal bowel sounds, soft, no peritoneal signs. Absent: distended, tenderness - Extremities Exam Extremities exam: Present: warm, radial pulses palpable and symmetrical. Absent : calf tenderness, cyanotic, pedal edema - Neurological Exam Neurological exam: Present: alert, oriented X3 - Psychiatric Psychiatric exam: Present: normal affect, normal mood Internal Medicine: Result - Labs CBC & Chem 7: 05/22/17 05:51 05/22/17 05:51 - ABG Interpretation ABG results: ABG ABG pH 7.48 pH Units (7.32-7.45) H 03/05/17 04:50 ABG pCO2 38 mmHg (35-45) 03/05/17 04:50 ABG pO2 89 mmHg (85-104) 03/05/17 04:50 ABG O2 Saturation 97 % (95-98) 03/05/17 04:50 PT/INR, D-dimer PT 22.9 Seconds (9.4-12.1) H 05/22/17 05:51 Consult Discharge Plan - Plan Additional Instructions: Psychiatry reevaluation completed and- he is still deemed to lack decision- making capacity and will require a legal guardian; He is currently awaiting placement to extended care facility pending approval of legal guardianship to Hospital manager [employer]. Referrals: NONE,PCP [Primary Care Provider] - (working on placement to [facility], will follow up with PCP at [facility])
[2017-05-28] MEDS: *HR* Warfarin 3 MG TABLET PO SCH (17:20)
[2017-05-28] MEDS: Mirtazapine 15 MG TABLET PO SCH (21:00)
[2017-05-29 08:55] LABS: Basophils # 0.1 K/mcL (0.0-0.2); Basophils % 0.7 %; Eosinophils # 0.2 K/mcL (0.0-0.6); Eosinophils % 2.6 %; Hematocrit 29.9 % (37.5-50.1); Hemoglobin 10.2 g/dL (12.9-16.9); Immature Granulocytes % 0.5 % (0-4); Lymphocytes # 1.6 K/mcL (0.6-4.6); Lymphocytes % 18.5 %; Mean Corpuscular HGB Conc 34.1 g/dL (31.6-35.5); Mean Corpuscular Hemoglobin 30.2 pg (28.0-33.3); Mean Corpuscular Volume 88.5 fL (83.0-100.0); Mean Platelet Volume 10.5 fL (9.4-12.4); Monocytes # 0.5 K/mcL (0.0-1.3); Monocytes % 6.1 %; Neutrophils # 6.3 K/mcL (1.6-8.9); Platelet Count 217 K/mcL (140-400); Red Blood Count 3.38 M/mcL (4.19-5.50); Red Cell Distribution Width 14.2 % (11.5-14.5); Segmented Neutrophils % 71.6 %
[2017-05-29 09:05] LABS: BUN/Creatinine Ratio 15 (6-26); Blood Urea Nitrogen 19 mg/dL (8-26); Carbon Dioxide 28 mEq/L (19-29); Chloride 108 mEq/L (98-109); Glucose 94 mg/dL (70-99); Magnesium 2.4 mg/dL (1.6-2.6); Osmolality,Calculated 292 (280-300); Phosphorous 3.5 mg/dL (2.3-4.7); Potassium 4.2 mEq/L (3.5-4.5); Sodium 140 mEq/L (136-145); eGFR For African Americans > 60 (> 60); eGFR For Non-African Americans 57 (> 60)
[2017-05-29] MEDS: Lisinopril 20 MG TABLET PO SCH (09:07)
[2017-05-29] MEDS: Aspirin 81 MG TAB.CHEW PO SCH (09:07)
[2017-05-29] MEDS: amLODIPine 5 MG TABLET PO SCH (09:07)
[2017-05-29] MEDS: *HR* Ticagrelor 90 MG TABLET PO SCH ×2 (09:08→21:03)
[2017-05-29 09:12] LABS: INR 1.9; Prothrombin Time 20.4 Seconds (9.4-12.1)
--- NOTE | 2017-05-29 09:16 | Internal Med Progress Note ---
Date of Encounter: 05/29/17 Time of Encounter: 09:13 - Assessment and plan (1) Acute systolic CHF (congestive heart failure) Current Visit: Yes Status: Resolved Assessment and plan: Initial echocardiogram showed severely decreased ejection fraction, at around 25 % with segmental wall motion abnormality, mild diastolic dysfunction of left ventricle. Currently stable. Continue Coreg, lisinopril. Code(s): I50.21 - Acute systolic (congestive) heart failure (2) Atrial fibrillation Current Visit: Yes Status: Chronic Assessment and plan: Currently rate controlled. Continue calcium channel david and beta david. Long-term anticoagulation with Coumadin, INR noted to be therapeutic. Qualifiers: Atrial fibrillation type: paroxysmal Qualified Code(s): I48.0 - Paroxysmal atrial fibrillation (3) CAD (coronary artery disease) Current Visit: Yes Status: Acute Assessment and plan: Stable. No chest pain. Continue aspirin, statin, beta david, Brillinta Qualifiers: Coronary Disease-Associated Artery/Lesion type: [place] artery [place] vs. transplanted heart: [place] heart Associated angina: with unstable angina Qualified Code(s): I25.110 - Atherosclerotic heart disease of [place] coronary artery with unstable angina pectoris (4) Cognitive and behavioral changes Current Visit: Yes Status: Chronic Assessment and plan: Psychiatric evaluation has been completed thrice during this hospitalization. Patient unable to take care of himself due to which legal guardianship has been requested, as his family declined to take his responsibility. Court date (05/21/17) for legal guardianship, Guardian assigned career services representative on board. Plan as mentioned above, awaiting placement in extended care facility. Pt is AAO x 3 but does not exhibit understanding of his medical diagnosis or treatment plan. (5) CVA (cerebral vascular accident) Current Visit: Yes Status: Chronic Assessment and plan: MRI brain showed multiple small infarcts in bilateral cerebral and cerebellar areas, possible embolic phenomenon. Neurology consulted noted continue aspirin and Coumadin for underlying atrial fibrillation. Pt ambulating well daily physical therapy 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 (6) Anemia Current Visit: Yes Status: Acute Assessment and plan: Findings consistent with anemia of chronic disease H&H low but acceptable no acute bleeding reported at this time will continue to closely monitor Qualifiers: Anemia type: unspecified type Qualified Code(s): D64.9 - Anemia, unspecified - Subjective Interval history: Patient is a 66y/o male admitted for STEMI and CVA. Upon admission patient was found to have severe cognitive and behavioral deficiencies due to which psychiatry was involved. As per psych's evaluation, patient was deemed to lack capacity due to which guardianship enrolment was initiated. Patient has been evaluated multiple times by psychiatry and decision to obtain guardianship has remained in place. Patient's court hearing was on (05/21/17) in regards his guardianship. Pt's guardianship has been rewarded to [facility] Medicaid pending. Pt seen and examined at bedside. Resting comfortably in bed and denies any discomfort/distress at this time. Ambulating well with a walker. Currently AAO x 3, however patient has not understanding of his medical health or management plan. I have discussed pt's diagnosis and care plan with him on daily basis, and every day he states he doesn't know what is going on with him. Discharge pending insurance approval and placement - Constitutional Vitals: Temp Pulse Resp BP Pulse Ox 97.4 F L 58 17 120/66 96 05/29/17 06:51 05/29/17 06:51 05/29/17 06:51 05/29/17 06:51 05/29/17 06:51 General appearance: Present: cooperative, A&O X 3, pleasant, no acute distress, answers questions appropriately - Head Head exam: Present: atraumatic, normocephalic - Eye Eye exam: Present: conjuntiva pink, sclera anicteric - Respiratory Respiratory exam: Present: CTAB. Absent: accessory muscle use, rales, rhonchi, wheezes - Cardiovascular Cardiovascular exam: Present: RRR, +S1, +S2. Absent: diastolic murmur, gallop, rubs, systolic murmur - GI/Abdominal GI/Abdominal exam: Present: normal bowel sounds, soft, no peritoneal signs. Absent: distended, tenderness - Extremities Exam Extremities exam: Present: warm, radial pulses palpable and symmetrical. Absent : calf tenderness, cyanotic, pedal edema - Neurological Exam Neurological exam: Present: alert, oriented X3 - Psychiatric Psychiatric exam: Present: normal affect, normal mood Internal Medicine: Result - Labs CBC & Chem 7: 05/29/17 08:10 05/29/17 08:10 Labs: Short CBC 05/29/17 Range/Units 08:10 WBC 8.8 (4.3-11.1) K/mcL Hgb 10.2 L (12.9-16.9) g/dL Hct 29.9 L (37.5-50.1) % Plt Count 217 (140-400) K/mcL Neutrophils # 6.3 (1.6-8.9) K/mcL BMP 05/29/17 08:10 Sodium 140 Potassium 4.2 Chloride 108 Carbon Dioxide 28 BUN 19 Creatinine 1.26 H Glucose 94 Calcium 10.0 - ABG Interpretation ABG results: ABG ABG pH 7.48 pH Units (7.32-7.45) H 03/05/17 04:50 ABG pCO2 38 mmHg (35-45) 03/05/17 04:50 ABG pO2 89 mmHg (85-104) 03/05/17 04:50 ABG O2 Saturation 97 % (95-98) 03/05/17 04:50 PT/INR, D-dimer PT 20.4 Seconds (9.4-12.1) H 05/29/17 08:10 Consult Discharge Plan - Plan Additional Instructions: Psychiatry reevaluation completed and- he is still deemed to lack decision- making capacity and will require a legal guardian; He is currently awaiting placement to extended care facility pending approval of legal guardianship to Hospital health care attorney. Referrals: NONE,PCP [Primary Care Provider] - (working on placement to [facility], will follow up with PCP at [facility])
[2017-05-29] MEDS ORDERED: *HR* Warfarin 2.5 MG TABLET PO SCH (18:00)
[2017-05-29] MEDS: Mirtazapine 15 MG TABLET PO SCH (21:03)
--- NOTE | 2017-05-30 09:44 | Internal Med Progress Note ---
Date of Encounter: 05/30/17 Time of Encounter: 09:39 - Assessment and plan (1) Acute systolic CHF (congestive heart failure) Current Visit: Yes Status: Resolved Assessment and plan: Initial echocardiogram showed severely decreased ejection fraction, at around 25 % with segmental wall motion abnormality, mild diastolic dysfunction of left ventricle. Currently stable. Continue Coreg, lisinopril. Code(s): I50.21 - Acute systolic (congestive) heart failure (2) Atrial fibrillation Current Visit: Yes Status: Chronic Assessment and plan: Currently rate controlled. Continue calcium channel david and beta david. Long-term anticoagulation with Coumadin, INR noted to be 1.9 and his coumadin dose was adjusted accordingly Qualifiers: Atrial fibrillation type: paroxysmal Qualified Code(s): I48.0 - Paroxysmal atrial fibrillation (3) CAD (coronary artery disease) Current Visit: Yes Status: Acute Assessment and plan: Stable. No chest pain. Continue aspirin, statin, beta david, Brillinta Qualifiers: Coronary Disease-Associated Artery/Lesion type: [place] artery [place] vs. transplanted heart: [place] heart Associated angina: with unstable angina Qualified Code(s): I25.110 - Atherosclerotic heart disease of [place] coronary artery with unstable angina pectoris (4) Cognitive and behavioral changes Current Visit: Yes Status: Chronic Assessment and plan: Psychiatric evaluation has been completed thrice during this hospitalization. Patient unable to take care of himself due to which legal guardianship has been requested, as his family declined to take his responsibility. Court date (05/21/17) for legal guardianship, Guardian assigned environmental services aide on board. Plan as mentioned above, awaiting placement in extended care facility. Pt is AAO x 3 but does not exhibit understanding of his medical diagnosis or treatment plan. (5) CVA (cerebral vascular accident) Current Visit: Yes Status: Chronic Assessment and plan: MRI brain showed multiple small infarcts in bilateral cerebral and cerebellar areas, possible embolic phenomenon. Neurology consulted noted continue aspirin and Coumadin for underlying atrial fibrillation. Pt ambulating well daily physical therapy 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 (6) Anemia Current Visit: Yes Status: Acute Assessment and plan: Findings consistent with anemia of chronic disease H&H low but acceptable no acute bleeding reported at this time will continue to closely monitor Qualifiers: Anemia type: unspecified type Qualified Code(s): D64.9 - Anemia, unspecified - Subjective Interval history: Patient is a 66y/o male admitted for STEMI and CVA. Upon admission patient was found to have severe cognitive and behavioral deficiencies due to which psychiatry was involved. As per psych's evaluation, patient was deemed to lack capacity due to which guardianship enrolment was initiated. Patient has been evaluated multiple times by psychiatry and decision to obtain guardianship has remained in place. Patient's court hearing was on (05/21/17) in regards his guardianship. Pt's guardianship has been rewarded to [employer] Medicaid pending. Pt seen and examined at bedside. Resting comfortably in bed and denies any discomfort/distress at this time. Ambulating well with a walker. Currently AAO x 3, however patient has not understanding of his medical health or management plan. I have discussed pt's diagnosis and care plan with him on daily basis, and every day he states he doesn't know what is going on with him. Discharge pending insurance approval and placement - Constitutional Vitals: Temp Pulse Resp BP Pulse Ox 97.3 F L 60 17 120/66 96 05/30/17 06:44 05/30/17 06:44 05/30/17 06:44 05/30/17 06:44 05/30/17 06:44 General appearance: Present: cooperative, A&O X 3, pleasant, no acute distress, answers questions appropriately - Head Head exam: Present: atraumatic, normocephalic - Respiratory Respiratory exam: Present: CTAB. Absent: accessory muscle use, rales, rhonchi, wheezes - Cardiovascular Cardiovascular exam: Present: RRR, +S1, +S2. Absent: diastolic murmur, gallop, rubs, systolic murmur - GI/Abdominal GI/Abdominal exam: Present: normal bowel sounds, soft, no peritoneal signs. Absent: distended, tenderness - Extremities Exam Extremities exam: Present: warm, radial pulses palpable and symmetrical. Absent : calf tenderness, cyanotic, pedal edema - Neurological Exam Neurological exam: Present: alert, oriented X3 - Psychiatric Psychiatric exam: Present: normal affect, normal mood Internal Medicine: Result - Labs CBC & Chem 7: 05/29/17 08:10 05/29/17 08:10 - ABG Interpretation ABG results: ABG ABG pH 7.48 pH Units (7.32-7.45) H 03/05/17 04:50 ABG pCO2 38 mmHg (35-45) 03/05/17 04:50 ABG pO2 89 mmHg (85-104) 03/05/17 04:50 ABG O2 Saturation 97 % (95-98) 03/05/17 04:50 PT/INR, D-dimer PT 20.4 Seconds (9.4-12.1) H 05/29/17 08:10 Consult Discharge Plan - Plan Additional Instructions: Psychiatry reevaluation completed and- he is still deemed to lack decision- making capacity and will require a legal guardian; He is currently awaiting placement to extended care facility pending approval of legal guardianship to Hospital store person. Referrals: NONE,PCP [Primary Care Provider] - (working on placement to [facility], will follow up with PCP at [facility])
[2017-05-30] MEDS: Aspirin 81 MG TAB.CHEW PO SCH (09:52)
[2017-05-30] MEDS: *HR* Ticagrelor 90 MG TABLET PO SCH ×2 (09:52→21:13)
[2017-05-30] MEDS: Lisinopril 20 MG TABLET PO SCH (09:52)
[2017-05-30] MEDS: amLODIPine 5 MG TABLET PO SCH (09:53)
--- NOTE | 2017-05-30 14:30 | Physician Discharge Referral ---
ExtendedCare Referral Info Transfer To: [facility] Provider in Charge after Transfer: PCP - Diagnosis (1) Acute systolic CHF (congestive heart failure) Priority: Primary Status: Resolved (2) Atrial fibrillation Priority: Secondary Status: Chronic (3) CAD (coronary artery disease) Priority: Secondary Status: Acute (4) Cognitive and behavioral changes Priority: Secondary Status: Chronic (5) CVA (cerebral vascular accident) Priority: Primary Status: Chronic (6) Anemia Priority: Secondary Status: Acute - Transfer Medications Home Medications: Unable To Obtain [Unable to Obtain] 03/02/17 [History] Allergies/Adverse Reactions: 3 Allergy/AdvReac Type Severity Reaction Status Date / Time No Known Allergies Allergy Verified 02/28/17 16:24 - Respiratory Orders Smoking Cessation: Smoking cessation has been advised. For more information, call the [place] Tobacco Quit Line at 9-141-HGZNNOW. CERTIFICATION: I certify that the transfer of the above named patient to an Extended Care Facility is necessary for the continuing treatment of the diagnosis listed. The above information is true and accurate reflection of patient's current condition. Confidential - Redisclosure prohibited without a patient's written consent.
[2017-05-30] MEDS ORDERED: *HR* Warfarin 3 MG TABLET PO SCH (18:00)
[2017-05-30] MEDS: Mirtazapine 15 MG TABLET PO SCH (21:13)
[2017-05-31] MEDS: Aspirin 81 MG TAB.CHEW PO SCH (08:06)
[2017-05-31] MEDS: *HR* Ticagrelor 90 MG TABLET PO SCH (08:06)
[2017-05-31] MEDS: Lisinopril 20 MG TABLET PO SCH (08:06)
[2017-05-31] MEDS: amLODIPine 5 MG TABLET PO SCH (08:06)
[2017-05-31 11:21] VITALS: BP 105/65
--- NOTE | 2017-05-31 14:09 | Discharge Summary ---
Date of Encounter: 05/31/17 Time of Encounter: 14:05 - Discharge Diagnosis (1) Acute systolic CHF (congestive heart failure) Priority: Primary Status: Resolved Code(s): I50.21 - Acute systolic (congestive) heart failure (2) Atrial fibrillation Priority: Primary Status: Chronic Qualifiers: Atrial fibrillation type: paroxysmal Qualified Code(s): I48.0 - Paroxysmal atrial fibrillation (3) CAD (coronary artery disease) Priority: Secondary Status: Acute Qualifiers: Coronary Disease-Associated Artery/Lesion type: [place] artery [place] vs. transplanted heart: [place] heart Associated angina: with unstable angina Qualified Code(s): I25.110 - Atherosclerotic heart disease of [place] coronary artery with unstable angina pectoris (4) Cognitive and behavioral changes Priority: Secondary Status: Chronic (5) CVA (cerebral vascular accident) Priority: Primary Status: Chronic 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 (6) Anemia Priority: Secondary Status: Acute Qualifiers: Anemia type: unspecified type Qualified Code(s): D64.9 - Anemia, unspecified - Discharge Medications Home Medications: Acetaminophen [Tylenol] 500 mg PO Q6HR PRN tablet 05/31/17 [Rx] Aspirin 81 mg PO DAILY tab.chew 05/31/17 [Rx] Carvedilol [Coreg] 25 mg PO BIDWM tablet 05/31/17 [Rx] Ipratropium/Albuterol Neb [Duoneb] 3 ml IH [id number] PRN inhsol 05/31/17 [Rx] Lisinopril [Zestril] 20 mg PO DAILY tablet 05/31/17 [Rx] Mirtazapine [Remeron] 7.5 mg PO HS tablet 05/31/17 [Rx] Omeprazole [PriLOSEC] 20 mg PO DAILY@0730 capsule.dr 05/31/17 [Rx] Rosuvastatin [Crestor] 40 mg PO HS tablet 05/31/17 [Rx] Sennosides/Docusate Sodium [Senna Plus] 1 each PO DAILY PRN tablet 05/31/17 [Rx ] Ticagrelor [Brilinta] 90 mg PO BID tablet 05/31/17 [Rx] Warfarin [Coumadin] 1.5 mg PO SUMOTUTHFRSA@1800 tablet 05/31/17 [Rx] Warfarin [Coumadin] 2.5 mg PO WE@1800 tablet 05/31/17 [Rx] amLODIPine [Norvasc] 10 mg PO DAILY tablet 05/31/17 [Rx] Allergies/Adverse Reactions: 3 Allergy/AdvReac Type Severity Reaction Status Date / Time No Known Allergies Allergy Verified 02/28/17 16:24 Date of admission: 02/28/17 18:20 Primary care physician: PCP NONE Consults: 02/28/17 18:30 Consult to Cardiac Rehabilitation-Phase1 [CONS] Routine Comment: Reason for Consult: AMI Call Completed: Yes Consult to Nurse Navigator [CONS] Routine Comment: 02/28/17 20:49 Consult to Critical Care [CONS] Routine Consulting Provider: [facility] [place] Reason for Consult: pneumonia/resp failure Time Notified: 20:00 Call Completed: No Consult to Hospitalist [CONS] Routine Consulting Provider: Hospitalist Dez Reason for Consult: pneumonia / resp failure Time Notified: 20:00 Call Completed: Yes 03/04/17 11:24 Consult to Store Receiver [CONS] Stat Reason for SW Consult: help w/ application for medicaid 03/06/17 10:45 Consult to Physical Therapy [CONS] Routine Comment: Evaluate, develop and implement POC Reason for Consult: CVA s/p [place]. Now extubated. Left sided weakness. Please evaluate and treat. 03/06/17 10:47 Consult to Occupational Therapy [CONS] Routine Comment: Evaluate, develop and implement POC Reason for Consult: S/p OH and CVA with prolonged intubation. Now extubated. 03/06/17 11:18 Consult to Speech Therapy [CONS] Routine Comment: Evaluate, develop and implement POC Reason for Consult: S/p [place] and CVA with prolonged intubation. Now extubated. Call Completed: No 03/07/17 11:51 Consult to Neurology [CONS] Routine Consulting Provider: Neurology [facility] Reason for Consult: STEMI on admission. Now with CVA. Call Completed: Yes 04/03/17 11:10 Consult to Psychiatry [CONS] Routine Consulting Provider: Psychiatry Vidya Reason for Consult: request by social work to re-evaluate for competency and sign paperwork Time Notified: 11:11 Call Completed: Yes 09/21/17 10:12 Consult to Psychiatry [CONS] Routine Consulting Provider: Mannie Dasilva Reason for Consult: Mental and decision-making capacity evaluation Call Completed: Yes Discharging clinician: Jeri Hu Anticipated date of discharge: 05/31/17 - Patient Status Disposition: Transfer SNF Condition: Good Functional capacity at discharge: uses cane/walker Overall status at discharge: patient is back to baseline - Discharge Instructions Follow Up With: NONE,PCP [Primary Care Provider] - (working on placement to e[facility], will follow up with PCP at [facility]CF) Additional Instructions: Please follow up with your primary care physician within one week after your discharge from the hospital Please follow up with cardiology within one week after your discharge from the hospital. Please continue medications as prescribed. Please monitor your INR weekly. - Diet and Activity Activity: increase activity as tolerated Diet: low salt diet Hospital course: Mr. Patel is a 66 year old male with no reported medical history who was initially admitted to the hospital with STEMI. He underwent cardiology evaluation and had two EVER placed to the LAD. He was started on ASA and Brilinta. His hospital course was further complicated with Afib and CVA. He was started on anticoagulation and BB. HIs hospital course was prolonged due to his cognitive impairment. He was deemed to not have capacity and no family to be his POA due to which guardianship was requested by the court. Guardianship was obtained last week after which Medicaid paperwork was filed. Pt has been approved by Medicaid and as per patient and his guardian's request, he is to be discharged to ECF. Pt is hemodynamically stable and will be discharged to ECF pending ECF acceptance. - Time Spent with Patient Total time spent providing and/or coordinating discharge services: Greater than 30 minutes - Constitutional Vitals: Temp Pulse Resp BP Pulse Ox 97.9 F 58 12 105/65 98 05/31/17 11:20 05/31/17 11:20 05/31/17 11:20 05/31/17 11:20 05/31/17 11:20 General appearance: Present: cooperative, A&O X 3, pleasant, no acute distress, answers questions appropriately - Head Head exam: Present: atraumatic, normocephalic - Eye Eye exam: Present: normal appearance, conjuntiva pink, sclera anicteric - Respiratory Respiratory exam: Present: CTAB. Absent: accessory muscle use, rales, rhonchi, wheezes - Cardiovascular Cardiovascular exam: Present: RRR, +S1, +S2. Absent: diastolic murmur, gallop, rubs, systolic murmur - GI/Abdominal GI/Abdominal exam: Present: normal bowel sounds, soft, no peritoneal signs. Absent: distended, tenderness - Extremities Exam Extremities exam: Present: warm, radial pulses palpable and symmetrical. Absent : calf tenderness, cyanotic, pedal edema - Neurological Exam Neurological exam: Present: alert, oriented X3 - Psychiatric Psychiatric exam: Present: normal affect, normal mood
[2017-05-31] MEDS ORDERED: FLUARIX QUAD 2017-18 36MOS UP/PF 0.5 ML SYRINGE IM ONE (14:22)
== END 2017-05-31 18:00 | DRG 174 ==
LOC: EMEROO 15:57 → ICNU 18:20 → SUATTDRO 18:20 → ICNU 18:35 → 2NNU 03-08 17:47 → 2ANU 03-10 16:04 → 2NNU 03-10 16:05 → 2ANU 03-10 17:43
PROVIDERS: ADMIT Emergency Medicine; ATTEND Internal Medicine